=== PATIENT | female | born 1935 | race Caucasian/White ===

== ENCOUNTER 2017-10-02 14:16 | Inpatient (IN) | payer MEDICARE ==
--- NOTE | 2017-10-02 15:06 | RAD ---
1 VIEW CHEST: Date: 10/02/17 HISTORY: Chest pain and flu-like symptoms. COMPARISON: 05/20/17. FINDINGS: Portable upright chest demonstrates a normal cardiac silhouette. Pulmonary vessels are within normal limits. Right costophrenic angle is clear. Chronic blunting of left costophrenic angle. No consolidat ion or masses. Patchy interstitial opacities are noted. No pneumothorax or osseous abnormalities. IMPRESSION: Patchy interstitial opacities. Correlate for edema or infiltrate. Continued surveillance. POS: [facility]
[2017-10-02 15:43] LABS: #Eosinphils 0.1 thou/uL (0.0-0.7); #Lymphocytes 1.9 thou/uL (1.20-3.40); #Monocytes 0.4 thou/uL (0.11-0.59); #Neutrophils 7.1 thou/uL (1.40-6.50); %Basophils 0.2 % (0.0-1.0); %Lymphocytes 19.8 % (21.0-51.0); Hemoglobin 10.6 g/dL (12.0-16.0); Mean Corpuscular HGB CONC 32.5 g/dL (32.0-36.0); Mean Corpuscular Hemoglobin 28.8 pg (27.0-31.0); Mean Corpuscular Volume 88.6 fl (81.0-99.0); Mean Platelet Volume 7.7 fL (7.4-10.4); Platelet Count 255 thou/uL (130-400); RBC Distribution Width 12.3 % (11.5-14.5); White Blood Cell (WBC) Count 9.4 thou/uL (4.8-10.8)
[2017-10-02 15:50] LABS: Prothrombin Time 13.1 SEC (12.0-14.7)
[2017-10-02 15:51] LABS: PTT 30.3 SEC (22.9-36.1)
[2017-10-02 16:03] LABS: ALT (SGPT) 11 U/L (8-55); AST (SGOT) 15 U/L (5-34); Albumin 3.3 g/dL (3.4-4.8); Alkaline Phosphatase 71 U/L (40-150); Anion Gap 12 mmol/L (10-20); BUN (Urea Nitrogen) 36 mg/dL (9.8-20.1); Bilirubin, Total 0.2 mg/dL (0.2-1.2); CK (CPK) 43 U/L (29-168); Calc. Creatinine Clearance 0 mL/min (70-130); Calcium 9.8 mg/dL (7.8-10.44); Carbon Dioxide 28 mmol/L (23-31); Chloride 101 mmol/L (98-107); Estimated GFR-MDRD 21; Globulin 3.3 g/dL (2.4-3.5); Glucose 331 mg/dL (83-110); Lipase 72 U/L (8-78); Protein, Total 6.6 g/dL (6.0-8.3); Sodium 137 mmol/L (136-145)
[2017-10-02 16:07] LABS: CKMB 1.9 ng/mL (0-6.6); Troponin I 0.062 ng/mL (< 0.028)
[2017-10-02] MEDS ORDERED: Furosemide 40 MG/4 ML VIAL ONE (16:16)
[2017-10-02] MEDS ORDERED: Nitroglycerin 2% Ointment 1 INCH/1 GM Packet ONE (16:16)
[2017-10-02] MEDS ORDERED: Acetaminophen 500 MG TAB ONE (18:00)
[2017-10-02 19:09] LABS: Troponin I 0.141 ng/mL (< 0.028)
[2017-10-02 22:13] LABS: Troponin I 0.133 ng/mL (< 0.028)
[2017-10-02] MEDS ORDERED: Metoprolol Tartrate 100 MG TAB PO SCH (22:30)
[2017-10-02] MEDS: Melatonin 3 MG TAB PO PRN (22:51)
[2017-10-02] MEDS: Acetaminophen 325 MG TAB PO PRN (22:51)
[2017-10-02] MEDS: Nitroglycerin 2% Ointment 1 INCH/1 GM Packet TOP SCH (22:58)
[2017-10-03] MEDS: Carvedilol 3.125 MG TAB PO SCH ×3 (00:01→11:08)
[2017-10-03 00:07] VITALS: BMI 27.1
[2017-10-03] MEDS: Nitroglycerin 2% Ointment 1 INCH/1 GM Packet TOP SCH ×3 (02:34→20:21)
--- NOTE | 2017-10-03 03:46 | HP ---
CHIEF COMPLAINT: Chest pain. HISTORY OF PRESENT ILLNESS: She is an 81-year-old woman who is a resident of a intermediate. She came in because of some chest pain, shortness of breath, palpitations, and left arm pain. The onset of the chest pain was sudden and the patient ate the food and went to lie down for a nap and caused the chest pain and the left arm pain. The pain was a dull ache and lasted for 30 minutes. The patient denies any chest congestion, any fever, any nausea or vomiting. Daughter reports her chest pain was one month ago and she is to have angioplasty in the past. CURRENT MEDICATION: She is taking Fosamax 70 mg. PAST MEDICAL HISTORY: Hypertension, diabetes, heart failure, mitral valve regurgitation, chronic kidney disease. PAST SURGICAL HISTORY: Angioplasty, back surgery. PSYCHIATRIC HISTORY: Depression. SOCIAL HISTORY: Denies any drug use or alcohol use. No smoking. In the ER, she was given Lasix 40 mg IV and nitro paste ointment. REVIEW OF SYSTEMS: Constitutional: Negative for fever or chills. Eyes: Negative for any eye ache and discharge. ENT: Negative for ear, nose, throat symptoms. Cardiovascular: She has chest pain, radiation to the left arm and palpitation. Respiratory: She denies any cough. She has some shortness of breath. No cough. Gastrointestinal: No nausea, no vomiting, no diarrhea. Musculoskeletal: No back pain. Skin: No rash. Neurologic: No loss of consciousness. Endocrine: No polyuria, no polydipsia. Hematologic/Lymphatic: No lymphadenopathy and no anemia. Psychiatric: Negative history. All other review of systems is negative except in the HPI. PHYSICAL EXAMINATION: GENERAL: When examining her, she is an elderly woman, looks younger than age, lying in the bed in distress. On examination, she is alert, oriented. VITAL SIGNS: Pulse 102, blood pressure 167/93, respiration rate 18, temperature 99.4. HEENT: Head is atraumatic and normocephalic. Pupils are round and reactive. Ear, nose, and throat are normal. tongue mucosa moist. NECK: Supple, no JVD, no thyromegaly, no carotid bruit. Trachea midline. RESPIRATORY: Diminished breaths on the bases. No crackles, no wheezing, no rales. Chest wall, no tenderness noted. ABDOMEN: Soft, bowel sounds audible, no organomegaly. EXTREMITIES: No pedal edema, no cyanosis, no clubbing. NEUROLOGICAL: She is alert x3, no focal deficit. LABORATORY DATA: EKG shows normal sinus rhythm, no ectopics, complete LBBB, old. Radiology, chest x-ray shows some edema, no infiltrate. WBC shows 9.4, hemoglobin 10.6, hematocrit 32.8, platelets 55. Flu test negative. BNP 369.57. Troponin 0.062, high. Lipase 72. CK 42. Creatinine 2.26, BUN 36, glucose 331, albumin 3.3. ASSESSMENT AND PLAN: 1. Chest pain with a history of slightly elevated troponin. We will rule out myocardial infarction by serial CK, troponin, echocardiogram, cardiac consultation. 2. Heart failure with high BNP. Continue IV Lasix 40 mg twice daily and follow closely. Fluid restrictions. 3. Chronic kidney disease stage 4, old. Continue to follow. Monitor. 4. Deep venous thrombosis prophylaxis, Lovenox. MTDD
[2017-10-03 05:39] LABS: Cardiac Risk 3.5 (Less than 4.5)
[2017-10-03 06:24] LABS: Troponin I 0.114 ng/mL (< 0.028)
--- NOTE | 2017-10-03 08:19 | CON ---
DATE OF CONSULTATION: 10/03/2017 REASON FOR CONSULTATION: Chest pain. PRIMARY SAW SETTER: None. PRIMARY PROVIDER: Dr. Jain HISTORY: Ms. Mitchell is an 81-year-old woman who was in her normal state of health while in assisted living who states she began having chest tightness. She had left arm radiation and shortness of peter th. No nausea, vomiting or other associated symptoms present. She does have a history of a PTCA onl y 40 years ago. She does not remember her symptoms at that time. Her current symptoms are currently resolved. Troponins within the indeterminate range, but also elevated creatinine which was felt to be new at 2.26. PAST MEDICAL HISTORY: CAD, hypertension, diabetes mellitus, chronic kidney disease. PTCA, back surgery, depression. SOCIAL HISTORY: No current alcohol or tobacco use. She currently resides in an assisted living. CURRENT MEDICATIONS: Only Fosamax. REVIEW OF SYSTEMS: Ten point review of systems is reviewed and is as above, negative. PHYSICAL EXAMINATION: VITAL SIGNS: Blood pressure 164/76, pulse 75, temperature 98.5. GENERAL: Patient is a pleasant female who is in no acute distress. The patient appears her stated ag e. NEUROLOGIC: The patient is alert and oriented times 3 with no focal neurologic deficits. HEENT: Sclerae without icterus. Mouth has moist mucous membranes with normal pallor. NECK: No JVD. Carotid upstroke brisk. No bruits bilaterally. LUNGS: Clear to auscultation with unlabored respirations. BACK: No scoliosis or kyphosis. CARDIAC: Regular rate and rhythm with normal S1 and S2. No S3 or S4 noted. No significant rubs, mur murs, thrills, or gallops noted throughout the precordium. PMI is not displaced. There is no parast ernal heave. ABDOMEN: Soft, nontender, nondistended. No peritoneal signs present. No hepatosplenomegaly. No abn ormal striae. EXTREMITIES: 2+ femoral and 2+ dorsalis pedis pulses. No cyanosis, clubbing, or edema. SKIN: No gross abnormalities. PERTINENT LABS: Peak troponin 0.153. Hemoglobin 10.6. EKG, left bundle branch block (old). IMPRESSION: 1. Chest pain. 2. Coronary artery disease. 3. Status post stent placement and PTCA. 4. Chronic left bundle branch block. 5. Acute renal insufficiency. RECOMMENDATIONS: Her symptoms certainly suggest angina. Given her age and comorbidities, would joey mmend a more conservative approach. She is currently pain free. Would recommend a noninvasive stres s study to assess for any areas of ischemia. If felt to be low risk, would then recommend medical th erapy. If felt to be high risk scan, would then recommend angiography. She does have an iodine beka rgy and would recommend preloading with contrast. Further recommendations pending the study.
[2017-10-03] MEDS: Acetaminophen 325 MG TAB PO PRN (11:05)
[2017-10-03] MEDS: Aspirin 325 MG TAB PO SCH (11:06)
[2017-10-03] MEDS: Metoprolol Tartrate 100 MG TAB PO SCH ×2 (11:06→20:21)
--- NOTE | 2017-10-03 13:05 | NM ---
CARDIAC SPECT: HISTORY: An 81-year-old female with chest pain, coronary artery disease, PTCA/stent, hypertension, and diabete s mellitus. TECHNIQUE: A myocardial perfusion scan was performed using the single isotope one-day protocol with technetium 9 9m sestamibi, and 10 millicuries was injected intravenously for the rest exam, followed by 33 millicu laine for the stress study. Pharmacologic stress with Lexiscan was monitored and interpreted by Dr. Brooke alcocer. FINDINGS: No fixed or reversible defects were seen. Gated SPECT LVEF was 41%. Wall motion exam showed global hypokinesis IMPRESSION: No evidence of reversible ischemia. POS: [facility]
[2017-10-03] MEDS: Enoxaparin Sodium 40 MG/0.4 ML SYRINGE SC SCH (14:08)
--- NOTE | 2017-10-03 14:32 | PDOC.PN ---
- Subjective Encounter Start Date: 10/03/17 Encounter Start Time: 14:31 Subjective: Pt seen and examined for NSTEMI, CHF -: Pt c/o sob went to nuclear stress test -: pt denies any CP - Objective MAR Reviewed: Yes Vital Signs & Weight: Vital Signs (12 hours) Temp Pulse Resp BP BP Pulse Ox 10/03/17 14:10 73 15 144/67 H 92 L 10/03/17 12:52 68 175/78 H 10/03/17 11:00 97.3 F L 102 H 16 185/79 H 94 L 10/03/17 08:00 98.5 F 75 18 10/03/17 07:20 97.4 F L 73 16 176/79 H 97 10/03/17 03:07 98.5 F 75 18 164/76 H 95 Weight Weight 139 lb I&O: 10/02/17 10/03/17 10/04/17 06:59 06:59 06:59 Intake Total 110 240 Output Total 250 Balance -140 240 Result Diagrams: 10/02/17 15:29 10/02/17 15:28 Additional Labs: Accuchecks 10/03/17 10/03/17 10/02/17 11:08 06:17 19:46 POC Glucose 168 H 116 H 233 H Phys Exam - Physical Examination HEENT: PERRLA, moist MMs, sclera anicteric, TM's clear, oral pharynx no lesions , 2+ tonsils Neck: no nodes, no JVD, supple, full ROM Respiratory: no wheezing, no rhonchi, wheezing present Rales B/L Cardiovascular: RRR, no significant murmur, no rub, gallop, irregular Musculoskeletal: edema present plus 2 Lymphatic: no nodes Psychiatric: normal affect Dx/Plan (1) NSTEMI (non-ST elevated myocardial infarction) Code(s): I21.4 - NON-ST ELEVATION (NSTEMI) MYOCARDIAL INFARCTION Status: Acute (2) CHF (congestive heart failure), NYHA class III Code(s): I50.9 - HEART FAILURE, UNSPECIFIED Status: Acute (3) Chest pain Code(s): R07.9 - CHEST PAIN, UNSPECIFIED Status: Acute (4) HTN (hypertension) Code(s): I10 - ESSENTIAL (PRIMARY) HYPERTENSION Status: Acute - Plan Continue IV Lasix 40mg BID -: Fluid Restriction -: Daily weight -: NSTEMI, Aspirin, Metoprolol -: Change to Inpatient * . Review of Systems - Medications/Allergies Allergies/Adverse Reactions: Allergies Allergy/AdvReac Type Severity Reaction Status Date / Time hydrocodone Allergy Verified 05/20/17 20:58 Iodine and Iodide Containing Allergy Verified 05/20/17 20:58 Produc onion Allergy Verified 10/03/17 00:06 Medications: Current Medications Acetaminophen (Tylenol) 650 mg PO Q4H PRN PRN Reason: PAIN/FEVER Last Admin: 10/03/17 11:05 Dose: 650 mg Aspirin (Aspirin) 325 mg PO DAILY COUNT INCLUDES THE [facility] Last Admin: 10/03/17 11:06 Dose: 325 mg Enoxaparin Sodium (Lovenox) 40 mg SC 0900 COUNT INCLUDES THE [facility] Last Admin: 10/03/17 14:08 Dose: 40 mg Furosemide (Lasix) 40 mg SLOW IVP 0600,1400 COUNT INCLUDES THE [facility] Melatonin (Melatonin) 9 mg PO HSPRN PRN PRN Reason: Insomnia Last Admin: 10/02/17 22:51 Dose: 9 mg Metoprolol Tartrate (Lopressor) 100 mg PO BID COUNT INCLUDES THE [facility] Last Admin: 10/03/17 11:06 Dose: 100 mg Nitroglycerin (Nitro-Bid 2% Ointment) 0.5 inch TOP Q8HR COUNT INCLUDES THE [facility] Last Admin: 10/03/17 14:08 Dose: 0.5 inch Sodium Chloride (Flush - Normal Saline) 10 ml IVF Q12HR COUNT INCLUDES THE [facility] Last Admin: 10/03/17 11:07 Dose: 10 ml
[2017-10-03] MEDS ORDERED: Furosemide 20 MG/2 ML VIAL SLOW IVP SCH (15:15)
[2017-10-03] MEDS ORDERED: Regadenoson 0.4 MG/5 ML SYRINGE ONE (15:29)
[2017-10-03] MEDS: Melatonin 3 MG TAB PO PRN (20:20)
[2017-10-03] MEDS ORDERED: Dextrose 5% in Water 1,000 ML IV PRN (20:44)
[2017-10-03] MEDS ORDERED: Dextrose 50% Abboject 50 ML SYRINGE IVP PRN (20:44)
[2017-10-03] MEDS: HumaLOG 300 UNITS/3 ML VIAL SC PRN (22:01)
[2017-10-04] MEDS ORDERED: Furosemide 40 MG/4 ML VIAL SLOW IVP SCH (06:00)
[2017-10-04] MEDS: Nitroglycerin 2% Ointment 1 INCH/1 GM Packet TOP SCH ×3 (06:03→20:41)
[2017-10-04] MEDS: Metoprolol Tartrate 100 MG TAB PO SCH ×2 (08:33→20:30)
[2017-10-04] MEDS: Aspirin 325 MG TAB PO SCH (08:33)
[2017-10-04] MEDS: Enoxaparin Sodium 40 MG/0.4 ML SYRINGE SC SCH (08:34)
[2017-10-04 11:41] LABS: Anion Gap 13 mmol/L (10-20); BUN (Urea Nitrogen) 39 mg/dL (9.8-20.1); Calc. Creatinine Clearance 20 mL/min (70-130); Calcium 9.9 mg/dL (7.8-10.44); Carbon Dioxide 29 mmol/L (23-31); Chloride 102 mmol/L (98-107); Estimated GFR-MDRD 22; Glucose 273 mg/dL (83-110); Potassium 4.5 mmol/L (3.5-5.1); Sodium 139 mmol/L (136-145)
--- NOTE | 2017-10-04 12:52 | PQF ---
CLINICAL DOCUMENTATION IMPROVEMENT CLARIFICATION FORM: ICD-10 Updated PLEASE DO AN ADDENDUM TO THE PROGRESS NOTE WITH ANY DOCUMENTATION UPDATES OR ADDITIONS AND CARRY THROUGH TO DC SUMMARY. THANK YOU. DATE: 10/04/17 ATTN: DR. WOODS Please exercise your independent, professional judgment in responding to the clarification form. Clinical indicators are provided on the bottom of this form for your review Please check appropriate box(s): HEART FAILURE: A.TYPE: [ ] Systolic / HFrEF [ ] Diastolic / HFpEF [ ] Combined Systolic / Diastolic B.ACUITY [ ] Acute[ ] Acute on Chronic [ ] Chronic C.WITH (if appropriate) [ ] Hypertensive Heart Disease[ ] Hypertensive Heart and Kidney Disease [ ] Other diagnosis [ ] Unable to determine In addition, please specify: Present on Admission (POA): [ ] Yes [ ] No [ ] Unable to determine For continuity of documentation, please document condition throughout progress notes and discharge summary. Thank You. CLINICAL INDICATORS - SIGNS / SYMPTOMS / LABS H&P 10/02: "HEART FAILURE WITH HIGH BNP" ECHO REPORT: "EJECTION FRACTION IS VISUALLY ESTIMATED AT 45%. ABNORMAL SEPTAL MOTION SECONDARY TO LBBB. E/A FLOW REVERSAL NOTED. SUGGESTIVE OF DIASTOLIC DYSFUNCTION." BNP 367 RISKS: H/O HEART FAILURE HYPERTENSION TREATMENT: IV LASIX (GIVEN IN ER-10/04) COREG (10/02-10/03) ECHOCARDIOGRAM TELEMETRY MONITORING CARDIOLOGY CONSULT (This form is maintained as a part of the permanent medical record) 2014 [employer]. All Rights Reserved PEYTON [email or web address] Office: [phone] [facility]
--- NOTE | 2017-10-04 13:25 | PDOC.PN ---
- Subjective Encounter Start Date: 10/04/17 Encounter Start Time: 13:24 Subjective: Pt seen and examined for Acute systolic HF, HTN, ANGELA on CKD -: pt feels better, denies any CP,urine output adequate - Objective MAR Reviewed: Yes Vital Signs & Weight: Vital Signs (12 hours) Temp Pulse Resp BP BP Pulse Ox 10/04/17 11:15 97.5 F L 70 16 177/78 H 95 10/04/17 08:00 97.8 F 81 16 184/81 H 96 10/04/17 06:01 76 16 167/72 H 95 10/04/17 04:00 98.4 F 82 13 179/84 H 97 10/04/17 03:01 97 Weight Weight 131 lb 8 oz I&O: 10/03/17 10/04/17 10/05/17 06:59 06:59 06:59 Intake Total 740 Output Total 1600 Balance -860 Result Diagrams: 10/02/17 15:29 10/04/17 11:14 Additional Labs: Accuchecks 10/04/17 10/04/17 10/03/17 11:25 06:17 20:04 POC Glucose 253 H 170 H 321 H 10/03/17 16:40 POC Glucose 149 H Radiology Reviewed by me: Yes Phys Exam - Physical Examination HEENT: PERRLA, moist MMs, sclera anicteric, TM's clear, oral pharynx no lesions , 2+ tonsils Neck: no nodes, no JVD, supple, full ROM Respiratory: no wheezing, no rales, no rhonchi, wheezing present, clear to auscultation bilateral Cardiovascular: RRR, no significant murmur, no rub, gallop, irregular Gastrointestinal: soft, non-tender, no distention, positive bowel sounds Musculoskeletal: edema present Neurological: non-focal, normal sensation, moves all 4 limbs Dx/Plan (1) NSTEMI (non-ST elevated myocardial infarction) Code(s): I21.4 - NON-ST ELEVATION (NSTEMI) MYOCARDIAL INFARCTION Status: Acute (2) CHF (congestive heart failure), NYHA class III Code(s): I50.9 - HEART FAILURE, UNSPECIFIED Status: Acute Qualifiers: Congestive heart failure chronicity: acute (3) Chest pain Code(s): R07.9 - CHEST PAIN, UNSPECIFIED Status: Acute (4) HTN (hypertension) Code(s): I10 - ESSENTIAL (PRIMARY) HYPERTENSION Status: Acute - Plan cont current plan of care, plan discussed w/ family, PT/OT 1) Chest pain, MO is ruled out, Negative nuclear stress test -: 2) Acute CHF with EF 45 %, continue Lasix and Lopressor -: 3) ANGELA on CKD stage 3, Nephrology consulted -: 4) Type 2 DM, continue sliding scale -: 5) DVT Prophylaxis ,Lovenox * . Review of Systems - Review of Systems Cardiovascular: negative: chest pain, palpitations, orthopnea, paroxysmal nocturnal dyspnea, edema, light headedness, other Gastrointestinal: negative: Nausea, Vomiting, Abdominal Pain, Diarrhea, Constipation, Melena, Hematochezia, Other Genitourinary: negative: Dysuria, Frequency, Incontinence, Hematuria, Retention , Other Musculoskeletal: negative: Neck Pain, Shoulder Pain, Arm Pain, Back Pain, Hand Pain, Leg Pain, Foot Pain, Other Skin: negative: Rash, Lesions, Hernesto, Bruising, Other Neurological: negative: Weakness, Numbness, Incoordination, Change in Speech, Confusion, Seizures, Other - Medications/Allergies Allergies/Adverse Reactions: Allergies Allergy/AdvReac Type Severity Reaction Status Date / Time hydrocodone Allergy Verified 05/20/17 20:58 Iodine and Iodide Containing Allergy Verified 05/20/17 20:58 Produc onion Allergy Verified 10/03/17 00:06 Medications: Current Medications Acetaminophen (Tylenol) 650 mg PO Q4H PRN PRN Reason: PAIN/FEVER Last Admin: 10/03/17 11:05 Dose: 650 mg Amlodipine Besylate (Norvasc) 2.5 mg PO DAILY [facility] Aspirin (Aspirin) 325 mg PO DAILY [facility] Last Admin: 10/04/17 08:33 Dose: 325 mg Dextrose/Water (Dextrose 50%) 25 gm IVP PRN PRN PRN Reason: HYPOGLYCEMIA PROTOCOL Enoxaparin Sodium (Lovenox) 40 mg SC 0900 [facility] Last Admin: 10/04/17 08:34 Dose: 40 mg Glucagon (Glucagon) 1 mg IM PRN PRN PRN Reason: HYPOGLYCEMIA PROTOCOL Dextrose/Water (D5w) 1,000 mls @ 0 mls/hr IV INF PRN; As Directed PRN Reason: HYPOGLYCEMIA PROTOCOL Insulin Human Lispro (Humalog) 0 units SC .MODERATE SLIDING SC PRN; Protocol PRN Reason: MODERATE SLIDING SCALE Insulin Human Lispro (Humalog) 0 units SC .BEDTIME SLIDING SC PRN; Protocol PRN Reason: BEDTIME SLIDING SCALE Last Admin: 10/03/17 22:01 Dose: 4 unit Melatonin (Melatonin) 9 mg PO HSPRN PRN PRN Reason: Insomnia Last Admin: 10/03/17 20:20 Dose: 9 mg Metoprolol Tartrate (Lopressor) 100 mg PO BID [facility] Last Admin: 10/04/17 08:33 Dose: 100 mg Nitroglycerin (Nitro-Bid 2% Ointment) 0.5 inch TOP Q8HR [facility] Last Admin: 10/04/17 06:03 Dose: 0.5 inch Sodium Chloride (Flush - Normal Saline) 10 ml IVF Q12HR [facility] Last Admin: 10/04/17 08:34 Dose: 10 ml
[2017-10-04] MEDS ORDERED: Amlodipine 5 MG TAB PO SCH (14:00)
--- NOTE | 2017-10-04 14:11 | PRG ---
DATE OF SERVICE: 10/04/2017 SUBJECTIVE: Ms. Mitchell is feeling better today. She received 1 dose of Lasix yesterday. Her shortn ess of breath has improved. Her creatinine has remained stable. PHYSICAL EXAMINATION: VITAL SIGNS: Blood pressure 177/78, pulse 70, temperature 97.5. LUNGS: Clear to auscultation. CARDIAC: Regular rate and rhythm. ABDOMEN: Soft, nontender. EXTREMITIES: No edema. IMAGING DATA: Cardiolite perfusion study negative for ischemia with LVEF 41%. Echo with Doppler shows LVEF 40%-45% with dyskinesis of the septum from her left bundle branch block. IMPRESSION: 1. Acute on chronic systolic heart failure. 2. Shortness of breath. 3. Hypertension. RECOMMENDATIONS: Mr. Mitchell' symptoms have improved. At this point, her issue is her blood pressure . She is currently on amlodipine 2.5 q.a.m. We will increase to 5 mg q.a.m. We will discontinue he r aspirin which may cause some salt retention. Continue metoprolol. Otherwise, CHRISTOPHER inhibitor therap y or ARB due to renal insufficiency. Once her blood pressure is stabilized, it would be okay from my standpoint to discharge home. She wo uld likely follow her up as an outpatient. We will follow up in 1-2 weeks.
[2017-10-04] MEDS: HumaLOG 300 UNITS/3 ML VIAL SC PRN ×2 (16:11→20:45)
[2017-10-04] MEDS: Melatonin 3 MG TAB PO PRN (20:30)
[2017-10-04] MEDS: Acetaminophen 325 MG TAB PO PRN (20:43)
--- NOTE | 2017-10-04 20:55 | ULT ---
RENAL ULTRASOUND: 10/04/17 HISTORY: Renal insufficiency. Real time imaging of the right and left kidneys were performed. Right kidney measures 9.2 and left ki dney 9.0 cm in size. Both kidneys are of increased echogenicity. The bladder region is unremarkable. IMPRESSION: 1. Increased echogenicity to both kidneys compatible with medical renal parenchymal disease. 2. Incidental note is made of a small 1 cm left renal cyst. POS: [facility]
[2017-10-05 03:34] LABS: Creatinine, Urine 83.71 mg/dL (47-110)
[2017-10-05 05:56] LABS: Anion Gap 13 mmol/L (10-20); BUN (Urea Nitrogen) 44 mg/dL (9.8-20.1); Calc. Creatinine Clearance 17 mL/min (70-130); Calcium 9.7 mg/dL (7.8-10.44); Carbon Dioxide 27 mmol/L (23-31); Chloride 103 mmol/L (98-107); Estimated GFR-MDRD 19; Glucose 234 mg/dL (83-110); Potassium 4.5 mmol/L (3.5-5.1); Sodium 138 mmol/L (136-145)
[2017-10-05] MEDS: Nitroglycerin 2% Ointment 1 INCH/1 GM Packet TOP SCH ×3 (05:59→20:06)
--- NOTE | 2017-10-05 06:20 | CON ---
DATE OF CONSULTATION: 10/04/2017 CONSULTING PHYSICIAN: Dr. Jain REASON FOR CONSULTATION: Acute kidney injury. REASON FOR ADMISSION: Chest pain. HISTORY OF PRESENT ILLNESS: This is an 81-year-old female with history of osteoporosis, came to the hospital with above complaints and Nephrology is calling also for acute kidney injury. Patient does have a baseline creatinine of 1.6 and was found to have 2.2, and then 2.1. Patient was on Lasix whic h was stopped. The patient is feeling better, no fever or chills. Her daughter was at the bedside. No nausea, vomiting, no chest pain, palpitation. PAST MEDICAL HISTORY: Positive for hypertension, type 2 diabetes, heart failure, mitral valve regurg itation, chronic kidney disease. PAST SURGICAL HISTORY: Angioplasty, back surgery. HOME MEDICATIONS: Include Trulicity, Zoloft, Prilosec, Lopressor, loperamide, furosemide, vitamin D3 , aspirin, Norvasc, Fosamax. ALLERGIES: HYDROCODONE, IODINE and ONION. SOCIAL HISTORY: No smoking, alcohol or illicit drug abuse. FAMILY HISTORY: No history of any kidney disease. REVIEW OF SYSTEMS: The following complete review of systems was negative, unless otherwise mentioned in the HPI or below: Constitutional: Weight loss or gain, ability to conduct usual activities. Skin: Rash, itching. Ey es: Double vision, pain. ENT/Mouth: Nose bleeding, neck stiffness, pain, tenderness. Cardiovascul ar: Palpitations, dyspnea on exertion, orthopnea. Respiratory: Shortness of breath, wheezing, coug h, hemoptysis, fever or night sweats. Gastrointestinal: Poor appetite, abdominal pain, heartburn, n ausea, vomiting, constipation, or diarrhea. Genitourinary: Urgency, frequency, dysuria, nocturia. Musculoskeletal: Pain, swelling. Neurologic/Psychiatric: Anxiety, depression. Allergy/Immunologic : Skin rash, bleeding tendency. PHYSICAL EXAMINATION: GENERAL: This is an elderly female in no apparent distress. VITAL SIGNS: Temperature 98.4, pulse 732, respiratory rate 18, blood pressure 162/72. HEENT: Atraumatic, normocephalic. Oral mucosa is moist. NECK: Supple. HEART: S1, S2 heard. Rate and rhythm regular. RESPIRATORY: Clear. GASTROINTESTINAL: Abdomen is soft. MUSCULOSKELETAL: No tenderness, no edema. DERMATOLOGIC: No skin rash. NEUROLOGIC: Alert and awake. PSYCHIATRIC: Mood and affect normal. LABORATORY AND X-RAY FINDINGS: Creatinine is 2.1, hemoglobin is 10.6. ASSESSMENT AND PLAN: 1. Acute kidney injury on chronic kidney disease stage IV. Monitor renal function closely. 2. Anemia, mild. 3. Edema, controlled. 4. Hypertension. Plan is to check urine protein/creatinine ratio and check chronic kidney disease labs. We will follo w and also check renal ultrasound.
[2017-10-05] MEDS: Metoprolol Tartrate 100 MG TAB PO SCH ×2 (08:40→20:05)
[2017-10-05] MEDS: Enoxaparin Sodium 30 MG/0.3 ML SYRINGE SC SCH (08:40)
[2017-10-05] MEDS: HumaLOG 300 UNITS/3 ML VIAL SC PRN ×3 (08:41→17:47)
[2017-10-05] MEDS ORDERED: Amlodipine 5 MG TAB PO SCH ×2 (09:00)
--- NOTE | 2017-10-05 10:00 | PRG ---
DATE OF SERVICE: 10/05/2017 SUBJECTIVE: Patient was seen and examined at bedside and overnight events noted. Patient denies any shortness of breath or chest pain or palpitation. No history of nausea or vomiting or diarrhea or f ever or chills or cramps. OBJECTIVE: GENERAL: This is an elderly female in no apparent distress. VITAL SIGNS: Temperature 97.9, pulse 74, respiratory rate 16, and blood pressure 159/70. HEENT: Atraumatic, normocephalic. Oral mucosa is moist. NECK: Supple. CARDIOVASCULAR: S1, S2 heard. Rate and rhythm regular. RESPIRATORY: Clear to auscultation. GASTROINTESTINAL: Abdomen is soft. MUSCULOSKELETAL: No tenderness. No edema. DERMATOLOGIC: No skin rash. NEUROLOGIC: Alert and awake and oriented x3. No focal neurologic deficits. Moving all the extremiti es. PSYCHIATRIC: Mood and affect normal. LABORATORY DATA: Potassium is 4.5, BUN 44, creatinine is 2.4. ASSESSMENT AND PLAN: 1. Acute kidney injury on chronic kidney disease stage 4, most likely patient does have chronic kidn ey disease. Glomerular filtration rate is low. 2. Renal ultrasound suggests chronicity. 3. Secondary hyperparathyroidism. 4. Vitamin deficiency. We will start on vitamin D and calcium level is stable. 5. Anemia, most likely from chronic kidney disease. 6. Edema, controlled. 7. Hypertension. 8. Diabetic nephropathy. 9. Proteinuria, most likely from diabetic nephropathy. Plan is to monitor renal function closely. We will follow. Thank you for the consultation.
--- NOTE | 2017-10-05 13:10 | PDOC.PN ---
- Subjective Encounter Start Date: 10/05/17 Encounter Start Time: 13:08 Subjective: Pt seen and examined -: BP still Elevated, Kidney functions slightly worsening -: denies any complain - Objective Vital Signs & Weight: Vital Signs (12 hours) Temp Pulse Pulse Pulse Resp BP BP 10/05/17 11:56 98.6 F 62 16 10/05/17 09:30 62 65 145/62 H 10/05/17 09:00 97.9 F 74 16 10/05/17 08:39 74 159/70 H 10/05/17 08:36 97.9 F 74 16 10/05/17 08:15 10/05/17 05:57 72 20 10/05/17 04:13 10/05/17 04:00 97.2 F L 67 13 BP BP BP BP Pulse Ox 10/05/17 11:56 173/81 H 97 10/05/17 09:30 185/79 H 10/05/17 09:00 95 10/05/17 08:39 10/05/17 08:36 159/70 H 95 10/05/17 08:15 94 L 10/05/17 05:57 143/65 H 94 L 10/05/17 04:13 93 L 10/05/17 04:00 143/66 H 93 L Weight Weight 132 lb 4.8 oz I&O: 10/04/17 10/05/17 10/06/17 06:59 06:59 06:59 Intake Total 740 860 Output Total 1600 1100 Balance -860 -240 Result Diagrams: 10/02/17 15:29 10/05/17 04:26 Additional Labs: Accuchecks 10/05/17 10/05/17 10/04/17 10:58 05:52 19:54 POC Glucose 198 H 257 H 334 H 10/04/17 16:10 POC Glucose 251 H Phys Exam - Physical Examination HEENT: PERRLA, moist MMs, sclera anicteric, TM's clear, oral pharynx no lesions , 2+ tonsils Neck: no nodes, no JVD, supple, full ROM Respiratory: no wheezing, no rales, no rhonchi, wheezing present, clear to auscultation bilateral Cardiovascular: RRR, no significant murmur, no rub, gallop, irregular Gastrointestinal: soft, non-tender, no distention, positive bowel sounds Musculoskeletal: no edema, pulses present, edema present Neurological: non-focal, normal sensation, moves all 4 limbs Dx/Plan (1) NSTEMI (non-ST elevated myocardial infarction) Code(s): I21.4 - NON-ST ELEVATION (NSTEMI) MYOCARDIAL INFARCTION Status: Acute (2) CHF (congestive heart failure), NYHA class III Code(s): I50.9 - HEART FAILURE, UNSPECIFIED Status: Acute Qualifiers: Congestive heart failure chronicity: acute (3) Chest pain Code(s): R07.9 - CHEST PAIN, UNSPECIFIED Status: Acute (4) HTN (hypertension) Code(s): I10 - ESSENTIAL (PRIMARY) HYPERTENSION Status: Acute - Plan DVT proph w/lovenox Acute CHF with EF 45%, Negative stress test -: Holding Diuretics because of worsening kidney functions -: HTN, not well controlled, increased amlodipine to 5 mg -: PT consulted * . Review of Systems - Medications/Allergies Allergies/Adverse Reactions: Allergies Allergy/AdvReac Type Severity Reaction Status Date / Time hydrocodone Allergy Verified 05/20/17 20:58 Iodine and Iodide Containing Allergy Verified 05/20/17 20:58 Produc onion Allergy Verified 10/03/17 00:06 Medications: Current Medications Acetaminophen (Tylenol) 650 mg PO Q4H PRN PRN Reason: PAIN/FEVER Last Admin: 10/04/17 20:43 Dose: 650 mg Amlodipine Besylate (Norvasc) 5 mg PO DAILY [facility] Last Admin: 10/05/17 08:39 Dose: 5 mg Cholecalciferol (Vitamin D3) 2,000 units PO DAILY [facility] Dextrose/Water (Dextrose 50%) 25 gm IVP PRN PRN PRN Reason: HYPOGLYCEMIA PROTOCOL Enoxaparin Sodium (Lovenox) 30 mg SC 0900 [facility] Last Admin: 10/05/17 08:40 Dose: 30 mg Glucagon (Glucagon) 1 mg IM PRN PRN PRN Reason: HYPOGLYCEMIA PROTOCOL Dextrose/Water (D5w) 1,000 mls @ 0 mls/hr IV INF PRN; As Directed PRN Reason: HYPOGLYCEMIA PROTOCOL Insulin Human Lispro (Humalog) 0 units SC .MODERATE SLIDING SC PRN; Protocol PRN Reason: MODERATE SLIDING SCALE Last Admin: 10/05/17 12:17 Dose: 2 unit Insulin Human Lispro (Humalog) 0 units SC .BEDTIME SLIDING SC PRN; Protocol PRN Reason: BEDTIME SLIDING SCALE Last Admin: 10/04/17 20:45 Dose: 4 unit Melatonin (Melatonin) 9 mg PO HSPRN PRN PRN Reason: Insomnia Last Admin: 10/04/17 20:30 Dose: 9 mg Metoprolol Tartrate (Lopressor) 100 mg PO BID [facility] Last Admin: 10/05/17 08:40 Dose: 100 mg Nitroglycerin (Nitro-Bid 2% Ointment) 0.5 inch TOP Q8HR [facility] Last Admin: 10/05/17 05:59 Dose: 0.5 inch Sodium Chloride (Flush - Normal Saline) 10 ml IVF Q12HR [facility] Last Admin: 10/05/17 08:41 Dose: 10 ml
[2017-10-06] MEDS: Nitroglycerin 2% Ointment 1 INCH/1 GM Packet TOP SCH (05:22)
[2017-10-06] MEDS: Acetaminophen 325 MG TAB PO PRN ×2 (05:26→11:35)
[2017-10-06 05:37] LABS: Anion Gap 12 mmol/L (10-20); BUN (Urea Nitrogen) 43 mg/dL (9.8-20.1); Calc. Creatinine Clearance 20 mL/min (70-130); Calcium 9.5 mg/dL (7.8-10.44); Carbon Dioxide 28 mmol/L (23-31); Chloride 103 mmol/L (98-107); Estimated GFR-MDRD 23; Glucose 294 mg/dL (83-110); Potassium 4.8 mmol/L (3.5-5.1); Sodium 138 mmol/L (136-145)
--- NOTE | 2017-10-06 08:29 | PDOC.PN ---
- Subjective Encounter Start Date: 10/06/17 Encounter Start Time: 10:00 Subjective: Patient feeling a little better. Still weak but able to get up to the -: bathroom. Has a walker and assistance at [facility]. Doing -: PT there as well. - Objective MAR Reviewed: Yes Vital Signs & Weight: Vital Signs (12 hours) Temp Pulse Resp BP Pulse Ox 10/06/17 05:28 96 10/06/17 04:00 98.2 F 76 18 168/71 H 95 Weight Weight 132 lb I&O: 10/05/17 10/06/17 10/07/17 06:59 06:59 06:59 Intake Total 860 1480 Output Total 1100 1520 Balance -240 -40 Result Diagrams: 10/02/17 15:29 10/06/17 04:28 Additional Labs: Accuchecks 10/06/17 10/05/17 10/05/17 06:12 20:57 16:47 POC Glucose 295 H 299 H 349 H 10/05/17 10:58 POC Glucose 198 H Phys Exam - Physical Examination Constitutional: NAD HEENT: moist MMs Respiratory: no wheezing, no rales, no rhonchi, clear to auscultation bilateral Cardiovascular: RRR, no significant murmur Gastrointestinal: soft, positive bowel sounds Musculoskeletal: no edema Neurological: non-focal, moves all 4 limbs Psychiatric: normal affect, A&O x 3 Dx/Plan (1) Chest pain Code(s): R07.9 - CHEST PAIN, UNSPECIFIED Status: Resolved (2) CHF (congestive heart failure), NYHA class III Code(s): I50.9 - HEART FAILURE, UNSPECIFIED Status: Acute Qualifiers: Congestive heart failure type: combined Congestive heart failure chronicity : acute Qualified Code(s): I50.41 - Acute combined systolic (congestive) and diastolic (congestive) heart failure Comment: EF 45% 09/2017, systolic and diastolic dysfunction (3) HTN (hypertension) Code(s): I10 - ESSENTIAL (PRIMARY) HYPERTENSION Status: Chronic Comment: improved a bit today. Increase Amlodipine to 10mg daily. (4) Acute renal failure superimposed on stage 4 chronic kidney disease Code(s): N17.9 - ACUTE KIDNEY FAILURE, UNSPECIFIED; N18.4 - CHRONIC KIDNEY DISEASE, STAGE 4 (SEVERE) Status: Acute Comment: Improved, chronic due to HTN and diabetic nephropathy - Plan cont current plan of care Will need outpatient f/u with cardiology and renal. -: D/C back to [facility] today. * . - Discharge Day Encounter end time: 10:30
[2017-10-06] MEDS: Metoprolol Tartrate 100 MG TAB PO SCH (08:36)
[2017-10-06] MEDS: Enoxaparin Sodium 30 MG/0.3 ML SYRINGE SC SCH (08:36)
[2017-10-06] MEDS: HumaLOG 300 UNITS/3 ML VIAL SC PRN (08:37)
[2017-10-06] MEDS ORDERED: Amlodipine 10 MG TAB PO SCH (09:00)
[2017-10-06 11:30] VITALS: BP 143/71; TEMP 98.8
--- NOTE | 2017-10-06 13:34 | STRESS ---
Acquisition Time: 2017-10-03 09:26:27 Total Exercise Time: 00:01:00 Test Indications: CHEST PAIN Medications: Protocol: LEXISCAN Max HR: 125 BPM 89% of Pred: 139 BPM Max BP: 174/110 mmHG Max Work Load: 1.0 METS RESTING ECG: NORMAL SINUS RHYTHM AT 81 BPM WITH COMPLETE LEFT BUNDLE BRANCH BLOCK SYMPTOMS: NAUSEA APPROPRIATE BLOOD PRESSURE RESPONSE FOR LEXISCAN ECTOPY: NONE ECG RESPONSE: NO SIGNIFICANT CHANGES INTERPRETATION: INDETERMINATE ECG/AWAIT NUCLEAR IMAGES FOR DEFINITIVE DIAGNOSIS Confirmed by ALETHEA HALL MD ([id number]) on 10/06/2017 1:34:12 PM Referred By: Chevy HALL Confirmed By:ALETHEA HALL MD
--- NOTE | 2017-10-06 18:26 | DIS ---
PRIMARY CARE PHYSICIAN: Dr. Montana Bradley. ADMISSION DIAGNOSES: 1. Chest pain with elevated troponin. 2. Acute exacerbation of congestive heart failure. 3. Chronic kidney disease stage 4. DISCHARGE DIAGNOSES: 1. Chest pain, resolved. 2. Acute on chronic combined systolic and diastolic congestive heart failure with an ejection fracti on of 45%. 3. Hypertension, uncontrolled. 4. Acute on chronic kidney failure secondary to hypertension and diabetic nephropathy. PROCEDURES: 1. Nuclear medicine stress test showing no evidence of reversible ischemia. 2. Renal ultrasound showing increased echogenicity of both kidneys compatible with medical renal par enchymal disease and small 1 cm left renal cyst. 3. Echocardiogram showing ejection fraction of 45% and abnormal septal motion secondary to left bund le branch block and an suggestive of diastolic dysfunction with some caqxhoby-qv-[id number] mitral regurgitation. CONSULTATIONS: 1. Cardiology, Dr. Kim. 2. Nephrology, Dr. Ya. PERTINENT LABORATORY: Creatinine initially 2.26 at admission, down to 2.1 at discharge. SUMMARY OF HOSPITAL COURSE: This is an 81-year-old white female resident of [facility], who came in with chest pain, shortness of breath, palpitations, and left arm pain. The p atient had indeterminate troponin, which did not increase during her hospitalization. She was noted to have an elevated brain natriuretic peptide on admission, and she was given IV Lasix. Cardiology w as consulted and a stress test was done, had an echocardiogram with the above results. Dr. Kim determined this was an exacerbation of CHF, worsened by uncontrolled blood pressure. Her blood pres sures were initially in the 200 systolic. She had increase in her amlodipine from 2.5 mg finally to 10 mg with improvement in her blood pressures to 150-60 systolic on the day of discharge. The patien t's creatinine was noted to be elevated even a little more than her baseline. Dr. Ya was consul [facility] and determined this was due to her hypertension and type 2 nephropathy and recommended continuati on of blood pressure control. Follow up in his clinic in 1-2 weeks. The patient was doing better by the day of discharge, she had no more pain. She had some weakness, was able to get her up and down to the bathroom and has a rolling walker and assistance at her assisted living facility, and she is r [place] to go home. DISCHARGE MANAGEMENT: Discharged back to [facility]. ACTIVITY: As tolerated with a rolling walker. THERAPY: Physical and occupational therapies available. DIET: Diabetic, low sodium diet. FOLLOWUP: Follow up with Dr. Kim in 1-[address] Ya in 1-2 weeks and with her PCP, Cash Bradley on 10/12/2017 at 10 a.m.
--- NOTE | 2017-10-06 18:50 | PRG ---
DATE OF SERVICE: 10/06/2017 SUBJECTIVE: Patient was seen and examined at bedside and overnight events noted. Patient denies any shortness of breath or chest pain or palpitation. No history of nausea or vomiting or diarrhea or f ever or chills or cramps. OBJECTIVE: GENERAL: This is an elderly female in no apparent distress. VITAL SIGNS: Temperature 98.8, pulse 62, respiratory rate 20, blood pressure 143/72. HEENT: Atraumatic, normocephalic. Oral mucosa is moist. NECK: Supple. CARDIOVASCULAR: S1, S2 heard. Rate and rhythm regular. RESPIRATORY: Clear to auscultation. GASTROINTESTINAL: Abdomen is soft. MUSCULOSKELETAL: No tenderness. No edema. DERMATOLOGIC: No skin rash. NEUROLOGIC: Alert and awake and oriented x3. No focal neurologic deficits. Moving all the extremit ies. PSYCHIATRIC: Mood and affect normal. LABORATORY DATA: Potassium 4.8, BUN 43, creatinine is 2.1. ASSESSMENT AND PLAN: 1. Acute kidney injury on chronic kidney stage IV. Renal function is stable, seems like her baseljim e. 2. Renal ultrasound secondary to hyperparathyroidism. Continue vitamin D. 3. Vitamin deficiency. 4. Anemia. 5. Edema. 6. Hypertension. 7. Diabetic nephropathy. 8. Proteinuria. Overall renal function is stable at her baseline, okay to discharge home. Follow up in clinic here i n 1-2 weeks. Plan discussed with Dr. Babb.
== END 2017-10-06 13:57 | disposition home health service (06) | DRG 291 ==
LOC: ERS 14:16 → 2SW 19:15 → OBSVTOIN 10-03 14:37 → 2NO 10-03 17:59
PROVIDERS: ADMIT Family Medicine; ATTEND Family Medicine
DX: I13.0 Hypertensive heart and chronic kidney disease with heart failure and stage 1 through stage 4 chronic kidney disease, or unspecified chronic kidney disease (principal); I50.43 Acute on chronic combined systolic (congestive) and diastolic (congestive) heart failure; E11.22 Type 2 diabetes mellitus with diabetic chronic kidney disease; N18.4 Chronic kidney disease, stage 4 (severe); N17.9 Acute kidney failure, unspecified; I34.0 Nonrheumatic mitral (valve) insufficiency; N25.81 Secondary hyperparathyroidism of renal origin; E55.9 Vitamin D deficiency, unspecified
CPT/HCPCS: 36415; 36416; 71010; 76770; 78452; 80048; 80053; 80061; 82306; 82553; 82570; 83690; 83880; 83970; 84156; 84484; 85025; 85610; 85730; 93005; 93017; 93306; 94760; 96374; A4216; A9500; G8978-GP-CL; G8979-GP-CJ; J1650; J1940; J2785

== ENCOUNTER 2018-11-24 22:41 | Inpatient (IN) | payer MEDICARE ==
--- NOTE | 2018-11-24 23:06 | RAD ---
PORTABLE CHEST ONE VIEW: 11/24/2018 11:00 p.m. HISTORY: Chest pain. COMPARISON: 10/02/2017 FINDINGS: The heart size is enlarged. The aorta is tortuous. The lungs are well expanded without focal areas of consolidation, pneumothoraces, radha pulmonary edema, or pleural effusions. IMPRESSION: No acute process. POS: MICHAEL
[2018-11-24 23:23] LABS: Base Excess-Venous 2.7 mmol/L (-2.0 to 3.0); Bicarbonate (HCO3v) 28.2 mmol/L (22.0-28.0); CO2 Tension (PvCO2) 46.1 mmHg (40.0-50.0); Calcium, Ionized 1.25 mmol/L (See Comments:); Chloride 102 mmol/L (98-107); Hemoglobin - Calc 11.8 g/dL (12.0-16.0); O2 Tension (PvO2) 32.3 mmHg (35.0-45.0); Potassium 4.5 mmol/L (3.5-5.1); Sodium 140 mmol/L (138-145); T. Carbon Dioxide 29.6 mmol/L (22.0-28.0); pH (Venous) 7.394 (7.320-7.430); vO2 Saturation-calc 61.3 % (60.0-85.0)
[2018-11-24 23:26] LABS: #Basophils 0.1 thou/uL (0.0-0.2); #Eosinphils 0.2 thou/uL (0.0-0.7); #Lymphocytes 1.5 thou/uL (1.20-3.40); #Monocytes 0.5 thou/uL (0.11-0.59); #Neutrophils 5.6 thou/uL (1.40-6.50); %Basophils 1.2 % (0.0-1.0); %Lymphocytes 18.7 % (21.0-51.0); %Neutrophils 72.2 % (42.0-75.0); Hemoglobin 10.8 g/dL (12.0-16.0); Mean Corpuscular HGB CONC 32.3 g/dL (32.0-36.0); Mean Corpuscular Hemoglobin 28.2 pg (27.0-31.0); Mean Corpuscular Volume 87.1 fL (78.0-98.0); Mean Platelet Volume 8.1 fL (7.4-10.4); Platelet Count 203 thou/uL (130-400); RBC Distribution Width 12.7 % (11.5-14.5); Red Blood Cell (RBC) Count 3.82 mill/uL (4.20-5.40); White Blood Cell (WBC) Count 7.8 thou/uL (4.8-10.8)
[2018-11-24 23:47] LABS: ALT (SGPT) 18 U/L (8-55); AST (SGOT) 20 U/L (5-34); Alkaline Phosphatase 81 U/L (40-150); Anion Gap 16 mmol/L (10-20); BUN (Urea Nitrogen) 66 mg/dL (9.8-20.1); Bilirubin, Total 0.2 mg/dL (0.2-1.2); Calc. Creatinine Clearance 0 mL/min (70-130); Calcium 10.5 mg/dL (7.8-10.44); Carbon Dioxide 24 mmol/L (23-31); Chloride 102 mmol/L (98-107); Estimated GFR-MDRD 16; Globulin 3.2 g/dL (2.4-3.5); Glucose 420 mg/dL (83-110); Magnesium 2.2 mg/dL (1.6-2.6); Potassium 4.4 mmol/L (3.5-5.1); Protein, Total 7.2 g/dL (6.0-8.3); Sodium 138 mmol/L (136-145)
[2018-11-24 23:48] LABS: Lipase 152 U/L (8-78); Phosphorus 4.1 mg/dL (2.3-4.7)
[2018-11-25 00:15] LABS: CKMB 1.6 ng/mL (0-6.6)
[2018-11-25] MEDS ORDERED: Insulin Regular 300 UNITS/3 ML VIAL ONE (00:26)
[2018-11-25 00:32] LABS: Bilirubin Negative (Negative); Blood, Urine Trace (Negative); Clarity CLOUDY (Clear); Glucose, Urine (Dipstick) >=1000 mg/dL (Negative); Leukocyte Trace (Negative); Nitrite Negative (Negative); Protein, Urine (Dipstick) 100 mg/dL (Neg-Trace); Specific Gravity, Urine 1.015 (1.002-1.036); Urobilinogen 0.2 mg/dL (0.2-1.0)
[2018-11-25 00:34] LABS: Bacteria/HPF 4+ HPF (None Seen); Pathc Cast-AUWi Flag 0.29 (0-2.49); RBC/HPF None Seen HPF (0-3)
[2018-11-25 00:46] LABS: Hyaline Casts/LPF NONE SEEN LPF (0-3 Hyaline); Renal Epithelial None Seen HPF (0-3); Transitional Epithelial NONE SEEN HPF (0-3)
[2018-11-25] MEDS ORDERED: EPINEPHrine 1 MG/10 ML Abboject SYRINGE ONE (03:00)
[2018-11-25] MEDS ORDERED: Sodium Bicarb 50 MEQ/50 ML Abboject 8.4% SYRINGE ONE (03:00)
[2018-11-25] MEDS ORDERED: Amiodarone 150 MG/3 ML VIAL ONE (03:00)
[2018-11-25 03:16] LABS: CKMB 1.7 ng/mL (0-6.6)
[2018-11-25] MEDS ORDERED: Ondansetron ODT 4 MG TAB SL PRN (03:24)
[2018-11-25] MEDS ORDERED: Ondansetron PF 4 MG/2 ML Vial IVP PRN (03:24)
[2018-11-25] MEDS ORDERED: Acetaminophen 325 MG TAB PO PRN (03:24)
[2018-11-25] MEDS ORDERED: Sodium Chloride 0.9% 1,000 ML IV SCH (03:30)
[2018-11-25] MEDS ORDERED: Nitroglycerin 2% Ointment 1 INCH/1 GM Packet TOP SCH (06:00)
[2018-11-25 06:45] LABS: #Lymphocytes 1.4 thou/uL (1.20-3.40); #Monocytes 0.5 thou/uL (0.11-0.59); %Basophils 0.6 % (0.0-1.0); %Eosinophils 0.5 % (0.0-10.0); %Lymphocytes 17.8 % (21.0-51.0); %Monocytes 5.9 % (0.0-10.0); %Neutrophils 75.1 % (42.0-75.0); Hemoglobin 10.5 g/dL (12.0-16.0); Mean Corpuscular HGB CONC 31.4 g/dL (32.0-36.0); Mean Corpuscular Hemoglobin 28.2 pg (27.0-31.0); Mean Corpuscular Volume 89.9 fL (78.0-98.0); Mean Platelet Volume 8.4 fL (7.4-10.4); Platelet Count 176 thou/uL (130-400); RBC Distribution Width 12.8 % (11.5-14.5); Red Blood Cell (RBC) Count 3.73 mill/uL (4.20-5.40)
[2018-11-25 07:33] LABS: BUN (Urea Nitrogen) 61 mg/dL (9.8-20.1); Calc. Creatinine Clearance 19 mL/min (70-130); Calcium 10.2 mg/dL (7.8-10.44); Carbon Dioxide 16 mmol/L (23-31); Chloride 110 mmol/L (98-107); Estimated GFR-MDRD 19; Glucose 153 mg/dL (83-110); Potassium 4.9 mmol/L (3.5-5.1); Sodium 140 mmol/L (136-145)
[2018-11-25 07:34] LABS: Anion Gap 19 mmol/L (10-20)
[2018-11-25] MEDS ORDERED: Dextrose 5% in Water 1,000 ML IV PRN (10:25)
[2018-11-25] MEDS ORDERED: Dextrose 50% Abboject 50 ML SYRINGE SLOW IVP PRN (10:25)
[2018-11-25] MEDS ORDERED: Amlodipine 10 MG TAB PO SCH (10:44)
[2018-11-25] MEDS ORDERED: Furosemide 20 MG TAB PO SCH (12:00)
[2018-11-25] MEDS ORDERED: Amlodipine 5 MG TAB PO SCH (12:00)
[2018-11-25] MEDS: Sodium Chloride 0.9% 1,000 ML IV SCH (12:57)
--- NOTE | 2018-11-25 12:59 | HP ---
REASON FOR ADMISSION: Left arm pain, chest pain rule out. HISTORY OF PRESENT ILLNESS AND REVIEW OF SYSTEMS: Ms. Mitchell is a pleasant 83-year-old woman presenting with complaints of pain in the left arm and shoulder that began yesterday evening. The patient states she had missed her evening medications due to being out having dinner at her daughter's house. She notified the nurse and was given her normal evening medicines; however, she had no relief and was brought into the ED for evaluation. The patient states the nurse had given her dose of nitroglycerin sublingual, which did help to ease her pain almost immediately. She reports that the pain in her left arm was a 4/10 in severity, aching in nature, and did radiate to the left shoulder/upper left side of her chest. She denies having any trauma or injuries to her shoulder. Since then, she has developed recurrent discomfort early this morning. On evaluation this morning, the patient was found lying on her left shoulder but states it does not cause any discomfort and she is pain-free at present. She denies having any associated diaphoresis, nausea, or vomiting. She only complains of intermittent frontal headache since yesterday evening. She reports being well in recent days. Denies having any fevers, chills, or sweats. Denies any cough. Has not had any shortness of breath. No abdominal pain or cramping. She has been moving her bowels as normal. She does report mild dysuria and urinary frequency. She states this is often associated with chronic UTIs. She denies having any extremity weakness or numbness. Denies having any paresthesias. No visual disturbances or speech disturbances. All other review of systems is negative. Of note, the patient underwent cardiac investigations in September 2017, including an echo, at which time, she had an EF estimated at 45%. There was abnormal septal wall motion secondary to left bundle-branch block with evidence of diastolic dysfunction. There was [id number] mitral regurgitation and moderate tricuspid regurgitation. A cardiac stress test was done at that time, showing no evidence of reversible ischemia. PAST MEDICAL HISTORY: 1. Hypertension. 2. Hyperlipidemia. 3. Type 2 diabetes mellitus. 4. Left bundle-branch block. 5. CHF, diastolic dysfunction. 6. Angina. 7. Chronic UTIs. 8. Osteopenia. 9. Mitral valve regurgitation. 10. Renal insufficiency. 11. CKD, stage 1. PAST SURGICAL HISTORY: 1. Angioplasty. 2. Back surgery. SOCIAL HISTORY: The patient lives in an assisted living. She is fully independent and mobilizes without any assistive devices. Denies any alcohol use, drug use, and denies any tobacco use. ALLERGIES: SHE REPORTS AN ALLERGY TO IODINE AND IODIDE-CONTAINING PRODUCTS. CURRENT MEDICATIONS: 1. Sertraline 25 mg p.o. every morning. 2. Tylenol 650 mg p.o. every 4 hours as needed for pain. 3. Prilosec 40 mg p.o. daily. 4. Insulin degludec 20 units subcutaneous daily. 5. Potassium chloride 20 mEq p.o. daily. 6. Periogard 15 mL q.48 hours. 7. MiraLAX 17 g p.o. daily p.r.n. 8. Nitrostat 0.4 mg sublingual q.5 minutes p.r.n. for chest pain. 9. Mirabegron 50 mg p.o. daily. 10. Metoprolol 100 mg p.o. twice daily. 11. Melatonin 10 mg p.o. at bedtime. 12. Antivert 12.5 mg p.o. t.i.d. p.r.n. 13. Magnesium 250 mg p.o. daily. 14. Levothyroxine 25 mcg p.o. daily. 15. Furosemide 60 mg p.o. daily. 16. Loperamide 2 mg p.o. p.r.n. 17. Fluticasone propionate 1 spray each nares twice daily. 18. Ferrous sulfate 325 mg p.o. twice daily. 19. Famotidine 20 mg p.o. b.i.d. p.r.n. 20. Colace 100 mg p.o. daily. 21. Clotrimazole/betamethasone cream b.i.d. 22. Calcium carbonate/vitamin D3 one tablet p.o. twice daily. 23. Calcitriol 0.25 mg p.o. daily. 24. Benadryl 25 mg p.o. at bedtime p.r.n. 25. Atorvastatin calcium 20 mg p.o. daily. 26. Aspirin chewable 81 mg p.o. daily. 27. Norvasc 5 mg p.o. twice daily. 28. Fexofenadine 180 mg p.o. daily p.r.n. LABORATORY DATA: White blood count 7.8, hemoglobin 10.8, hematocrit 33.3, and platelets 203. Sodium 138, potassium 4.4, chloride 102, anion gap 16, BUN 66, creatinine 2.84. Glucose 420, improved to 153 today. Magnesium 2.2. LFTs unremarkable. CK-MB 1.7. BNP 114.2. Troponin 0.049, 0.078, 0.088. Lipase 152. Urinalysis: Protein 100, glucose greater than 1000, trace blood present, negative for nitrites or bilirubin, trace leukocyte esterase, white blood count 11 to 20, and 4+ bacteria. IMAGING DATA: Chest x-ray, 11/24/2018. No acute process. ECG, November 24, 2018. Similar to old ECG with presence of complete left bundle-branch block, left axis. IMPRESSION AND PLAN: Ms. Mitchell is being admitted for management of the following. 1. Left arm/chest pain. It has been 2 years since the patient's cardiac investigations done in September 2017. We will repeat a stress test as well as an echo. Troponins mildly raised and appeared to be chronically raised. 2. Hyperglycemia. Resume home insulin and insulin sliding scale. Monitor glucose. 3. Chronic kidney disease. Slow IV hydration. Monitor renal function. 4. Urinary tract infection. Continue antibiotics. Urine culture requested. 5. Diet. N.p.o. given above investigations. 6. Deep vein thrombosis prophylaxis. 7. Gastrointestinal prophylaxis. The patient's case was discussed with Dr. Coronado who agrees with plan of care as described above. Job ID: [id number]
[2018-11-25 13:25] LABS: Troponin I 0.088 ng/mL (< 0.028)
[2018-11-25] MEDS: Ferrous Sulfate 325 MG TAB PO SCH (15:48)
[2018-11-25] MEDS: Calcium Carbonate + Vit D 250 MG TAB PO SCH (15:48)
[2018-11-25] MEDS: Atorvastatin Calcium 20 MG TAB PO SCH (15:48)
[2018-11-25] MEDS: Nitroglycerin 0.4 MG TAB (25 Tab Bottle) SL PRN ×2 (16:00→16:08)
[2018-11-25] MEDS: HumaLOG 300 UNITS/3 ML VIAL SC PRN ×2 (16:55→21:07)
[2018-11-25] MEDS ORDERED: Metoprolol Tartrate 100 MG TAB PO SCH (17:00)
--- NOTE | 2018-11-25 18:48 | PDOC.EVN ---
Event Note - Event Note Event Note: Patient seen, discussed with Paolo Garrido.
[2018-11-25] MEDS: Amlodipine 5 MG TAB PO SCH (20:20)
[2018-11-25] MEDS: Melatonin 3 MG TAB PO SCH (20:21)
[2018-11-25] MEDS ORDERED: Famotidine/PF 20 mg/2ml Vial SLOW IVP SCH (21:00)
[2018-11-26] MEDS: Sodium Chloride 0.9% 1,000 ML IV SCH ×2 (04:44→16:26)
[2018-11-26] MEDS: Levothyroxine Sodium 25 MCG TAB PO SCH (04:45)
[2018-11-26 05:46] LABS: #Eosinphils 0.2 thou/uL (0.0-0.7); #Lymphocytes 1.8 thou/uL (1.20-3.40); #Monocytes 0.5 thou/uL (0.11-0.59); #Neutrophils 3.7 thou/uL (1.40-6.50); %Basophils 0.6 % (0.0-1.0); %Eosinophils 3.3 % (0.0-10.0); %Monocytes 7.4 % (0.0-10.0); %Neutrophils 59.7 % (42.0-75.0); Hemoglobin 10.1 g/dL (12.0-16.0); Mean Corpuscular HGB CONC 32.5 g/dL (32.0-36.0); Mean Corpuscular Hemoglobin 28.9 pg (27.0-31.0); Mean Platelet Volume 7.6 fL (7.4-10.4); Platelet Count 174 thou/uL (130-400); RBC Distribution Width 12.9 % (11.5-14.5); Red Blood Cell (RBC) Count 3.48 mill/uL (4.20-5.40); White Blood Cell (WBC) Count 6.2 thou/uL (4.8-10.8)
[2018-11-26 06:15] LABS: ALT (SGPT) 23 U/L (8-55); AST (SGOT) 29 U/L (5-34); Albumin 3.3 g/dL (3.4-4.8); Alkaline Phosphatase 70 U/L (40-150); Anion Gap 14 mmol/L (10-20); BUN (Urea Nitrogen) 52 mg/dL (9.8-20.1); Bilirubin, Total 0.3 mg/dL (0.2-1.2); Calc. Creatinine Clearance 21 mL/min (70-130); Calcium 9.9 mg/dL (7.8-10.44); Carbon Dioxide 22 mmol/L (23-31); Chloride 109 mmol/L (98-107); Estimated GFR-MDRD 21; Globulin 2.7 g/dL (2.4-3.5); Glucose 162 mg/dL (83-110); Potassium 4.4 mmol/L (3.5-5.1); Sodium 141 mmol/L (136-145)
[2018-11-26] MEDS: Nitroglycerin 0.4 MG TAB (25 Tab Bottle) SL PRN ×13 (06:23→21:20)
[2018-11-26] MEDS ORDERED: Non-Formulary Item 1 EACH (Insulin Degludec [Tresiba] 20 UNIT) SQ SCH (09:00)
[2018-11-26] MEDS ORDERED: Furosemide 20 MG TAB PO SCH (09:00)
[2018-11-26] MEDS ORDERED: Calcitriol 0.25 MCG CAP PO SCH (09:00)
[2018-11-26] MEDS: Ferrous Sulfate 325 MG TAB PO SCH ×2 (09:41→16:27)
[2018-11-26] MEDS: Calcium Carbonate + Vit D 250 MG TAB PO SCH ×2 (09:41→16:26)
[2018-11-26] MEDS: Docusate 100 MG CAP PO SCH (09:42)
[2018-11-26] MEDS: Amlodipine 5 MG TAB PO SCH ×2 (09:43→20:20)
[2018-11-26] MEDS: Aspirin Chewable 81 MG TAB PO SCH (09:43)
[2018-11-26] MEDS: Insulin Glargine 20 UNITS in Pre-Filled Syringe 1 EACH SC SCH (09:46)
[2018-11-26] MEDS: Enoxaparin Sodium 30 MG/0.3 ML SYRINGE SC SCH (09:47)
[2018-11-26 10:14] LABS: CKMB 1.7 ng/mL (0-6.6)
--- NOTE | 2018-11-26 11:00 | PDOC.PN ---
- Subjective Encounter Start Date: 11/26/18 Encounter Start Time: 10:57 Subjective: Patient resting comfortably and without chest pain at present. -: States when the pain came on this morning it was a 4/10 in severity, -: described a pressure on the left side of her chest radiating to Lt shoulder Reports associated sob, due to pain. Unable to take deep breaths. Pain fully settled after 2nd dose of Nitro. No further CP since. SOB has resolved as well. Denies any associated diaphoresis, n/v. Complaining of constipation. Last bowel movement was 3 days ago. Suffers from constipation due to Iron supplements. No abdominal pain. Has felt well otherwise. - Objective Vital Signs & Weight: Vital Signs (12 hours) Temp Pulse Resp BP BP Pulse Ox 11/26/18 09:43 106 H 11/26/18 08:47 20 120/65 97 11/26/18 08:42 106 H 18 135/71 11/26/18 08:38 108 H 18 193/87 H 96 11/26/18 07:35 98.6 F 89 16 136/63 98 11/26/18 06:23 109 H 19 153/90 H 92 L 11/26/18 03:25 98.1 F 92 12 155/67 H 94 L Weight Admit Weight 150 lb 4.8 oz Weight 154 lb 6.4 oz I&O: 11/25/18 11/26/18 11/27/18 06:59 06:59 06:59 Intake Total 1329 Output Total 350 1550 Balance -350 -221 Result Diagrams: 11/26/18 05:30 11/26/18 05:29 Additional Labs: Accuchecks 11/25/18 11/25/18 11/25/18 20:45 16:40 10:46 POC Glucose 300 H 265 H 148 H Phys Exam - Physical Examination Constitutional: NAD HEENT: PERRLA, moist MMs, sclera anicteric Neck: supple, full ROM Respiratory: no wheezing, no rales, no rhonchi, clear to auscultation bilateral Cardiovascular: RRR Gastrointestinal: soft, non-tender, no distention Musculoskeletal: no edema No chest wall or shoulder tenderness on palpation Neurological: normal sensation, moves all 4 limbs no calf pain or swelling. Psychiatric: normal affect, A&O x 3 Skin: no rash Dx/Plan (1) Constipation Code(s): K59.00 - CONSTIPATION, UNSPECIFIED Status: Chronic Comment: Chronic , due to Iron supplements (2) Acute renal failure superimposed on stage 4 chronic kidney disease Code(s): N17.9 - ACUTE KIDNEY FAILURE, UNSPECIFIED; N18.4 - CHRONIC KIDNEY DISEASE, STAGE 4 (SEVERE) Status: Chronic Comment: Improved, chronic due to HTN and diabetic nephropathy (3) CHF (congestive heart failure), NYHA class III Code(s): I50.9 - HEART FAILURE, UNSPECIFIED Status: Chronic Qualifiers: Congestive heart failure type: combined Congestive heart failure chronicity : acute Qualified Code(s): I50.41 - Acute combined systolic (congestive) and diastolic (congestive) heart failure Comment: EF 45% 09/2017, systolic and diastolic dysfunction (4) HTN (hypertension) Code(s): I10 - ESSENTIAL (PRIMARY) HYPERTENSION Status: Chronic (5) Chest pain Code(s): R07.9 - CHEST PAIN, UNSPECIFIED Status: Resolved - Plan cont current plan of care Patient s/p Echo. Awaiting report. Unable to have stress test due to -: elevated cardiac enzymes. Patient with recurrent CP this morning, 01/15. -: Relieved w/ 2nd dose of Nitro. Trop improved from yesterday, repeat x 2. -: Awaiting cardiology review. -: Resume Miralax for constipation. UCx positive for Kleb/Enterobacter. Meropenem 1 g IV, pharmacy to dose given CKD.
[2018-11-26] MEDS ORDERED: MEROPENEM 1 GM/50 ML 1 GM in Premix Bag 1 BAG IVPB SCH ×2 (12:00→21:00)
[2018-11-26 16:26] LABS: CKMB 1.3 ng/mL (0-6.6)
[2018-11-26] MEDS: Atorvastatin Calcium 20 MG TAB PO SCH (16:26)
[2018-11-26] MEDS ORDERED: Nitroglycerin 2% Ointment 1 INCH/1 GM Packet TOP SCH (18:30)
--- NOTE | 2018-11-26 18:35 | CON ---
DATE OF CONSULTATION: Please refer to Selma Garrido's full consultation for details. HISTORY OF PRESENT ILLNESS: Briefly, Ms. Mitchell is a pleasant 83-year-old woman, who recently presented with chest pain. She states it has occurred over the last several days. The patient does have a previous LVEF of 40% to 45% with underlying left bundle-branch block. She has undergone a noninvasive stress study performed in September 2017, that was felt to be negative for ischemia. She also has chronic kidney disease with a very low GFR in addition to mild anemia. PHYSICAL EXAMINATION: VITAL SIGNS: Blood pressure 112/67, pulse of 101, and temperature 99.8. GENERAL: Patient is a pleasant female, who is in no acute distress. The patient appears their stated age. NEUROLOGIC: The patient is alert and oriented x3 with no focal neurologic deficits. HEENT: Sclerae without icterus. Mouth has moist mucous membranes with normal pallor. NECK: No JVD. Carotid upstroke brisk. No bruits bilaterally. LUNGS: Clear to auscultation with unlabored respirations. BACK: No scoliosis or kyphosis. CARDIAC: Regular rate and rhythm with normal S1 and S2. No S3 or S4 noted. No significant rubs, murmurs, thrills, or gallops noted throughout the precordium. PMI is not displaced. There is no parasternal heave. ABDOMEN: Soft, nontender, nondistended. No peritoneal signs present. No hepatosplenomegaly. No abnormal striae. EXTREMITIES: 2+ femoral and 2+ dorsalis pedis pulses. No cyanosis, clubbing, or edema. SKIN: No gross abnormalities. PERTINENT LABORATORY DATA: Hemoglobin 10.1. Creatinine 2.24 with a GFR of 21 and CO2 of 22. Peak troponin 0.058. EKG shows left bundle branch block, chronic. IMPRESSION: 1. Atypical chest pain. 2. Anemia. 3. Chronic kidney disease. 4. Fever of unknown etiology. RECOMMENDATIONS: At this point, the patient's symptoms are not felt to be typical of angina. I would like to proceed with a more conservative approach. Proceeding with cholangiography certainly carries risks including worsening contrast nephropathy in addition to iodine reaction. I would therefore recommend with a repeat noninvasive stress study. Would also seek the etiology to her current febrile illness. Further recommendations pending the above. Job ID: [id number]
[2018-11-26] MEDS: Melatonin 3 MG TAB PO SCH (20:20)
[2018-11-26] MEDS: HumaLOG 300 UNITS/3 ML VIAL SC PRN (21:04)
--- NOTE | 2018-11-26 21:52 | CON ---
DATE OF CONSULTATION: 11/26/2018 CONSULTING PHYSICIAN: Dr. Kim. REASON FOR CONSULTATION: Acute kidney injury on chronic kidney disease, stage 4. REASON FOR ADMISSION: Chest pain. HISTORY OF PRESENT ILLNESS: This is an 83-year-old female with history of hypertension, CKD stage 4, and type 2 diabetes, came to the hospital with chest pain and has been evaluated. Cardiology was also consulted and planned for probable cardiac catheterization. Her GFR is around 21 with a creatinine of 2.2, which is greater than her baseline and Nephrology is consulted for risk stratification based on contrast exposure for possible heart catheterization. The patient is feeling slightly better. No shortness of breath, nausea, vomiting. No abdominal pain. PAST MEDICAL HISTORY: Positive for hypertension, hyperlipidemia, type 2 diabetes, CHF, angina, chronic UTIs, osteopenia, mitral valve regurgitation, renal insufficiency, and CKD stage 4. PAST SURGICAL HISTORY: Angioplasty and back surgery. HOME MEDICATIONS: Reviewed. ALLERGIES: HYDROCODONE, IODINE, ONION. SOCIAL HISTORY: No smoking, alcohol, or illicit drug use. FAMILY HISTORY: No history of any kidney disease. REVIEW OF SYSTEMS: CONSTITUTIONAL: Negative for weight loss or gain, ability to conduct usual activities. SKIN: Negative for rash, itching. EYES: Negative for double vision, pain. ENT/MOUTH: Negative for nose bleeding, neck stiffness, pain, tenderness. CARDIOVASCULAR: Negative for palpitations, dyspnea on exertion, orthopnea. RESPIRATORY: Negative for shortness of breath, wheezing, cough, hemoptysis, fever or night sweats. GASTROINTESTINAL: Negative for poor appetite, abdominal pain, heartburn, nausea , vomiting, constipation, or diarrhea. GENITOURINARY: Negative for urgency, frequency, dysuria, nocturia. MUSCULOSKELETAL: Negative for pain, swelling. NEUROLOGIC/PSYCHIATRIC: Negative for anxiety, depression. ALLERGY/IMMUNOLOGIC: Negative for skin rash, bleeding tendency. PHYSICAL EXAMINATION: GENERAL: This is an elderly female, in no apparent distress. VITAL SIGNS: Temperature 99.8, pulse 101, respiratory rate 22, and blood pressure 125/67. HEENT: Atraumatic and normocephalic. Oral mucosa is moist. NECK: Supple. CVS: S1 and S2 heard. Rate and rhythm regular. RESPIRATORY: Clear. GASTROINTESTINAL: Abdomen is soft. MUSCULOSKELETAL: 1+ edema. DERMATOLOGIC: No skin rash. NEUROLOGIC: Alert and awake. PSYCHIATRIC: Normal mood and affect. LABORATORY DATA: Hemoglobin is 10.1. Potassium is 4.4, BUN is 52, creatinine is 2.2. ASSESSMENT AND PLAN: 1. Acute kidney injury on chronic kidney disease stage 4, slightly better. 2. Hypertension, stable. 3. Edema. 4. Anemia. The patient is at high risk for contrast-induced nephropathy, and the patient and family counseled regarding the risk. Continue IV fluids as tolerated. No acute indication for dialysis. We will follow. Thank you for the consult. We are happy to follow the case with you. Job ID: [id number] ЮЛИЯ
--- NOTE | 2018-11-26 23:00 | CON ---
DATE OF CONSULTATION: CONSULTING PHYSICIAN: Bud Coronado MD HISTORY OF PRESENT ILLNESS: The patient is an 83-year-old female with a past medical history of hypertension, hyperlipidemia and diabetes, who initially presented to the ER with substernal chest pressure with radiation to the left side of the arm, which reportedly occurred at rest. The patient was given aspirin and sublingual nitroglycerin, which resolved her symptoms briefly. Additionally, the patient reported some associated shortness of breath. She denied nausea, vomiting or diaphoresis. Denies palpitations. REVIEW OF SYSTEMS: The patient reports chest pain. The patient reports shortness of breath. Denies nausea, vomiting, palpitations or diaphoresis. PHYSICAL EXAMINATION: VITAL SIGNS: Pulse 114, temperature 99.8, respiratory rate 20, O2 sats 91% on 2 L nasal cannula, and blood pressure 125/67. GENERAL: The patient is alert, oriented, no acute distress. Resting comfortably in bed. HEAD: Normocephalic and atraumatic. CARDIOVASCULAR: Heart has regular rate and rhythm. Mitral regurg murmur present. No JVD. No hepatojugular reflux. RESPIRATORY: Lungs are clear to auscultation bilaterally. ABDOMEN: Soft, nontender, and nondistended. Normoactive bowel sounds in all 4 quadrants. No rebound, guarding or tenderness. EXTREMITIES: No clubbing, cyanosis or edema. Peripheral pulses 2+ throughout. She is moving all extremities. LABORATORY DATA: WBC 6.2, hemoglobin 10.1, and hematocrit 31. Venous blood gas showed a pH of 7.39, pCO2 of 46.1, and pO2 of 32.3. BUN 52 and creatinine 2.24 with an estimated GFR of 21. Troponin, 0.067 to 0.058. CK-MB, 1.7 to 1.3. ASSESSMENT AND PLAN: 1. Atypical chest pain. The patient had a stress test approximately 1 year ago, which showed left bundle-branch block without any evidence of reversible ischemia. Additionally, she had an echocardiogram done approximately 1 year ago, showed an EF of 45%, again with abnormal septal motion secondary to left bundle-branch block and some E/A flow reversal suggestive of diastolic dysfunction. She has had a repeat echocardiogram on this visit and a stress test is currently pending. The patient has had persistently mildly elevated troponins, which is likely related to her chronic kidney disease stage 4. CK-MB has been within normal limits throughout the stay. We will plan to go forward with the Cardiolite stress test and follow up with results accordingly. 2. Elevated cardiac enzymes. See #1. The patient was seen and examined by Dr. Roque Kim, who agree with the above assessment and plan unless otherwise listed in his documentation. Job ID: [id number] MTDD
[2018-11-27] MEDS: Nitroglycerin 0.4 MG TAB (25 Tab Bottle) SL PRN ×3 (03:03→03:51)
[2018-11-27] MEDS ORDERED: Morphine 4 MG/ML VIAL SLOW IVP SCH (04:30)
[2018-11-27] MEDS: Levothyroxine Sodium 25 MCG TAB PO SCH (04:49)
[2018-11-27 06:01] LABS: #Eosinphils 0.2 thou/uL (0.0-0.7); #Lymphocytes 1.3 thou/uL (1.20-3.40); #Monocytes 0.8 thou/uL (0.11-0.59); #Neutrophils 10.6 thou/uL (1.40-6.50); %Basophils 0.2 % (0.0-1.0); %Eosinophils 1.2 % (0.0-10.0); %Lymphocytes 9.8 % (21.0-51.0); %Monocytes 6.1 % (0.0-10.0); %Neutrophils 82.7 % (42.0-75.0); Hemoglobin 10.5 g/dL (12.0-16.0); Mean Corpuscular HGB CONC 32.2 g/dL (32.0-36.0); Mean Corpuscular Volume 86.7 fL (78.0-98.0); Mean Platelet Volume 7.6 fL (7.4-10.4); Platelet Count 162 thou/uL (130-400); RBC Distribution Width 12.7 % (11.5-14.5); Red Blood Cell (RBC) Count 3.77 mill/uL (4.20-5.40); White Blood Cell (WBC) Count 12.8 thou/uL (4.8-10.8)
[2018-11-27 06:12] LABS: ALT (SGPT) 20 U/L (8-55); AST (SGOT) 21 U/L (5-34); Albumin 3.6 g/dL (3.4-4.8); Alkaline Phosphatase 77 U/L (40-150); Anion Gap 15 mmol/L (10-20); BUN (Urea Nitrogen) 42 mg/dL (9.8-20.1); Bilirubin, Total 0.5 mg/dL (0.2-1.2); Calc. Creatinine Clearance 20 mL/min (70-130); Calcium 9.9 mg/dL (7.8-10.44); Carbon Dioxide 21 mmol/L (23-31); Chloride 110 mmol/L (98-107); Estimated GFR-MDRD 20; Globulin 3.1 g/dL (2.4-3.5); Glucose 215 mg/dL (83-110); Potassium 3.9 mmol/L (3.5-5.1); Protein, Total 6.7 g/dL (6.0-8.3); Sodium 142 mmol/L (136-145)
[2018-11-27] MEDS: Nitroglycerin 2% Ointment 1 INCH/1 GM Packet TOP SCH ×3 (06:20→12:33)
[2018-11-27] MEDS ORDERED: Furosemide 40 MG/4 ML VIAL ONE (07:10)
[2018-11-27] MEDS: Sodium Chloride 0.9% 1,000 ML IV SCH (07:35)
[2018-11-27] MEDS ORDERED: CCU Electrolyte Replacement 1 EACH IVPB SCH (07:44)
--- NOTE | 2018-11-27 07:44 | PDOC.PN ---
- Subjective Encounter Start Date: 11/27/18 Encounter Start Time: 07:43 Subjective: responded to code green at about 0710 - Objective MAR Reviewed: Yes Vital Signs & Weight: Vital Signs (12 hours) Temp Pulse Resp BP BP Pulse Ox 11/27/18 03:03 98.4 F 118 H 20 139/79 96 11/26/18 21:13 111 H 16 119/60 96 11/26/18 20:20 97.8 F 109 H 16 128/62 95 Weight Admit Weight 150 lb 4.8 oz Weight 150 lb 6.4 oz I&O: 11/26/18 11/27/18 11/28/18 06:59 06:59 06:59 Intake Total 1329 1357 Output Total 4250 1965 Balance -221 -1118 Result Diagrams: 11/27/18 05:23 11/27/18 05:23 Additional Labs: Accuchecks 11/27/18 11/26/18 11/26/18 06:15 20:52 16:47 POC Glucose 208 H 256 H 192 H 11/26/18 10:42 POC Glucose 189 H Radiology Reviewed by me: Yes (CXR- pulmonary edema) EKG Reviewed by me: Yes (Saige marin) Phys Exam - Physical Examination Neck: no JVD diffuse rales Cardiovascular: irregular tachy Gastrointestinal: soft, positive bowel sounds Musculoskeletal: no edema Dx/Plan (1) Acute pulmonary edema Code(s): J81.0 - ACUTE PULMONARY EDEMA Status: Acute (2) Ventricular tachycardia Code(s): I47.2 - VENTRICULAR TACHYCARDIA Status: Acute (3) CKD (chronic kidney disease) stage 4, GFR 15-29 ml/min Code(s): N18.4 - CHRONIC KIDNEY DISEASE, STAGE 4 (SEVERE) Status: Chronic (4) CHF (congestive heart failure), NYHA class III Code(s): I50.9 - HEART FAILURE, UNSPECIFIED Status: Chronic Qualifiers: Congestive heart failure type: combined Congestive heart failure chronicity : acute Qualified Code(s): I50.41 - Acute combined systolic (congestive) and diastolic (congestive) heart failure Comment: EF 45% 09/2017, systolic and diastolic dysfunction (5) HTN (hypertension) Code(s): I10 - ESSENTIAL (PRIMARY) HYPERTENSION Status: Chronic Qualifiers: Hypertension type: essential hypertension Qualified Code(s): I10 - Essential (primary) hypertension (6) Chest pain Code(s): R07.9 - CHEST PAIN, UNSPECIFIED Status: Resolved (7) Acute respiratory failure with hypoxia Code(s): J96.01 - ACUTE RESPIRATORY FAILURE WITH HYPOXIA Status: Acute - Plan SP CPR- Dr Ruiz intubated- now on vent in CCU -: now in jcnl mariaelena- on levophed -: cbc, BMP, ABG, trop stat, pending -: 45 min critical care time * .
[2018-11-27] MEDS ORDERED: Ventilator Sedation Protocol 1 EACH FS SCH (07:45)
[2018-11-27] MEDS ORDERED: EPINEPHrine 1 MG, Admixture Fee 1 EACH in Dextrose 5% in Water 250 ML IVPB SCH (07:45)
[2018-11-27] MEDS ORDERED: Propofol BOLUS 1,000 MG/100 ML VIAL IV PRN (07:46)
[2018-11-27] MEDS ORDERED: fentaNYL Citrate/PF 2,000 MCG in Sodium Chloride 0.9% 60 ML IV SCH (07:46)
[2018-11-27] MEDS ORDERED: Lorazepam 2 MG/ML VIAL SLOW IVP PRN (07:46)
[2018-11-27] MEDS ORDERED: Morphine 2 MG/ML SYRINGE SLOW IVP PRN (07:46)
[2018-11-27] MEDS ORDERED: DISCONTINUE PREVIOUS NARCOTIC PAIN MEDICATIONS AND BENZODIAZEPINES FS SCH (07:46)
[2018-11-27] MEDS ORDERED: Potassium Phosphate 12 MMOL in Sodium Chloride 0.9% 250 ML 250 ML IV PRN (07:47)
[2018-11-27] MEDS ORDERED: Potassium Chloride 40 MEQ in Premix Bag 1 BAG IVPB PRN (07:47)
[2018-11-27] MEDS ORDERED: Magnesium Oxide 400 MG TAB PO PRN ×2 (07:47)
[2018-11-27] MEDS ORDERED: Potassium Chloride 20 MEQ TAB PO PRN (07:47)
[2018-11-27] MEDS ORDERED: Potassium Chloride 40 MEQ in Sodium Chloride 0.9% 250 ML 250 ML IVPB PRN (07:47)
[2018-11-27] MEDS ORDERED: CCU ELECTROLYTE REPLACEMENT PROTOCOL FS PRN (07:47)
[2018-11-27] MEDS ORDERED: Magnesium 2 GM/NS 0.9% 100 ML 2 GM in Premix Bag 1 BAG IVPB PRN (07:47)
[2018-11-27] MEDS ORDERED: Potassium Phosphate 15 MMOL in Sodium Chloride 0.9% 250 ML 250 ML IV PRN (07:47)
[2018-11-27] MEDS ORDERED: Potassium Phosphate 9 MMOL in Sodium Chloride 0.9% 100 ML IVPB PRN (07:47)
--- NOTE | 2018-11-27 07:53 | EKG ---
Test Reason : Blood Pressure : / mmHG Vent. Rate : 103 BPM Atrial Rate : 103 BPM P-R Int : 132 ms QRS Dur : 130 ms QT Int : 386 ms P-R-T Axes : 079 -67 110 degrees QTc Int : 505 ms Sinus tachycardia Left axis deviation Left bundle branch block Abnormal ECG When compared with ECG of 24-NOV-2018 22:45, (Unconfirmed) No significant change was found Confirmed by GEORGINA VILLANUEVA ([id number]) on 11/27/2018 7:52:55 AM Referred By: Confirmed By:GEORGINA VILLANUEVA
[2018-11-27 08:01] LABS: Actual Bicarbonate (HCO3a) 17.9 mEq/L (22-28); Base Excess (BEa) -10.7 mEq/L (-2.0 to +3.0); CO2 Tension 51.1 mmHg (35.0-45.0); Calcium, Ionized 1.21 mmol/L (1.12-1.30); Hemoglobin (Hb) 12.1 g/dL (12.0-16.0); Potassium - ABG Lab 3.33 mmol/L (3.70-5.30)
[2018-11-27 08:02] LABS: ALV-art Gradient 602.825 (0-20); O2 Tension (PaO2) 46.3 mmHg (> 60.0); Puncture Site LRA; pH, Arterial 7.16 (7.35-7.45)
--- NOTE | 2018-11-27 08:47 | PRG ---
DATE OF SERVICE: 11/27/2018 SERVICE: Pulmonary Medicine. REASON FOR CONSULTATION: Respiratory failure. HISTORY OF PRESENT ILLNESS: The patient is an 83-year-old white female, who was admitted to the hospital with some chest discomfort. She is being planned for cardiac catheterization today. She is being gently hydrated overnight in anticipation of a contrast load. Ultimately, she started having multiple episodes of chest pain last night. She got a dose of morphine around 4 in the morning. She then had severe respiratory issues. She was panicking. She was coughing up frothy pink sputum. Ultimately, she was brought to the [facility] and rapidly decompensated there before she went into respiratory failure. Around the time that we were setting up her intubation equipment, she went into ventricular tachycardia. She got 2 rounds of chest compressions. One dose of epi, two amps of bicarb, and a dose of amiodarone. She never required any electricity, but she returned into a sinus rhythm. EKG afterwards showed a type 1 Mobitz block. I cannot get any additional elements of the history from the patient. I have been at bedside dealing with this issue for 90 minutes. PAST MEDICAL HISTORY: 1. Type 2 diabetes mellitus. 2. Hypertension. 3. Dyslipidemia. 4. Left bundle-branch block. 5. Type 1 Mobitz (immediately following code event). 6. Chronic diastolic heart failure. 7. Urinary tract infections, recurrent. 8. Mitral valve regurgitation. 9. Osteopenia. 10. Renal insufficiency. 11. Chronic kidney disease, stage I. PAST SURGICAL HISTORY: 1. Angioplasty. 2. Back surgery. SOCIAL HISTORY: She lives in an assisted living nursing facility. She is otherwise fairly independent and mobilizes without any assistive devices. She has no alcohol, tobacco, or illicit drug use. FAMILY HISTORY: Noncontributory. ALLERGIES: IODINE. MEDICATIONS: List of her inpatient medications was reviewed. Multiple things were discontinued that were not absolutely essential to her well-being. REVIEW OF SYSTEMS: Cannot be obtained as the patient is currently intubated and sedated. PHYSICAL EXAMINATION: VITAL SIGNS: Afebrile, pulse 59, blood pressure 185/82, respirations 34, saturation 85% on 100% FiO2 and a PEEP of 11. GENERAL: The patient is intubated and sedated. HEENT: Normocephalic and atraumatic. Sclerae white. Conjunctivae pink. Oral mucosa is moist without lesions. LUNGS: Excellent air entry. Extensive crackles and rhonchi are present. No prolonged expiratory phase or wheezing is appreciated. HEART: Normal rate. Irregular. ABDOMEN: Soft, nontender, nondistended. Bowel sounds are positive. MUSCULOSKELETAL: No cyanosis or clubbing. There is no pitting in the bilateral lower extremities. NEUROLOGIC: Grossly nonfocal. LABORATORY DATA: WBC 12.8, hemoglobin 10.5, platelets 162,000. PH 7.15, pCO2 of 51, PO2 is low despite the fact she is on maximal support. Creatinine 2.30, which was previously downtrending gently. BUN 42. Basic metabolic profile and liver function studies are otherwise unremarkable. Urinalysis is essentially unremarkable. Beta-hydroxybutyric acid is negative. Klebsiella pneumoniae is positive on a urine sample, but as previously noted, it does not appear as she has a very significant urinary tract infection based on the UA. IMAGIN. Echocardiogram demonstrates 55% to 60% ejection fraction. E to A reversal is noted. On this occasion, she had mild mitral regurgitation, but previously, it was more significant. 2. Chest x-ray demonstrates endotracheal tube in good position. There are new bilateral pulmonary infiltrates that are fluffy, consistent with acute pulmonary edema. ASSESSMENT: 1. Acute hypoxic respiratory failure. 2. Flash pulmonary edema. 3. Acute on chronic diastolic and valvular heart failure. 4. Hypertensive emergency. DISCUSSION AND PLAN: We have spent over 90 minutes at bedside in evaluating the patient and working a code. Central line was placed. This is unbundled from our other time requirements. All nonessential medications are to be discontinued. Cardiology has been notified of her new rhythm. If her oxygen requirements improve over the next 24 hours, she will likely be stable for any type of procedure, but at this point, she simply is too sick to get out of the ICU. Hopefully, she will defervesce quickly, especially if we have tight blood pressure control. Pulmonary/Critical Care will obviously continue to follow very closely. Hopefully, the short 4-minute code event does not result in significant neurologic injury, but only time is going to tell. CRITICAL CARE TIME: 90 minutes. Job ID: [id number]
[2018-11-27] MEDS ORDERED: SYSTANE 3.5 GM TUBE EA EYE PRN (08:54)
--- NOTE | 2018-11-27 08:58 | PDOC.CNTRL ---
Central Line Procedure Note - Procedure Date: 11/27/18 Time: 08:30 - PreProcedure Diagnosis: hypotension, ventricular tachycardia - PostProcedure Diagnosis: hypotension, v tach both resolved - Anesthesia Anesthesia: 1% Lidocaine without epinephrine - Description Focused site: internal jugular: Right Ultrasound guidance: Yes Patient tolerated procedure: well Procedure in Details: PROCEDURE ORGAN BUILDER: Evaristo Holguin MD ATTENDING PHYSICIAN: Enmanuel Ruiz MD, in attendance CONSENT: emergent The procedure was performed emergently and the permission was implied because of the emergent nature. PROCEDURE SUMMARY: A time out was performed. My hands were washed immediately prior to the procedure. I wore a surgical cap, mask with protective eyewear, full gown and sterile gloves throughout the procedure. RIGHT chest region was prepped using chlorhexidine scrub and draped in sterile fashion using a full drape and sterile probe cover employed. The medial and lateral heads of the sternocleidomastoid muscle were identified as was the carotid pulse. The Internal Jugular vein was identified using the ultrasound. Anesthesia was achieved over the vein using 1% lidocaine. Using real-time out of plane guidance , the introducer needle was inserted into the Internal Jugular vein under direct ultrasound visualization. Venous blood was withdrawn on second attempt. The syringe was removed and a guidewire was advanced into the introducer needle. The guidewire was visualized in the Internal Jugular Vein by ultrasound. A small incision was made at the skin surface with a scalpel and the introducer needle was exchanged for a dilator over the guidewire. After appropriate dilation was obtained, the dilator was exchanged over the wire for a triple lumen central venous catheter. The wire was removed and the catheter was sutured in place at 15 cm. A sterile sorbaview shield was placed over the catheter at the insertion site. The patient tolerated the procedure without any hemodynamic compromise. At time of procedure completion, all ports aspirated and flushed properly. Showed good placement. Estimated blood loss is 10ml. Addendum - Attending - Attending Attestation Date/Time: 11/27/18 1030 I was immediately available for the entirety of the procedure and present for the critical steps. I agree with Dr. Holguin's documentation.
[2018-11-27] MEDS ORDERED: Diltiazem 125 MG in Sodium Chloride 0.9% 100 ML IVPB SCH (09:00)
--- NOTE | 2018-11-27 09:05 | RAD ---
SUPINE PORTABLE CHEST RADIOGRAPH: Date: 11-27-18 Comparison: 11-24-18 History: Code green/Code blue. FINDINGS: There is a new endotracheal tube terminating over the tracheal column in proper position. There is ne w diffuse increased interstitial density bilaterally. There is also new airspace disease bilaterally, most prominent in the right perihilar region/right upper lobe in the medial left lung base. IMPRESSION: Interval intubation. Interval development of interstitial and alveolar opacity suggesting pulmonary e chio. Infectious pneumonitis or aspiration cannot be excluded. Follow up imaging following treatment advised. POS: DEMETRICE
[2018-11-27 09:09] LABS: Anion Gap 26 mmol/L (10-20); BUN (Urea Nitrogen) 45 mg/dL (9.8-20.1); Calc. Creatinine Clearance 18 mL/min (70-130); Calcium 9.7 mg/dL (7.8-10.44); Carbon Dioxide 18 mmol/L (23-31); Chloride 105 mmol/L (98-107); Estimated GFR-MDRD 17; Glucose 453 mg/dL (83-110); Potassium 3.5 mmol/L (3.5-5.1); Sodium 145 mmol/L (136-145)
[2018-11-27 09:38] LABS: #Lymphocytes 1.4 thou/uL (1.20-3.40); #Monocytes 0.7 thou/uL (0.11-0.59); #Neutrophils 15.2 thou/uL (1.40-6.50); %Basophils 0.2 % (0.0-1.0); %Eosinophils 0.3 % (0.0-10.0); %Lymphocytes 7.9 % (21.0-51.0); %Neutrophils 87.6 % (42.0-75.0); Hemoglobin 13.4 g/dL (12.0-16.0); Mean Corpuscular HGB CONC 31.6 g/dL (32.0-36.0); Mean Corpuscular Hemoglobin 28.1 pg (27.0-31.0); Mean Corpuscular Volume 88.9 fL (78.0-98.0); Mean Platelet Volume 8.1 fL (7.4-10.4); Platelet Count 247 thou/uL (130-400); RBC Distribution Width 12.9 % (11.5-14.5); Red Blood Cell (RBC) Count 4.77 mill/uL (4.20-5.40); White Blood Cell (WBC) Count 17.3 thou/uL (4.8-10.8)
[2018-11-27 09:38] LABS: CKMB 1.9 ng/mL (0-6.6)
--- NOTE | 2018-11-27 10:17 | RAD ---
PORTABLE SUPINE FRONTAL CHEST RADIOGRAPH: Date: 11-27-18 Time: 7:48 a.m. Comparison: 11-27-18 at 6:31 a.m. History: Central line placement. FINDINGS: Patient is imaged in the supine position, limiting assessment for pneumothorax and pleural fluid. The re is a new right sided vascular catheter, distal tip overlying the expected location of the SVC. Sta ble endotracheal tube. Diffuse increased linear interstitial density noted. Multifocal stable airspac e disease noted, most prominent in the right perihilar region/right upper lobe in the medial left carlita g base. IMPRESSION: Lines and tubes as detailed above. Interstitial and alveolar opacity is stable suggesting pulmonary e chio. Infection or aspiration cannot be excluded. POS: DEMETRICE
--- NOTE | 2018-11-27 10:30 | CON ---
DATE OF CONSULTATION: HISTORY OF PRESENT ILLNESS: Ms. Mitchell recently was transferred to the Critical Care. She had a respiratory distress. I have discussed the case with the nurse. It appeared Ms. Mitchell developed chest pain x2 earlier this morning. The admitting physician was called. Nitroglycerin was given. Given multiple doses of nitroglycerin, we decided to proceed with morphine. The nurse states she then gone to the bathroom and had increased shortness of breath and nausea. The patient then decompensated. She was transferred to the ICU and underwent intubation. She is currently sedated. She is moving all 4 extremities. She was coded briefly. PHYSICAL EXAMINATION: GENERAL: She is currently intubated and sedated. VITAL SIGNS: Blood pressure 151/79, pulse 128, and temperature afebrile. NEUROLOGIC: The patient is alert and oriented x3 with no focal neurologic deficits. HEENT: Sclerae without icterus. Mouth has moist mucous membranes with normal pallor. NECK: No JVD. Carotid upstroke brisk. No bruits bilaterally. LUNGS: Clear to auscultation with unlabored respirations. BACK: No scoliosis or kyphosis. CARDIAC: Regular rate and rhythm with normal S1 and S2. No S3 or S4 noted. No significant rubs, murmurs, thrills, or gallops noted throughout the precordium. PMI is not displaced. There is no parasternal heave. ABDOMEN: Soft, nontender, nondistended. No peritoneal signs present. No hepatosplenomegaly. No abnormal striae. EXTREMITIES: 2+ femoral and 2+ dorsalis pedis pulses. No cyanosis, clubbing, or edema. SKIN: No gross abnormalities. PERTINENT LABORATORY DATA: White blood cell count 17.3. Worsening creatinine of 2.6, up from 2.3. Troponin stable at 0.078 and CK-MB 1.9. EKG shows left bundle-branch block. IMPRESSION: 1. Respiratory failure. 2. Chest pain. 3. Chronic kidney disease. 4. Anemia. RECOMMENDATIONS: Current working diagnosis includes functional MR and renal artery stenosis in addition to diffuse underlying coronary artery disease. Her overall LVEF appears normal. She did have [id number] mitral regurgitation on recent echo. She also had a recent stress study last year that was within normal limits. At this point, we would recommend close observation. The patient has increased risk of contrast nephropathy if angiography is performed. She appears to be stable at this point to proceed with any further testing. I am pleased that her troponin is not felt to be elevated. This is likely secondary to renal dysfunction. Dr. Ruiz has been consulted. May consider angio once she is more stable. Family is not present. I would manage her blood pressure and heart rate aggressively. Continue aspirin. Add low-dose beta-tam therapy. Total critical care time 40 minutes. Job ID: [id number]
--- NOTE | 2018-11-27 10:32 | OP ---
DATE OF PROCEDURE: 11/27/2018 SERVICE: Pulmonary Medicine. PROCEDURE: Emergent endotracheal intubation. CONSENT: Procedure was performed emergently secondary to clinical deterioration and respiratory failure. MEDICATIONS USED: None. PREPROCEDURE DIAGNOSES: 1. Ventricular tachycardia arrest. 2. Acute hypoxic respiratory failure. POSTPROCEDURE DIAGNOSES: 1. Ventricular tachycardia arrest. 2. Acute hypoxic respiratory failure. DESCRIPTION OF PROCEDURE: Vital sign monitoring was accomplished by noninvasive hemodynamic monitoring, pulse oximetry, and telemetry. In the supine position, the patient was preoxygenated with [id number] ventilation, but only maintained with saturations of 78%. Following induction of anesthesia, a #3 GlideScope was inserted through the mouth offering clear identification of the posterior oropharynx and laryngeal structures with a grade 2 view. An endotracheal tube was visualized passing through the vocal cords. Placement was confirmed by condensation in the endotracheal tube, colorimetric capnography, and bi-axillary chest auscultation. The endotracheal tube was secured at 24 cm, measured at the teeth. The patient was placed on mechanical ventilation with good return of volumes. Postprocedure x-ray demonstrated decent location for the endotracheal tube in the trachea. ESTIMATED BLOOD LOSS: None. COMPLICATIONS: None. Job ID: [id number]
[2018-11-27] MEDS: cefTRIAXone\\ROCEPHIN 2 GM in Sodium Chloride 0.9% 100 ML IVPB SCH (11:15)
[2018-11-27] MEDS: Enoxaparin Sodium 30 MG/0.3 ML SYRINGE SC SCH (11:16)
[2018-11-27] MEDS: Insulin Glargine 20 UNITS in Pre-Filled Syringe 1 EACH SC SCH (11:16)
[2018-11-27] MEDS ORDERED: Norepinephrine 8 MG/0.9% NS 250 ML ONE (12:26)
[2018-11-27] MEDS: Aspirin Chewable 81 MG TAB PO SCH (12:33)
[2018-11-27] MEDS: Docusate 100 MG CAP PO SCH (12:33)
[2018-11-27] MEDS ORDERED: Norepinephrine 8 MG/0.9% NS 250 ML IVPB SCH (12:45)
[2018-11-27 13:05] LABS: Troponin I 0.407 ng/mL (< 0.028)
[2018-11-27] MEDS: Propofol 1,000 MG/100 ML VIAL IV PRN (13:30)
[2018-11-27 14:49] LABS: Troponin I 0.718 ng/mL (< 0.028)
[2018-11-27] MEDS ORDERED: Furosemide 40 MG/4 ML VIAL SLOW IVP SCH (16:00)
[2018-11-27] MEDS: HumaLOG 300 UNITS/3 ML VIAL SC PRN ×3 (16:36→23:46)
[2018-11-27] MEDS ORDERED: Dextrose 50% Abboject 50 ML SYRINGE SLOW IVP PRN (17:10)
[2018-11-27] MEDS ORDERED: Dextrose 5% in Water 1,000 ML IV PRN (17:10)
[2018-11-27] MEDS ORDERED: Acetaminophen 650 MG Suppository PR SCH (19:30)
[2018-11-27] MEDS ORDERED: MEROPENEM 1 GM/50 ML 1 GM in Premix Bag 1 BAG IVPB SCH (23:45)
[2018-11-28] MEDS: Acetaminophen 650 MG Suppository PR PRN ×2 (02:10→15:13)
[2018-11-28] MEDS: HumaLOG 300 UNITS/3 ML VIAL SC PRN ×2 (03:47→16:59)
[2018-11-28] MEDS: Levothyroxine Sodium 25 MCG TAB PO SCH (05:06)
[2018-11-28 05:34] LABS: Anion Gap 16 mmol/L (10-20); BUN (Urea Nitrogen) 62 mg/dL (9.8-20.1); Calc. Creatinine Clearance 13 mL/min (70-130); Calcium 9.2 mg/dL (7.8-10.44); Carbon Dioxide 26 mmol/L (23-31); Chloride 108 mmol/L (98-107); Estimated GFR-MDRD 13; Glucose 271 mg/dL (83-110); Potassium 3.6 mmol/L (3.5-5.1); Sodium 146 mmol/L (136-145)
[2018-11-28 05:53] LABS: Band 31 % (5-11); Hemoglobin 10.4 g/dL (12.0-16.0); Lymphocytes 6 % (21-51); MDiff Complete? YES; Mean Corpuscular HGB CONC 31.7 g/dL (32.0-36.0); Mean Corpuscular Hemoglobin 27.7 pg (27.0-31.0); Mean Corpuscular Volume 87.4 fL (78.0-98.0); Mean Platelet Volume 8.7 fL (7.4-10.4); Metamyelocyte 3 % (0-0); Monocytes 7 % (0-10); Myelocyte 3 % (0-0); Neutrophil 50 % (42-75); Platelet Count 166 thou/uL (130-400); RBC Distribution Width 12.9 % (11.5-14.5); Red Blood Cell (RBC) Count 3.75 mill/uL (4.20-5.40); White Blood Cell (WBC) Count 13.4 thou/uL (4.8-10.8)
[2018-11-28] MEDS ORDERED: MEROPENEM 1 GM/50 ML 1 GM in Premix Bag 1 BAG IVPB SCH (06:00)
--- NOTE | 2018-11-28 07:13 | PDOC.PN ---
- Subjective Encounter Start Date: 11/28/18 Encounter Start Time: 07:11 Subjective: intubated, alert. pos SOB, discomfort with ET tube - Objective MAR Reviewed: Yes Vital Signs & Weight: Vital Signs (12 hours) Temp Pulse Resp BP Pulse Ox 11/28/18 06:36 102 H 137/61 11/28/18 06:34 105 H 20 99 11/28/18 06:00 100.1 F H 14 11/28/18 05:00 101.4 F H 11/28/18 04:00 100.2 F H 14 11/28/18 03:00 100.8 F H 11/28/18 02:00 101.1 F H 112 H 18 11/28/18 01:00 100.5 F H 11/28/18 00:00 102.5 F H 14 11/27/18 23:49 15 11/27/18 23:42 109 H 16 100 11/27/18 23:00 102.3 F H 11/27/18 22:10 114 H 11/27/18 22:00 101.8 F H 16 11/27/18 21:00 102 F H 11/27/18 20:00 102.6 F H 21 H 11/27/18 19:30 23 H 99 Weight Admit Weight 148 lb 12.992 oz Weight 146 lb 2.664 oz Most Recent Monitor Data Heart Rate from ECG 98 NIBP 103/75 NIBP BP-Mean 84 Respiration from ECG 14 SpO2 100 I&O: 11/27/18 11/28/18 11/29/18 06:59 06:59 06:59 Intake Total 1357 317.3 Output Total 5335 564 Balance -1118 -246.7 Result Diagrams: 11/28/18 04:39 11/28/18 04:39 Additional Labs: Accuchecks 11/28/18 11/27/18 11/27/18 03:44 23:33 19:22 POC Glucose 249 H 323 H 373 H 11/27/18 11/27/18 11/27/18 16:35 11:16 07:13 POC Glucose 417 H 378 H 229 H Radiology Reviewed by me: Yes (cxr- pul edema R>L, ET tube above nicholas) EKG Reviewed by me: Yes (sinus tach) Phys Exam - Physical Examination Neck: no JVD Respiratory: clear to auscultation bilateral Cardiovascular: RRR, no significant murmur Gastrointestinal: soft, positive bowel sounds Musculoskeletal: no edema Dx/Plan (1) Acute pulmonary edema Code(s): J81.0 - ACUTE PULMONARY EDEMA Status: Acute (2) Ventricular tachycardia Code(s): I47.2 - VENTRICULAR TACHYCARDIA Status: Resolved (3) CKD (chronic kidney disease) stage 4, GFR 15-29 ml/min Code(s): N18.4 - CHRONIC KIDNEY DISEASE, STAGE 4 (SEVERE) Status: Chronic (4) CHF (congestive heart failure), NYHA class III Code(s): I50.9 - HEART FAILURE, UNSPECIFIED Status: Chronic Qualifiers: Congestive heart failure type: combined Congestive heart failure chronicity : acute Qualified Code(s): I50.41 - Acute combined systolic (congestive) and diastolic (congestive) heart failure Comment: EF 45% 09/2017, systolic and diastolic dysfunction (5) HTN (hypertension) Code(s): I10 - ESSENTIAL (PRIMARY) HYPERTENSION Status: Chronic Qualifiers: Hypertension type: essential hypertension Qualified Code(s): I10 - Essential (primary) hypertension (6) Chest pain Code(s): R07.9 - CHEST PAIN, UNSPECIFIED Status: Resolved Qualifiers: Chest pain type: unspecified Qualified Code(s): R07.9 - Chest pain, unspecified (7) Acute respiratory failure with hypoxia Code(s): J96.01 - ACUTE RESPIRATORY FAILURE WITH HYPOXIA Status: Acute (8) DM type 2 (diabetes mellitus, type 2) Status: Acute Qualifiers: Diabetes mellitus assistant terminal manager insulin use: with assistant terminal manager use Diabetes mellitus complication status: with kidney complications Chronic kidney disease stage: stage 4 (severe) - Plan vent per senior sales assistant -: cont accu/ ss/ LA insulin -: blood, etc C&S pending, on iv antibx -: renal fcn adverse, hold lasix pending discussion with senior sales assistant * .
--- NOTE | 2018-11-28 07:41 | EKG ---
Test Reason : AFTER CODE BLUE Blood Pressure : / mmHG Vent. Rate : 053 BPM Atrial Rate : 058 BPM P-R Int : 000 ms QRS Dur : 136 ms QT Int : 522 ms P-R-T Axes : 000 -52 064 degrees QTc Int : 489 ms Wide QRS rhythm with Fusion complexes Right bundle branch block Left anterior fascicular block Bifascicular block T wave abnormality, consider lateral ischemia Abnormal ECG When compared with ECG of 25-NOV-2018 16:07, Wide QRS rhythm has replaced Sinus rhythm Vent. rate has decreased BY 50 BPM Confirmed by GEORGINA VILLANUEVA ([id number]) on 11/28/2018 7:41:14 AM Referred By: JUDY Confirmed By:GEORGINA VILLANUEVA
--- NOTE | 2018-11-28 07:43 | EKG ---
Test Reason : REPEAT Blood Pressure : / mmHG Vent. Rate : 128 BPM Atrial Rate : 128 BPM P-R Int : 078 ms QRS Dur : 142 ms QT Int : 406 ms P-R-T Axes : 001 -46 105 degrees QTc Int : 592 ms Sinus tachycardia with short [place] /Possible A. Flutter with 2:1 block. Left axis deviation Left bundle branch block Abnormal ECG When compared with ECG of 27-NOV-2018 07:46, (Unconfirmed) Sinus rhythm has replaced Wide QRS rhythm Vent. rate has increased BY 75 BPM Confirmed by GEORGINA VILLANUEVA ([id number]) on 11/28/2018 7:42:46 AM Referred By: ALANNA Confirmed By:GEORGINA VILLANUEVA
--- NOTE | 2018-11-28 08:12 | RAD ---
CHEST 1 VIEW: Date: 11/28/18 HISTORY: CCU patient, ventilated patient. COMPARISON: Radiograph prior day. FINDINGS: The patient is intubated with endotracheal tube tip above the nicholas 4.2 cm. Multifocal right lung ai r space opacities have increased from the comparison examination. New left basilar air space opacity. IMPRESSION: Mild worsening of pulmonary edema. POS: [facility]
[2018-11-28] MEDS: cefTRIAXone\\ROCEPHIN 2 GM in Sodium Chloride 0.9% 100 ML IVPB SCH (08:18)
[2018-11-28] MEDS: Insulin Glargine 20 UNITS in Pre-Filled Syringe 1 EACH SC SCH (08:19)
[2018-11-28] MEDS: Propofol 1,000 MG/100 ML VIAL IV PRN ×2 (08:19→23:01)
--- NOTE | 2018-11-28 08:22 | PRG ---
DATE OF SERVICE: 11/27/2018 SUBJECTIVE: The patient had sob and hypoxia this morning and was transferred to ICU . she is seen in ICU and is intubated. family at bedside. OBJECTIVE: GENERAL: This is an elderly female in no acute distress. VITAL SIGNS: Temperature 98.8. Pulse 120. Respiratory rate 25. Blood pressure 125/77. HEENT: Atraumatic, normocephalic. Oral mucosa is moist NECK: Supple. CARDIOVASCULAR: S1, S2 heard. RESPIRATORY: Coarse breath sounds. GASTROINTESTINAL: Abdomen is soft. MUSCULOSKELETAL: No tenderness. No edema. DERMATOLOGIC: No skin rash. NEUROLOGIC: Alert and awake and oriented X3. No focal neurologic deficits. Moving all the extremities. PSYCHIATRIC: Mood and affect normal. LABORATORY DATA: Potassium is 3.5, BUN is 45, creatinine is 2.6. ASSESSMENT AND PLAN: 1. Acute kidney injury on chronic kidney disease, stage 4, stable. 2. Cardiorenal syndrome - f/u with cardiology. 3. Hypertension, stable. 4. Pulmonary edema - will give IV lasix today. We will continue to monitor. No acute indication for dialysis. Job ID: [id number] [facility]
[2018-11-28] MEDS: Docusate 100 MG CAP PO SCH (08:25)
[2018-11-28] MEDS: Enoxaparin Sodium 30 MG/0.3 ML SYRINGE SC SCH (08:25)
--- NOTE | 2018-11-28 08:30 | CON ---
DATE OF CONSULTATION: 11/28/2018 SUBJECTIVE: Ms. Mitchell continues to be intubated and sedated. She is off pressors. Her peak troponin was 0.7. Her creatinine also continues to worsen. OBJECTIVE: VITAL SIGNS: Blood pressure 137/61, pulse 96, T-max 102.5. LUNGS: Clear to auscultation. HEART: Regular rate and rhythm. No new murmurs. ABDOMEN: Soft, nontender, nondistended. EXTREMITIES: No edema. PERTINENT LABORATORY DATA: Hemoglobin 10.4, creatinine 3.38, BUN 62, troponin 0.7, hemoglobin 10.4, white blood cell count 13.4. IMPRESSION: 1. Respiratory failure. 2. Chronic left bundle-branch block. 3. Febrile illness of unknown etiology. 4. Elevated troponin. RECOMMENDATIONS: Ms. Mitchell' current compromise is unknown. Her elevated troponin of 0.7 is out of proportion to acute cardiac event. Her initial troponins were all felt to be secondary to chronic kidney disease. Her mild increase to 0.7 likely related to a brief CPR versus worsening creatinine. This may also be due to demand ischemia. At this point, from a CV standpoint, given normal LVEF and mild increase in troponin, would continue with conservative therapy. She is on antibiotic therapy with blood cultures pending. I have not been able to use the beta tam therapy. She is currently on aspirin. I would recommend low-dose beta tam therapy once her blood pressure continues to stabilize. Job ID: [id number]
[2018-11-28] MEDS: Aspirin Chewable 81 MG TAB PO SCH (08:32)
--- NOTE | 2018-11-28 08:59 | PDOC.PULPN ---
Addendum entered and electronically signed by Evaristo Holguin MD 11/28/18 10:17: Dr. Ruiz was able to wean vent and patient tolerated well Now on Pressure support, rate of 8, breathing spontaneously Anticipate extubation tomorrow Fever - stopped dillan, cont azithro, rocephin - only intubated 1 day, in hospital for 2 - could be 2/2 flash pulmonary edema, blood in lungs causing SIRS response - will check resp viral panel Cr increasing as expected after code event, will cont d5w at 50ml/hr to cover for in-sensible losses, monitor U/O Start tube feeds per nutrition Original Note: Progress Note: Subj/Obj - Subjective Date: 11/28/18 Time: 08:00 Narrative: still intubated, spiked fever overnight, denies pain this AM - ROS ROS unobtainable: due to endotracheal tube All systems: reviewed and no additional remarkable complaints except as stated ( see below) Constitutional: fever - Objective Allergies/Adverse Reactions: Allergies Allergy/AdvReac Type Severity Reaction Status Date / Time apple Allergy Verified 12/02/18 10:56 hydrocodone Allergy Verified 05/20/17 20:58 Iodine and Iodide Containing Allergy Verified 05/20/17 20:58 Produc onion Allergy Verified 10/03/17 00:06 Vital Signs: Vital Signs Temp 99.3 F 11/28/18 07:00 Pulse 102 H 11/28/18 06:36 Resp 13 11/28/18 08:00 BP 137/61 11/28/18 06:36 Pulse Ox 96 11/28/18 07:48 Intake & Output 11/27/18 11/28/18 11/28/18 18:59 06:59 18:59 Intake Total 317.3 90 Output Total 386 178 25 Balance -68.7 -178 65 Weight 66.3 kg Intake: Intake, IV Amount 317.3 Diltiazem 125 mg In 12.6 Sodium Chloride 0.9% 100 ml @ 5 MG/HR 5 mls/hr IVPB INF GUALBERTO Rx#:[id number] Norepinephrine 8 MG/0.9% 37 NS 250 ml @ Per Protocol IVPB INF GUALBERTO Rx#:[id number] Propofol 1000 mg (See 51.7 Protocol) IV INF PRN Rx#: [id number] Sodium Chloride 0.9% 1, 216 000 ml @ 65 mls/hr IV . [id number] [facility] Rx#:[id number] Oral 0 0 Tube Irrigant 90 Output: Urine 1 Output, [place] 385 178 25 Other: Voiding Method Indwelling Catheter Indwelling Catheter Indwelling Catheter Progress Note: Exam - Physical Exam Constitutional: NAD Progress Note: Data - Labs Result Diagrams: 12/03/18 11:17 12/04/18 04:35 Progress Note: A/P - Problems (1) Acute pulmonary edema Current Visit: Yes Status: Resolved Code(s): J81.0 - ACUTE PULMONARY EDEMA (2) Acute respiratory failure with hypoxia Current Visit: Yes Status: Acute Code(s): J96.01 - ACUTE RESPIRATORY FAILURE WITH HYPOXIA (3) DM type 2 (diabetes mellitus, type 2) Current Visit: Yes Status: Acute Qualifiers: Diabetes mellitus assisted insulin use: with assisted use Diabetes mellitus complication status: with kidney complications Chronic kidney disease stage: stage 4 (severe) (4) CKD (chronic kidney disease) stage 4, GFR 15-29 ml/min Current Visit: Yes Status: Chronic Code(s): N18.4 - CHRONIC KIDNEY DISEASE, STAGE 4 (SEVERE) (5) Ventricular tachycardia Current Visit: Yes Status: Resolved Code(s): I47.2 - VENTRICULAR TACHYCARDIA (6) NSTEMI (non-ST elevated myocardial infarction) Current Visit: No Status: Acute Code(s): I21.4 - NON-ST ELEVATION (NSTEMI) MYOCARDIAL INFARCTION (7) Acute renal failure superimposed on stage 4 chronic kidney disease Current Visit: No Status: Acute Code(s): N17.9 - ACUTE KIDNEY FAILURE, UNSPECIFIED; N18.4 - CHRONIC KIDNEY DISEASE, STAGE 4 (SEVERE) (8) CHF (congestive heart failure), NYHA class III Current Visit: No Status: Chronic Code(s): I50.9 - HEART FAILURE, UNSPECIFIED Qualifiers: Congestive heart failure type: combined Congestive heart failure chronicity : acute Qualified Code(s): I50.41 - Acute combined systolic (congestive) and diastolic (congestive) heart failure - Time Spent with Patient Time with Patient: greater than 50 minutes - Plan Plan: REVIEW OF SYSTEMS: - intubated Card: denies chest pain GI: no abdominal pain PHYSICAL EXAMINATION: General: NAD, alert responds to questions HEENT: PERRLA, EOMI, normal sclera, intbuated Neck: Supple. Full ROM. Heart/Cardiovascular System: RRR, Cap refill < 3 seconds, no rub, 2/6 murmur Lungs/Respiratory System: clear to auscultation bilaterally. On ventilator Abdomen/Gastro-Intestinal System: no abdominal tenderness, normal bowel sounds, no masses, no organomegaly Extremeties: Warm extremities. No cyanosis or edema. 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 () - Sedation: propofol - answers questions, responds to commands Resp (on ventilator, pulmonary edema) - still relying on vent, will work towards weaning today - SIMV-VC TV 470/ PS 17/ PEEP 9/ FIo2 30% - worsening pulmonary edema, continue vent support - cautious with lasix 2/2 worsening CKD CV (HTN, s/p vtach, CHF) - Pressors: none, off overnight - trop up to 0.718 felt to be demand vs arrest vs CKD - EF 55-60% 11/26/18 - monitor closely Endo () GI () /Renal (ANGELA on CKD) - u/o yesterday 0.35 ml/kg/hr - Cr up to 3.38 - cardiorenal syndrome (s/p arrest) vs ROSCOE - Nephro consulted, appreciate recs, may need dialysis in the future if volume status continue to be an issue Infection (fever) - WBC 13.4, fever to 102.6 - ventilated 1 day, no apparent risk for MRSA, no candiate for VAP therapy - did come from assisted living - s/p one dose of meropenem overnight, will de-escalate to rocephin - hx of recurrent UTIs - Bcx pending Lines/Tubes: intubated, Right IJ Code status: full PPx: lovenox Dispo: >2 midnights Addendum - Attending - Attending Attestation Date/Time: 12/04/18 1732 I personally evaluated the patient and discussed the management with Dr. Holguin. I agree with the History, Examination, Assessment and Plan documented above with any addition or exceptions noted below. Patient has acute hypoxic respiratory failure 2/2 flash pulmonary edema. She has developed SIRS, possibly as a result of inflammatory process of having pulmonary hemorrhage. Empiric antibiotics will be continued. Critical care time: 30 minutes.
[2018-11-28] MEDS ORDERED: Aspirin 325 MG TAB PO SCH (09:00)
[2018-11-28] MEDS: Dextrose 5% in Water 1,000 ML IV SCH (09:12)
--- NOTE | 2018-11-28 10:17 | PRG ---
DATE OF SERVICE: 11/28/2018 SUBJECTIVE: The patient is seen in ICU. Family at the bedside. Remains intubated. Making minimal amount of urine. OBJECTIVE: GENERAL: This is an elderly white female, seen in ICU. VITAL SIGNS: Temperature 99.3, pulse 108, respiratory rate 18, blood pressure 144/81. HEENT: Intubated. CVS: S1 and S2 heard. RESPIRATORY: Clear. GI: Abdomen is soft. MUSCULOSKELETAL: 1+ edema. DERMATOLOGIC: No skin rash. NEUROLOGIC: Intubated. LABORATORY DATA: Potassium 3.6. BUN is 62, creatinine is 3.3. ASSESSMENT AND PLAN: 1. Acute kidney injury on chronic kidney disease, stage 4 with worsening creatinine and no significant urine output. Okay with Lasix for volume control with cautious monitoring of renal function and electrolytes. Might need renal replacement in the next few days if volume control remains an issue. 2. Cardiorenal syndrome with pulmonary edema. We will monitor. 3. Hypertension. 4. Edema. 5. Anemia. 6. Acute hypoxic respiratory failure secondary to fluid overload and intubated currently. Management per Pulmonary Team. 7. Prognosis is guarded. No acute indication for dialysis. We will continue close monitoring. Job ID: [id number] [facility]
[2018-11-28] MEDS: Azithromycin 500 MG in Sodium Chloride 0.9% 250 ML 250 ML IVPB SCH (10:45)
[2018-11-28] MEDS ORDERED: Amiodarone 150 MG, Admixture Fee 1 EACH in Dextrose 5% in Water 100 ML IVPB SCH (13:00)
[2018-11-28] MEDS: Amiodarone 450 MG, Admixture Fee 1 EACH in Dextrose 5% in Water 250 ML IVPB SCH ×2 (13:20→23:00)
--- NOTE | 2018-11-28 17:04 | CON ---
DATE OF CONSULTATION: I spoke with her daughter at length today. I updated her on Ms. Mitchell' progress. I am concerned about her worsening renal function. She also developed new onset atrial fibrillation with RVR. She has been placed on IV amiodarone. Prognosis appears guarded. Her urine output remains low. I did spend a total of 40 minutes of critical care time on 11/28/2018, gone over her case. Current status appears guarded. Job ID: [id number]
[2018-11-29] MEDS: HumaLOG 300 UNITS/3 ML VIAL SC PRN ×3 (00:39→11:54)
[2018-11-29 03:52] LABS: Anion Gap 11 mmol/L (10-20); BUN (Urea Nitrogen) 67 mg/dL (9.8-20.1); Calc. Creatinine Clearance 13 mL/min (70-130); Calcium 8.7 mg/dL (7.8-10.44); Carbon Dioxide 28 mmol/L (23-31); Chloride 105 mmol/L (98-107); Estimated GFR-MDRD 13; Glucose 174 mg/dL (83-110); Magnesium 1.4 mg/dL (1.6-2.6); Potassium 3.2 mmol/L (3.5-5.1); Sodium 141 mmol/L (136-145)
[2018-11-29 03:54] LABS: Phosphorus 1.6 mg/dL (2.3-4.7)
[2018-11-29 04:07] LABS: Hemoglobin 8.8 g/dL (12.0-16.0); Hypochromia SLIGHT = 6-15 cells (100X) (0-5/hpf); Lymphocytes 9 % (21-51); MDiff Complete? YES; Mean Corpuscular HGB CONC 32.2 g/dL (32.0-36.0); Mean Corpuscular Hemoglobin 28.4 pg (27.0-31.0); Mean Corpuscular Volume 88.2 fL (78.0-98.0); Neutrophil 91 % (42-75); Platelet Count 125 thou/uL (130-400); Platelet Morphology Comment Appears Adequate; RBC Distribution Width 13.1 % (11.5-14.5); Red Blood Cell (RBC) Count 3.11 mill/uL (4.20-5.40); White Blood Cell (WBC) Count 13.4 thou/uL (4.8-10.8)
[2018-11-29] MEDS ORDERED: Magnesium 2 GM/50 ML 2 GM in Premix Bag 1 BAG IVPB PRN (04:54)
[2018-11-29] MEDS: Dextrose 5% in Water 1,000 ML IV SCH (05:37)
[2018-11-29] MEDS: Propofol 1,000 MG/100 ML VIAL IV PRN ×2 (05:37→17:00)
[2018-11-29] MEDS: Levothyroxine Sodium 25 MCG TAB PO SCH (05:37)
--- NOTE | 2018-11-29 07:08 | EKG ---
Test Reason : Blood Pressure : / mmHG Vent. Rate : 145 BPM Atrial Rate : 315 BPM P-R Int : 000 ms QRS Dur : 130 ms QT Int : 364 ms P-R-T Axes : 000 -64 138 degrees QTc Int : 565 ms Atrial flutter with variable A-V block Left axis deviation Left bundle branch block Abnormal ECG When compared with ECG of 27-NOV-2018 08:46, Atrial flutter with 2:1 block present at that time. T wave amplitude has decreased in Inferior leads Confirmed by GEORGINA VILLANUEVA ([id number]) on 11/29/2018 7:08:47 AM Referred By: ALANNA Confirmed By:GEORGINA VILLANUEVA
--- NOTE | 2018-11-29 07:09 | EKG ---
Test Reason : Blood Pressure : / mmHG Vent. Rate : 116 BPM Atrial Rate : 116 BPM P-R Int : 130 ms QRS Dur : 130 ms QT Int : 364 ms P-R-T Axes : 069 -64 136 degrees QTc Int : 505 ms Sinus tachycardia Left axis deviation Left bundle branch block Abnormal ECG When compared with ECG of 28-NOV-2018 12:37, (Unconfirmed) Sinus rhythm has replaced Atrial flutter Confirmed by GEORGINA VILLANUEVA ([id number]) on 11/29/2018 7:09:12 AM Referred By: ALANNA Confirmed By:GEORGINA VILLANUEVA
[2018-11-29] MEDS ORDERED: Magnesium Sulfate 4 GM in Sodium Chloride 0.9% 250 ML 250 ML IVPB SCH (08:00)
[2018-11-29] MEDS ORDERED: Potassium Phosphate 30 MMOL in Sodium Chloride 0.9% 500 ML IVPB SCH (08:00)
[2018-11-29] MEDS ORDERED: Dextrose 5% in Water 1,000 ML IV SCH (08:04)
[2018-11-29] MEDS ORDERED: Furosemide 40 MG/4 ML VIAL SLOW IVP SCH (08:15)
--- NOTE | 2018-11-29 08:36 | PDOC.PULPN ---
Progress Note: Subj/Obj - Subjective Date: 11/29/18 Time: 08:00 - ROS ROS unobtainable: due to mental status - Objective Allergies/Adverse Reactions: Allergies Allergy/AdvReac Type Severity Reaction Status Date / Time hydrocodone Allergy Verified 05/20/17 20:58 Iodine and Iodide Containing Allergy Verified 05/20/17 20:58 Produc onion Allergy Verified 10/03/17 00:06 MAR Reviewed: Yes Vital Signs: Vital Signs Temp 100.6 F H 11/29/18 04:00 Pulse 100 11/29/18 06:27 Resp 16 11/29/18 06:21 BP 130/56 L 11/29/18 06:27 Pulse Ox 93 L 11/29/18 06:21 Intake & Output 11/28/18 11/29/18 11/29/18 18:59 06:59 18:59 Intake Total 300 1280 Output Total 242 270 Balance 58 1010 Weight 66.3 kg 65.785 kg Intake: Intake, IV Amount 210 755 Amiodarone 450 mg 157 233 Admixture Fee 1 each In Dextrose 5% in Water 250 ml @ As Directed IVPB INF GUALBERTO Rx#:[id number] Dextrose 5% in Water 1, 406 000 ml @ As Directed IV . Q0M PRN Rx#:[id number] Propofol 1000 mg (See 53 116 Protocol) IV INF PRN Rx#: [id number] Oral 0 0 Tube Feeding 285 Tube Irrigant 90 240 Output: Output, [place] 242 270 Other: Voiding Method Indwelling Catheter Indwelling Catheter Progress Note: Exam - Physical Exam Constitutional: NAD Progress Note: Data - Labs Result Diagrams: 11/29/18 03:25 11/29/18 03:25 Progress Note: A/P - Problems (1) Acute pulmonary edema Current Visit: Yes Status: Acute Code(s): J81.0 - ACUTE PULMONARY EDEMA (2) Acute respiratory failure with hypoxia Current Visit: Yes Status: Acute Code(s): J96.01 - ACUTE RESPIRATORY FAILURE WITH HYPOXIA (3) DM type 2 (diabetes mellitus, type 2) Current Visit: Yes Status: Acute Qualifiers: Diabetes mellitus intermediate teacher insulin use: with intermediate teacher use Diabetes mellitus complication status: with kidney complications Chronic kidney disease stage: stage 4 (severe) (4) CKD (chronic kidney disease) stage 4, GFR 15-29 ml/min Current Visit: Yes Status: Chronic Code(s): N18.4 - CHRONIC KIDNEY DISEASE, STAGE 4 (SEVERE) (5) Ventricular tachycardia Current Visit: Yes Status: Resolved Code(s): I47.2 - VENTRICULAR TACHYCARDIA (6) NSTEMI (non-ST elevated myocardial infarction) Current Visit: No Status: Acute Code(s): I21.4 - NON-ST ELEVATION (NSTEMI) MYOCARDIAL INFARCTION (7) Acute renal failure superimposed on stage 4 chronic kidney disease Current Visit: No Status: Chronic Code(s): N17.9 - ACUTE KIDNEY FAILURE, UNSPECIFIED; N18.4 - CHRONIC KIDNEY DISEASE, STAGE 4 (SEVERE) (8) CHF (congestive heart failure), NYHA class III Current Visit: No Status: Chronic Code(s): I50.9 - HEART FAILURE, UNSPECIFIED Qualifiers: Congestive heart failure type: combined Congestive heart failure chronicity : acute Qualified Code(s): I50.41 - Acute combined systolic (congestive) and diastolic (congestive) heart failure - Time Spent with Patient Time with Patient: greater than 50 minutes - Plan Plan: HPI - intubated and sedated this AM. Patient went into afib with RVR yesterday afternoon and was started on amiodarone drip. Patient is sedated on propofol this AM. REVIEW OF SYSTEMS: - intubated, sedated+ PHYSICAL EXAMINATION: General: NAD, alert responds to questions HEENT: PERRLA, EOMI, normal sclera, intubated Neck: Supple. Full ROM. Heart/Cardiovascular System: RRR, Cap refill < 3 seconds, no rub, 2/6 murmur Lungs/Respiratory System: clear to auscultation bilaterally. On ventilator Abdomen/Gastro-Intestinal System: no abdominal tenderness, normal bowel sounds, no masses, no organomegaly Extremeties: Warm extremities. No cyanosis or edema. 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 () - Sedation: propofol, 12 -sedated this AM, no resolvable Resp (on ventilator, pulmonary edema) - rate of 7, FiO2- 30%, PS, anticipate weaning trial today - CXR shows pulm Edema - cautious with lasix 2/2 worsening CKD CV (HTN, s/p vtach, CHF, Afib w/ RVR) - Pressors: none - EF 55-60% 11/26/18 - HR in the 130s, on amiodarone drip - guarded prognosis per cardiology, appreciate recs - monitor closely Endo () GI () /Renal (ANGELA on CKD, ATN) - u/o yesterday 0.35 ml/kg/hr - Cr 3.38-> 3.37, will trend - cardiorenal syndrome (s/p arrest) vs ROSCOE - Nephro consulted, appreciate recs, may need dialysis in the future if volume status continue to be an issue Infection (fever) - WBC 13.4, fever to tmax 100.6 overnight - intubated 11/27, no apparent risk for MRSA, no candiate for VAP therapy - did come from assisted living - on rocephin, azithro to cover CAP - hx of recurrent UTIs - Bcx NGTD, Ucx hennessy sensitive klebsiella - Pulmonary edema could be source of SIRS response Lines/Tubes: intubated, Right IJ Code status: full PPx: lovenox Dispo: >2 midnights
--- NOTE | 2018-11-29 08:42 | PRG ---
DATE OF SERVICE: 11/29/2018 SUBJECTIVE: The patient was seen in ICU. She remains intubated and making minimal amount of urine. OBJECTIVE: GENERAL: This is an elderly female, intubated. VITAL SIGNS: Temperature 100.6, pulse 100, respiratory rate , blood pressure 130/53. HEENT: Intubated. CVS: S1 and S2 heard. RESPIRATORY: Coarse breath sounds. GI: Abdomen is soft. MUSCULOSKELETAL: 1+ edema. DERMATOLOGIC: No skin rash. NEUROLOGIC: Intubated. LABORATORY DATA: Potassium is 3.2, BUN is 67, creatinine is 3.3. ASSESSMENT AND PLAN: 1. Acute kidney injury on chronic kidney disease stage 4 with worsening creatinine. Seems like stabilizing. Urine output stable, nonoliguric. Recommend cautious use of Lasix and close monitoring. Avoid nephrotoxins. 2. Cardiorenal syndrome with pulmonary edema. Cautious use of Lasix. We will closely monitor renal function. 3. Hypertension. 4. Edema. 5. Anemia. 6. Acute hypoxic respiratory failure. Currently intubated and is seen in ICU. 7. Prognosis guarded. Renal function seems to be stabilizing, but she remains high risk for complications given multiple comorbidities and multiple complex conditions including new onset of atrial fibrillation, pulmonary edema, electrolyte imbalance, acute kidney injury, and respiratory failure. We will continue close monitoring. Avoid nephrotoxins. No acute indication for dialysis. Job ID: [id number]
[2018-11-29] MEDS: Enoxaparin Sodium 30 MG/0.3 ML SYRINGE SC SCH (08:52)
[2018-11-29] MEDS: Docusate 100 MG CAP PO SCH (08:53)
[2018-11-29] MEDS: Aspirin Chewable 81 MG TAB PO SCH (08:53)
--- NOTE | 2018-11-29 09:08 | RAD ---
PORTABLE AP CHEST XRAY: DATE: 11/29/2018. HISTORY: Daily followup. Patient on a ventilator. COMPARISON: 11/28/2018. FINDINGS: Endotracheal tube, nasogastric tube, and right internal jugular vein central venous catheter remain i n place and unchanged in position. There is elevation of the left hemidiaphragm with increased densi ty at the left lung base which may be related to either volume loss and/or associated pleural effusio n. Increased densities are again seen at the right mid lung zone and at the right lung base some of which could be related to pleural fluid layering posteriorly, but some of the increased density is li radha related to airspace opacities. Pulmonary vasculature does appear to be within normal limits. T he perihilar interstitial densities as well as opacities within the right mid and lower lung zones do appear improved from prior exam. No other interval change. IMPRESSION: 1. Improvement in airspace opacities on the right as well as improvement in perihilar interstitial d ensities. Findings may be related to improvement in asymmetric pulmonary edema or pneumonia. Contin ued followup to resolution is recommended. 2. Elevation of left hemidiaphragm with volume loss versus pneumonitis at the left lung base. POS: [facility]
[2018-11-29] MEDS: Insulin Glargine 20 UNITS in Pre-Filled Syringe 1 EACH SC SCH (09:21)
[2018-11-29] MEDS: cefTRIAXone\\ROCEPHIN 2 GM in Sodium Chloride 0.9% 100 ML IVPB SCH (09:29)
--- NOTE | 2018-11-29 09:59 | PRG ---
DATE OF SERVICE: 11/29/2018 SERVICE: Pulmonary Medicine. INTERVAL HISTORY: The patient is doing okay from a respiratory standpoint. Yesterday, she went into a tachyarrhythmia. This is irregular. She started amiodarone drip and had better rate control through the night. That being said, this morning, her heart rate is up once again. She denies any chest pain or shortness of breath. She is on a little bit of propofol, but otherwise responsive. She is moving all 4 extremities. PHYSICAL EXAMINATION: VITAL SIGNS: Afebrile with a T-max of 100.6. Pulse 100, blood pressure 130/56, respirations 16, saturation 95% on 37% FiO2 and a PEEP of 5. GENERAL: The patient is awake and alert, in no apparent distress. LUNGS: Excellent air entry. Crackles are present. There is decreased air entry on the right. HEART: Normal rate at the right base. No prolonged expiratory phase or wheezing is present any longer. ABDOMEN: Soft, nontender, nondistended. Bowel sounds are positive. HEART: Tachycardic. Regular. MUSCULOSKELETAL: No cyanosis or clubbing. There is no pitting in the bilateral lower extremities. NEUROLOGIC: Grossly nonfocal. LABORATORY DATA: WBC 13.4, hemoglobin 8.8, platelets 125,000. Potassium 3.2, creatinine 3.37, and peaking. Phosphorus and magnesium are both reduced. Urine is growing Klebsiella pneumoniae, which is pansensitive. Blood cultures x2, and respiratory virus panel are unremarkable. IMAGING: There has been a dramatic improvement in the bilateral infiltrates. There appears to be a layering effusion on the right now. ASSESSMENT: 1. Acute hypoxic respiratory failure. 2. Flash pulmonary edema. 3. Acute kidney injury on chronic kidney disease. 4. Atrial fibrillation with rapid ventricular response. 5. Nonsustained ventricular tachycardia. DISCUSSION AND PLAN: We will continue our supportive care. Potassium, magnesium, and phosphorus will all be replaced today. We will diurese the patient. It appears that her acute kidney injury is peaking off. Hopefully, she will start going into a polyuric phase. We can start liberating some fluid from her. Our barrier to extubation is her volume status currently. If she meets criteria, spontaneous breathing trial will be considered, we will extubate. Pulmonary Critical Care will continue to follow along. CRITICAL CARE TIME: 30 minutes. Job ID: [id number]
[2018-11-29] MEDS: Azithromycin 500 MG in Sodium Chloride 0.9% 250 ML 250 ML IVPB SCH (11:30)
[2018-11-29] MEDS: Amiodarone 450 MG, Admixture Fee 1 EACH in Dextrose 5% in Water 250 ML IVPB SCH (14:07)
[2018-11-29] MEDS ORDERED: Magnesium 2 GM/50 ML 2 GM in Premix Bag 1 BAG IVPB SCH (15:30)
--- NOTE | 2018-11-29 15:51 | PDOC.PN ---
- Subjective Encounter Start Date: 11/29/18 Encounter Start Time: 15:50 Patient seen and examined, no family at bedside. - Objective Vital Signs & Weight: Vital Signs (12 hours) Temp Pulse Resp BP Pulse Ox 11/29/18 15:19 94 116/44 L 11/29/18 13:37 135 H 16 94 L 11/29/18 12:00 99.5 F 15 11/29/18 11:33 128 H 108/59 L 11/29/18 10:00 14 11/29/18 08:00 99.3 F 12 94 L 11/29/18 07:00 12 11/29/18 06:27 100 130/56 L 11/29/18 06:21 102 H 16 93 L 11/29/18 06:00 16 11/29/18 04:00 100.6 F H Weight Admit Weight 150 lb 4.8 oz Weight 145 lb 0.5 oz Most Recent Monitor Data Heart Rate from ECG 105 NIBP 108/82 NIBP BP-Mean 90 Respiration from ECG 17 SpO2 97 I&O: 11/28/18 11/29/18 11/30/18 06:59 06:59 06:59 Intake Total 317.3 1580 240 Output Total 564 512 635 Balance -246.7 1068 -395 Result Diagrams: 11/29/18 03:25 11/29/18 03:25 Additional Labs: Accuchecks 11/29/18 11/29/18 11/29/18 11:52 08:04 00:36 POC Glucose 177 H 178 H 233 H 11/28/18 11/28/18 20:29 16:43 POC Glucose 217 H 259 H Phys Exam - Physical Examination Constitutional: NAD HEENT: PERRLA intubated Neck: no nodes, no JVD, supple Respiratory: no wheezing, no rales, no rhonchi Cardiovascular: no significant murmur, irregular Gastrointestinal: soft, non-tender, no distention Musculoskeletal: pulses present, edema present (trace) Dx/Plan (1) DM type 2 (diabetes mellitus, type 2) Status: Acute Qualifiers: Diabetes mellitus claim administrator insulin use: with claim administrator use Diabetes mellitus complication status: with kidney complications Chronic kidney disease stage: stage 4 (severe) (2) CKD (chronic kidney disease) stage 4, GFR 15-29 ml/min Code(s): N18.4 - CHRONIC KIDNEY DISEASE, STAGE 4 (SEVERE) Status: Chronic (3) Ventricular tachycardia Code(s): I47.2 - VENTRICULAR TACHYCARDIA Status: Resolved (4) NSTEMI (non-ST elevated myocardial infarction) Code(s): I21.4 - NON-ST ELEVATION (NSTEMI) MYOCARDIAL INFARCTION Status: Acute - Plan * passed SBT, possible extubation either today or tmrw will defer to pulmonary * continue with amio for now, remains in Afib, HR ranging 90-140 * Cr stable, likely ATN but appears to be stable, monitor for now * palliative care * Temp elevated, K. pneumonia in urine, will do abx * labs in AM * no family at bedside, call placed to number on file no answer
--- NOTE | 2018-11-29 17:03 | PDOC.CTH ---
Cardiology Progress Note - Subjective Remains intubated and sedated. - Objective Vital Signs Temp Pulse Resp BP Pulse Ox 11/29/18 16:00 12 11/29/18 15:19 94 116/44 L 11/29/18 14:00 14 11/29/18 13:37 135 H 16 94 L 11/29/18 12:00 99.5 F 15 11/29/18 11:33 128 H 108/59 L 11/29/18 10:00 14 11/29/18 08:00 99.3 F 12 94 L 11/29/18 07:00 12 11/29/18 06:27 100 130/56 L 11/29/18 06:21 102 H 16 93 L 11/29/18 06:00 16 Admit Weight 150 lb 4.8 oz Weight 145 lb 0.5 oz 11/28/18 11/29/18 11/30/18 06:59 06:59 06:59 Intake Total 317.3 1580 300 Output Total 564 512 895 Balance -246.7 1068 -595 - Physical Examination General/Neuro: alert & oriented x3, NAD Neck: no JVD present Lungs: CTA, unlabored respirations Heart: RRR Abdomen: NT/ND Extremities: + edema B (trace) - Telemetry Telemetry Rhythm: NSR - Labs Result Diagrams: 11/29/18 03:25 11/29/18 03:25 Troponin/CKMB CK-MB (CK-2) 1.9 ng/mL (0-6.6) 11/27/18 08:45 Troponin I 0.718 ng/mL (< 0.028) H* 11/27/18 13:56 - Assessment/Plan 1. Acute hypoxic respiratory insufficiency 2. LBBB 3. UTI sepsis 4. Elevated troponin. 5. Afib RVR back in sinus. 6. VT arrest PLAN: - Continue amiodarone drip for now. - Likely demand ischemia - Abx per primary team - Will likely need risk stratification as an outpatient once over her weakened state. . - Replace K
[2018-11-30 04:04] LABS: Anion Gap 15 mmol/L (10-20); BUN (Urea Nitrogen) 66 mg/dL (9.8-20.1); Calc. Creatinine Clearance 15 mL/min (70-130); Calcium 8.5 mg/dL (7.8-10.44); Carbon Dioxide 25 mmol/L (23-31); Chloride 105 mmol/L (98-107); Estimated GFR-MDRD 15; Glucose 138 mg/dL (83-110); Magnesium 2.7 mg/dL (1.6-2.6); Potassium 3.5 mmol/L (3.5-5.1); Sodium 141 mmol/L (136-145)
[2018-11-30 04:16] LABS: Band 15 % (5-11); Eosinophils 3 % (0-10); Lymphocytes 11 % (21-51); MDiff Complete? YES; Mean Corpuscular HGB CONC 32.2 g/dL (32.0-36.0); Mean Corpuscular Hemoglobin 28.6 pg (27.0-31.0); Mean Corpuscular Volume 88.9 fL (78.0-98.0); Mean Platelet Volume 8.3 fL (7.4-10.4); Monocytes 1 % (0-10); Neutrophil 70 % (42-75); Platelet Count 121 thou/uL (130-400); Platelet Morphology Comment Appears Decreased; Red Blood Cell (RBC) Count 2.79 mill/uL (4.20-5.40)
[2018-11-30 04:20] LABS: Phosphorus 5.9 mg/dL (2.3-4.7)
[2018-11-30] MEDS: Levothyroxine Sodium 25 MCG TAB PO SCH (06:06)
[2018-11-30] MEDS: Amiodarone 450 MG, Admixture Fee 1 EACH in Dextrose 5% in Water 250 ML IVPB SCH ×2 (06:06→20:10)
[2018-11-30 07:01] LABS: Actual Bicarbonate (HCO3a) 24.8 mEq/L (22-28); Base Excess (BEa) 1.1 mEq/L (-2.0 to +3.0); CO2 Tension 35.2 mmHg (35.0-45.0); Calcium, Ionized 1.12 mmol/L (1.12-1.30); Carboxyhemoglobin (COHb) 1.5 gm% (0.0-3.0); Hemoglobin (Hb) 8.4 g/dL (12.0-16.0); O2 Tension (PaO2) 62.4 mmHg (> 60.0); Potassium - ABG Lab 3.45 mmol/L (3.70-5.30); pH, Arterial 7.47 (7.35-7.45)
[2018-11-30 07:02] LABS: Puncture Site RBA
[2018-11-30] MEDS ORDERED: DC Sedation Protocol FS ONE (08:10)
[2018-11-30] MEDS: Docusate 100 MG CAP PO SCH (08:23)
[2018-11-30] MEDS: Aspirin Chewable 81 MG TAB PO SCH (08:23)
--- NOTE | 2018-11-30 08:46 | PRG ---
DATE OF SERVICE: 11/30/2018 TIME SPENT: 35 minutes critical care time. SUBJECTIVE: The patient remains intubated on mechanical ventilation. She will wake up and follow commands for me. OBJECTIVE: VITAL SIGNS: Temperature is 99.2, pulse 93, blood pressure 132/67. 24-hour intake 2240 and output 1580. Weight 148 pounds. HEENT: Unremarkable. NECK: No adenopathy or JVD. CARDIAC: S1 and S2, regular with 3/6 systolic murmur. LUNGS: Clear. ABDOMEN: Soft and nontender. EXTREMITIES: No clubbing, cyanosis or edema. LABORATORY DATA: Sodium 141, potassium 3.5, chloride 105, CO2 of 25, BUN 66, creatinine 2.9, glucose 138, magnesium 2.7, and phosphorus 5.9. The pH of 7.47, pCO2 of 35, pO2 of 62, that is on pressure support ventilation with pressure of 5 and PEEP of 5. White blood count 10.0, hematocrit 24.8, and platelet count 121. No x-ray was done today. ASSESSMENT: 1. Acute hypoxic respiratory failure, requiring mechanical ventilation. 2. Flash pulmonary edema. 3. Acute kidney injury. 4. Atrial fibrillation. 5. Nonsustained ventricular tachycardia. PLAN: 1. I think we will go ahead and extubate to high-flow nasal cannula and observe. She is requiring minimal ventilator settings at this point. 2. She is continuing antibiotic therapy. The only positive culture we have so far is Klebsiella from the urine. I think based on what we have, it would be safe to go ahead and stop the azithromycin and just continue with the ceftriaxone. 3. Continue IV Lasix. 4. Continue to monitor her labs. Job ID: [id number]
[2018-11-30] MEDS ORDERED: Furosemide 40 MG/4 ML VIAL SLOW IVP SCH (09:00)
[2018-11-30] MEDS: cefTRIAXone\\ROCEPHIN 2 GM in Sodium Chloride 0.9% 100 ML IVPB SCH (09:33)
[2018-11-30] MEDS: Enoxaparin Sodium 30 MG/0.3 ML SYRINGE SC SCH (09:34)
[2018-11-30] MEDS: Insulin Glargine 20 UNITS in Pre-Filled Syringe 1 EACH SC SCH (09:39)
--- NOTE | 2018-11-30 10:41 | PRG ---
DATE OF SERVICE: 11/30/2018 SUBJECTIVE: Patient was seen and examined at bedside and overnight events noted. Patient denies any shortness of breath or chest pain or palpitation. No history of nausea or vomiting or diarrhea or fever or chills or cramps. OBJECTIVE: GENERAL: This is an elderly female, in no apparent distress. VITAL SIGNS: Temperature 99.2. Heart rate 82. Respiratory rate 18. Blood pressure 137/68. HEENT: Intubated. NECK: Supple. CARDIOVASCULAR: S1 and S2 heard. RESPIRATORY: Clear. GASTROINTESTINAL: Abdomen is soft. MUSCULOSKELETAL: 1+ edema. DERMATOLOGIC: No skin rash. NEUROLOGIC: Intubated. PSYCHIATRIC: Mood and affect normal. LABORATORY DATA: Potassium is 3.5, BUN is 63, creatinine is 2.9. ASSESSMENT AND PLAN: 1. Acute kidney injury on chronic kidney disease stage 4, seems to be improving. Urine output is also improving. 2. Cardiorenal syndrome, okay with cautious use of Lasix. 3. Hypertension, monitor. 4. Edema, remove fluid. 5. Acute hypoxic respiratory failure, currently intubated. Plan to extubate today. 6. Anemia of chronic disease. We will give Epogen and check iron studies. Job ID: [id number]
--- NOTE | 2018-11-30 13:59 | PDOC.PN ---
- Subjective Encounter Start Date: 11/30/18 Encounter Start Time: 13:54 Patient seen and examined, no new issues or complaints, extubated. - Objective Vital Signs & Weight: Vital Signs (12 hours) Temp Pulse Resp BP Pulse Ox 11/30/18 13:46 95 19 95 11/30/18 09:00 90 20 92 L 11/30/18 07:34 82 17 137/68 91 L 11/30/18 06:00 19 11/30/18 04:00 99.2 F 12 11/30/18 02:00 14 Weight Admit Weight 150 lb 4.8 oz Weight 148 lb 0.9 oz Most Recent Monitor Data Heart Rate from ECG 83 NIBP 135/58 NIBP BP-Mean 83 Respiration from ECG 18 SpO2 94 I&O: 11/29/18 11/30/18 12/01/18 06:59 06:59 06:59 Intake Total 1580 2240.5 Output Total 512 1580 Balance 1068 660.5 Result Diagrams: 11/30/18 03:35 11/30/18 03:35 Additional Labs: Accuchecks 11/30/18 11/30/18 11/30/18 12:11 08:37 00:04 POC Glucose 140 H 154 H 154 H 11/29/18 11/29/18 20:13 16:27 POC Glucose 155 H 122 H Phys Exam - Physical Examination Constitutional: NAD HEENT: PERRLA, moist MMs, sclera anicteric Neck: no nodes, no JVD, supple Respiratory: no wheezing, no rales, no rhonchi Cardiovascular: RRR, no significant murmur, no rub Gastrointestinal: soft, non-tender, no distention Musculoskeletal: pulses present, edema present (trace) Dx/Plan (1) DM type 2 (diabetes mellitus, type 2) Status: Acute Qualifiers: Diabetes mellitus halfway insulin use: with halfway use Diabetes mellitus complication status: with kidney complications Chronic kidney disease stage: stage 4 (severe) (2) CKD (chronic kidney disease) stage 4, GFR 15-29 ml/min Code(s): N18.4 - CHRONIC KIDNEY DISEASE, STAGE 4 (SEVERE) Status: Chronic (3) Ventricular tachycardia Code(s): I47.2 - VENTRICULAR TACHYCARDIA Status: Resolved (4) NSTEMI (non-ST elevated myocardial infarction) Code(s): I21.4 - NON-ST ELEVATION (NSTEMI) MYOCARDIAL INFARCTION Status: Acute - Plan * extubated, tolerating nasal cannula well * cont with current medical management, no changes * ICU following * doing well so far * possible transfer out of ICU if ok with all subspecialists in AM
--- NOTE | 2018-11-30 16:55 | PDOC.CTH ---
Cardiology Progress Note - Subjective Extubated now. Still sleepy but follow commands. - Objective Vital Signs Temp Pulse Resp BP Pulse Ox 11/30/18 16:00 99.0 F 11/30/18 14:10 94 L 11/30/18 13:46 95 19 95 11/30/18 12:00 99.1 F 11/30/18 09:00 90 20 92 L 11/30/18 07:34 82 17 137/68 91 L 11/30/18 07:00 98.4 F 11/30/18 06:00 19 Admit Weight 150 lb 4.8 oz Weight 148 lb 0.9 oz 11/29/18 11/30/18 12/01/18 06:59 06:59 06:59 Intake Total 1580 2240.5 100 Output Total 512 1580 1335 Balance 1068 660.5 -1235 - Physical Examination General/Neuro: NAD Neck: no JVD present Lungs: unlabored respirations Heart: RRR Abdomen: NT/ND Extremities: other: (no edema) - Telemetry Telemetry Rhythm: NSR - Labs Result Diagrams: 11/30/18 03:35 11/30/18 03:35 Troponin/CKMB CK-MB (CK-2) 1.9 ng/mL (0-6.6) 11/27/18 08:45 Troponin I 0.718 ng/mL (< 0.028) H* 11/27/18 13:56 - Assessment/Plan 1. Acute hypoxic respiratory insufficiency 2. LBBB 3. UTI sepsis 4. Elevated troponin. 5. Afib RVR back in sinus. 6. VT arrest 7. ANGELA on CKD PLAN: - Continue amiodarone drip. - Likely demand ischemia - Abx per primary team - Will likely need risk stratification as an outpatient once over her weakened state.
--- NOTE | 2018-11-30 17:17 | EKG ---
Test Reason : Blood Pressure : / mmHG Vent. Rate : 097 BPM Atrial Rate : 097 BPM P-R Int : 142 ms QRS Dur : 136 ms QT Int : 386 ms P-R-T Axes : 069 -56 101 degrees QTc Int : 490 ms Normal sinus rhythm Left axis deviation Left bundle branch block No STEMI Abnormal ECG Confirmed by DASHA MCWILLIAMS, BRAYDEN ([id number]), photo editor MARCELINO LINDER ([id number]) on 11/30/2018 5:17:18 PM Referred By: Confirmed By:BRAYDEN LOU MD
[2018-11-30] MEDS: Morphine 2 MG/ML SYRINGE SLOW IVP PRN ×2 (18:07→20:05)
[2018-12-01 05:03] LABS: Anion Gap 14 mmol/L (10-20); BUN (Urea Nitrogen) 55 mg/dL (9.8-20.1); Calc. Creatinine Clearance 17 mL/min (70-130); Calcium 8.9 mg/dL (7.8-10.44); Carbon Dioxide 26 mmol/L (23-31); Chloride 105 mmol/L (98-107); Estimated GFR-MDRD 17; Glucose 91 mg/dL (83-110); Magnesium 2.4 mg/dL (1.6-2.6); Phosphorus 4.1 mg/dL (2.3-4.7); Potassium 3.5 mmol/L (3.5-5.1); Sodium 141 mmol/L (136-145)
[2018-12-01 05:04] LABS: Iron 16 ug/dL (50-170); Iron Binding Capacity, Total 145 mcg/dL (265-497)
[2018-12-01 05:05] LABS: Band 7 % (5-11); Eosinophils 3 % (0-10); Hemoglobin 8.3 g/dL (12.0-16.0); Lymphocytes 8 % (21-51); MDiff Complete? YES; Mean Corpuscular HGB CONC 31.4 g/dL (32.0-36.0); Mean Corpuscular Hemoglobin 27.9 pg (27.0-31.0); Mean Corpuscular Volume 88.7 fL (78.0-98.0); Mean Platelet Volume 7.7 fL (7.4-10.4); Monocytes 8 % (0-10); Neutrophil 74 % (42-75); Platelet Count 163 thou/uL (130-400); Platelet Morphology Comment Appears Adequate; RBC Distribution Width 13.2 % (11.5-14.5); RBC Morphology Normal; Red Blood Cell (RBC) Count 2.98 mill/uL (4.20-5.40); White Blood Cell (WBC) Count 8.3 thou/uL (4.8-10.8)
[2018-12-01] MEDS: Levothyroxine Sodium 25 MCG TAB PO SCH (06:12)
[2018-12-01] MEDS: Morphine 2 MG/ML SYRINGE SLOW IVP PRN ×4 (06:13→23:02)
[2018-12-01] MEDS: Aspirin Chewable 81 MG TAB PO SCH (08:44)
[2018-12-01] MEDS: Docusate 100 MG CAP PO SCH (08:44)
[2018-12-01] MEDS: Enoxaparin Sodium 30 MG/0.3 ML SYRINGE SC SCH (08:45)
[2018-12-01] MEDS: cefTRIAXone\\ROCEPHIN 2 GM in Sodium Chloride 0.9% 100 ML IVPB SCH (08:45)
--- NOTE | 2018-12-01 09:46 | PRG ---
DATE OF SERVICE: 12/01/2018 SUBJECTIVE: Ms. Mitchell was successfully extubated yesterday. She says she is still having some chest pain. She is requiring high-flow oxygen. OBJECTIVE: VITAL SIGNS: Temperature is 100.9 with a T-max of 101.5, pulse 94, blood pressure 165/71. 24-hour intake is 754, output 2555. Weight 152 pounds. HEENT: Unremarkable. NECK: No JVD. LUNGS: She has scattered inspiratory crackles bilaterally. CARDIAC: S1 and S2. Irregularly irregular. ABDOMEN: Soft and nontender. EXTREMITIES: No edema. LABORATORY DATA: White count 8.3, hematocrit 26.4, and platelet count 163. Sodium 141, potassium 3.5, chloride 105, CO2 of 26, BUN of 55, creatinine 2.6, glucose 91, ferritin 3468. ASSESSMENT: 1. Acute hypoxic respiratory failure, now status post mechanical ventilation. 2. Flash pulmonary edema. 3. Acute kidney injury. 4. Atrial fibrillation. 5. Nonsustained tachycardia. 6. Febrile illness-currently on IV ceftriaxone with the only culture showing Klebsiella. PLAN: 1. Continue in ICU on high-flow oxygen. 2. Continue antibiotics. 3. She is continuing amiodarone. 4. Wean FiO2 as tolerated. 5. Recheck chest x-ray tomorrow. Job ID: [id number]
--- NOTE | 2018-12-01 10:51 | PDOC.PN ---
- Subjective Encounter Start Date: 12/01/18 Encounter Start Time: 10:49 Patient seen and examined, remains on high flow for now, no family at bedside. - Objective Vital Signs & Weight: Vital Signs (12 hours) Pulse Resp Pulse Ox 12/01/18 09:39 98 12/01/18 09:36 87 19 20 L 12/01/18 00:00 91 L 11/30/18 23:04 97 26 H 94 L Weight Admit Weight 150 lb 4.8 oz Weight 152 lb 12.485 oz Most Recent Monitor Data Heart Rate from ECG 94 NIBP 165/71 NIBP BP-Mean 102 Respiration from ECG 16 SpO2 97 I&O: 11/30/18 12/01/18 12/02/18 06:59 06:59 06:59 Intake Total 2240.5 754 Output Total 1580 2555 Balance 660.5 -1801 Result Diagrams: 12/01/18 04:39 12/01/18 04:39 Additional Labs: Accuchecks 12/01/18 12/01/18 11/30/18 08:10 00:17 20:05 POC Glucose 98 84 90 11/30/18 11/30/18 15:31 12:11 POC Glucose 101 140 H Phys Exam - Physical Examination Constitutional: NAD HEENT: PERRLA, moist MMs, sclera anicteric +high flow NC Neck: no nodes, no JVD coarse breath sounds no respiratory distress Cardiovascular: irregular faint murmur Gastrointestinal: soft, non-tender, no distention Musculoskeletal: pulses present, edema present (trace) Dx/Plan (1) DM type 2 (diabetes mellitus, type 2) Status: Acute Qualifiers: Diabetes mellitus shipwright supervisor insulin use: with residential use Diabetes mellitus complication status: with kidney complications Chronic kidney disease stage: stage 4 (severe) (2) CKD (chronic kidney disease) stage 4, GFR 15-29 ml/min Code(s): N18.4 - CHRONIC KIDNEY DISEASE, STAGE 4 (SEVERE) Status: Chronic (3) Ventricular tachycardia Code(s): I47.2 - VENTRICULAR TACHYCARDIA Status: Resolved (4) NSTEMI (non-ST elevated myocardial infarction) Code(s): I21.4 - NON-ST ELEVATION (NSTEMI) MYOCARDIAL INFARCTION Status: Acute - Plan * on amio drip, continue * %fe noted to be low, however, given high ferritin will avoid IV iron due to risk of iron overload * BP stable * diuretics as patient tolerates * cardio/ICU/renal following * continue plan of care in ICU for now * further management per subspecialists * no famliy at bedside.
[2018-12-01] MEDS: Insulin Glargine 20 UNITS in Pre-Filled Syringe 1 EACH SC SCH (12:29)
--- NOTE | 2018-12-01 13:01 | PDOC.CTH ---
Cardiology Progress Note - Subjective More awake today. Still needing high flow oxygen. - Objective Vital Signs Temp Pulse Resp Pulse Ox 12/01/18 11:14 97 12/01/18 09:39 98 12/01/18 09:36 87 19 20 L 12/01/18 07:00 98.3 F Admit Weight 150 lb 4.8 oz Weight 152 lb 12.485 oz 11/30/18 12/01/18 12/02/18 06:59 06:59 06:59 Intake Total 2240.5 754 280 Output Total 1580 2555 500 Balance 660.5 -1801 -220 - Physical Examination General/Neuro: NAD Neck: no JVD present Lungs: unlabored respirations Heart: RRR Abdomen: NT/ND Extremities: other: (no edema) - Telemetry Telemetry Rhythm: NSR - Labs Result Diagrams: 12/01/18 04:39 12/01/18 04:39 Troponin/CKMB CK-MB (CK-2) 1.9 ng/mL (0-6.6) 11/27/18 08:45 Troponin I 0.718 ng/mL (< 0.028) H* 11/27/18 13:56 - Assessment/Plan 1. Acute hypoxic respiratory insufficiency 2. LBBB 3. UTI sepsis 4. Elevated troponin. 5. Afib RVR back in sinus. 6. VT arrest 7. ANGELA on CKD PLAN: - Will switch amiodarone drip to PO. - Likely demand ischemia - Abx per primary team - Will likely need risk stratification as an outpatient once over her weakened state.
[2018-12-01] MEDS: HumaLOG 300 UNITS/3 ML VIAL SC PRN (13:12)
--- NOTE | 2018-12-01 13:57 | PRG ---
DATE OF SERVICE: 12/01/2018 SUBJECTIVE: Patient was seen and examined at bedside and overnight events noted. Patient denies any shortness of breath or chest pain or palpitation. No history of nausea or vomiting or diarrhea or fever or chills or cramps. OBJECTIVE: GENERAL: This is an elderly female, in no apparent distress. VITAL SIGNS: Temperature 98.3, heart rate 84, respiratory rate blood pressure 167/76. HEENT: Atraumatic, normocephalic. Oral mucosa is moist NECK: Supple. CARDIOVASCULAR: S1, S2 heard. Rate and rhythm regular. RESPIRATORY: Clear to auscultation. GASTROINTESTINAL: Abdomen is soft. MUSCULOSKELETAL: No tenderness. No edema. DERMATOLOGIC: No skin rash. NEUROLOGIC: Alert and awake and oriented X3. No focal neurologic deficits. Moving all the extremities. PSYCHIATRIC: Mood and affect normal. LABORATORY DATA: Potassium is 3.5, BUN 55, ASSESSMENT AND PLAN: 1. Chronic kidney disease stage 4, stable. 2. Cardiorenal syndrome. 3. Hypertension. 4. Edema, remove fluid. 5. Acute hypoxic respiratory failure. 6. Anemia of chronic disease. Renal function is stable. No acute indiction for dialysis. We will monitor. Job ID: [id number]
[2018-12-01] MEDS: Amiodarone 200 MG TAB PO SCH (20:42)
[2018-12-02 05:13] LABS: Anion Gap 13 mmol/L (10-20); BUN (Urea Nitrogen) 44 mg/dL (9.8-20.1); Calc. Creatinine Clearance 20 mL/min (70-130); Carbon Dioxide 26 mmol/L (23-31); Chloride 105 mmol/L (98-107); Estimated GFR-MDRD 21; Glucose 125 mg/dL (83-110); Magnesium 2.1 mg/dL (1.6-2.6); Potassium 3.6 mmol/L (3.5-5.1); Sodium 140 mmol/L (136-145)
[2018-12-02 05:18] LABS: Band 7 % (5-11); Eosinophils 1 % (0-10); Hemoglobin 8.6 g/dL (12.0-16.0); Lymphocytes 8 % (21-51); MDiff Complete? YES; Mean Corpuscular HGB CONC 31.8 g/dL (32.0-36.0); Mean Corpuscular Hemoglobin 28.4 pg (27.0-31.0); Mean Corpuscular Volume 89.2 fL (78.0-98.0); Mean Platelet Volume 7.4 fL (7.4-10.4); Monocytes 9 % (0-10); Neutrophil 75 % (42-75); Platelet Count 165 thou/uL (130-400); Platelet Morphology Comment Appears Adequate; Red Blood Cell (RBC) Count 3.02 mill/uL (4.20-5.40); White Blood Cell (WBC) Count 9.2 thou/uL (4.8-10.8)
[2018-12-02] MEDS: Morphine 2 MG/ML SYRINGE SLOW IVP PRN (06:38)
[2018-12-02] MEDS: Levothyroxine Sodium 25 MCG TAB PO SCH (07:41)
[2018-12-02] MEDS: Amiodarone 200 MG TAB PO SCH ×2 (08:45→20:08)
[2018-12-02] MEDS: Docusate 100 MG CAP PO SCH (08:46)
[2018-12-02] MEDS: Aspirin Chewable 81 MG TAB PO SCH (08:46)
[2018-12-02] MEDS: Enoxaparin Sodium 30 MG/0.3 ML SYRINGE SC SCH (08:47)
[2018-12-02] MEDS: Insulin Glargine 20 UNITS in Pre-Filled Syringe 1 EACH SC SCH (09:00)
[2018-12-02] MEDS: cefTRIAXone\\ROCEPHIN 2 GM in Sodium Chloride 0.9% 100 ML IVPB SCH (09:06)
--- NOTE | 2018-12-02 09:32 | PDOC.PN ---
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 SOB improved. Tolerating -: oral liquids well. - Objective MAR Reviewed: Yes Vital Signs & Weight: Vital Signs (12 hours) Temp Pulse Resp Pulse Ox 12/02/18 08:00 98.8 F 12/02/18 07:48 94 L 12/02/18 07:35 96 12/02/18 07:30 94 22 H 96 12/02/18 04:00 98.7 F 12/02/18 00:00 98.9 F 12/01/18 23:19 90 17 98 Weight Admit Weight 150 lb 4.8 oz Weight 145 lb 8.081 oz Most Recent Monitor Data Heart Rate from ECG 97 NIBP 138/66 NIBP BP-Mean 90 Respiration from ECG 16 SpO2 93 I&O: 12/01/18 12/02/18 12/03/18 06:59 06:59 06:59 Intake Total 754 1144 480 Output Total 2555 1410 125 Balance -1801 -266 355 Result Diagrams: 12/02/18 04:50 12/02/18 04:50 Additional Labs: Accuchecks 12/02/18 12/02/18 12/01/18 08:22 00:21 20:45 POC Glucose 132 H 138 H 154 H 12/01/18 12/01/18 17:51 12:55 POC Glucose 71 178 H Phys Exam - Physical Examination Constitutional: NAD HEENT: moist MMs left external auditory canal very skinny, unable to visualize TM, nml ext ear, no pain with palpation/movement Neck: no nodes Respiratory: no wheezing, no rales, no rhonchi on high flow O2 Cardiovascular: RRR Gastrointestinal: soft, positive bowel sounds Neurological: non-focal, moves all 4 limbs Psychiatric: normal affect, A&O x 3 Dx/Plan (1) Acute respiratory failure with hypoxia Code(s): J96.01 - ACUTE RESPIRATORY FAILURE WITH HYPOXIA Status: Acute Comment: extubated, still on high flow oxygen in ICU (2) Acute pulmonary edema Code(s): J81.0 - ACUTE PULMONARY EDEMA Status: Resolved (3) Ventricular tachycardia Code(s): I47.2 - VENTRICULAR TACHYCARDIA Status: Resolved Comment: with arrest, now resolved (4) UTI (urinary tract infection) Status: Acute Comment: growing Klebsiella pneumonia (5) Atrial fibrillation with RVR Code(s): I48.91 - UNSPECIFIED ATRIAL FIBRILLATION Status: Resolved Comment: in sinus rhythm, switching amiodarone to oral (6) Acute renal failure superimposed on stage 4 chronic kidney disease Code(s): N17.9 - ACUTE KIDNEY FAILURE, UNSPECIFIED; N18.4 - CHRONIC KIDNEY DISEASE, STAGE 4 (SEVERE) Status: Acute Comment: Improved, chronic due to HTN and diabetic nephropathy (7) NSTEMI (non-ST elevated myocardial infarction) Code(s): I21.4 - NON-ST ELEVATION (NSTEMI) MYOCARDIAL INFARCTION Status: Acute Comment: due to demand ischemia - Plan cont current plan of care, continue antibiotics, PT/OT, respiratory therapy, DVT proph w/lovenox, DVT proph w/SCDs * . - Discharge Day Encounter end time: 11:30
--- NOTE | 2018-12-02 11:40 | PRG ---
DATE OF SERVICE: 12/02/2018 SUBJECTIVE: An 83-year-old female being seen for acute kidney injury. The patient denies nausea, vomiting, or chest pain. OBJECTIVE: CONSTITUTIONAL: The patient is awake and alert. VITAL SIGNS: Afebrile. Pulse 95, breathing 16, blood pressure 136/71. GENERAL APPEARANCE AND MENTAL STATUS: Fair. HEAD/NECK: Normocephalic. Atraumatic. EYES: EOMI. No deformity. EARS: Clear. No ulcers. NOSE: Intact. No lesions. MOUTH: Clear. No discharge. THROAT: Clear. No exudate. LUNGS: Clear. No crackles. CARDIAC: S1, S2. No rub. ABDOMEN: Benign. Bowel sounds positive. GENITALIA/RECTUM: Hernandes absent. BACK/EXTREMITIES: Edema 0+. NEUROLOGICAL: Alert and motor intact. SKIN: LYMPHATICS: LABORATORY DATA: Labs reviewed. ASSESSMENT: 1. Acute kidney injury, improved. 2. Hypertension, stable. 3. Anemia, stable. 4. Medication based on GFR appropriate. 5. No indication for dialysis. Job ID: [id number]
[2018-12-02] MEDS: HumaLOG 300 UNITS/3 ML VIAL SC PRN (12:01)
--- NOTE | 2018-12-02 14:22 | PRG ---
DATE OF SERVICE: 12/02/2018 SERVICE: Pulmonary Medicine. INTERVAL HISTORY: The patient is doing really well from respiratory standpoint. Breathing comfortably. There has been no interval change to her condition. Oxygen requirements are decreasing ever so slightly. Otherwise, nursing reports no overnight events. PHYSICAL EXAMINATION: VITAL SIGNS: Afebrile with a T-max of 99.3, pulse 93, blood pressure 128/63, respirations 14, and saturation 97% on high-flow nasal cannula with 40% FiO2. GENERAL: The patient is awake and alert, in no apparent distress. LUNGS: Excellent air entry. No prolonged expiratory phase or wheezing is appreciated. HEART: Normal rate, regular. ABDOMEN: Soft, nontender, and nondistended. Bowel sounds are positive. MUSCULOSKELETAL: No cyanosis or clubbing. No pitting in the bilateral lower extremities neurologic grossly nonfocal. LABORATORY DATA: WBC 9.2, hemoglobin 8.6, and platelets 165,000. Creatinine 2.26 and gently downtrending, BUN 44. Basic metabolic profile is otherwise unremarkable. Magnesium 2.1, phosphorus 4.0. Respiratory virus panel, blood cultures x2 are unremarkable. Urine is growing Klebsiella, but the urinalysis is really unremarkable. ASSESSMENT: 1. Acute hypoxic respiratory failure, improving. 2. Flash pulmonary edema, resolving. 3. Acute kidney injury on chronic kidney disease. 4. Atrial fibrillation with rapid ventricular rate, currently rate controlled. 5. Nonsustained ventricular tachycardia. DISCUSSION AND PLAN: The patient is doing quite well from respiratory standpoint. Because she had overt pulmonary edema with likely alveolar hemorrhage, it will probably take 3 or 4 weeks for the infiltrates, and oxygen requirements to improve completely. At this point, we will downgrade her to the [facility]. If we can get her on the nasal cannula, she will be a candidate for transition to the floor. In the meantime, we will get some housekeeping issues done including enlisting the help of physical therapy, removing the IJ, Hernandes catheter, decrease our insulin, and stop the morphine altogether as she is exquisitely sensitive to this drug. Critical Care will continue to follow. Job ID: [id number]
--- NOTE | 2018-12-02 14:27 | PRG ---
DATE OF SERVICE: 12/02/2018 SUBJECTIVE: Ms. Mitchell is doing much better. She has been extubated. She is on high-flow oxygen. She has no current complaints. No chest pain, pressure, or other associated symptoms. OBJECTIVE: VITAL SIGNS: Blood pressure 120/51, pulse 88, and temperature afebrile. LUNGS: Clear to auscultation. HEART: Regular rate and rhythm. ABDOMEN: Soft, nontender, and nondistended. EXTREMITIES: No edema. PERTINENT LABORATORY DATA: Hemoglobin 8.6. Creatinine 2.26, GFR 21, and potassium 3.6. IMPRESSION: 1. Acute respiratory failure. 2. Chest pain. 3. Acute on chronic kidney disease. 4. Chronic anemia. 5. Paroxysmal atrial fibrillation. RECOMMENDATIONS: We will decrease amiodarone to 400 mg 1 p.o. q.a.m. Continue aspirin at low dose if okay with Nephrology. She is currently on Lasix and we will continue. Sudden disposition will be very difficult to Ms. Mitchell. I would like to proceed with coronary angiography, but concerned about her hemoglobin and creatinine. This markedly increased the risk of contrast nephropathy. She did have a stress test done a little over one year ago that was felt to be within normal limits. We would like for hemoglobin and/or creatinine to improve prior to proceeding with angio and may need to proceed with conservative therapy. Based on the above, we will discuss with Nephrology. Certainly, acute mitral regurgitation in addition to renal artery stenosis are part of the differential diagnosis. Her blood cultures so far have been negative. She has had fever, but likely due to inflammatory response from recent intubation. Job ID: [id number]
[2018-12-02] MEDS ORDERED: Potassium Chloride 20 MEQ TAB PO SCH (14:45)
[2018-12-03] MEDS: Levothyroxine Sodium 25 MCG TAB PO SCH (06:05)
[2018-12-03] MEDS: Amiodarone 200 MG TAB PO SCH ×2 (08:51→20:38)
[2018-12-03] MEDS: Aspirin Chewable 81 MG TAB PO SCH (08:52)
[2018-12-03] MEDS: cefTRIAXone\\ROCEPHIN 2 GM in Sodium Chloride 0.9% 100 ML IVPB SCH (08:52)
[2018-12-03] MEDS: Enoxaparin Sodium 30 MG/0.3 ML SYRINGE SC SCH (08:53)
[2018-12-03] MEDS: Docusate 100 MG CAP PO SCH (08:53)
[2018-12-03] MEDS ORDERED: Furosemide 40 MG/4 ML VIAL SLOW IVP SCH (09:00)
--- NOTE | 2018-12-03 09:29 | PRG ---
DATE OF SERVICE: 12/03/2018 SERVICE: Pulmonary Medicine. INTERVAL HISTORY: The patient is doing really well from respiratory standpoint. She is breathing comfortably. She continues to have chest discomfort. She was out of bed into a chair for 2 hours yesterday. Otherwise, there has been no interval change to her condition. PHYSICAL EXAMINATION: VITAL SIGNS: Afebrile, pulse 100, blood pressure 147/62, respirations 21, saturation 99% on 40% FiO2 delivered via high-flow nasal cannula. HEENT: Normocephalic and atraumatic. Sclerae white. Conjunctivae pink. Oral mucosa is moist without lesions. LUNGS: Decent air entry. No prolonged expiratory phase or wheezing is appreciated. Dependently, minimal crackles are noted. HEART: Normal rate and regular. ABDOMEN: Soft, nontender, nondistended. Bowel sounds are positive. MUSCULOSKELETAL: No cyanosis or clubbing. There is no pitting in the bilateral lower extremities. NEUROLOGIC: Grossly nonfocal. ASSESSMENT: 1. Acute hypoxic respiratory failure, improving. 2. Flash pulmonary edema, resolving. 3. Acute kidney injury on chronic kidney disease. 4. Atrial fibrillation with rapid ventricular rate, rate controlled. 5. Nonsustained ventricular tachycardia. DISCUSSION AND PLAN: The patient is doing fine from respiratory standpoint. It is going to take some time for this pulmonary hemorrhage to resolve. We will continue to wean oxygen away as tolerated. We will continue our mobilization efforts. I will repeat some laboratories tomorrow morning. Empiric antibiotics will be continued. She only needs 2 more days. Job ID: [id number]
--- NOTE | 2018-12-03 09:48 | PDOC.PN ---
- Subjective Encounter Start Date: 12/03/18 Encounter Start Time: 11:20 Subjective: Patient doing better. Very fatigued. Weaned down to 3L O2 this AM - Objective MAR Reviewed: Yes Vital Signs & Weight: Vital Signs (12 hours) Temp Pulse Resp Pulse Ox 12/03/18 08:00 100 12/03/18 07:17 98.7 F 12/03/18 06:57 89 21 H 100 12/03/18 03:48 98.7 F 12/02/18 23:32 99.7 F H 12/02/18 23:28 93 20 100 Weight Admit Weight 150 lb 4.8 oz Weight 154 lb 8 oz Most Recent Monitor Data Heart Rate from ECG 90 NIBP 147/62 NIBP BP-Mean 90 Respiration from ECG 21 SpO2 99 I&O: 12/02/18 12/03/18 12/04/18 06:59 06:59 06:59 Intake Total 1144 1429 Output Total 1410 269 Balance -266 1160 Result Diagrams: 12/03/18 11:17 12/03/18 11:17 Additional Labs: Accuchecks 12/03/18 12/02/18 12/02/18 05:55 19:50 16:12 POC Glucose 127 H 164 H 145 H 12/02/18 11:24 POC Glucose 187 H Phys Exam - Physical Examination Constitutional: NAD HEENT: moist MMs Respiratory: no wheezing, no rhonchi occ rales Cardiovascular: RRR Gastrointestinal: soft, positive bowel sounds Neurological: non-focal, moves all 4 limbs Psychiatric: normal affect, A&O x 3 Dx/Plan (1) Acute respiratory failure with hypoxia Code(s): J96.01 - ACUTE RESPIRATORY FAILURE WITH HYPOXIA Status: Acute Comment: extubated, weaned off high flow O2, now on 3L NC in IMCU, will take awhile for the pulmonary hemorrhage from the pulmonary edema to resolve (2) Acute pulmonary edema Code(s): J81.0 - ACUTE PULMONARY EDEMA Status: Resolved (3) Ventricular tachycardia Code(s): I47.2 - VENTRICULAR TACHYCARDIA Status: Resolved Comment: with arrest, now resolved (4) UTI (urinary tract infection) Status: Acute Comment: growing Klebsiella pneumonia, continue antibiotics through 12/05/2018 (5) Atrial fibrillation with RVR Code(s): I48.91 - UNSPECIFIED ATRIAL FIBRILLATION Status: Resolved Comment: in sinus rhythm, switching amiodarone to oral (6) Acute renal failure superimposed on stage 4 chronic kidney disease Code(s): N17.9 - ACUTE KIDNEY FAILURE, UNSPECIFIED; N18.4 - CHRONIC KIDNEY DISEASE, STAGE 4 (SEVERE) Status: Acute Comment: Improved, chronic due to HTN and diabetic nephropathy (7) NSTEMI (non-ST elevated myocardial infarction) Code(s): I21.4 - NON-ST ELEVATION (NSTEMI) MYOCARDIAL INFARCTION Status: Acute Comment: due to demand ischemia - Plan cont current plan of care, continue antibiotics, DVT proph w/lovenox, DVT proph w/SCDs Two more days of antibiotics -: Needs cath but creatinine not improved enough yet. -: If just medical management for now, may be able to go to SNF by end of -: the week. * . - Discharge Day Encounter end time: 11:30 Pulmonology Consult: Meds - Medications MAR Reviewed: Yes Medications: Current Medications Acetaminophen (Tylenol) 650 mg PO Q4H PRN PRN Reason: Headache/Fever or Pain Albuterol/Ipratropium (Duoneb) 3 ml NEB [id number] [facility] Last Admin: 12/03/18 06:57 Dose: 3 ml Amiodarone HCl (Cordarone) 400 mg PO BID [facility] Last Admin: 12/03/18 08:51 Dose: 400 mg Aspirin (Aspirin Chewable) 81 mg PO DAILY [facility] Last Admin: 12/03/18 08:52 Dose: 81 mg Dextrose/Water (Dextrose 50%) 25 gm SLOW IVP PRN PRN PRN Reason: Hypoglycemia Docusate Sodium (Colace) 100 mg PO DAILY [facility] Last Admin: 12/03/18 08:53 Dose: 100 mg Enoxaparin Sodium (Lovenox) 30 mg SC 0900 [facility] Last Admin: 12/03/18 08:53 Dose: 30 mg Furosemide (Lasix) 40 mg SLOW IVP DAILY [facility] Stop: 12/04/18 09:01 Last Admin: 12/03/18 08:53 Dose: 40 mg Glucagon (Glucagon) 1 mg IM PRN PRN PRN Reason: Hypoglycemia Ceftriaxone Sodium 2 gm/ (Sodium Chloride) 100 mls @ 200 mls/hr IVPB Q24HR [facility] Last Admin: 12/03/18 08:52 Dose: 100 mls Dextrose/Water (D5w) 1,000 mls @ 0 mls/hr IV .Q0M PRN PRN Reason: Hypoglycemia Insulin Human Lispro (Humalog) 0 units SC .MILD SLIDING SCALE PRN PRN Reason: Mild Correctional Scale Levothyroxine Sodium (Synthroid) 25 mcg PO 0600 [facility] Last Admin: 12/03/18 06:05 Dose: 25 mcg Mineral Oil/White Petrolatum (Systane Nighttime Eye Ointment) 0 gm EA EYE PRN PRN PRN Reason: Dry Eyes Mirabegron (Myrbetriq Er) 50 mg PO DAILY [facility] Last Admin: 12/03/18 08:53 Dose: 50 mg Miscellaneous Medication (Ccu Electrolyte Replacement) 1 each IVPB ASDIR [facility] Nitroglycerin (Nitrostat) 0.4 mg SL Q5MIN PRN PRN Reason: Chest Pain Last Admin: 11/27/18 03:51 Dose: 0.4 mg Ccu Electrolyte (Replacement Protocol) 0 each FS PRN PRN PRN Reason: FOR ELECTROLYTE REPLACEMENT Propofol (Diprivan) 1,000 mg IV INF PRN; Protocol PRN Reason: TO ACHIEVE GOAL RASS Stop: 12/27/18 07:46 Last Admin: 11/29/18 17:00 Dose: 1,000 mg Sertraline HCl (Zoloft) 25 mg PO QAM [facility] Last Admin: 12/03/18 08:54 Dose: 25 mg Sodium Chloride (Flush - Normal Saline) 10 ml IVF Q12HR [facility] Last Admin: 12/03/18 08:54 Dose: 10 ml Sodium Chloride (Flush - Normal Saline) 10 ml IVF PRN PRN PRN Reason: Saline Flush - Allergies Allergies/Adverse Reactions: Allergies Allergy/AdvReac Type Severity Reaction Status Date / Time apple Allergy Verified 12/02/18 10:56 hydrocodone Allergy Verified 05/20/17 20:58 Iodine and Iodide Containing Allergy Verified 05/20/17 20:58 Produc onion Allergy Verified 10/03/17 00:06
[2018-12-03] MEDS: HumaLOG 300 UNITS/3 ML VIAL SC PRN ×2 (10:56→17:00)
[2018-12-03 11:33] LABS: Hemoglobin 8.8 g/dL (12.0-16.0)
[2018-12-03 12:09] LABS: Anion Gap 15 mmol/L (10-20); BUN (Urea Nitrogen) 44 mg/dL (9.8-20.1); Calc. Creatinine Clearance 19 mL/min (70-130); Calcium 9.4 mg/dL (7.8-10.44); Carbon Dioxide 22 mmol/L (23-31); Chloride 103 mmol/L (98-107); Estimated GFR-MDRD 19; Glucose 215 mg/dL (83-110); Potassium 4.2 mmol/L (3.5-5.1); Sodium 136 mmol/L (136-145)
--- NOTE | 2018-12-03 13:15 | PRG ---
DATE OF SERVICE: 12/03/2018 SUBJECTIVE: An 83-year-old female being seen for acute kidney injury. The patient denies any nausea, vomiting, or chest pain. OBJECTIVE: CONSTITUTIONAL: The patient is awake and alert. VITAL SIGNS: Afebrile. Pulse 88, breathing 16, and blood pressure 114/66. GENERAL APPEARANCE AND MENTAL STATUS: Fair. HEAD/NECK: Normocephalic. Atraumatic. EYES: EOMI. No deformity. EARS: Clear. No ulcers. NOSE: Intact. No lesions. MOUTH: Clear. No discharge. THROAT: Clear. No exudate. LUNGS: Clear. No crackles. CARDIAC: S1, S2. No rub. ABDOMEN: Benign. Bowel sounds positive. GENITALIA/RECTUM: Hernandes absent. BACK/EXTREMITIES: Edema 0+. NEUROLOGICAL: Alert and motor intact. SKIN: LYMPHATICS: LABORATORY DATA: Lab showed hemoglobin 8.8 and creatinine is 2.4. ASSESSMENT AND PLAN: 1. Acute kidney injury with chronic kidney disease stage 4, stable. 2. Hypertension, stable. 3. Anemia, stable. 4. Medication based on GFR appropriate. No indication for dialysis at this time. Job ID: [id number]
[2018-12-03] MEDS: Acetaminophen 325 MG TAB PO PRN ×2 (13:25→20:38)
--- NOTE | 2018-12-03 15:25 | PRG ---
DATE OF SERVICE: 12/03/2018 SUBJECTIVE: Ms. Mitchell states she feels better today. No current episodes of chest pain or pressure. Her creatinine appears to have plateaued. OBJECTIVE: GENERAL: Patient is a pleasant female, who is in no acute distress. The patient appears their stated age. VITAL SIGNS: Blood pressure 142/66, pulse 96, and temperature afebrile. NEUROLOGIC: The patient is alert and oriented x3 with no focal neurologic deficits. HEENT: Sclerae without icterus. Mouth has moist mucous membranes with normal pallor. NECK: No JVD. Carotid upstroke brisk. No bruits bilaterally. LUNGS: Clear to auscultation with unlabored respirations. BACK: No scoliosis or kyphosis. CARDIAC: Regular rate and rhythm with normal S1 and S2. No S3 or S4 noted. No significant rubs, murmurs, thrills, or gallops noted throughout the precordium. PMI is not displaced. There is no parasternal heave. ABDOMEN: Soft, nontender, nondistended. No peritoneal signs present. No hepatosplenomegaly. No abnormal striae. EXTREMITIES: 2+ femoral and 2+ dorsalis pedis pulses. No cyanosis, clubbing, or edema. SKIN: No gross abnormalities. PERTINENT LABORATORY DATA: Hemoglobin 8.8. Creatinine 2.47 with GFR 19. IMPRESSION: 1. Acute respiratory failure. 2. Anemia. 3. Acute on chronic kidney disease. RECOMMENDATIONS: Current etiology to her demise is unknown. She appears to be slowly improving. I am still very hesitant to proceed with any aggressive approach given her hemoglobin and creatinine. Proceed with a diagnostic only potentially, but would risk contrast nephropathy despite hydration. Again, her last stress study performed was one year ago and was felt to be negative for ischemia with a normal LVEF. Her EF continues to be normal. We will speak with family and keep them updated. Job ID: [id number]
[2018-12-03] MEDS: Nitroglycerin 0.4 MG TAB (25 Tab Bottle) SL PRN ×2 (19:05→20:38)
[2018-12-04] MEDS: Acetaminophen 325 MG TAB PO PRN ×2 (00:28→20:48)
[2018-12-04] MEDS ORDERED: Nitroglycerin 2% Ointment 1 INCH/1 GM Packet TOP SCH (04:30)
[2018-12-04 05:28] LABS: Anion Gap 18 mmol/L (10-20); BUN (Urea Nitrogen) 48 mg/dL (9.8-20.1); Calc. Creatinine Clearance 18 mL/min (70-130); Calcium 9.8 mg/dL (7.8-10.44); Carbon Dioxide 21 mmol/L (23-31); Chloride 104 mmol/L (98-107); Estimated GFR-MDRD 17; Glucose 189 mg/dL (83-110); Magnesium 2.1 mg/dL (1.6-2.6); Potassium 4.1 mmol/L (3.5-5.1); Sodium 139 mmol/L (136-145)
[2018-12-04] MEDS: Levothyroxine Sodium 25 MCG TAB PO SCH (06:40)
[2018-12-04] MEDS: Enoxaparin Sodium 30 MG/0.3 ML SYRINGE SC SCH (09:31)
[2018-12-04] MEDS: Aspirin Chewable 81 MG TAB PO SCH (09:31)
[2018-12-04] MEDS: Amiodarone 200 MG TAB PO SCH ×2 (09:32→20:40)
[2018-12-04] MEDS: Docusate 100 MG CAP PO SCH (09:32)
[2018-12-04] MEDS: cefTRIAXone\\ROCEPHIN 2 GM in Sodium Chloride 0.9% 100 ML IVPB SCH (09:38)
--- NOTE | 2018-12-04 09:41 | PDOC.PN ---
- Subjective Encounter Start Date: 12/04/18 Encounter Start Time: 11:40 Subjective: Patient with intermittent chest pains, a bit weak. No other complaints. -: Still sating well on NC O2. - Objective MAR Reviewed: Yes Vital Signs & Weight: Vital Signs (12 hours) Temp Pulse Resp Pulse Ox 12/04/18 07:17 98.7 F 12/04/18 06:41 97 18 12/04/18 03:56 97.9 F 12/04/18 02:59 97 12/04/18 01:46 89 17 97 12/03/18 23:40 98.8 F Weight Admit Weight 150 lb 4.8 oz Weight 154 lb 8 oz Most Recent Monitor Data Heart Rate from ECG 94 NIBP 140/61 NIBP BP-Mean 87 Respiration from ECG 18 SpO2 96 I&O: 12/03/18 12/04/18 12/05/18 06:59 06:59 06:59 Intake Total 1429 800 Output Total 269 Balance 1160 800 Result Diagrams: 12/03/18 11:17 12/04/18 04:35 Additional Labs: Accuchecks 12/04/18 12/03/18 12/03/18 05:43 20:11 16:31 POC Glucose 191 H 159 H 201 H 12/03/18 10:50 POC Glucose 213 H Phys Exam - Physical Examination Constitutional: NAD HEENT: moist MMs Respiratory: no wheezing, no rhonchi scattered rales Cardiovascular: RRR Gastrointestinal: soft, positive bowel sounds Musculoskeletal: no edema Neurological: non-focal, moves all 4 limbs Psychiatric: normal affect, A&O x 3 Dx/Plan (1) Acute respiratory failure with hypoxia Code(s): J96.01 - ACUTE RESPIRATORY FAILURE WITH HYPOXIA Status: Acute Comment: extubated, weaned off high flow O2, now on 3L NC in IMCU, will take awhile for the pulmonary hemorrhage from the pulmonary edema to resolve (2) Acute pulmonary edema Code(s): J81.0 - ACUTE PULMONARY EDEMA Status: Resolved (3) Ventricular tachycardia Code(s): I47.2 - VENTRICULAR TACHYCARDIA Status: Resolved Comment: with arrest, now resolved (4) UTI (urinary tract infection) Status: Acute Comment: growing Klebsiella pneumonia, continue antibiotics through 12/05/2018 (5) Atrial fibrillation with RVR Code(s): I48.91 - UNSPECIFIED ATRIAL FIBRILLATION Status: Resolved Comment: in sinus rhythm, switching amiodarone to oral (6) Acute renal failure superimposed on stage 4 chronic kidney disease Code(s): N17.9 - ACUTE KIDNEY FAILURE, UNSPECIFIED; N18.4 - CHRONIC KIDNEY DISEASE, STAGE 4 (SEVERE) Status: Acute Comment: Improved, chronic due to HTN and diabetic nephropathy (7) NSTEMI (non-ST elevated myocardial infarction) Code(s): I21.4 - NON-ST ELEVATION (NSTEMI) MYOCARDIAL INFARCTION Status: Acute Comment: due to demand ischemia - Plan cont current plan of care, continue antibiotics, PT/OT, respiratory therapy, DVT proph w/lovenox, DVT proph w/SCDs possible SNF placement later this week if no intervention by cardiology * . - Discharge Day Encounter end time: 11:50
[2018-12-04] MEDS: HumaLOG 300 UNITS/3 ML VIAL SC PRN ×2 (10:56→17:02)
--- NOTE | 2018-12-04 11:49 | PRG ---
DATE OF SERVICE: 12/04/2018 SUBJECTIVE: An 83-year-old female being seen for acute kidney injury. The patient denies any nausea, vomiting, or chest pain. OBJECTIVE: CONSTITUTIONAL: The patient is awake and alert. VITAL SIGNS: Afebrile. Pulse 94, breathing 16, and blood pressure 166/80. GENERAL APPEARANCE AND MENTAL STATUS: Fair. HEAD/NECK: Normocephalic. Atraumatic. EYES: EOMI. No deformity. EARS: Clear. No ulcers. NOSE: Intact. No lesions. MOUTH: Clear. No discharge. THROAT: Clear. No exudate. LUNGS: Clear. No crackles. CARDIAC: S1, S2. No rub. ABDOMEN: Benign. Bowel sounds positive. GENITALIA/RECTUM: Hernandes absent. BACK/EXTREMITIES: Edema 0+. NEUROLOGICAL: Alert and motor intact. SKIN: LYMPHATICS: LABORATORY DATA: Reviewed. ASSESSMENT AND PLAN: 1. Stage 4 chronic kidney disease, stable, acute kidney injury. Mild increase in creatinine. Agree with holding Lasix. 2. Metabolic acidosis, stable. 3. Medication based on GFR. We would recommend changing Lovenox to regular heparin. Job ID: [id number]
--- NOTE | 2018-12-04 13:20 | PRG ---
DATE OF SERVICE: 12/04/2018 INTERVAL HISTORY: The patient is doing okay from respiratory standpoint. She actually got weaned down to room air overnight. That being said, this morning, her saturations were in the upper 70s. She got put back on 3 L nasal cannula. Her saturations improved. She did not have any additional complaints. There were no nursing or events reported. PHYSICAL EXAMINATION: VITAL SIGNS: Afebrile. Pulse 94, blood pressure 155/76, respirations 15, saturation 98% on 5 L nasal cannula currently. HEENT: Normocephalic and atraumatic. Sclerae white. Conjunctivae pink. Oral mucosa is moist without lesions. LUNGS: Decent air entry. No crackles, wheezing, or rhonchi appreciated. HEART: Normal rate and regular. ABDOMEN: Soft, nontender, nondistended. Bowel sounds are positive. MUSCULOSKELETAL: No cyanosis or clubbing. There is no pitting in the bilateral lower extremities. NEUROLOGIC: Grossly nonfocal. LABORATORY DATA: Creatinine 2.67. Basic metabolic profile is otherwise unremarkable. Magnesium 2.1. Respiratory virus panel, blood culture x2 are unremarkable. Klebsiella is growing in the urine. ASSESSMENT: 1. Acute hypoxic respiratory failure, resolving. 2. Flash pulmonary edema. 3. Acute kidney injury on chronic kidney disease. 4. Atrial fibrillation with rapid ventricular response, rate controlled. 5. History of nonsustained ventricular tachycardia. DISCUSSION AND PLAN: The patient will be going down for a cardiac catheterization likely in 24 hours. There will be very conservative use of contrast. This is primarily for diagnostic purposes. Antibiotics will be discontinued tomorrow morning. Pulmonary/Critical Care will continue to follow along in this location. We will continue our mobilization efforts through time. Her diet will be modified per Dietary's recommendations. Job ID: [id number] [facility]
--- NOTE | 2018-12-04 16:08 | PRG ---
DATE OF SERVICE: 12/04/2018 SUBJECTIVE: Ms. Mitchell had an episode of chest pain earlier today. No other episodes. She also had increased heart rate, which appeared to be sinus tachycardia. During my 2nd visit with her today, she appears stable but weak. OBJECTIVE: VITAL SIGNS: Blood pressure 120/60, pulse 94, respirations 20. LUNGS: Clear to auscultation. HEART: Regular rate and rhythm. ABDOMEN: Soft, nontender, nondistended. EXTREMITIES: No edema. PERTINENT LABORATORY DATA: Hemoglobin 8.8. Creatinine 2.67 with a GFR of 17. IMPRESSION: 1. Acute pulmonary edema. 2. Acute on chronic kidney failure. 3. Chronic anemia. 4. Coronary artery disease. 5. Status post PTCA in the remote past. RECOMMENDATIONS: I had a long discussion with Ms. Mitchell today as well as with her daughter. The risks and benefits of proceeding with coronary angiography were discussed. After a lengthy discussion, Ms. Mitchell has reservations about proceeding with coronary angiography. She is concerned about contrast nephropathy. I did state, would try and protect her with IV fluids, but certainly no guarantee given her low GFR. She states that attempts at going radially have been performed and have failed in the past. Would have to go in her groin, increasing risk of bleeding. After discussing risks and benefits of both and recommending angiography only, the patient would like to defer. The patient is reluctant to proceed with coronary angiography. Would like to try medical therapy. I did state that a similar episode could occur and would need to consider comfort care and conservative measures only if we were to proceed with conservative treatment. She will discuss further with her daughter. Otherwise, I have no further recommendations. Job ID: [id number]
[2018-12-04] MEDS: Nitroglycerin 0.4 MG TAB (25 Tab Bottle) SL PRN ×2 (17:01→20:40)
[2018-12-04] MEDS ORDERED: Famotidine 20 MG TAB PO SCH (20:30)
[2018-12-04] MEDS ORDERED: diphenhydrAMINE 25 MG CAP PO SCH (20:30)
[2018-12-04] MEDS ORDERED: Montelukast Sodium 10 mg Tablet PO SCH (20:30)
[2018-12-04] MEDS ORDERED: predniSONE 20 MG TAB PO SCH (20:30)
[2018-12-04] MEDS: Sodium Chloride 0.9% 1,000 ML IV SCH (21:58)
[2018-12-05] MEDS: predniSONE 20 MG TAB PO SCH ×5 (00:43→23:56)
[2018-12-05] MEDS: diphenhydrAMINE 25 MG CAP PO SCH ×5 (00:43→23:56)
[2018-12-05] MEDS ORDERED: Succinylcholine Chloride 20 MG/ML 10 ml SYRINGE FS ONE ×2 (01:00)
[2018-12-05] MEDS: Nitroglycerin 0.4 MG TAB (25 Tab Bottle) SL PRN (01:58)
[2018-12-05] MEDS ORDERED: Furosemide 40 MG/4 ML VIAL ONE ×2 (02:25→02:30)
[2018-12-05] MEDS ORDERED: Nitroglycerin 2% Ointment 1 INCH/1 GM Packet ONE (02:26)
[2018-12-05 02:27] LABS: Actual Bicarbonate (HCO3a) 14.2 mEq/L (22-28); Base Excess (BEa) -15.5 mEq/L (-2.0 to +3.0); CO2 Tension 50.4 mmHg (35.0-45.0); Calcium, Ionized 1.32 mmol/L (1.12-1.30); Carboxyhemoglobin (COHb) 0.6 gm% (0.0-3.0); Hemoglobin (Hb) 10.7 g/dL (12.0-16.0)
[2018-12-05 02:43] LABS: O2 Tension (PaO2) 54.8 mmHg (> 60.0); pH, Arterial 7.07 (7.35-7.45)
[2018-12-05 02:44] LABS: Puncture Site RRA
[2018-12-05] MEDS ORDERED: Ventilator Sedation Protocol 1 EACH FS PRN (02:52)
--- NOTE | 2018-12-05 02:58 | PDOC.EVN ---
Event Note - Event Note Event Note: Date of Service: 12/05/18 Residents: Kings Baker MD, Leola Holguin MD Attending: Brooklyn Junior MD CANDIDO HINES called at approximately [address] Arteaga present at time residents arrived. Informed residents that patient had been hospitalized for HF exacerbation and had been extubated on 11/30/18. Prior to CODE, patient was in usual state of health. CODE called for increased work of breathing and AMS. Patient was agnoally breathing at the time the resident team arrived. Decision was made to intubate the patient for mechanical ventilation support and to protect her airway. RSI drugs of etomidate 30 mg and succinylcholine [address] Holguin used a #4 glidescope blade to visualize the vocal cords and a 7.5 cm ET tube was then passed through the vocal cords under direct visualization. The balloon was inflated and appropriate position was confirmed with color change capnography as well as auscultation of bilateral breath sounds. The ET tube was then secured and a post procedural CXR was used to confirm placement. The tip of the ET tube was noted to be approximately 2 cm above the level of the nicholas. Dr. Junior was present for the entire procedure. Approximately 30 minutes of critical care time were spent with Dr. Junior present.
[2018-12-05] MEDS ORDERED: Fentanyl BOLUS 250 ML IVPB PRN (03:01)
[2018-12-05] MEDS ORDERED: DISCONTINUE PREVIOUS NARCOTIC PAIN MEDICATIONS AND BENZODIAZEPINES FS SCH (03:01)
[2018-12-05] MEDS ORDERED: Lorazepam 2 MG/ML VIAL SLOW IVP PRN (03:01)
[2018-12-05] MEDS ORDERED: Propofol BOLUS 1,000 MG/100 ML VIAL IV PRN (03:01)
--- NOTE | 2018-12-05 03:03 | PDOC.EVN ---
Event Note - Event Note Event Note: code blue activated due to need for intubation, (please see code sheet for details) pt. developed acute hypoxic and hypercapneic respiratory failure, intubation successful, Dr Schaeffer notified by [employer], also Family member notified , will continue rest of current Rx, seems that pt went into flash pulmonary edema. ICU/cardiology and nephro already on the case, will follow recs.
[2018-12-05] MEDS ORDERED: Morphine 2 MG/ML SYRINGE SLOW IVP PRN (03:04)
[2018-12-05 03:10] LABS: #Eosinphils 0.1 thou/uL (0.0-0.7); #Lymphocytes 2.1 thou/uL (1.20-3.40); #Monocytes 0.3 thou/uL (0.11-0.59); #Neutrophils 11.7 thou/uL (1.40-6.50); %Basophils 0.3 % (0.0-1.0); %Eosinophils 0.6 % (0.0-10.0); %Lymphocytes 14.6 % (21.0-51.0); %Neutrophils 82.6 % (42.0-75.0); Hemoglobin 10.1 g/dL (12.0-16.0); Mean Corpuscular HGB CONC 30.4 g/dL (32.0-36.0); Mean Corpuscular Hemoglobin 28.2 pg (27.0-31.0); Mean Platelet Volume 8.3 fL (7.4-10.4); Platelet Count 324 thou/uL (130-400); RBC Distribution Width 13.3 % (11.5-14.5); Red Blood Cell (RBC) Count 3.58 mill/uL (4.20-5.40); White Blood Cell (WBC) Count 14.2 thou/uL (4.8-10.8)
[2018-12-05] MEDS: Propofol 1,000 MG/100 ML VIAL IV PRN ×3 (03:10→23:55)
[2018-12-05 03:12] LABS: Actual Bicarbonate (HCO3a) 14.6 mEq/L (22-28); Base Excess (BEa) -10.6 mEq/L (-2.0 to +3.0); CO2 Tension 30.1 mmHg (35.0-45.0); Carboxyhemoglobin (COHb) 0.9 gm% (0.0-3.0); Hemoglobin (Hb) 9.8 g/dL (12.0-16.0); O2 Tension (PaO2) 86.3 mmHg (> 60.0); Potassium - ABG Lab 4.87 mmol/L (3.70-5.30)
[2018-12-05 03:16] LABS: ALV-art Gradient 589.075 (0-20); Puncture Site LBR
[2018-12-05 03:21] LABS: ALT (SGPT) 17 U/L (8-55); AST (SGOT) 18 U/L (5-34); Alkaline Phosphatase 95 U/L (40-150); Anion Gap 25 mmol/L (10-20); BUN (Urea Nitrogen) 48 mg/dL (9.8-20.1); Bilirubin, Total 0.3 mg/dL (0.2-1.2); Calc. Creatinine Clearance 17 mL/min (70-130); Calcium 9.8 mg/dL (7.8-10.44); Carbon Dioxide 12 mmol/L (23-31); Chloride 104 mmol/L (98-107); Estimated GFR-MDRD 16; Glucose 370 mg/dL (83-110); Magnesium 2.3 mg/dL (1.6-2.6); Potassium 5.2 mmol/L (3.5-5.1); Sodium 136 mmol/L (136-145)
[2018-12-05] MEDS ORDERED: Vecuronium 10 MG VIAL ONE (03:25)
[2018-12-05] MEDS ORDERED: Sterile Water 10 ML ONE (03:25)
[2018-12-05] MEDS ORDERED: Vecuronium 10 MG VIAL IV SCH (03:30)
[2018-12-05 03:42] LABS: CKMB 2.6 ng/mL (0-6.6)
[2018-12-05] MEDS ORDERED: Sodium Chloride 0.9% 1,000 ML IV SCH ×2 (04:00→04:15)
[2018-12-05] MEDS: Sodium Chloride 0.45% 1,000 ML IV SCH ×2 (04:27→15:43)
--- NOTE | 2018-12-05 04:30 | PRG ---
DATE OF SERVICE: 12/05/2018 SUBJECTIVE: Ms. María Mitchell is an 83-year-old female, who apparently was admitted with flash pulmonary edema. Dr. Kim had long discussion with family about options, recognizing that she had poor kidney function. It was felt that coronary artery disease needs to be ruled out as a cause of her flash edema. She is starting gentle hydration tonight and suddenly became extremely short of breath. The code was called after blood gas showed pH of over 7.0. I was notified of the impending code when she came to the hospital. When I arrived, she was intubated. OBJECTIVE: VITAL SIGNS: She had blood pressure of 150. Now that she is intubated and paralyzed, her blood pressure down around 100 systolic after fluid bolus. LUNGS: Remarkable for crackles bilaterally. HEART: Regular rhythm. ABDOMEN: Soft. EXTREMITIES: Without clubbing, cyanosis, or edema. Followup blood gas after intubation is pH 7.30, pCO2 30, PO2 of 86. Chest radiograph shows pulmonary edema. EKG shows bundle branch block. I contacted Dr. Kim, will plan for catheter later on this morning. She has poor peripheral access, so I will place the central line. She is stable at the time of this dictation. CRITICAL CARE TIME: 45 minutes independent of procedures performed. Job ID: [id number]
[2018-12-05] MEDS: HumaLOG 300 UNITS/3 ML VIAL SC PRN ×3 (05:53→16:31)
[2018-12-05] MEDS: Levothyroxine Sodium 25 MCG TAB PO SCH (05:53)
[2018-12-05] MEDS: Sodium Chloride 0.9% 1,000 ML IV SCH ×3 (05:55→17:23)
[2018-12-05 06:15] LABS: Band 1 % (5-11); Hemoglobin 7.5 g/dL (12.0-16.0); Hypochromia SLIGHT = 6-15 cells (100X) (0-5/hpf); Lymphocytes 1 % (21-51); MDiff Complete? YES; Mean Corpuscular HGB CONC 32.1 g/dL (32.0-36.0); Mean Corpuscular Hemoglobin 29.1 pg (27.0-31.0); Mean Corpuscular Volume 90.7 fL (78.0-98.0); Mean Platelet Volume 7.5 fL (7.4-10.4); Neutrophil 98 % (42-75); Platelet Count 208 thou/uL (130-400); Platelet Morphology Comment Appears Adequate; Red Blood Cell (RBC) Count 2.57 mill/uL (4.20-5.40); White Blood Cell (WBC) Count 10.1 thou/uL (4.8-10.8)
[2018-12-05 06:30] LABS: Anion Gap 22 mmol/L (10-20); BUN (Urea Nitrogen) 52 mg/dL (9.8-20.1); Calc. Creatinine Clearance 18 mL/min (70-130); Calcium 8.3 mg/dL (7.8-10.44); Carbon Dioxide 12 mmol/L (23-31); Chloride 107 mmol/L (98-107); Estimated GFR-MDRD 18; Glucose 401 mg/dL (83-110); Potassium 4.8 mmol/L (3.5-5.1); Sodium 136 mmol/L (136-145)
[2018-12-05 06:51] LABS: Actual Bicarbonate (HCO3a) 11.6 mEq/L (22-28); Base Excess (BEa) -10.6 mEq/L (-2.0 to +3.0); Calcium, Ionized 1.17 mmol/L (1.12-1.30); Carboxyhemoglobin (COHb) 0.8 gm% (0.0-3.0); Hemoglobin (Hb) 8.3 g/dL (12.0-16.0); O2 Tension (PaO2) 266.6 mmHg (> 60.0); Potassium - ABG Lab 4.32 mmol/L (3.70-5.30); pH, Arterial 7.46 (7.35-7.45)
[2018-12-05 06:55] LABS: CO2 Tension 16.6 mmHg (35.0-45.0); Puncture Site RRA
[2018-12-05] MEDS ORDERED: Heparin 10,000 UNITS/1 ML VIAL ONE (07:36)
[2018-12-05] MEDS ORDERED: Clopidogrel Bisulfate 300 MG TAB ONE (07:55)
--- NOTE | 2018-12-05 07:59 | PRG ---
DATE OF SERVICE: 12/05/2018 CRITICAL CARE NOTE Ms. Mitchell last evening had a code blue. She had respiratory distress and arrest as previously. She underwent rapid sequence intubation. Dr. Romero Schaeffer saw and evaluated Ms. Mitchell. I discussed the case with Dr. Romero Schaeffer. He felt she may need urgent coronary angiography. I did state coronary angiography was planned for today and she did require hydration in addition to treatment for a contrast allergy. Given the change in her current course, I would recommend angio this morning. Her hemoglobin this morning was 7.5, which is concerning. Her creatinine went from 2.76 to 2.61. She did receive 0.5 L of fluid. Plan is to transfuse after angiography. I am concerned about severe multivessel disease versus stenosis present of the circumflex artery. I have discussed the case at length with the patient and family and risk for contrast nephropathy in addition to requiring dialysis, but at this point, the patient is coded twice and will likely continue unless there is a change in her current clinical course. Job ID: [id number]
--- NOTE | 2018-12-05 08:04 | RAD ---
AP CHEST: History: Patient with intubation. 83-year-old female. Date: 12-05-18 Comparison: 11-29-18 FINDINGS: AP chest demonstrates the nasogastric tube to have been removed. Endotracheal tube remains in good po sition. The right jugular central line has been removed. Diffuse bilateral airspace opacities are present, more prominent in both lungs, significantly increas ing the right upper lobe. These may represent areas of pneumonia or pulmonary edema. There is decrease in the left sided pleural effusion. Some areas of patchy density seen in both lung bases compatible with atelectasis or additional areas of bibasilar pneumonia. IMPRESSION: 1. Increasing airspace opacities. 2. Removal of right jugular central line and nasogastric tubes. POS: [facility]
--- NOTE | 2018-12-05 08:13 | RAD ---
AP CHEST: History: Status post central line placement. Date: 12-05-18 Comparison: 12-05-18, 4 minutes earlier. FINDINGS: Endotracheal tube again in place. There has been a newly placed right jugular central line, distal ti p overlying the SVC. There has been placement of an orogastric tube in place, distal tip appearing to be in the gastric fundus after coiling in the stomach lumen. A small left sided pleural effusion is seen. Bilateral airspace opacities seen. This may represent bilateral pneumonia or pulmonary edema. IMPRESSION: Placement of right jugular central line and replacement of a new orogastric tube. POS: [facility]
[2018-12-05] MEDS: cefTRIAXone\\ROCEPHIN 2 GM in Sodium Chloride 0.9% 100 ML IVPB SCH (09:39)
[2018-12-05] MEDS: Aspirin Chewable 81 MG TAB PO SCH (09:44)
[2018-12-05] MEDS: Clopidogrel Bisulfate 75 MG TAB PO SCH (09:44)
[2018-12-05] MEDS: Heparin 5,000 UNITS/ML VIAL SC SCH ×3 (09:45→21:00)
[2018-12-05] MEDS: Docusate 100 MG CAP PO SCH (09:45)
--- NOTE | 2018-12-05 09:47 | PDOC.PN ---
- Subjective Encounter Start Date: 12/05/18 Encounter Start Time: 11:40 Subjective: Patient with recurrent pulmonary edema and respiratory failure -: this AM, had to be reintubated. Stable on vent and just got back from -: cath with stent placement. - Objective MAR Reviewed: Yes Vital Signs & Weight: Vital Signs (12 hours) Temp Pulse Resp BP Pulse Ox 12/05/18 08:20 16 12/05/18 06:00 85 24 H 12/05/18 04:00 24 H 12/05/18 03:15 100 12/05/18 03:09 93 92/53 L 12/05/18 00:21 94 20 100 12/05/18 00:14 97.8 F Weight Admit Weight 150 lb 4.8 oz Weight 156 lb 8.451 oz Most Recent Monitor Data Heart Rate from ECG 88 NIBP 118/50 NIBP BP-Mean 72 Respiration from ECG 12 SpO2 97 I&O: 12/04/18 12/05/18 12/06/18 06:59 06:59 06:59 Intake Total 800 1580 Output Total 1800 65 Balance 800 -220 -65 Result Diagrams: 12/05/18 05:41 12/05/18 05:41 Additional Labs: Accuchecks 12/05/18 12/04/18 12/04/18 05:46 19:52 16:25 POC Glucose 390 H 186 H 231 H 12/04/18 10:20 POC Glucose 209 H Phys Exam - Physical Examination on vent HEENT: moist MMs intubated Respiratory: no wheezing, no rhonchi bilateral rales Cardiovascular: RRR, no significant murmur Gastrointestinal: soft Musculoskeletal: no edema Deviation from normal: sedated on vent Dx/Plan (1) Acute respiratory failure with hypoxia Code(s): J96.01 - ACUTE RESPIRATORY FAILURE WITH HYPOXIA Status: Acute Comment: repeat code now intubated again (2) Acute pulmonary edema Code(s): J81.0 - ACUTE PULMONARY EDEMA Status: Resolved Comment: recurrent with attempt to gently hydrate prior to catheterization (3) Ventricular tachycardia Code(s): I47.2 - VENTRICULAR TACHYCARDIA Status: Acute Comment: with arrest , now resolved (4) UTI (urinary tract infection) Status: Acute Comment: growing Klebsiella pneumonia, continue antibiotics through 12/05/2018 (5) Atrial fibrillation with RVR Code(s): I48.91 - UNSPECIFIED ATRIAL FIBRILLATION Status: Resolved Comment: in sinus rhythm, switching amiodarone to oral (6) Acute renal failure superimposed on stage 4 chronic kidney disease Code(s): N17.9 - ACUTE KIDNEY FAILURE, UNSPECIFIED; N18.4 - CHRONIC KIDNEY DISEASE, STAGE 4 (SEVERE) Status: Acute Comment: Improved, chronic due to HTN and diabetic nephropathy, monitor closely after cath and contrast load (7) NSTEMI (non-ST elevated myocardial infarction) Code(s): I21.4 - NON-ST ELEVATION (NSTEMI) MYOCARDIAL INFARCTION Status: Acute Comment: due to CAD, s/p cath and stent by Dr. Kim - Plan cont current plan of care, continue antibiotics, respiratory therapy, DVT proph w/SCDs cath done today, transfusion following * . - Discharge Day Encounter end time: 11:50
[2018-12-05] MEDS ORDERED: Iopamidol 370 76% 100 ML VIAL ONE (10:02)
[2018-12-05] MEDS ORDERED: Iopamidol 370 76% 50 ML VIAL FS ONE (10:03)
[2018-12-05] MEDS ORDERED: Nitroglycerin 50 MG/250 ML BOT 250 ML ONE (11:08)
[2018-12-05] MEDS ORDERED: Nitroglycerin 50 MG/250 ML BOT 250 ML IVPB SCH (11:15)
--- NOTE | 2018-12-05 11:29 | OP ---
DATE OF PROCEDURE: 12/05/2018 PROCEDURE PERFORMED: Central line placement. INDICATION: Indication for peripheral access status post code. DESCRIPTION OF PROCEDURE: Right neck was prepped with chlorhexidine x2. Sterile drape was applied. She was sedated and paralyzed for ventilation. An introducer needle was inserted into the internal jugular vein. The vein was felt to be fairly flat as the blood return was intermittent. She was placed in Trendelenburg. I was able to then advance the wire. A vein dilator was then inserted. The dilator was withdrawn and a triple-lumen catheter was inserted, sewn in place at approximately 18 cm. Catheter was flushed. Good blood return was obtained from all three ports. Sterile dressing was applied. Chest radiograph is being done as I dictate and I will review this since it is complete. No air was aspirated. There was nothing to let me be to believe that there will be a pneumothorax. Job ID: [id number]
--- NOTE | 2018-12-05 11:50 | PRG ---
DATE OF SERVICE: 12/05/2018 SERVICE: Pulmonary Medicine. INTERVAL HISTORY: The patient did poorly from respiratory standpoint overnight. She ended up having an abrupt decompensation respiratory status. She was moved to the ICU and intubated. She was capped last night. She ended up having a 95% mid LAD lesion that was subsequently stented. Hopefully, this was our issue. She is on mechanical ventilation and requiring a little sedation right now. She actually indicates that she feels much better right now than she did even yesterday. Otherwise, there has been no interval change to her condition. PHYSICAL EXAMINATION: VITAL SIGNS: Afebrile, pulse 90, blood pressure 143/60, respirations 9, saturation 96% on 31% FiO2 and PEEP of 9. GENERAL: The patient is intubated and sedated. HEENT: Normocephalic and atraumatic. Sclerae white. Conjunctivae pink. Oral mucosa is moist without lesions. LUNGS: Decent air entry. There is a slightly prolonged expiratory phase. No wheezing is present. Dependent crackles are noted. HEART: Normal rate and regular. ABDOMEN: Soft, nontender, nondistended. Bowel sounds are positive. MUSCULOSKELETAL: No cyanosis or clubbing. No pitting in the bilateral lower extremities. NEUROLOGIC: Grossly nonfocal. LABORATORY DATA: WBC 10.1, hemoglobin 7.5, platelets 208,000. PH 7.46, pCO2 16 , pO2 266 on 80% FiO2 at that time. Creatinine 2.61 and downtrending, BUN 52. Basic metabolic profile is otherwise unremarkable. Urinalysis is unremarkable. IMAGING DATA: Chest x-ray demonstrates endotracheal tube in good position, right IJ has subsequently been placed with no evidence of pneumothorax. Bilateral pleural effusions are noted. ASSESSMENT: 1. Acute hypoxic respiratory failure, recurring. 2. Flash pulmonary edema, recurring. 3. Acute kidney injury on chronic kidney disease. 4. Atrial fibrillation with rapid ventricular response, rate controlled. 5. Coronary artery disease, severe, status post PCI to LAD. 6. Nonsustained ventricular tachycardia. DISCUSSION AND PLAN: The patient is doing absolutely fantastic from respiratory standpoint. I am actually reassured that the patient says she feels more comfortable even though she had that event last night. Urine output remains excellent. Hopefully, she will not have any lasting damage associated with this event. She will remain on mechanical ventilation. We will deescalate our rate, tidal volume, and drop our FiO2 and PEEP ever so slightly. In 24 hours, if she is continuing to do well, we will consider her for extubation. This time around, I am actually quite hopeful that she will make a very good recovery. Critical care time: 30 minutes. Job ID: [id number] MTDD
--- NOTE | 2018-12-05 12:37 | PRG ---
DATE OF SERVICE: 12/05/2018 SUBJECTIVE: An 83-year-old female, being seen for acute kidney injury. Overnight events reported. OBJECTIVE: GENERAL: The patient is resting. VITAL SIGNS: Afebrile. Pulse 90, breathing 16, blood pressure 143/63. GENERAL APPEARANCE AND MENTAL STATUS: Fair. HEAD/NECK: Normocephalic. Atraumatic. EYES: EOMI. No deformity. EARS: Clear. No ulcers. NOSE: Intact. No lesions. MOUTH: Clear. No discharge. THROAT: Clear. No exudate. LUNGS: Clear. No crackles. CARDIAC: S1, S2. No rub. ABDOMEN: Benign. Bowel sounds positive. GENITALIA/RECTUM: Hernandes absent. BACK/EXTREMITIES: Edema 0+. NEUROLOGICAL: Alert and motor intact. SKIN: LYMPHATICS: LABORATORY DATA: Hemoglobin 7.5, creatinine is 2.6. ASSESSMENT AND PLAN: 1. Acute kidney, improved. 2. Hypertension, stable. 3. Hyperkalemia, stable. 4. Medication based on GFR, appropriate. 5. Metabolic acidosis, we would recommend sodium bicarbonate replacement. No indication for dialysis. Job ID: [id number]
[2018-12-06] MEDS: HumaLOG 300 UNITS/3 ML VIAL SC PRN ×5 (00:22→20:51)
[2018-12-06 05:20] LABS: ALT (SGPT) 17 U/L (8-55); AST (SGOT) 13 U/L (5-34); Albumin 2.8 g/dL (3.4-4.8); Alkaline Phosphatase 76 U/L (40-150); Anion Gap 15 mmol/L (10-20); BUN (Urea Nitrogen) 58 mg/dL (9.8-20.1); Band 2 % (5-11); Bilirubin, Total 0.3 mg/dL (0.2-1.2); Calc. Creatinine Clearance 18 mL/min (70-130); Calcium 8.6 mg/dL (7.8-10.44); Carbon Dioxide 17 mmol/L (23-31); Chloride 106 mmol/L (98-107); Estimated GFR-MDRD 17; Glucose 195 mg/dL (83-110); Hemoglobin 9.6 g/dL (12.0-16.0); Lymphocytes 7 % (21-51); MDiff Complete? YES; Mean Corpuscular HGB CONC 32.5 g/dL (32.0-36.0); Mean Platelet Volume 7.6 fL (7.4-10.4); Monocytes 1 % (0-10); Neutrophil 90 % (42-75); Platelet Count 239 thou/uL (130-400); Potassium 3.9 mmol/L (3.5-5.1); Protein, Total 5.8 g/dL (6.0-8.3); RBC Distribution Width 15.2 % (11.5-14.5); Red Blood Cell (RBC) Count 3.43 mill/uL (4.20-5.40); Sodium 134 mmol/L (136-145); White Blood Cell (WBC) Count 14.1 thou/uL (4.8-10.8)
[2018-12-06] MEDS: predniSONE 20 MG TAB PO SCH ×3 (06:14→17:08)
[2018-12-06] MEDS: Propofol 1,000 MG/100 ML VIAL IV PRN (06:14)
[2018-12-06] MEDS: Levothyroxine Sodium 25 MCG TAB PO SCH (06:14)
[2018-12-06] MEDS: diphenhydrAMINE 25 MG CAP PO SCH ×3 (06:14→17:08)
[2018-12-06 07:02] LABS: Actual Bicarbonate (HCO3a) 15.8 mEq/L (22-28); Base Excess (BEa) -8.7 mEq/L (-2.0 to +3.0); CO2 Tension 29.4 mmHg (35.0-45.0); Carboxyhemoglobin (COHb) 0.6 gm% (0.0-3.0); Hemoglobin (Hb) 10.2 g/dL (12.0-16.0); O2 Tension (PaO2) 92.7 mmHg (> 60.0); Potassium - ABG Lab 3.92 mmol/L (3.70-5.30); Puncture Site RRA; pH, Arterial 7.35 (7.35-7.45)
--- NOTE | 2018-12-06 09:04 | PRG ---
DATE OF SERVICE: 12/06/2018 SUBJECTIVE: An 83-year-old female, being seen for acute kidney injury. The patient remains intubated. OBJECTIVE: GENERAL: The patient is resting. VITAL SIGNS: Afebrile, pulse 80, breathing 16, blood pressure 155/72. GENERAL APPEARANCE AND MENTAL STATUS: Fair. HEAD/NECK: Normocephalic. Atraumatic. EYES: EOMI. No deformity. EARS: Clear. No ulcers. NOSE: Intact. No lesions. MOUTH: Clear. No discharge. THROAT: Clear. No exudate. LUNGS: Clear. No crackles. CARDIAC: S1, S2. No rub. ABDOMEN: Benign. Bowel sounds positive. GENITALIA/RECTUM: Hernandes absent. BACK/EXTREMITIES: Edema 0+. NEUROLOGICAL: The patient is resting. LABORATORY DATA: Reviewed. ASSESSMENT AND PLAN: 1. Chronic kidney disease, stage 4, stable. 2. Hypertension, stable. 3. Anemia, stable. 4. Medication based on GFR, appropriate. No indication for dialysis. Job ID: [id number]
[2018-12-06] MEDS: Aspirin Chewable 81 MG TAB PO SCH (09:13)
[2018-12-06] MEDS: Clopidogrel Bisulfate 75 MG TAB PO SCH (09:14)
[2018-12-06] MEDS: Docusate 100 MG CAP PO SCH (09:14)
[2018-12-06] MEDS: Heparin 5,000 UNITS/ML VIAL SC SCH ×3 (09:15→20:41)
--- NOTE | 2018-12-06 09:53 | PRG ---
DATE OF SERVICE: 12/06/2018 SERVICE: Pulmonary Medicine. INTERVAL HISTORY: The patient is doing outstanding from respiratory standpoint. Her oxygen requirements are dropping once again. She did not have any ventricular ectopy. She denies any shortness of breath or chest discomfort. PHYSICAL EXAMINATION: VITAL SIGNS: Afebrile, pulse 91, blood pressure 155/72, respirations 16, and saturation 98% on 31% FiO2 and a PEEP of 5. GENERAL: The patient is awake and alert. She is requiring a little bit of sedation to maintain comfort on mechanical ventilator. Within 5 seconds, without stimulation, she will drift back off to sleep. HEENT: Normocephalic and atraumatic. Sclerae white. Conjunctivae pink. Oral mucosa is moist without lesions. LUNGS: Excellent air entry. No prolonged expiratory phase is present. Dependent crackles are noted. HEART: Normal rate and regular. ABDOMEN: Soft, nontender, and nondistended. Bowel sounds are positive. MUSCULOSKELETAL: No cyanosis or clubbing. There is no pitting in the bilateral lower extremities. NEUROLOGIC: Grossly nonfocal. LABORATORY DATA: WBC 14.1, hemoglobin 9.6, platelets 239,000. ACT 132. A pH 7.35, pCO2 of 29, pO2 of 93. This corresponds to saturation 97%. Creatinine 2.63 and roughly stable, BUN 58 and stable. Basic metabolic profile is otherwise unremarkable. Anion gap is 15, bicarb is improving to 17. Liver function studies are unremarkable. She is net positive 2 L over the last 24 hours. ASSESSMENT: 1. Acute hypoxic respiratory failure. 2. Flash pulmonary edema, x2. 3. Coronary artery disease, status post PCI to LAD (95% lesion). 4. Acute kidney injury on chronic kidney disease. 5. Atrial fibrillation, back to a regular rhythm. 6. Nonsustained ventricular tachycardia, remote. DISCUSSION AND PLAN: The patient is doing absolutely wonderful from respiratory standpoint. We will put her on a spontaneous breathing trial. I will drop her PEEP down to 5. If she tolerates this for about an hour or two, we will consider extubation. Pulmonary/Critical Care will continue to follow along. CRITICAL CARE TIME: 30 minutes. Job ID: [id number]
[2018-12-06] MEDS ORDERED: Amlodipine 5 MG TAB PER TUBE SCH (15:00)
[2018-12-06] MEDS ORDERED: Clopidogrel Bisulfate 75 MG TAB PO SCH (15:00)
--- NOTE | 2018-12-06 15:09 | PRG ---
DATE OF SERVICE: 12/06/2018 SUBJECTIVE: Ms. Mitchell continues to be intubated. She does require IV nitroglycerin for blood pressure support. Her creatinine has stabilized. She received a total of 25 mL of contrast during yesterday angiography in addition to intervention to the LAD after having 95% lesion present. OBJECTIVE: VITAL SIGNS: Blood pressure 167/75, pulse 104, temperature afebrile. LUNGS: Minimal crackles bilaterally. HEART: Regular rate and rhythm. ABDOMEN: Soft, nontender, nondistended. EXTREMITIES: No edema. PERTINENT LABORATORY DATA: Hemoglobin 9.6 after blood transfusion, creatinine 2.63 up from 2.61. IMPRESSION: 1. Flash pulmonary edema. 2. Acute on chronic renal insufficiency. 3. Severe coronary artery disease, status post stent placement. 4. Hypertension. RECOMMENDATIONS: I would like to wean her off the IV nitroglycerin. We will add Norvasc 5 mg one p.o. now in addition to hydralazine 10 mg one p.o. q.i.d. We would likely discontinue IV nitroglycerin over the weekend. We will avoid CHRISTOPHER inhibitor therapy and ARB given renal insufficiency. Job ID: [id number]
--- NOTE | 2018-12-06 16:07 | PDOC.PN ---
- Subjective Encounter Start Date: 12/06/18 Encounter Start Time: 16:05 Subjective: Admitted with acute onset of chest pain associated with mild troponin eleva -: later had flash pulm edema and was intubated. had cardiac cath with stent -: to LAD on 12/05/2017. extubated earlier today. feeling good. No discomfort. - Objective Vital Signs & Weight: Vital Signs (12 hours) Temp Pulse Resp BP Pulse Ox 12/06/18 15:02 99 12/06/18 14:00 17 12/06/18 12:49 100 163/75 H 12/06/18 12:00 98.4 F 21 H 12/06/18 10:27 96 155/74 H 12/06/18 10:00 17 12/06/18 09:00 98.0 F 13 12/06/18 08:00 16 12/06/18 07:49 91 147/73 H 12/06/18 07:00 11 L 12/06/18 06:00 13 Weight Admit Weight 150 lb 4.8 oz Weight 153 lb 14.122 oz Most Recent Monitor Data Heart Rate from ECG 109 NIBP 142/72 NIBP BP-Mean 95 Respiration from ECG 14 SpO2 99 I&O: 12/05/18 12/06/18 12/07/18 06:59 06:59 06:59 Intake Total 1580 2902 178.6 Output Total 1800 780 290 Balance -220 2122 -111.4 Result Diagrams: 12/06/18 04:45 12/06/18 04:45 Additional Labs: Accuchecks 12/06/18 12/06/18 12/06/18 13:35 04:53 00:21 POC Glucose 221 H 195 H 240 H 12/05/18 16:10 POC Glucose 235 H Phys Exam - Physical Examination HEENT: PERRLA, moist MMs Neck: no JVD, supple fair air entry bilaterally with some transmitted sound. Cardiovascular: RRR tachycardic. 3/6 systolic murmur at the aortic area. Gastrointestinal: soft, non-tender, no distention, positive bowel sounds Edema of both upper limb noted. 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 insulin use: with skilled nursing use Diabetes mellitus complication status: with kidney complications Chronic kidney disease stage: stage 4 (severe) (3) UTI (urinary tract infection) Status: Acute Comment: growing Klebsiella pneumonia, continue antibiotics through 12/05/2018 (4) Ventricular tachycardia Code(s): I47.2 - VENTRICULAR TACHYCARDIA Status: Acute Comment: with arrest , now resolved (5) CKD (chronic kidney disease) stage 4, GFR 15-29 ml/min Code(s): N18.4 - CHRONIC KIDNEY DISEASE, STAGE 4 (SEVERE) Status: Chronic (6) Acute pulmonary edema Code(s): J81.0 - ACUTE PULMONARY EDEMA Status: Resolved Comment: recurrent with attempt to gently hydrate prior to catheterization (7) Atrial fibrillation with RVR Code(s): I48.91 - UNSPECIFIED ATRIAL FIBRILLATION Status: Resolved Comment: in sinus rhythm, switching amiodarone to oral (8) Acute renal failure superimposed on stage 4 chronic kidney disease Code(s): N17.9 - ACUTE KIDNEY FAILURE, UNSPECIFIED; N18.4 - CHRONIC KIDNEY DISEASE, STAGE 4 (SEVERE) Status: Acute Comment: Improved, chronic due to HTN and diabetic nephropathy, monitor closely after cath and contrast load (9) NSTEMI (non-ST elevated myocardial infarction) Code(s): I21.4 - NON-ST ELEVATION (NSTEMI) MYOCARDIAL INFARCTION Status: Acute Comment: due to CAD, s/p cath and stent by Dr. Kim (10) CHF (congestive heart failure), NYHA class III Code(s): I50.9 - HEART FAILURE, UNSPECIFIED Status: Chronic Qualifiers: Congestive heart failure type: combined Congestive heart failure chronicity : acute Qualified Code(s): I50.41 - Acute combined systolic (congestive) and diastolic (congestive) heart failure Comment: EF 45% 09/2017, systolic and diastolic dysfunction (11) HTN (hypertension) Code(s): I10 - ESSENTIAL (PRIMARY) HYPERTENSION Status: Chronic Qualifiers: Hypertension type: essential hypertension Qualified Code(s): I10 - Essential (primary) hypertension (12) Chest pain Code(s): R07.9 - CHEST PAIN, UNSPECIFIED Status: Resolved Qualifiers: Chest pain type: unspecified Qualified Code(s): R07.9 - Chest pain, unspecified - Plan Continue current treatment -: Start oral sodium bicarbaonate. -: Monitor renal function. -: Advance diet as tolerated. * .
[2018-12-06] MEDS: hydrALAZINE 10 MG TAB PER TUBE SCH ×2 (17:08→20:41)
[2018-12-06] MEDS: Sodium Bicarbonate Tab 325 MG TAB PO SCH (20:41)
[2018-12-07] MEDS: predniSONE 20 MG TAB PO SCH ×5 (00:02→23:02)
[2018-12-07] MEDS: Levothyroxine Sodium 25 MCG TAB PO SCH (05:29)
[2018-12-07] MEDS: HumaLOG 300 UNITS/3 ML VIAL SC PRN ×4 (05:29→19:54)
[2018-12-07 05:46] LABS: Anion Gap 16 mmol/L (10-20); BUN (Urea Nitrogen) 60 mg/dL (9.8-20.1); Calc. Creatinine Clearance 19 mL/min (70-130); Calcium 8.9 mg/dL (7.8-10.44); Carbon Dioxide 18 mmol/L (23-31); Chloride 110 mmol/L (98-107); Estimated GFR-MDRD 19; Glucose 251 mg/dL (83-110); Potassium 3.9 mmol/L (3.5-5.1); Sodium 140 mmol/L (136-145)
[2018-12-07 06:48] LABS: Band 1 % (5-11); Hemoglobin 9.7 g/dL (12.0-16.0); Hypochromia SLIGHT = 6-15 cells (100X) (0-5/hpf); Lymphocytes 5 % (21-51); MDiff Complete? YES; Mean Corpuscular HGB CONC 32.5 g/dL (32.0-36.0); Mean Corpuscular Volume 86.2 fL (78.0-98.0); Mean Platelet Volume 7.7 fL (7.4-10.4); Neutrophil 94 % (42-75); Platelet Count 264 thou/uL (130-400); Platelet Morphology Comment Appears Adequate; RBC Distribution Width 15.1 % (11.5-14.5); Red Blood Cell (RBC) Count 3.45 mill/uL (4.20-5.40); White Blood Cell (WBC) Count 11.6 thou/uL (4.8-10.8)
[2018-12-07] MEDS: Docusate 100 MG CAP PO SCH (08:13)
[2018-12-07] MEDS: Amlodipine 5 MG TAB PER TUBE SCH (08:15)
[2018-12-07] MEDS: hydrALAZINE 10 MG TAB PER TUBE SCH ×4 (08:16→19:54)
[2018-12-07] MEDS: Clopidogrel Bisulfate 75 MG TAB PO SCH (08:16)
[2018-12-07] MEDS: Aspirin Chewable 81 MG TAB PO SCH (08:16)
[2018-12-07] MEDS: Sodium Bicarbonate Tab 325 MG TAB PO SCH ×2 (08:16→19:54)
[2018-12-07] MEDS: Heparin 5,000 UNITS/ML VIAL SC SCH ×3 (08:17→19:54)
[2018-12-07] MEDS ORDERED: Metoprolol Tartrate 25 MG TAB PO SCH (11:45)
--- NOTE | 2018-12-07 11:56 | PRG ---
DATE OF SERVICE: 12/07/2018 SUBJECTIVE: An 83-year-old female, being seen for acute kidney injury. The patient denied any nausea, vomiting, or chest pain. OBJECTIVE: See above. GENERAL: The patient is awake, alert. VITAL SIGNS: Afebrile. Pulse 87, breathing 16, and blood pressure 150/66. GENERAL APPEARANCE AND MENTAL STATUS: Fair. HEAD/NECK: Normocephalic. Atraumatic. EYES: EOMI. No deformity. EARS: Clear. No ulcers. NOSE: Intact. No lesions. MOUTH: Clear. No discharge. THROAT: Clear. No exudate. LUNGS: Clear. No crackles. CARDIAC: S1, S2. No rub. ABDOMEN: Benign. Bowel sounds positive. GENITALIA/RECTUM: Hernandes absent. BACK/EXTREMITIES: Edema 0+. NEUROLOGICAL: Alert and motor intact. SKIN: LYMPHATICS: LABORATORY DATA: Labs show creatinine is 2.4. ASSESSMENT AND PLAN: 1. Acute kidney injury, improved. 2. Metabolic acidosis, stable. 3. Hypertension, stable. 4. Medication based on GFR, appropriate. No indication for dialysis. Job ID: [id number]
--- NOTE | 2018-12-07 12:27 | PRG ---
DATE OF SERVICE: 12/07/2018 SERVICE: Pulmonary Medicine. INTERVAL HISTORY: The patient is doing great from respiratory standpoint. Breathing comfortably. She is back on 1 L nasal cannula. Her saturations are fantastic. She is not having any chest discomfort, nausea, vomiting. There were no overnight events. She has been able to get up on the side of the bed and dangle her feet. Otherwise, there has been no change in her condition. PHYSICAL EXAMINATION: VITAL SIGNS: Afebrile. Pulse 101, blood pressure 134/76, respirations 19, saturation 100% on 1 L nasal cannula. GENERAL: The patient is awake and alert, in no apparent distress. LUNGS: Excellent air entry. Dependent crackles are minimal. No prolonged expiratory phase or wheezing appreciated. HEART: Tachycardic. Regular. ABDOMEN: Soft, nontender, nondistended, bowel sounds are positive. MUSCULOSKELETAL: No cyanosis or clubbing. There is no pitting in the bilateral lower extremities. NEUROLOGIC: Grossly nonfocal. LABORATORY DATA: WBC 11.6, hemoglobin 9.7, platelets 264,000. Creatinine 2.44 and beautifully downtrending, BUN 60 and stable. Bicarb 18, and improving. Chloride 110. Basic metabolic profile is otherwise unremarkable. Klebsiella pneumoniae is growing in the urine which is pansensitive. Blood cultures x2, respiratory virus panel were previously unremarkable. ASSESSMENT: 1. Acute hypoxic respiratory failure, resolving. 2. Flash pulmonary edema x2. 3. Coronary artery disease, status post PCI to LAD (95% lesion). 4. Acute kidney injury on chronic kidney disease, improving. 5. Atrial fibrillation, currently normal sinus rhythm. 6. Nonsustained ventricular tachycardia, remote. DISCUSSION AND PLAN: The patient is doing absolutely fantastic. She will stay in the ICU for another 24 hours. If she tolerates this well, we can consider transitioning her to the [facility]. I want to closely watch for at least the next 3 days. Hopefully, as we stress out her heart with exercise and other things, she will not have a recurrence in her flash pulmonary edema. Unfortunately, the only way for us to know whether or not the problem is truly fixed is to put her through the paces. Job ID: [id number] [facility]
--- NOTE | 2018-12-07 15:07 | PDOC.PN ---
- Subjective Encounter Start Date: 12/07/18 Encounter Start Time: 15:06 Subjective: Feeling better. No chest pain or SOB. -: Tolerating clear liquid. -: Up in chair. - Objective Vital Signs & Weight: Vital Signs (12 hours) Temp Pulse Pulse Pulse Resp BP BP 12/07/18 14:59 88 132/55 L 12/07/18 12:58 91 20 12/07/18 12:00 98.0 F 12/07/18 09:56 87 102 H 155/88 H 12/07/18 08:16 103 H 157/71 H 12/07/18 08:15 103 H 157/71 H 12/07/18 08:00 12/07/18 07:00 98.4 F 12/07/18 06:48 12/07/18 06:47 96 15 12/07/18 04:00 98 F BP Pulse Ox Pulse Ox Pulse Ox 12/07/18 14:59 12/07/18 12:58 95 12/07/18 12:00 12/07/18 09:56 152/66 H 97 96 12/07/18 08:16 12/07/18 08:15 12/07/18 08:00 98 12/07/18 07:00 12/07/18 06:48 96 12/07/18 06:47 96 12/07/18 04:00 Weight Admit Weight 150 lb 4.8 oz Weight 152 lb 5.431 oz Most Recent Monitor Data Heart Rate from ECG 86 NIBP 127/61 NIBP BP-Mean 83 Respiration from ECG 20 SpO2 97 I&O: 12/06/18 12/07/18 12/08/18 06:59 06:59 06:59 Intake Total 2902 472.6 500 Output Total 780 945 650 Balance 2122 -472.4 -150 Result Diagrams: 12/07/18 05:15 12/07/18 05:15 Additional Labs: Accuchecks 12/07/18 12/07/18 12/06/18 11:35 05:22 20:51 POC Glucose 290 H 255 H 204 H 12/06/18 17:15 POC Glucose 223 H Phys Exam - Physical Examination healthy looking elderly female in no distresss HEENT: PERRLA, moist MMs Neck: no JVD, supple, full ROM TLC noted on the left neck Respiratory: no wheezing, no rales, no rhonchi, clear to auscultation bilateral Cardiovascular: RRR systolic murmur noted Gastrointestinal: soft, non-tender, no distention, positive bowel sounds Musculoskeletal: no edema, pulses present Neurological: non-focal, normal sensation, moves all 4 limbs Psychiatric: normal affect, A&O x 3 Dx/Plan (1) Acute respiratory failure with hypoxia Code(s): J96.01 - ACUTE RESPIRATORY FAILURE WITH HYPOXIA Status: Acute Comment: flash pulmonary edema x 2 requiring intubation x 2. Extubated 2017 and doing well. Found to have LAD disease and s/p stent to LAD. (2) DM type 2 (diabetes mellitus, type 2) Status: Acute Qualifiers: Diabetes mellitus alf insulin use: with alf use Diabetes mellitus complication status: with kidney complications Chronic kidney disease stage: stage 4 (severe) (3) UTI (urinary tract infection) Status: Acute Comment: growing Klebsiella pneumonia, continue antibiotics through 12/05/2018 (4) Ventricular tachycardia Code(s): I47.2 - VENTRICULAR TACHYCARDIA Status: Acute Comment: with arrest , now resolved (5) CKD (chronic kidney disease) stage 4, GFR 15-29 ml/min Code(s): N18.4 - CHRONIC KIDNEY DISEASE, STAGE 4 (SEVERE) Status: Chronic (6) Acute pulmonary edema Code(s): J81.0 - ACUTE PULMONARY EDEMA Status: Resolved Comment: recurrent with attempt to gently hydrate prior to catheterization (7) Atrial fibrillation with RVR Code(s): I48.91 - UNSPECIFIED ATRIAL FIBRILLATION Status: Resolved Comment: in sinus rhythm, switching amiodarone to oral (8) Acute renal failure superimposed on stage 4 chronic kidney disease Code(s): N17.9 - ACUTE KIDNEY FAILURE, UNSPECIFIED; N18.4 - CHRONIC KIDNEY DISEASE, STAGE 4 (SEVERE) Status: Acute Comment: Improved, chronic due to HTN and diabetic nephropathy, monitor closely after cath and contrast load (9) NSTEMI (non-ST elevated myocardial infarction) Code(s): I21.4 - NON-ST ELEVATION (NSTEMI) MYOCARDIAL INFARCTION Status: Acute Comment: due to CAD, s/p cath and stent by Dr. Kim (10) CHF (congestive heart failure), NYHA class III Code(s): I50.9 - HEART FAILURE, UNSPECIFIED Status: Chronic Qualifiers: Congestive heart failure type: combined Congestive heart failure chronicity : acute Qualified Code(s): I50.41 - Acute combined systolic (congestive) and diastolic (congestive) heart failure Comment: EF 45% 09/2017, systolic and diastolic dysfunction (11) HTN (hypertension) Code(s): I10 - ESSENTIAL (PRIMARY) HYPERTENSION Status: Chronic Qualifiers: Hypertension type: essential hypertension Qualified Code(s): I10 - Essential (primary) hypertension - Plan Continue current treatments. -: wean oxygen and nitro infusion as tolerated -: Continue antiplatelets, beta tam and statin. -: advance diet to heart healthy. * .
[2018-12-07] MEDS: Metoprolol Tartrate 50 MG TAB PO SCH (19:54)
[2018-12-07] MEDS: Acetaminophen 325 MG TAB PO PRN (22:41)
[2018-12-08 05:08] LABS: Anion Gap 16 mmol/L (10-20); BUN (Urea Nitrogen) 62 mg/dL (9.8-20.1); Calc. Creatinine Clearance 20 mL/min (70-130); Calcium 8.6 mg/dL (7.8-10.44); Carbon Dioxide 20 mmol/L (23-31); Chloride 106 mmol/L (98-107); Estimated GFR-MDRD 20; Glucose 365 mg/dL (83-110); Potassium 3.8 mmol/L (3.5-5.1); Sodium 138 mmol/L (136-145)
[2018-12-08] MEDS: predniSONE 20 MG TAB PO SCH ×2 (05:19→11:51)
[2018-12-08] MEDS: Levothyroxine Sodium 25 MCG TAB PO SCH (05:19)
[2018-12-08] MEDS: HumaLOG 300 UNITS/3 ML VIAL SC PRN ×4 (05:26→22:16)
[2018-12-08 06:00] LABS: Band 2 % (5-11); Hemoglobin 9.6 g/dL (12.0-16.0); Lymphocytes 6 % (21-51); MDiff Complete? YES; Mean Corpuscular HGB CONC 32.6 g/dL (32.0-36.0); Monocytes 5 % (0-10); Neutrophil 87 % (42-75); Platelet Count 271 thou/uL (130-400); Platelet Morphology Comment Appears Adequate; RBC Distribution Width 14.8 % (11.5-14.5); Red Blood Cell (RBC) Count 3.43 mill/uL (4.20-5.40); White Blood Cell (WBC) Count 11.7 thou/uL (4.8-10.8)
--- NOTE | 2018-12-08 07:14 | PDOC.PN ---
- Subjective Encounter Start Date: 12/08/18 Encounter Start Time: 07:12 Subjective: Seen and examined feeling better - Objective Vital Signs & Weight: Vital Signs (12 hours) Temp Pulse Resp Pulse Ox 12/08/18 07:01 95 12/08/18 06:57 88 22 H 95 12/08/18 03:00 98.2 F 12/08/18 01:31 87 18 94 L 12/07/18 23:00 97.8 F 12/07/18 19:54 90 12/07/18 19:19 97 Weight Admit Weight 150 lb 4.8 oz Weight 154 lb 15.759 oz Most Recent Monitor Data Heart Rate from ECG 89 NIBP 147/74 NIBP BP-Mean 98 Respiration from ECG 20 SpO2 97 I&O: 12/07/18 12/08/18 12/09/18 06:59 06:59 06:59 Intake Total 472.6 1087 Output Total 945 1750 Balance -472.4 -663 Result Diagrams: 12/08/18 04:32 12/08/18 04:32 Additional Labs: Accuchecks 12/07/18 12/07/18 12/07/18 19:54 15:13 11:35 POC Glucose 379 H 318 H 290 H Phys Exam - Physical Examination Constitutional: NAD HEENT: PERRLA, moist MMs, sclera anicteric, TM's clear Neck: no nodes, no JVD, supple, full ROM Respiratory: no wheezing, no rales, no rhonchi Cardiovascular: RRR, no significant murmur, no rub Gastrointestinal: soft, non-tender, no distention, positive bowel sounds Musculoskeletal: no edema, pulses present Dx/Plan (1) UTI (urinary tract infection) Status: Acute Comment: growing Klebsiella pneumonia, continue antibiotics through 12/05/2018 (2) Ventricular tachycardia Code(s): I47.2 - VENTRICULAR TACHYCARDIA Status: Acute Comment: with arrest , now resolved (3) CKD (chronic kidney disease) stage 4, GFR 15-29 ml/min Code(s): N18.4 - CHRONIC KIDNEY DISEASE, STAGE 4 (SEVERE) Status: Chronic (4) Constipation Code(s): K59.00 - CONSTIPATION, UNSPECIFIED Status: Chronic Comment: Chronic , due to Iron supplements (5) Acute pulmonary edema Code(s): J81.0 - ACUTE PULMONARY EDEMA Status: Resolved Comment: recurrent with attempt to gently hydrate prior to catheterization (6) Atrial fibrillation with RVR Code(s): I48.91 - UNSPECIFIED ATRIAL FIBRILLATION Status: Resolved Comment: in sinus rhythm, switching amiodarone to oral - Plan PT/OT, 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
[2018-12-08] MEDS: Heparin 5,000 UNITS/ML VIAL SC SCH ×3 (08:49→20:43)
[2018-12-08] MEDS: Amlodipine 5 MG TAB PER TUBE SCH (08:50)
[2018-12-08] MEDS: Docusate 100 MG CAP PO SCH (08:50)
[2018-12-08] MEDS: Sodium Bicarbonate Tab 325 MG TAB PO SCH ×2 (08:50→20:43)
[2018-12-08] MEDS: Aspirin Chewable 81 MG TAB PO SCH (08:51)
[2018-12-08] MEDS: hydrALAZINE 10 MG TAB PER TUBE SCH ×4 (08:51→20:43)
[2018-12-08] MEDS: Metoprolol Tartrate 50 MG TAB PO SCH ×2 (08:52→20:43)
[2018-12-08] MEDS: Clopidogrel Bisulfate 75 MG TAB PO SCH (08:52)
[2018-12-08] MEDS: Acetaminophen 325 MG TAB PO PRN (09:09)
--- NOTE | 2018-12-08 11:42 | PRG ---
DATE OF SERVICE: 12/08/2018 SUBJECTIVE: An 83-year-old female, being seen for acute kidney injury. The patient denies any complaints. OBJECTIVE: GENERAL: The patient is awake and alert. VITAL SIGNS: Afebrile, pulse 75, breathing 16, blood pressure 139/64. GENERAL APPEARANCE AND MENTAL STATUS: Fair. HEAD/NECK: Normocephalic. Atraumatic. EYES: EOMI. No deformity. EARS: Clear. No ulcers. NOSE: Intact. No lesions. MOUTH: Clear. No discharge. THROAT: Clear. No exudate. LUNGS: Clear. No crackles. CARDIAC: S1, S2. No rub. ABDOMEN: Benign. Bowel sounds positive. GENITALIA/RECTUM: Hernandes absent. BACK/EXTREMITIES: Edema 0+. NEUROLOGICAL: Alert and motor intact. SKIN: LYMPHATICS: LABORATORY DATA: Reviewed. ASSESSMENT AND RECOMMENDATIONS: 1. Stage 4 chronic kidney disease, stable. 2. Hypertension, stable. 3. Anemia, stable. 4. Acute kidney injury, stable. 5. No indication for dialysis. 6. Medication based on GFR, appropriate. Job ID: [id number]
[2018-12-08] MEDS ORDERED: Insulin Glargine 20 UNITS in Pre-Filled Syringe 1 EACH SC SCH (12:00)
--- NOTE | 2018-12-08 12:55 | PRG ---
DATE OF SERVICE: 12/08/2018 SERVICE: Pulmonary Medicine. INTERVAL HISTORY: The patient's urine output has improved dramatically. She denies any shortness of breath or chest discomfort. She was able to get out of bed and into a bedside chair without having a diving spell. Otherwise, it seems that the stent to the LAD has done her a great service. PHYSICAL EXAMINATION: VITAL SIGNS: Afebrile, pulse 90, blood pressure 127/56, respirations are 20, and saturation 93% on room air. GENERAL: The patient is awake and alert, in no apparent distress. LUNGS: Excellent air entry. There is no prolonged expiratory phase. Minimal dependent crackles are present. No rhonchi or wheezing appreciated. HEART: Normal rate. Regular. ABDOMEN: Soft, nontender, and nondistended. Bowel sounds are positive. MUSCULOSKELETAL: No cyanosis or clubbing. There is no pitting in the bilateral lower extremities. NEUROLOGIC: Grossly nonfocal. LABORATORY DATA: WBC 11.7, hemoglobin 9.6, and platelets are 271,000. Creatinine 2.37 and starting to trend downward, BUN 62, and stable. Bicarb is 20 and improving. ASSESSMENT: 1. Acute hypoxic respiratory failure, resolved. 2. Flash pulmonary edema x2 episodes. 3. Coronary artery disease, status post PCI to LAD. 4. Acute kidney injury on chronic kidney disease, improving. 5. Atrial fibrillation, returned to sinus rhythm. 6. History of nonsustained ventricular tachycardia. DISCUSSION AND PLAN: The patient is doing wonderful from a respiratory standpoint. She is able to increase her exertion a little bit. At this point, she is stable for transition out of the ICU to the IM. She will need to be watched closely for the next two days to make certain she does not have an additional episode. Hopefully, the improved blood flow to the myocardium will help hold up a little better under stress. Since it appears as though the kidney function is going to improve, we will place a midline and remove her central line. Job ID: [id number]
[2018-12-09 06:25] LABS: Anion Gap 16 mmol/L (10-20); BUN (Urea Nitrogen) 67 mg/dL (9.8-20.1); Calc. Creatinine Clearance 22 mL/min (70-130); Calcium 8.8 mg/dL (7.8-10.44); Carbon Dioxide 20 mmol/L (23-31); Chloride 108 mmol/L (98-107); Estimated GFR-MDRD 22; Glucose 194 mg/dL (83-110); Magnesium 2.2 mg/dL (1.6-2.6); Potassium 3.9 mmol/L (3.5-5.1); Sodium 140 mmol/L (136-145)
[2018-12-09 06:26] LABS: Phosphorus 2.8 mg/dL (2.3-4.7)
[2018-12-09] MEDS: Levothyroxine Sodium 25 MCG TAB PO SCH (06:40)
[2018-12-09] MEDS: HumaLOG 300 UNITS/3 ML VIAL SC PRN (06:40)
[2018-12-09] MEDS: Heparin 5,000 UNITS/ML VIAL SC SCH ×3 (09:29→21:24)
[2018-12-09] MEDS: Insulin Glargine 20 UNITS in Pre-Filled Syringe 1 EACH SC SCH (09:30)
[2018-12-09] MEDS: Sodium Bicarbonate Tab 325 MG TAB PO SCH ×2 (09:31→21:25)
--- NOTE | 2018-12-09 10:00 | PRG ---
DATE OF SERVICE: 12/09/2018 SUBJECTIVE: This is an 83-year-old female, being seen for acute kidney injury. The patient denied nausea, vomiting, or chest pain. PHYSICAL EXAMINATION: CONSTITUTIONAL: The patient is awake, alert. VITAL SIGNS: Afebrile. Pulse 95, breathing 16, blood pressure was 153/106. GENERAL APPEARANCE AND MENTAL STATUS: Fair. HEAD/NECK: Normocephalic. Atraumatic. EYES: EOMI. No deformity. EARS: Clear. No ulcers. NOSE: Intact. No lesions. MOUTH: Clear. No discharge. THROAT: Clear. No exudate. LUNGS: Clear. No crackles. CARDIAC: S1, S2. No rub. ABDOMEN: Benign. Bowel sounds positive. GENITALIA/RECTUM: Hernandes absent. BACK/EXTREMITIES: Edema 0+. NEUROLOGICAL: Alert and motor intact. SKIN: LYMPHATICS: LABORATORY DATA: Creatinine 2.1. IMPRESSION: 1. Acute kidney injury, improved. 2. Hypertension, stable. 3. Anemia, stable. 4. Chronic kidney disease, stage 4, stable. I will sign off on this patient. Please reconsult as needed. Job ID: [id number] MTDD
[2018-12-09] MEDS ORDERED: Ondansetron PF 4 MG/2 ML Vial IVP PRN (10:05)
[2018-12-09] MEDS: Amlodipine 5 MG TAB PER TUBE SCH (10:40)
[2018-12-09] MEDS: Metoprolol Tartrate 50 MG TAB PO SCH ×2 (10:42→21:25)
[2018-12-09] MEDS: Aspirin Chewable 81 MG TAB PO SCH (11:21)
[2018-12-09] MEDS: Clopidogrel Bisulfate 75 MG TAB PO SCH (11:21)
[2018-12-09] MEDS: Docusate 100 MG CAP PO SCH (11:21)
[2018-12-09] MEDS: hydrALAZINE 10 MG TAB PER TUBE SCH ×4 (11:21→21:24)
--- NOTE | 2018-12-09 12:31 | PDOC.PN ---
- Subjective Encounter Start Date: 12/09/18 Encounter Start Time: 10:45 Follow up acute hypoxic resp failure/SOB Patient feels nauseated after receiving NaHCO3. One episode emesis. Breathing is "pretty good." No chest pain overnight. No other acute overnight events. Spoke with bedside nurse, julianne on the way. BG 199-271 - Objective Vital Signs & Weight: Vital Signs (12 hours) Temp Pulse Resp Pulse Ox 12/09/18 11:22 98.8 F 12/09/18 11:21 82 12/09/18 08:00 98 12/09/18 07:34 98.8 F 12/09/18 07:09 98 12/09/18 07:08 82 19 98 12/09/18 04:00 98.0 F 12/09/18 01:15 83 15 98 Weight Admit Weight 150 lb 4.8 oz Weight 155 lb Most Recent Monitor Data Heart Rate from ECG 81 NIBP 140/92 NIBP BP-Mean 108 Respiration from ECG 39 SpO2 97 I&O: 12/08/18 12/09/18 12/10/18 06:59 06:59 06:59 Intake Total 1088 1020 Output Total 1750 1330 Balance -662 -310 Result Diagrams: 12/08/18 04:32 12/09/18 05:29 Additional Labs: Accuchecks 12/09/18 12/09/18 12/09/18 10:32 05:12 04:33 POC Glucose 161 H 223 H 199 H 12/08/18 12/08/18 12/08/18 23:03 21:59 16:53 POC Glucose 271 H 368 H 455 H Phys Exam - Physical Examination Naseated, appears ill. HEENT: moist MMs Neck: supple, full ROM Respiratory: clear to auscultation bilateral anterior/lateral Cardiovascular: RRR Gastrointestinal: soft, non-tender Musculoskeletal: no edema Neurological: non-focal, moves all 4 limbs Psychiatric: normal affect, A&O x 3 Skin: no rash Dx/Plan (1) Acute respiratory failure with hypoxia Code(s): J96.01 - ACUTE RESPIRATORY FAILURE WITH HYPOXIA Status: Acute Comment: flash pulmonary edema x 2 requiring intubation x 2. Extubated 2017 and doing well. Found to have LAD disease and s/p stent to LAD. 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 use: with terminal make up operator use Diabetes mellitus complication status: with kidney complications Chronic kidney disease stage: stage 4 (severe) (3) Ventricular tachycardia Code(s): I47.2 - VENTRICULAR TACHYCARDIA Status: Acute Comment: with arrest , now resolved (4) Acute pulmonary edema Code(s): J81.0 - ACUTE PULMONARY EDEMA Status: Resolved Comment: recurrent with attempt to gently hydrate prior to catheterization (5) Atrial fibrillation with RVR Code(s): I48.91 - UNSPECIFIED ATRIAL FIBRILLATION Status: Resolved Comment: in sinus rhythm, switching amiodarone to oral (6) Acute renal failure superimposed on stage 4 chronic kidney disease Code(s): N17.9 - ACUTE KIDNEY FAILURE, UNSPECIFIED; N18.4 - CHRONIC KIDNEY DISEASE, STAGE 4 (SEVERE) Status: Acute Comment: Improved, chronic due to HTN and diabetic nephropathy, monitor closely after cath and contrast load (7) Anemia in chronic kidney disease (CKD) Code(s): N18.9 - CHRONIC KIDNEY DISEASE, UNSPECIFIED; D63.1 - ANEMIA IN CHRONIC KIDNEY DISEASE Status: Acute (8) Hypothyroid Code(s): E03.9 - HYPOTHYROIDISM, UNSPECIFIED Status: Acute - Plan cont current plan of care, PT/OT, social services counselor, incentive spirometry, out of bed/ambulate * Pulm - improving/stabilizing. At home is on furosemide 60 mg po daily. Restart furosemide at 40 mg po daily today and adjust. Renal following. * Cards - ASA/Plavix, add statin (at home Atorvastatin 20 mg daily). Continue hydralazine and beta tam. Remains in sinus. Fluid restrict. Status post PCI to LAD. No CHRISTOPHER-I or ARB due to renal dysfunction presently. * Renal - Metabolic acidosis better (18 -->20) but with nausea after medication given. Continue NaHCO3 for now, but may need discontinuation pending tolerability. Renal function tolerating contrast thus far. * Endo - continue thyroid replacement. * DVT prophy - on heparin * Heme - NC anemia stable * Referral to [facility] in process per case management. Needs PT/OT, cardiac rehab
--- NOTE | 2018-12-09 13:58 | PRG ---
DATE OF SERVICE: 12/09/2018 SERVICE: Pulmonary Medicine. INTERVAL HISTORY: The patient is doing fine from respiratory standpoint. She is actually breathing fairly comfortably. She denies any chest pain, nausea, or vomiting. Otherwise, she did have an episode of vomiting yesterday. This has subsequently resolved. PHYSICAL EXAMINATION: VITAL SIGNS: Afebrile, pulse 66, blood pressure 139/55, respirations 21, saturation 98% on 3 L nasal cannula. GENERAL: The patient is awake and alert, in no apparent distress. LUNGS: Excellent air entry. There is no prolonged expiratory phase. Dependent crackles are minimal. No wheezing or rhonchi appreciated. HEART: Normal rate, regular. ABDOMEN: Soft, nontender, and nondistended. Bowel sounds are positive. MUSCULOSKELETAL: No cyanosis or clubbing. There is 1 to 2+ pitting in the left upper extremity only. GENITOURINARY: No Hernandes catheter in place. LABORATORY DATA: WBC 11.7, hemoglobin 9.6, platelets are 271,000. Creatinine 2.18, gently downtrending. Her baseline appears to be about 2. BUN 67 and stable. Basic metabolic profile is otherwise unremarkable. Bicarb is 20 and stable. Magnesium and phosphorous fall within the normal limits. Klebsiella pneumoniae are growing in the urine culture. Blood cultures x2 and respiratory viral pathogens are unremarkable. ASSESSMENT: 1. Acute hypoxic respiratory failure, resolved. 2. Flash pulmonary edema x2. 3. Coronary artery disease, status post percutaneous coronary intervention to left anterior descending. 4. Acute kidney injury on chronic kidney disease, at baseline. 5. Atrial fibrillation, returned to sinus rhythm. 6. Nonsustained ventricular tachycardia. DISCUSSION AND PLAN: The patient is doing great. We are going to continue to focus on mobilizing the patient. At this point, I think she is stable enough for transition to the telemetry unit. Pulmonary/Critical Care will continue to follow along for the time being. By mid week, if she has not had a relapse in respiratory failure, we can consider transitioning her out of the hospital to a rehabilitation facility. Job ID: [id number]
--- NOTE | 2018-12-09 17:42 | ULT ---
LEFT UPPER EXTREMITY ARTERIOVENOUS DOPPLER WITH SPECTRAL ANALYSIS AND COLOR FLOW EVALUATION: Date: 12/09/18 HISTORY: Left upper extremity swelling. FINDINGS: Fields scale, color flow, Doppler evaluation, and spectral analysis of the left upper extremity venous structures is performed with 2D imaging. There is normal lumen compressibility and flow identified in the left internal jugular vein. Normal f low is present within the left subclavian vein. There is increased luminal echogenicity and absent flow and decreased lumen compressibility involving the left axillary vein compatible with occlusive deep venous thrombosis. There does appear to be lumen compressibility and flow involving the left brachial vein. There is decreased lumen compressibility and absence of flow within the left upper extremity basilic vein in the upper arm with increased lumen echogenicity and absence of flow within the left lower ext remity cephalic vein in the lower arm consistent with occlusive thrombus in the superficial veins. There is normal lumen compressibility and flow within the left radial and ulnar veins. Subcutaneous edema is seen within the left upper extremity. IMPRESSION: 1. Occlusive deep venous thrombosis involving the left axillary vein. 2. Occlusive thrombus seen in portions of the left basilic vein, as well as left cephalic vein, whic h are superficial veins. Above findings of deep venous thrombosis were relayed to patient's nurse, Teodora, in the IMCU, by Dorota hawkins, the angio technologist, on 12/09/18 at the time of this examination at approximately 1401 h ours. CODE CR. POS: MICHAEL
[2018-12-09] MEDS: Acetaminophen 325 MG TAB PO PRN (21:25)
[2018-12-09] MEDS: Atorvastatin Calcium 20 MG TAB PO SCH (21:25)
[2018-12-10] MEDS: Levothyroxine Sodium 25 MCG TAB PO SCH (06:49)
--- NOTE | 2018-12-10 07:19 | PRG ---
DATE OF SERVICE: 12/09/2018 SUBJECTIVE: Ms. Mitchell is doing much better. She has been extubated over the weekend. She has since, sitting up, visiting with her son. OBJECTIVE: VITAL SIGNS: Blood pressure 120/70, pulse 80, respirations 20. LUNGS: Clear to auscultation. HEART: Regular rate and rhythm. ABDOMEN: Soft, nontender, nondistended. EXTREMITIES: No edema. IMPRESSION: 1. Flash pulmonary edema. 2. Severe coronary artery disease. 3. Chronic kidney disease. 4. Status post stent placement. RECOMMENDATIONS: Ms. Mitchell' status continues to improve. Her creatinine continues to improve. Her creatinine this morning was 2.1, which is down from 2.7 after angio. Hopefully after stenting a severely diseased LAD, her symptoms will resolve. Other etiologies would include ischemic MR, which does not seem to be an issue given her coronary anatomy and/or severe bilateral renal artery stenosis, which again blood pressure not been an issue. Continue Plavix at 75 mg one p.o. q.a.m. Job ID: [id number]
[2018-12-10 07:54] LABS: #Eosinphils 0.3 thou/uL (0.0-0.7); #Lymphocytes 1.7 thou/uL (1.20-3.40); #Monocytes 0.8 thou/uL (0.11-0.59); #Neutrophils 12.8 thou/uL (1.40-6.50); %Eosinophils 1.7 % (0.0-10.0); %Lymphocytes 11.1 % (21.0-51.0); %Neutrophils 82.2 % (42.0-75.0); Hemoglobin 10.4 g/dL (12.0-16.0); Mean Corpuscular HGB CONC 32.3 g/dL (32.0-36.0); Mean Corpuscular Hemoglobin 27.8 pg (27.0-31.0); Mean Platelet Volume 7.6 fL (7.4-10.4); Platelet Count 320 thou/uL (130-400); Red Blood Cell (RBC) Count 3.75 mill/uL (4.20-5.40); White Blood Cell (WBC) Count 15.6 thou/uL (4.8-10.8)
[2018-12-10 07:58] LABS: INR-International Normal Ratio 0.9; Prothrombin Time 12.7 SEC (12.0-14.7)
[2018-12-10 07:59] LABS: PTT 32.1 SEC (22.9-36.1)
[2018-12-10 08:07] LABS: Anion Gap 14 mmol/L (10-20); BUN (Urea Nitrogen) 59 mg/dL (9.8-20.1); Calc. Creatinine Clearance 25 mL/min (70-130); Calcium 8.6 mg/dL (7.8-10.44); Carbon Dioxide 19 mmol/L (23-31); Chloride 110 mmol/L (98-107); Estimated GFR-MDRD 25; Glucose 113 mg/dL (83-110); Potassium 3.7 mmol/L (3.5-5.1); Sodium 139 mmol/L (136-145)
[2018-12-10] MEDS: Amlodipine 5 MG TAB PER TUBE SCH (10:01)
[2018-12-10] MEDS: Clopidogrel Bisulfate 75 MG TAB PO SCH (10:01)
[2018-12-10] MEDS: Docusate 100 MG CAP PO SCH (10:01)
[2018-12-10] MEDS: Furosemide 40 MG TAB PO SCH (10:01)
[2018-12-10] MEDS: hydrALAZINE 10 MG TAB PER TUBE SCH ×4 (10:01→20:27)
[2018-12-10] MEDS: Metoprolol Tartrate 50 MG TAB PO SCH ×2 (10:01→20:27)
[2018-12-10] MEDS: Aspirin Chewable 81 MG TAB PO SCH (10:01)
[2018-12-10] MEDS: Insulin Glargine 20 UNITS in Pre-Filled Syringe 1 EACH SC SCH (10:02)
[2018-12-10] MEDS: Heparin 5,000 UNITS/ML VIAL SC SCH (10:02)
[2018-12-10] MEDS: Sodium Bicarbonate Tab 325 MG TAB PO SCH ×2 (10:02→20:27)
--- NOTE | 2018-12-10 11:38 | PDOC.PN ---
- Subjective Encounter Start Date: 12/10/18 Encounter Start Time: 10:00 Subjective: no chest pain or sob -: feels better - Objective MAR Reviewed: Yes Vital Signs & Weight: Vital Signs (12 hours) Temp Pulse Resp Pulse Ox 12/10/18 10:01 80 12/10/18 07:28 80 18 95 12/10/18 07:23 99.1 F 12/10/18 04:00 98.5 F 12/10/18 00:00 98.7 F Weight Admit Weight 150 lb 4.8 oz Weight 156 lb Most Recent Monitor Data Heart Rate from ECG 86 NIBP 161/47 NIBP BP-Mean 85 Respiration from ECG 17 SpO2 99 I&O: 12/09/18 12/10/18 12/11/18 06:59 06:59 06:59 Intake Total 1020 645 Output Total 1330 Balance -310 645 Result Diagrams: 12/10/18 07:39 12/10/18 07:39 Additional Labs: Accuchecks 12/10/18 12/10/18 12/09/18 10:31 05:48 20:27 POC Glucose 158 H 129 H 191 H 12/09/18 16:37 POC Glucose 132 H Phys Exam - Physical Examination HEENT: PERRLA, moist MMs Neck: no JVD, supple Respiratory: no wheezing, no rales Cardiovascular: RRR, no significant murmur Gastrointestinal: soft, non-tender, positive bowel sounds Musculoskeletal: pulses present left UE edema+ Neurological: non-focal, moves all 4 limbs Psychiatric: A&O x 3 Dx/Plan (1) Acute respiratory failure with hypoxia Code(s): J96.01 - ACUTE RESPIRATORY FAILURE WITH HYPOXIA Status: Acute Comment: flash pulmonary edema x 2 requiring intubation x 2. Extubated 2017 and doing well. Found to have LAD disease and s/p stent to LAD. (2) DM type 2 (diabetes mellitus, type 2) Status: Chronic Qualifiers: Diabetes mellitus long term care pharmacist insulin use: with long term care pharmacist use Diabetes mellitus complication status: with kidney complications Diabetes mellitus complication detail: with chronic kidney disease Chronic kidney disease stage : stage 4 (severe) Qualified Code(s): E11.22 - Type 2 diabetes mellitus with diabetic chronic kidney disease; N18.4 - Chronic kidney disease, stage 4 (severe ); Z79.4 - salvage determiner (current) use of insulin (3) Hypothyroid Code(s): E03.9 - HYPOTHYROIDISM, UNSPECIFIED Status: Chronic Qualifiers: Hypothyroidism type: unspecified Qualified Code(s): E03.9 - Hypothyroidism , unspecified (4) Ventricular tachycardia Code(s): I47.2 - VENTRICULAR TACHYCARDIA Status: Acute Comment: with arrest , now resolved (5) CKD (chronic kidney disease) stage 4, GFR 15-29 ml/min Code(s): N18.4 - CHRONIC KIDNEY DISEASE, STAGE 4 (SEVERE) Status: Chronic (6) Acute pulmonary edema Code(s): J81.0 - ACUTE PULMONARY EDEMA Status: Resolved Comment: recurrent (7) Atrial fibrillation with RVR Code(s): I48.91 - UNSPECIFIED ATRIAL FIBRILLATION Status: Resolved Comment: in sinus rhythm, switching amiodarone to oral (8) Acute renal failure superimposed on stage 4 chronic kidney disease Code(s): N17.9 - ACUTE KIDNEY FAILURE, UNSPECIFIED; N18.4 - CHRONIC KIDNEY DISEASE, STAGE 4 (SEVERE) Status: Acute (9) NSTEMI (non-ST elevated myocardial infarction) Code(s): I21.4 - NON-ST ELEVATION (NSTEMI) MYOCARDIAL INFARCTION Status: Acute Comment: due to CAD, s/p cath and stent by Dr. Kim (10) CHF (congestive heart failure), NYHA class III Code(s): I50.9 - HEART FAILURE, UNSPECIFIED Status: Chronic Qualifiers: Congestive heart failure type: diastolic Congestive heart failure chronicity: acute Qualified Code(s): I50.31 - Acute diastolic (congestive) heart failure Comment: EF 55%, diastolic dysfunction (11) HTN (hypertension) Code(s): I10 - ESSENTIAL (PRIMARY) HYPERTENSION Status: Chronic Qualifiers: Hypertension type: essential hypertension Qualified Code(s): I10 - Essential (primary) hypertension - Plan PT to mobilize as tolerated -: on norvasc, lopressor, asp, plavix, lipitor, hydralazine tid -: lantus, humalog coverage -: lasix, watch for renal function -: will need anticoag for left UE axillary vein thrombus, will discuss with pt * . Review of Systems - Medications/Allergies Allergies/Adverse Reactions: Allergies Allergy/AdvReac Type Severity Reaction Status Date / Time apple Allergy Verified 12/02/18 10:56 hydrocodone Allergy Verified 05/20/17 20:58 Iodine and Iodide Containing Allergy Verified 05/20/17 20:58 Produc onion Allergy Verified 10/03/17 00:06 Medications: Current Medications Acetaminophen (Tylenol) 650 mg PO Q4H PRN PRN Reason: Headache/Fever or Pain Last Admin: 12/09/18 21:25 Dose: 650 mg Albuterol/Ipratropium (Duoneb) 3 ml NEB [id number] [facility] Last Admin: 12/10/18 07:28 Dose: 3 ml Amlodipine Besylate (Norvasc) 5 mg PER TUBE DAILY [facility] Last Admin: 12/10/18 10:01 Dose: 5 mg Apixaban (Eliquis) 2.5 mg PO BID [facility] Aspirin (Aspirin Chewable) 81 mg PO DAILY [facility] Last Admin: 12/10/18 10:01 Dose: 81 mg Atorvastatin Calcium (Lipitor) 20 mg PO HS [facility] Last Admin: 12/09/18 21:25 Dose: 20 mg Clopidogrel Bisulfate (Plavix) 75 mg PO DAILY [facility] Last Admin: 12/10/18 10:01 Dose: 75 mg Dextrose/Water (Dextrose 50%) 25 gm SLOW IVP PRN PRN PRN Reason: Hypoglycemia Docusate Sodium (Colace) 100 mg PO DAILY [facility] Last Admin: 12/10/18 10:01 Dose: Not Given Furosemide (Lasix) 40 mg PO DAILY-AC [facility] Last Admin: 12/10/18 10:01 Dose: 40 mg Glucagon (Glucagon) 1 mg IM PRN PRN PRN Reason: Hypoglycemia Hydralazine HCl (Apresoline) 10 mg PER TUBE QID [facility] Last Admin: 12/10/18 10:01 Dose: 10 mg Dextrose/Water (D5w) 1,000 mls @ 0 mls/hr IV .Q0M PRN PRN Reason: Hypoglycemia Insulin Glargine 20 units/ (Miscellaneous Medication) 0.2 mls @ 0 mls/hr SC QAM [facility] Last Admin: 12/10/18 10:02 Dose: 0.2 mls Insulin Human Lispro (Humalog) 0 units SC .AGGRESSIVE SLIDING PRN; Protocol PRN Reason: AGGRESSIVE SLIDING SCALE Last Admin: 12/09/18 06:40 Dose: 6 unit Levothyroxine Sodium (Synthroid) 25 mcg PO 0600 [facility] Last Admin: 12/10/18 06:49 Dose: 25 mcg Metoprolol Tartrate (Lopressor) 50 mg PO BID [facility] Last Admin: 12/10/18 10:01 Dose: 50 mg Mirabegron (Myrbetriq Er) 50 mg PO DAILY [facility] Last Admin: 12/10/18 10:00 Dose: 50 mg Nitroglycerin (Nitrostat) 0.4 mg SL Q5MIN PRN PRN Reason: Chest Pain Last Admin: 12/05/18 01:58 Dose: 0.4 mg Ondansetron HCl (Zofran) 4 mg IVP Q6H PRN PRN Reason: Nausea/Vomiting Last Admin: 12/09/18 10:36 Dose: 4 mg Sertraline HCl (Zoloft) 25 mg PO QAM [facility] Last Admin: 12/10/18 10:01 Dose: 25 mg Sodium Bicarbonate (Bicarbonate, Sodium) 650 mg PO BID [facility] Last Admin: 12/10/18 10:02 Dose: 650 mg Sodium Chloride (Flush - Normal Saline) 10 ml IVF Q12HR [facility] Last Admin: 12/10/18 10:02 Dose: 10 ml Sodium Chloride (Flush - Normal Saline) 10 ml IVF PRN PRN PRN Reason: Saline Flush
--- NOTE | 2018-12-10 11:43 | PRG ---
DATE OF SERVICE: 12/10/2018 SERVICE: Pulmonary Medicine. INTERVAL HISTORY: The patient is doing really well from respiratory standpoint. Breathing comfortably. There has been no interval change to her condition. She feels less nauseated today. She is working with her nursing staff in order to get out of bed into a chair. PHYSICAL EXAMINATION: VITAL SIGNS: Afebrile, pulse 86, blood pressure 161/47, respirations 17, and saturation 99% on room air. GENERAL: The patient is awake and alert, in no apparent distress. LUNGS: Excellent air entry. There is minimal dependent crackles present. No prolonged expiratory phase or wheezing is appreciated. HEART: Normal rate, regular. ABDOMEN: Soft, nontender, nondistended. Bowel sounds are positive. MUSCULOSKELETAL: No cyanosis or clubbing. There is no pitting in the bilateral lower extremities. NEUROLOGIC: Grossly nonfocal. LABORATORY DATA: WBC 15.6, hemoglobin 10.4, platelets 320,000. Creatinine 1.93, is gently downtrending. Chloride 110, bicarb 19. Basic metabolic profile is otherwise unremarkable. BNP is downtrending at 204. IMAGING: Vascular ultrasound demonstrates occlusive DVT involving the left axillary vein. There is an occlusive thrombus in portions of the left basilic vein as well as cephalic vein, which is superficial. ASSESSMENT: 1. Acute hypoxic respiratory failure, resolved. 2. Flash pulmonary edema x2 episodes. 3. Coronary artery disease, status post percutaneous coronary intervention to the left anterior descending artery. 4. Acute kidney injury on chronic kidney disease, returning to baseline. 5. Atrial fibrillation, returned to sinus rhythm. 6. Deep venous thrombosis. DISCUSSION AND PLAN: I will put the patient on blood thinner. Otherwise, supportive measures will be continued. From my perspective, she is stable for transition to the telemetry unit or to a long term facility, where she can continue her efforts at recuperating. At this point, mobilization efforts simply need to be pursued. For the DVT, she will need a minimum of 3 months of anticoagulation, but I prefer 6 months if she can tolerate it. Job ID: [id number]
--- NOTE | 2018-12-10 15:07 | PRG ---
DATE OF SERVICE: 12/10/2018 SUBJECTIVE: Ms. Mitchell is doing well. No current complaints. OBJECTIVE: VITAL SIGNS: Blood pressure 172/74, pulse 91, respirations 20. LUNGS: Clear to auscultation. HEART: Regular rate and rhythm. ABDOMEN: Soft, nontender, nondistended. EXTREMITIES: No edema. IMPRESSION: 1. Flash pulmonary edema. 2. Acute on chronic renal insufficiency. 3. Severe coronary artery disease. RECOMMENDATIONS: Ms. Mitchell continues to do well. No current complaints. I would recommend aggressively treating her blood pressure. Okay from my standpoint to transfer to [facility]. Job ID: [id number]
[2018-12-10] MEDS: Atorvastatin Calcium 20 MG TAB PO SCH (20:26)
[2018-12-10] MEDS: Apixaban 2.5 MG TAB PO SCH (20:28)
[2018-12-11] MEDS: Acetaminophen 325 MG TAB PO PRN (05:20)
[2018-12-11] MEDS: Levothyroxine Sodium 25 MCG TAB PO SCH (05:20)
[2018-12-11] MEDS ORDERED: Amlodipine 5 MG TAB PER TUBE SCH (09:00)
[2018-12-11] MEDS: Sodium Bicarbonate Tab 325 MG TAB PO SCH (09:27)
[2018-12-11] MEDS: Clopidogrel Bisulfate 75 MG TAB PO SCH (09:27)
[2018-12-11] MEDS: Aspirin Chewable 81 MG TAB PO SCH (09:28)
[2018-12-11] MEDS: Apixaban 2.5 MG TAB PO SCH (09:28)
[2018-12-11] MEDS: Metoprolol Tartrate 50 MG TAB PO SCH (09:28)
[2018-12-11] MEDS: Docusate 100 MG CAP PO SCH (09:28)
[2018-12-11] MEDS: hydrALAZINE 10 MG TAB PER TUBE SCH ×2 (09:28→14:43)
[2018-12-11] MEDS: Insulin Glargine 20 UNITS in Pre-Filled Syringe 1 EACH SC SCH (09:32)
[2018-12-11] MEDS: Furosemide 40 MG TAB PO SCH (09:39)
[2018-12-11 10:51] VITALS: TEMP 98.6
--- NOTE | 2018-12-11 11:23 | PRG ---
DATE OF SERVICE: 12/11/2018 SUBJECTIVE: Patient was seen and examined at bedside and overnight events noted. Patient denies any shortness of breath or chest pain or palpitation. No history of nausea or vomiting or diarrhea or fever or chills or cramps. OBJECTIVE: GENERAL: This is an elderly white female, in no apparent distress. VITAL SIGNS: Temperature 98.6. Heart rate 80. Respiratory rate 18. Blood pressure 155/77. HEENT: Atraumatic, normocephalic. Oral mucosa is moist NECK: Supple. CARDIOVASCULAR: S1, S2 heard. Rate and rhythm regular. RESPIRATORY: Clear to auscultation. GASTROINTESTINAL: Abdomen is soft. MUSCULOSKELETAL: No tenderness. No edema. DERMATOLOGIC: No skin rash. NEUROLOGIC: Alert and awake and oriented X3. No focal neurologic deficits. Moving all the extremities. PSYCHIATRIC: Mood and affect normal. LABORATORY DATA: Not done today. ASSESSMENT AND PLAN: 1. Acute kidney injury on chronic kidney disease, stable. 2. Hypertension, stable. 3. Cardiorenal syndrome. 4. Anemia. 5. Edema. Renal function is stable. We will follow. Job ID: [id number]
[2018-12-11 12:06] VITALS: BP 155/74
--- NOTE | 2018-12-11 13:26 | PDOC.PN ---
- Subjective Encounter Start Date: 12/11/18 Encounter Start Time: 08:35 Subjective: no sob, feels better -: says she is working with PT and sat in chair yesterday - Objective MAR Reviewed: Yes Vital Signs & Weight: Vital Signs (12 hours) Temp Pulse Pulse Pulse Resp BP BP 12/11/18 10:46 98.6 F 12/11/18 10:25 83 84 155/74 H 162/84 H 12/11/18 09:28 80 12/11/18 09:27 80 12/11/18 08:19 12/11/18 07:04 97.8 F 12/11/18 06:55 12/11/18 06:38 80 19 12/11/18 04:09 97.9 F Pulse Ox Pulse Ox Pulse Ox 12/11/18 10:46 12/11/18 10:25 98 99 12/11/18 09:28 12/11/18 09:27 12/11/18 08:19 98 12/11/18 07:04 12/11/18 06:55 100 12/11/18 06:38 100 12/11/18 04:09 Weight Admit Weight 150 lb 4.8 oz Weight 153 lb 14.4 oz Most Recent Monitor Data Heart Rate from ECG 79 NIBP 144/64 NIBP BP-Mean 90 Respiration from ECG 19 SpO2 100 I&O: 12/10/18 12/11/18 12/12/18 06:59 06:59 06:59 Intake Total 645 935 Balance 645 935 Result Diagrams: 12/10/18 07:39 12/10/18 07:39 Additional Labs: Accuchecks 12/11/18 12/11/18 12/10/18 10:26 05:58 21:56 POC Glucose 137 H 144 H 170 H 12/10/18 16:35 POC Glucose 264 H Phys Exam - Physical Examination HEENT: PERRLA, moist MMs Neck: no JVD, supple Respiratory: no wheezing, no rales Cardiovascular: RRR, no significant murmur Gastrointestinal: soft, non-tender, positive bowel sounds Musculoskeletal: no edema, pulses present Neurological: non-focal, moves all 4 limbs Psychiatric: normal affect, A&O x 3 Dx/Plan (1) Acute respiratory failure with hypoxia Code(s): J96.01 - ACUTE RESPIRATORY FAILURE WITH HYPOXIA Status: Resolved Comment: flash pulmonary edema x 2 requiring intubation x 2. Extubated 2017 and doing well. Found to have LAD disease and s/p stent to LAD. (2) DM type 2 (diabetes mellitus, type 2) Status: Chronic Qualifiers: Diabetes mellitus alf insulin use: with alf use Diabetes mellitus complication status: with kidney complications Diabetes mellitus complication detail: with chronic kidney disease Chronic kidney disease stage : stage 4 (severe) Qualified Code(s): E11.22 - Type 2 diabetes mellitus with diabetic chronic kidney disease; N18.4 - Chronic kidney disease, stage 4 (severe ); Z79.4 - senior living (current) use of insulin (3) Hypothyroid Code(s): E03.9 - HYPOTHYROIDISM, UNSPECIFIED Status: Chronic Qualifiers: Hypothyroidism type: unspecified Qualified Code(s): E03.9 - Hypothyroidism , unspecified (4) Ventricular tachycardia Code(s): I47.2 - VENTRICULAR TACHYCARDIA Status: Acute Comment: with arrest , now resolved (5) CKD (chronic kidney disease) stage 4, GFR 15-29 ml/min Code(s): N18.4 - CHRONIC KIDNEY DISEASE, STAGE 4 (SEVERE) Status: Chronic (6) Acute pulmonary edema Code(s): J81.0 - ACUTE PULMONARY EDEMA Status: Resolved Comment: recurrent (7) Atrial fibrillation with RVR Code(s): I48.91 - UNSPECIFIED ATRIAL FIBRILLATION Status: Resolved Comment: in sinus rhythm, switching amiodarone to oral (8) Acute renal failure superimposed on stage 4 chronic kidney disease Code(s): N17.9 - ACUTE KIDNEY FAILURE, UNSPECIFIED; N18.4 - CHRONIC KIDNEY DISEASE, STAGE 4 (SEVERE) Status: Acute (9) NSTEMI (non-ST elevated myocardial infarction) Code(s): I21.4 - NON-ST ELEVATION (NSTEMI) MYOCARDIAL INFARCTION Status: Acute Comment: due to CAD, s/p cath and stent by Dr. Kim (10) CHF (congestive heart failure), NYHA class III Code(s): I50.9 - HEART FAILURE, UNSPECIFIED Status: Chronic Qualifiers: Congestive heart failure type: diastolic Congestive heart failure chronicity: acute Qualified Code(s): I50.31 - Acute diastolic (congestive) heart failure Comment: EF 55%, diastolic dysfunction (11) HTN (hypertension) Code(s): I10 - ESSENTIAL (PRIMARY) HYPERTENSION Status: Chronic Qualifiers: Hypertension type: essential hypertension Qualified Code(s): I10 - Essential (primary) hypertension - Plan hemostable -: has been accepted to [facility] -: dc pt, is on asp, plavix and eliquis, watch for bleeding -: remove central line * . Review of Systems - Medications/Allergies Allergies/Adverse Reactions: Allergies Allergy/AdvReac Type Severity Reaction Status Date / Time apple Allergy Verified 12/02/18 10:56 hydrocodone Allergy Verified 05/20/17 20:58 Iodine and Iodide Containing Allergy Verified 05/20/17 20:58 Produc onion Allergy Verified 10/03/17 00:06 Medications: Current Medications Acetaminophen (Tylenol) 650 mg PO Q4H PRN PRN Reason: Headache/Fever or Pain Last Admin: 12/11/18 05:20 Dose: 650 mg Albuterol/Ipratropium (Duoneb) 3 ml NEB [id number] [facility] Last Admin: 12/11/18 13:26 Dose: 3 ml Amlodipine Besylate (Norvasc) 10 mg PER TUBE DAILY [facility] Last Admin: 12/11/18 09:27 Dose: 10 mg Apixaban (Eliquis) 2.5 mg PO BID [facility] Last Admin: 12/11/18 09:28 Dose: 2.5 mg Aspirin (Aspirin Chewable) 81 mg PO DAILY [facility] Last Admin: 12/11/18 09:28 Dose: 81 mg Atorvastatin Calcium (Lipitor) 20 mg PO HS [facility] Last Admin: 12/10/18 20:26 Dose: 20 mg Clopidogrel Bisulfate (Plavix) 75 mg PO DAILY [facility] Last Admin: 12/11/18 09:27 Dose: 75 mg Dextrose/Water (Dextrose 50%) 25 gm SLOW IVP PRN PRN PRN Reason: Hypoglycemia Docusate Sodium (Colace) 100 mg PO DAILY [facility] Last Admin: 12/11/18 09:28 Dose: Not Given Furosemide (Lasix) 40 mg PO DAILY-AC [facility] Last Admin: 12/11/18 09:39 Dose: 40 mg Glucagon (Glucagon) 1 mg IM PRN PRN PRN Reason: Hypoglycemia Hydralazine HCl (Apresoline) 10 mg PER TUBE QID [facility] Last Admin: 12/11/18 09:28 Dose: 10 mg Dextrose/Water (D5w) 1,000 mls @ 0 mls/hr IV .Q0M PRN PRN Reason: Hypoglycemia Insulin Glargine 20 units/ (Miscellaneous Medication) 0.2 mls @ 0 mls/hr SC QAM [facility] Last Admin: 12/11/18 09:32 Dose: 0.2 mls Insulin Human Lispro (Humalog) 0 units SC .AGGRESSIVE SLIDING PRN; Protocol PRN Reason: AGGRESSIVE SLIDING SCALE Last Admin: 12/09/18 06:40 Dose: 6 unit Levothyroxine Sodium (Synthroid) 25 mcg PO 0600 [facility] Last Admin: 12/11/18 05:20 Dose: 25 mcg Metoprolol Tartrate (Lopressor) 50 mg PO BID [facility] Last Admin: 12/11/18 09:28 Dose: 50 mg Mirabegron (Myrbetriq Er) 50 mg PO DAILY [facility] Last Admin: 12/11/18 09:28 Dose: 50 mg Nitroglycerin (Nitrostat) 0.4 mg SL Q5MIN PRN PRN Reason: Chest Pain Last Admin: 12/05/18 01:58 Dose: 0.4 mg Ondansetron HCl (Zofran) 4 mg IVP Q6H PRN PRN Reason: Nausea/Vomiting Last Admin: 12/09/18 10:36 Dose: 4 mg Sertraline HCl (Zoloft) 25 mg PO QAM [facility] Last Admin: 12/11/18 09:27 Dose: 25 mg Sodium Bicarbonate (Bicarbonate, Sodium) 650 mg PO BID [facility] Last Admin: 12/11/18 09:27 Dose: 650 mg Sodium Chloride (Flush - Normal Saline) 10 ml IVF Q12HR [facility] Last Admin: 12/11/18 09:29 Dose: 10 ml Sodium Chloride (Flush - Normal Saline) 10 ml IVF PRN PRN PRN Reason: Saline Flush
--- NOTE | 2018-12-11 16:45 | PRG ---
DATE OF SERVICE: 12/11/2018 SERVICE: Pulmonary Medicine. SUBJECTIVE: The patient is really doing quite well from respiratory standpoint. She denies any current chest pain or fevers or chills. She actually denies any shortness of breath or dyspnea that limits her activity. She is not coughing. She is not having chest discomfort. OBJECTIVE: VITAL pulse: Afebrile, pulse 79, blood pressure 183/72, respirations 16, and saturation 93% on 2 L nasal cannula. GENERAL: The patient is awake and alert, in no apparent distress. LUNGS: Excellent air entry. There is no prolonged expiratory phase or wheezing appreciated. Dependent crackles are minimal. HEART: Normal rate, regular. ABDOMEN: Soft, nontender, and nondistended. Bowel sounds are positive. MUSCULOSKELETAL: No cyanosis or clubbing. No pitting in bilateral lower extremities. NEUROLOGIC: Grossly nonfocal. ASSESSMENT: 1. Acute hypoxic respiratory failure, slowly improving. 2. Flash pulmonary edema x2 separate events. 3. Coronary artery disease, status post surgery, percutaneous coronary intervention to the left anterior descending artery. 4. Acute kidney injury on chronic kidney disease , returning to baseline. 5. Atrial fibrillation, returned to sinus rhythm. 6. Deep venous thrombosis. DISCUSSION AND PLAN: The patient is doing fine from respiratory standpoint. At this point, she is stable for transition out of the hospital. We have stressed her heart in 2 separate ways. She has been able to tolerate high blood pressure and exercise with physical therapy without developing recurrence of her flash pulmonary edema. As such, I do think the stent to the LAD has had a significant positive impact on her heart function. Pulmonary will continue. From a purely respiratory perspective, she is stable for transition to a care facility that can help her pursue reconditioning. If she remains in-house, I will continue to follow but from my perspective, she is stable for transition out. Job ID: [id number]
--- NOTE | 2018-12-12 14:02 | DIS ---
DATE OF ADMISSION: 11/27/2018 DATE OF DISCHARGE: 12/11/2018 DISCHARGE DISPOSITION: [facility]. PRIMARY DISCHARGE DIAGNOSES: 1. Acute respiratory failure with hypoxia requiring intubation x2 and extubated finally on 12/05/2017. 2. Non ST-elevation myocardial infarction with coronary artery disease status post stent to LAD. 3. Nonsustained ventricular tachycardia. 4. Diabetes mellitus type 2. 5. Hypothyroidism. 6. Chronic kidney disease stage 4. 7. Atrial fibrillation with RVR. 8. Acute kidney injury with history of chronic kidney disease stage 4. 9. Congestive heart failure with diastolic dysfunction, ejection fraction of 55%. 10. Hypertension. 11. Left axillary vein thrombosis with deep venous thrombosis on Eliquis. PROCEDURES DONE DURING HOSPITALIZATION: The patient has had left upper extremity venous ultrasound done, which showed occlusive DVT in the left axillary veins. Echo with 2D Doppler showed EF of 50% to 55%, moderate mitral regurgitation. Coronary angiogram done on 11/27/[address] Kim with placement of stent to LAD. Urine culture grew Klebsiella sensitive to all antibiotics. Blood cultures x2, no growth. Respiratory virus panel PCR was negative. Discharge H and H 10 and 32, platelet count 320, white count of 15 on the day of discharge. Arterial blood gas on the 27 of November showed a pH of 7.16, pCO2 of 51, PO2 of 46, bicarb of 17 on the blood gas. Discharge BUN and creatinine are 59 and 1.9. Creatinine had peaked up to 3.38 on the 28 of November. BUN had gone up to 67 on the 29 of November. INPATIENT CONSULTS: Dr. Kim for Cardiology, Dr. Ruiz for Pulmonology, Dr. Ya for Nephrology. DISCHARGE MEDICATIONS: 1. Norvasc 5 mg twice daily. 2. Aspirin 81 mg p.o. daily. 3. Calcitriol 0.25 mcg p.o. daily. 4. Colace 100 mg p.o. daily. 5. Ferrous sulfate 325 mg p.o. twice daily. 6. Levothyroxine 25 mcg p.o. daily. 7. Melatonin 10 mg p.o. at bedtime. 8. Myrbetriq extended release 50 mg p.o. daily. 9. Omeprazole 40 mg p.o. daily. 10. MiraLax 17 g daily. 11. K-Dur 20 mEq p.o. daily. 12. Zoloft 25 mg p.o. q.a.m. 13. Eliquis 2.5 mg p.o. twice daily. 14. Plavix 75 mg p.o. daily. 15. Lasix 40 mg p.o. daily. 16. Hydralazine 10 mg p.o. 4 times daily. 17. Lantus 20 units subcu q.a.m. 18. DuoNeb q.6 hourly p.r.n. 19. Lopressor 50 mg p.o. twice daily. 20. Sodium bicarbonate 650 mg p.o. twice daily. ALLERGIES: ALLERGIC TO HYDROCODONE, IODIDE, ONION, AND APPLE. BRIEF COURSE DURING HOSPITALIZATION: The patient initially was brought to the emergency room for complaints of chest pain and left arm pain. She had indeterminate troponin and elevated creatinine of 2.8 on the day of admission. The patient was essentially admitted for non ST-elevation myocardial infarction. During the course of her stay here, the patient had flash pulmonary edema and had to be intubated twice. She finally got extubated on the . She has had slow and steady recovery. She has had 2 echos with 2D Doppler done, both show good ejection fraction with diastolic dysfunction. She has severe deconditioning and is being discharged to [place] for further recuperation prior to going home. She was found to have left upper extremity DVT and was placed on Eliquis based on renal dosing. Please note, the patient is on aspirin, Plavix, and Eliquis. She will need aspirin and Plavix due to stent placed to LAD. Her overall prognosis is guarded. A total of 35 minutes was spent on discharge plan. Please see a [id number] documentation for the day of discharge on [employer]. Job ID: [id number]
== END 2018-12-11 16:05 | DRG 248 ==
LOC: ERS 22:41 → 2SW 11-25 00:51 → IMCU/EMU 11-27 07:17 → CCU 11-27 07:43 → OBSVTOIN 11-27 07:56 → IMCU/EMU 12-02 20:46 → CCU 12-05 02:45 → IMCU/EMU 12-08 19:54
PROVIDERS: ADMIT Hospitalist; ATTEND Hospitalist
PROC: B548ZZA Ultrasonography of Superior Vena Cava, Guidance (ICD-10-PCS; 2018-11-27)
PROC: 02HV33Z Insertion of Infusion Device into Superior Vena Cava, Percutaneous Approach (ICD-10-PCS; 2018-11-27)
PROC: 5A1945Z Respiratory Ventilation, 24-96 Consecutive Hours (ICD-10-PCS; 2018-11-27)
PROC: 0BH18EZ Insertion of Endotracheal Airway into Trachea, Via Natural or Artificial Opening Endoscopic (ICD-10-PCS; 2018-11-27)
PROC: 02703DZ Dilation of Coronary Artery, One Artery with Intraluminal Device, Percutaneous Approach (ICD-10-PCS; principal; 2018-12-05)
PROC: 4A023N7 Measurement of Cardiac Sampling and Pressure, Left Heart, Percutaneous Approach (ICD-10-PCS; 2018-12-05)
PROC: B2111ZZ Fluoroscopy of Multiple Coronary Arteries using Low Osmolar Contrast (ICD-10-PCS; 2018-12-05)
PROC: B2151ZZ Fluoroscopy of Left Heart using Low Osmolar Contrast (ICD-10-PCS; 2018-12-05)
PROC: 30233N1 Transfusion of Nonautologous Red Blood Cells into Peripheral Vein, Percutaneous Approach (ICD-10-PCS; 2018-12-05)
PROC: 5A1945Z Respiratory Ventilation, 24-96 Consecutive Hours (ICD-10-PCS; 2018-12-05)
PROC: 02HV33Z Insertion of Infusion Device into Superior Vena Cava, Percutaneous Approach (ICD-10-PCS; 2018-12-05)
DX: I21.A1 Myocardial infarction type 2 (principal); J96.01 Acute respiratory failure with hypoxia; I46.2 Cardiac arrest due to underlying cardiac condition; A41.59 Other Gram-negative sepsis; I50.33 Acute on chronic diastolic (congestive) heart failure; I50.21 Acute systolic (congestive) heart failure; R65.20 Severe sepsis without septic shock; J96.02 Acute respiratory failure with hypercapnia; I13.0 Hypertensive heart and chronic kidney disease with heart failure and stage 1 through stage 4 chronic kidney disease, or unspecified chronic kidney disease; N18.4 Chronic kidney disease, stage 4 (severe); N17.9 Acute kidney failure, unspecified; I47.2 Ventricular tachycardia; I82.A12 Acute embolism and thrombosis of left axillary vein; E87.2 Acidosis; N39.0 Urinary tract infection, site not specified; I16.1 Hypertensive emergency; E11.22 Type 2 diabetes mellitus with diabetic chronic kidney disease; Z99.2 Dependence on renal dialysis; Z79.4 Long term (current) use of insulin; E03.9 Hypothyroidism, unspecified; D63.1 Anemia in chronic kidney disease; B96.1 Klebsiella pneumoniae [K. pneumoniae] as the cause of diseases classified elsewhere; K59.00 Constipation, unspecified; Z95.5 Presence of coronary angioplasty implant and graft; Z91.81 History of falling; E78.5 Hyperlipidemia, unspecified; I25.119 Atherosclerotic heart disease of native coronary artery with unspecified angina pectoris; I08.1 Rheumatic disorders of both mitral and tricuspid valves; E11.65 Type 2 diabetes mellitus with hyperglycemia; E87.5 Hyperkalemia; I48.0 Paroxysmal atrial fibrillation; I44.7 Left bundle-branch block, unspecified
CPT/HCPCS: 36415; 36416; 36430; 51701; 71045; 76942; 80048; 80053; 81003; 81015; 82010; 82150; 82330; 82553; 82728; 82803; 82805; 83540; 83550; 83690; 83735; 83880; 84100; 84484; 85007; 85014; 85018; 85025; 85027; 85347; 85610; 85730; 86850; 86900; 86901; 87040; 87077; 87086; 87186; 87633; 92928; 92950; 93005; 93010; 93306; 93458; 94002; 94003; 94640; 96360; A4216; C1725; C1751; C1769; C1876; C1887; J0171; J0282; J0456; J0696; J1644; J1650; J1815; J1825; J1940; J2060; J2185; J2270; J2405; J2704; J3475; J7050; J7070; J7620; P9016; Q0162; Q0163; Q9967

== ENCOUNTER 2018-12-22 18:53 | Inpatient (IN) | payer MEDICARE ==
[2018-12-22 19:47] LABS: #Basophils 0.1 thou/uL (0.0-0.2); #Eosinphils 0.4 thou/uL (0.0-0.7); #Lymphocytes 2.4 thou/uL (1.20-3.40); #Monocytes 0.6 thou/uL (0.11-0.59); #Neutrophils 6.1 thou/uL (1.40-6.50); %Eosinophils 4.2 % (0.0-10.0); %Lymphocytes 25.1 % (21.0-51.0); %Monocytes 5.8 % (0.0-10.0); %Neutrophils 63.9 % (42.0-75.0); Hemoglobin 7.6 g/dL (12.0-16.0); Mean Corpuscular HGB CONC 33.6 g/dL (32.0-36.0); Mean Corpuscular Hemoglobin 28.6 pg (27.0-31.0); Mean Corpuscular Volume 85.1 fL (78.0-98.0); Mean Platelet Volume 7.8 fL (7.4-10.4); Platelet Count 246 thou/uL (130-400); RBC Distribution Width 14.6 % (11.5-14.5); Red Blood Cell (RBC) Count 2.67 mill/uL (4.20-5.40); White Blood Cell (WBC) Count 9.6 thou/uL (4.8-10.8)
[2018-12-22 20:06] LABS: ALT (SGPT) 18 U/L (8-55); AST (SGOT) 15 U/L (5-34); Albumin 3.4 g/dL (3.4-4.8); Alkaline Phosphatase 102 U/L (40-150); Anion Gap 16 mmol/L (10-20); BUN (Urea Nitrogen) 78 mg/dL (9.8-20.1); Bilirubin, Total 0.2 mg/dL (0.2-1.2); Calc. Creatinine Clearance 0 mL/min (70-130); Calcium 10.8 mg/dL (7.8-10.44); Carbon Dioxide 26 mmol/L (23-31); Chloride 96 mmol/L (98-107); Estimated GFR-MDRD 15; Globulin 2.5 g/dL (2.4-3.5); Glucose 397 mg/dL (83-110); Potassium 5.4 mmol/L (3.5-5.1); Protein, Total 5.9 g/dL (6.0-8.3); Sodium 133 mmol/L (136-145)
[2018-12-22 20:09] LABS: Bilirubin Negative (Negative); Blood, Urine Trace (Negative); Clarity TURBID (Clear); Glucose, Urine (Dipstick) 250 mg/dL (Negative); Leukocyte Large (Negative); Nitrite Negative (Negative); Protein, Urine (Dipstick) 100 mg/dL (Neg-Trace); Specific Gravity, Urine 1.013 (1.002-1.036); Urobilinogen 0.2 mg/dL (0.2-1.0)
--- NOTE | 2018-12-22 20:11 | RAD ---
EXAM: CHEST ONE VIEW: History: Chest pain, hyperglycemia. Comparison: 12-05-18 FINDINGS: Borderline cardiomegaly with mild vascular congestion and minimal linear and parenchymal changes note d in the left base and right perihilar region but showing definite improvement from the prior study. No confluent pneumonia. IMPRESSION: Borderline cardiomegaly with minimal linear and parenchymal changes noted in the left base and right midlung zone. Improvement in appearance from the prior study. POS: RRE
[2018-12-22 20:12] LABS: Bacteria/HPF Rare-Few HPF (None Seen); Hyaline Casts/LPF 7-10 HYALINE CAST LPF (0-3 Hyaline); Squamous Epithelial 0-3 HPF (0-3)
[2018-12-22 20:13] LABS: Pathc Cast-AUWi Flag 2.71 (0-2.49); Yeast-AUWi Flag 91.6 (0-25.0)
[2018-12-22 20:21] LABS: Yeast-All Forms None Seen HPF (None Seen)
[2018-12-22 20:29] LABS: CKMB 1.5 ng/mL (0-6.6)
[2018-12-22] MEDS ORDERED: cefTRIAXone\\ROCEPHIN 2 GM VIAL ONE (23:01)
[2018-12-22] MEDS ORDERED: Sodium Chloride 0.9% 100 ML ONE (23:01)
[2018-12-22 23:05] LABS: Troponin I 0.057 ng/mL (< 0.028)
[2018-12-22 23:21] LABS: Iron 92 ug/dL (50-170); Iron Binding Capacity, Total 226 mcg/dL (265-497)
[2018-12-23 02:31] LABS: Troponin I 0.057 ng/mL (< 0.028)
[2018-12-23 04:13] LABS: Hemoglobin 7.7 g/dL (12.0-16.0); Platelet Count 221 thou/uL (130-400)
[2018-12-23 04:33] LABS: Anion Gap 16 mmol/L (10-20); BUN (Urea Nitrogen) 67 mg/dL (9.8-20.1); Calc. Creatinine Clearance 0 mL/min (70-130); Calcium 10.8 mg/dL (7.8-10.44); Carbon Dioxide 22 mmol/L (23-31); Chloride 103 mmol/L (98-107); Estimated GFR-MDRD 17; Glucose 278 mg/dL (83-110); Magnesium 1.5 mg/dL (1.6-2.6); Potassium 4.5 mmol/L (3.5-5.1); Sodium 136 mmol/L (136-145)
[2018-12-23] MEDS ORDERED: Magnesium 2 GM/50 ML 2 GM in Premix Bag 1 BAG IVPB SCH (04:45)
[2018-12-23] MEDS ORDERED: Magnesium 2 GM/50 ML BAG (IN WATER) ONE (05:22)
[2018-12-23] MEDS ORDERED: Nitroglycerin 0.4 MG TAB (25 Tab Bottle) PO PRN (05:49)
[2018-12-23] MEDS ORDERED: Acetaminophen 325 MG TAB ONE (05:50)
[2018-12-23] MEDS ORDERED: Dextrose 50% Abboject 50 ML SYRINGE SLOW IVP PRN (05:52)
[2018-12-23] MEDS ORDERED: Dextrose 5% in Water 1,000 ML IV PRN (05:52)
[2018-12-23] MEDS ORDERED: Insulin Regular 300 UNITS/3 ML VIAL SC PRN (05:52)
[2018-12-23] MEDS ORDERED: Ondansetron ODT 4 MG TAB PO PRN (05:53)
[2018-12-23] MEDS ORDERED: Calcium Carbonate 500 MG ChewTAB PO PRN (05:53)
[2018-12-23] MEDS ORDERED: Ondansetron PF 4 MG/2 ML Vial IVP PRN (05:53)
--- NOTE | 2018-12-23 06:30 | HP ---
PRIMARY CARE PHYSICIAN: Montana Bradley MD CHIEF COMPLAINT: Hyperglycemia with blood sugar of 457 along with generalized weakness. HISTORY OF PRESENT ILLNESS: The patient is an 83-year-old female, currently residing at [facility], presented to the emergency room by EMS with above complaint. The patient was discharged from this facility approximately 2 weeks ago with a diagnosis of [id number] SC, nonsustained ventricular tachycardia, and respiratory failure requiring intubation x2. She was extubated on December 05, 2017. She also had issues with atrial fibrillation with rapid ventricular response, as well as acute kidney injury and diastolic heart failure. She was later diagnosed with left axillary vein thrombosis and was started on Eliquis. She was also on aspirin and Plavix for LAD stent placement during the same admission. The patient is somewhat poor historian. She states that she was feeling generally weak and fatigued. There was some chest discomfort also reported. The chest discomfort was over the entire chest. No nausea, vomiting, diaphoresis, shortness of breath, fever, or chills reported. The pain was 5/10 without any aggravating or relieving factor. She denies any dysuria, hematuria, or urgency. She had mild fever with diarrhea last week per patient report. In the emergency room, initial vital signs showed temperature 98, respirations of 14, pulse of 80 with a blood pressure of 153/77, with O2 saturation of 96% on room air. Her hemoglobin was 7.6 compared to 10.4, two weeks ago. Creatinine was 3.07 compared to 1.93, two weeks ago. She was also found to have elevated troponin in the indeterminate range. She received 2 g of ceftriaxone for UTI. She had intermittent dysuria recently per patient report. PAST MEDICAL HISTORY: 1. Diabetes mellitus type 2. 2. Chronic kidney disease, stage 4. 3. Paroxysmal atrial fibrillation. 4. Nonsustained ventricular tachycardia, last admission. 5. Recent [id number] SC with LAD stent placement. 6. Recent respiratory failure requiring mechanical intubation. 7. Diastolic heart failure. 8. Hypertension. 9. Left axillary vein thrombosis, on Eliquis. 10. Hypertension. 11. Hyperlipidemia. 12. Chronic left bundle-branch block. 13. Chronic UTIs. PAST SURGICAL HISTORY: 1. Cardiac catheterization. 2. Back surgery. ALLERGIES: THE PATIENT IS ALLERGIC TO CODEINE. CURRENT MEDICATIONS: At [facility]: 1. Tylenol as needed. 2. Amlodipine 5 mg twice a day. 3. Protonix 20 mg daily. 4. Zoloft 25 mg daily. 5. Sodium bicarbonate 650 mg twice a day. 6. Eliquis 2.5 mg b.i.d. 7. Aspirin 81 mg daily. 8. Calcitriol 0.25 mcg daily. 9. Calcium with vitamin D daily. 10. Plavix 75 mg daily. 11. Colace 100 mg daily. 12. Ferrous sulfate 325 mg twice a day. 13. Fluticasone nasal spray twice a day. 14. Lasix 40 mg daily. 15. MiraLAX daily. 16. Hydralazine 10 mg 4 times a day. 17. Nebulizer treatment as needed. 18. Lantus 20 units daily. 19. Levothyroxine 25 mcg daily. 20. Clotrimazole/betamethasone cream as needed. 21. Melatonin 3 mg at bedtime. 22. Metoprolol tartrate 50 mg b.i.d. 23. Mirabegron one tablet daily. 24. Sublingual nitroglycerin as needed. 25. Potassium chloride 20 mEq daily. SOCIAL HISTORY: The patient currently resides at long term facility at [facility]. She is independent of activities of daily living. No alcohol, tobacco, or drug use reported. She makes her own decision with the help of her family. FAMILY HISTORY: Negative for premature coronary artery disease. REVIEW OF SYSTEMS: All other review of systems was reviewed and were found negative. PHYSICAL EXAMINATION: VITAL SIGNS: Temperature 98, respiration 14, pulse 80, blood pressure 153/77, and O2 saturation 96% on room air. GENERAL: An 83-year-old female, in no apparent distress. HEENT: Head, atraumatic and normocephalic. Sclerae anicteric. Moist mucous membrane. No oral lesion. NECK: Supple. No JVD appreciated. No carotid bruit. LUNGS: Clear to auscultation bilaterally with diminished air entry at bases. HEART: S1 and S2 present. Regular rate and rhythm. No significant murmur, rubs, or gallops appreciated. ABDOMEN: Soft. Bowel sounds present. No rebound or guarding. No costovertebral angle tenderness. EXTREMITIES: Trace edema in bilateral lower extremity. No calf tenderness. NEUROLOGIC: Grossly nonfocal. Moves all 4 extremities. PSYCHIATRY: Alert, awake, oriented x3. SKIN: Warm and dry. LYMPH NODES: No palpable lymph nodes in the neck. PERIPHERAL VASCULAR: Radial pulses palpable bilaterally. MUSCULOSKELETAL: No joint swelling or tenderness. EKG by my review showed sinus rhythm with left bundle-branch block without significant change from the last EKG. WBC count of 9.6 with hemoglobin 7.6, hematocrit 22.7 with platelet count of 246. PT/INR, PTT last admission was normal. Sodium 133, potassium 5.4, chloride 96, bicarb 26, BUN 78, creatinine 3.07, calcium 10.8. LFTs in normal range. Urinalysis showed greater than 50 wbc's with leukocyte esterase positive, nitrite negative, ketones were negative. Chest x-ray by my review showed cardiomegaly without any new changes. IMPRESSION: 1. Hyperglycemia in an 83-year-old female with diabetes mellitus type 2, probably secondary to urinary tract infection. 2. Chest wall discomfort. 3. Chronically elevated troponins in the indeterminate range. 4. Coronary artery disease with recent [id number] myocardial infarction with stent placement on aspirin and Plavix. 5. Anemia, acute on chronic. The patient denies any melena, hematochezia or hematemesis. 6. Acute kidney injury on chronic kidney disease stage 4, probably secondary to dehydration/over-diuresis. 7. Hypothyroidism. 8. History of nonsustained ventricular tachycardia. 9. Paroxysmal atrial fibrillation, on anticoagulation. 10. Chronic diastolic heart failure. 11. Hypertension. 12. 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 13. Recent respiratory failure requiring intubation. 14. Chronic left bundle-branch block. PLAN: The patient will be monitored on the telemetry unit. Serial troponins will be obtained. We will recheck hemoglobin in a.m. We will check iron profile. Empiric antibiotics for UTI. Urine cultures have been sent. We will check stool for occult blood. We will consult Gastroenterology. Stool for occult blood is positive. Clear liquid diet. Check reticulocyte count. Continue aspirin and Plavix. We will resume Eliquis after 24 to 48 hours if no bleeding identified. Fall precautions. We will consult Physical Therapy and Occupation Therapy. Plan of care was discussed with the patient. She stated understanding. Job ID: [id number]
[2018-12-23 06:58] LABS: Reticulocyte Count 3.6 % (0.5-1.5)
[2018-12-23] MEDS ORDERED: Clopidogrel Bisulfate 75 MG TAB ONE (08:03)
[2018-12-23] MEDS ORDERED: Metoprolol Tartrate 50 MG TAB ONE (08:03)
[2018-12-23] MEDS ORDERED: Aspirin Chewable 81 MG TAB ONE (08:03)
[2018-12-23] MEDS: Levothyroxine Sodium 25 MCG TAB PO SCH (08:20)
[2018-12-23] MEDS: Metoprolol Tartrate 50 MG TAB PO SCH ×2 (08:20→21:57)
[2018-12-23] MEDS ORDERED: Phenazopyridine HCl 97.5 MG TABLET ONE (08:26)
[2018-12-23] MEDS: Phenazopyridine HCl 97.5 MG TABLET PO SCH ×3 (08:37→17:36)
[2018-12-23] MEDS: Senokot S 8.6-50 MG TAB PO SCH ×2 (08:37→21:57)
--- NOTE | 2018-12-23 08:40 | PDOC.PN ---
- Subjective Encounter Start Date: 12/23/18 Encounter Start Time: 08:09 Subjective: Patient complaining of vaginal burning due to continuous urine leakage. -: Feels that her skin is irritating. Previously able to urinate on her own -: but has had to wear depends after discharge to [place] following recent hospitalization. Feels she needs to empty her bladder but has no control. - Objective Resuscitation Status - Order Detail: 12/23/18 05:53 Resuscitation Status Routine Resuscitation Status: FULL: Full Resuscitation Vital Signs & Weight: Vital Signs (12 hours) Pulse Ox 12/23/18 08:34 97 Result Diagrams: 12/23/18 04:03 12/23/18 04:03 Additional Labs: Accuchecks 12/22/18 19:13 POC Glucose 415 H Phys Exam - Physical Examination Constitutional: NAD HEENT: PERRLA, moist MMs, oral pharynx no lesions Neck: supple, full ROM Respiratory: clear to auscultation bilateral Cardiovascular: RRR Gastrointestinal: soft, positive bowel sounds suprapubic distention/pain with palpation Musculoskeletal: pulses present Neurological: moves all 4 limbs Psychiatric: normal affect, A&O x 3 Deviation from normal: vaginal irritation, no sores, no signs of cellulitis/ abscess Dx/Plan (1) UTI (urinary tract infection) Status: Acute Plan: Continue antibiotics. Awaiting urine culture. Suspect urinary retention due to constant leakage and suprapubic discomfort vs. due to UTI. Gorman catheter. If significant output will need renal imaging. Monitor renal function. (2) Vulvar irritation Code(s): N90.89 - OTH NONINFLAMMATORY DISORDERS OF VULVA AND PERINEUM Status: Acute Plan: continue barrier cream. cool compress has helped to use discomfort. (3) Anemia Code(s): D64.9 - ANEMIA, UNSPECIFIED Status: Acute Qualifiers: Anemia type: unspecified type Qualified Code(s): D64.9 - Anemia, unspecified Plan: Monitor H/H. Check stool for occult blood. If positive, consult Gastroenterology. (4) Hyperglycemia due to type 2 diabetes mellitus Code(s): E11.65 - TYPE 2 DIABETES MELLITUS WITH HYPERGLYCEMIA Status: Chronic Plan: Continue meds and monitor glucose. (5) Essential (primary) hypertension Code(s): I10 - ESSENTIAL (PRIMARY) HYPERTENSION Status: Chronic Plan: Continue meds and monitor BP. - Plan cont current plan of care, gorman catheter, continue antibiotics, PT/OT Will discuss above plan with Dr. Hollis for further input/recommendations. * . Review of Systems - Review of Systems Constitutional: negative: fever, chills, sweats, weakness, malaise Cardiovascular: negative: chest pain, palpitations, orthopnea, paroxysmal nocturnal dyspnea, edema, light headedness Gastrointestinal: negative: Nausea, Vomiting, Abdominal Pain, Diarrhea, Constipation, Melena, Hematochezia Genitourinary: Incontinence, Retention Musculoskeletal: Neck Pain (Has constant joint aching in her shoulders due to recent therapy), Shoulder Pain - Medications/Allergies Allergies/Adverse Reactions: Allergies Allergy/AdvReac Type Severity Reaction Status Date / Time apple Allergy Verified 12/02/18 10:56 hydrocodone Allergy Verified 05/20/17 20:58 Iodine and Iodide Containing Allergy Verified 05/20/17 20:58 Produc onion Allergy Verified 10/03/17 00:06 Medications: Current Medications Acetaminophen (Tylenol) 650 mg PO Q4H PRN PRN Reason: Headache/Fever/Mild Pain (1-3) Albuterol/Ipratropium (Duoneb) 3 ml NEB A1CQ-GF PRN PRN Reason: SOB &/or Wheezing Aspirin (Ecotrin) 81 mg PO DAILY [facility] Last Admin: 12/23/18 08:20 Dose: 81 mg Calcium Carbonate (Tums) 1,000 mg PO Q4H PRN PRN Reason: Heartburn or Indigestion Clopidogrel Bisulfate (Plavix) 75 mg PO DAILY [facility] Last Admin: 12/23/18 08:20 Dose: 75 mg Dextrose/Water (Dextrose 50%) 25 gm SLOW IVP PRN PRN PRN Reason: Hypoglycemia Glucagon (Glucagon) 1 mg IM PRN PRN PRN Reason: Hypoglycemia Insulin Glargine 20 units/ (Miscellaneous Medication) 0.2 mls @ 0 mls/hr SC QAM GUALBERTO Dextrose/Water (D5w) 1,000 mls @ 0 mls/hr IV .Q0M PRN PRN Reason: Hypoglycemia Ceftriaxone Sodium 1 gm/ (Sodium Chloride) 100 mls @ 200 mls/hr IVPB 2200 GUALBERTO Insulin Human Regular (Humulin R) 0 units SC .MODERATE SLIDING SC PRN PRN Reason: Moderate Correctional Scale Insulin Human Regular (Humulin R) 0 units SC .BEDTIME SLIDING SC PRN PRN Reason: Bedtime Correctional Scale Levothyroxine Sodium (Synthroid) 25 mcg PO 0600 [facility] Last Admin: 12/23/18 08:20 Dose: 25 mcg Metoprolol Tartrate (Lopressor) 50 mg PO BID [facility] Last Admin: 12/23/18 08:20 Dose: 50 mg Nitroglycerin (Nitrostat) 0.4 mg PO Q5MIN PRN PRN Reason: Chest Pain Ondansetron HCl (Zofran Odt) 4 mg PO Q6H PRN PRN Reason: Nausea/Vomiting Ondansetron HCl (Zofran) 4 mg IVP Q6H PRN PRN Reason: Nausea/Vomiting Phenazopyridine HCl (Azo Standard) 97.5 mg PO [facility] Last Admin: 12/23/18 08:37 Dose: 97.5 mg Senna/Docusate Sodium (Senokot S) 1 tab PO BID [facility] Last Admin: 12/23/18 08:37 Dose: 1 tab Sodium Chloride (Flush - Normal Saline) 10 ml IVF PRN PRN PRN Reason: Saline Flush
[2018-12-23] MEDS ORDERED: Clopidogrel Bisulfate 75 MG TAB PO SCH (09:00)
[2018-12-23] MEDS ORDERED: Aspirin 81 mg Enteric Coated Tablet PO SCH (09:00)
[2018-12-23] MEDS: Insulin Glargine 20 UNITS in Pre-Filled Syringe 1 EACH SC SCH (09:36)
[2018-12-23 10:33] LABS: Hemoglobin 7.3 g/dL (12.0-16.0); Platelet Count 216 thou/uL (130-400)
[2018-12-23 15:01] VITALS: BMI 30.2
[2018-12-23 16:45] LABS: Hemoglobin 7.3 g/dL (12.0-16.0)
[2018-12-23] MEDS ORDERED: Pantoprazole 40 MG VIAL IVP SCH (18:00)
--- NOTE | 2018-12-23 20:03 | ULT ---
RENAL ULTRASOUND: History: Urinary retention. Comparison: None. FINDINGS: Right kidney measures 9.3 x 3.9 x 4 cm. Left kidney is 8.3 x 4.4 x 3.6 cm. Both kidneys are slightly small and echogenic. There are small cysts involving the left kidney. The largest cyst is seen measur ing 1.2 cm within the renal pole. No hydronephrosis is evident. The bladder has intraluminal Hernandes. IMPRESSION: 1. Small slightly echogenic kidneys bilaterally which may reflect sequellae of underlying medical ophelia al disease. No hydronephrosis is evident. 2. Two small cysts involving the left kidneys. The largest is seen with in the right kidney measuring 1.2 cm. 3. Hernandes catheter. POS: BH
[2018-12-23] MEDS: cefTRIAXone\\ROCEPHIN 1 GM in Sodium Chloride 0.9% 100 ML IVPB SCH (21:56)
[2018-12-23] MEDS: Sodium Chloride 0.9% 1,000 ML IV SCH (22:09)
[2018-12-24] MEDS: Levothyroxine Sodium 25 MCG TAB PO SCH (05:42)
[2018-12-24 05:45] LABS: #Basophils 0.1 thou/uL (0.0-0.2); #Eosinphils 0.5 thou/uL (0.0-0.7); #Lymphocytes 1.7 thou/uL (1.20-3.40); #Monocytes 0.5 thou/uL (0.11-0.59); #Neutrophils 5.2 thou/uL (1.40-6.50); %Basophils 0.7 % (0.0-1.0); %Lymphocytes 20.9 % (21.0-51.0); %Monocytes 6.5 % (0.0-10.0); %Neutrophils 65.9 % (42.0-75.0); Hemoglobin 8.6 g/dL (12.0-16.0); Mean Corpuscular HGB CONC 33.4 g/dL (32.0-36.0); Mean Corpuscular Hemoglobin 29.4 pg (27.0-31.0); Mean Platelet Volume 7.6 fL (7.4-10.4); Platelet Count 206 thou/uL (130-400); RBC Distribution Width 14.6 % (11.5-14.5); Red Blood Cell (RBC) Count 2.93 mill/uL (4.20-5.40); White Blood Cell (WBC) Count 7.9 thou/uL (4.8-10.8)
[2018-12-24 06:02] LABS: ALT (SGPT) 14 U/L (8-55); AST (SGOT) 12 U/L (5-34); Albumin 2.9 g/dL (3.4-4.8); Alkaline Phosphatase 92 U/L (40-150); Anion Gap 14 mmol/L (10-20); BUN (Urea Nitrogen) 47 mg/dL (9.8-20.1); Bilirubin, Total 0.3 mg/dL (0.2-1.2); Calc. Creatinine Clearance 21 mL/min (70-130); Carbon Dioxide 22 mmol/L (23-31); Chloride 108 mmol/L (98-107); Estimated GFR-MDRD 21; Globulin 2.5 g/dL (2.4-3.5); Glucose 198 mg/dL (83-110); Magnesium 1.6 mg/dL (1.6-2.6); Potassium 4.3 mmol/L (3.5-5.1); Protein, Total 5.4 g/dL (6.0-8.3); Sodium 140 mmol/L (136-145)
[2018-12-24] MEDS: Phenazopyridine HCl 97.5 MG TABLET PO SCH ×3 (08:45→17:51)
[2018-12-24] MEDS: Pantoprazole 40 MG VIAL IVP SCH (08:45)
[2018-12-24] MEDS: Metoprolol Tartrate 50 MG TAB PO SCH ×2 (08:46→21:01)
[2018-12-24] MEDS: Insulin Glargine 20 UNITS in Pre-Filled Syringe 1 EACH SC SCH (08:46)
[2018-12-24] MEDS: Senokot S 8.6-50 MG TAB PO SCH ×2 (08:46→21:02)
[2018-12-24] MEDS: Sodium Chloride 0.9% (PF) 10 ML VIAL FS PRN (08:46)
--- NOTE | 2018-12-24 09:36 | EKG ---
Test Reason : Blood Pressure : / mmHG Vent. Rate : 085 BPM Atrial Rate : 085 BPM P-R Int : 146 ms QRS Dur : 130 ms QT Int : 388 ms P-R-T Axes : 062 -53 097 degrees QTc Int : 461 ms Normal sinus rhythm Left axis deviation Left bundle branch block Abnormal ECG When compared with ECG of 22-DEC-2018 19:04, (Unconfirmed) No significant change was found Confirmed by DR. Cecy KELLEY ([id number]) on 12/24/2018 9:35:51 AM Referred By: HANNAH Confirmed By:DR. Cecy KELLEY
[2018-12-24] MEDS: Insulin Regular 300 UNITS/3 ML VIAL SC PRN (12:05)
[2018-12-24] MEDS: Acetaminophen 325 MG TAB PO PRN (12:08)
--- NOTE | 2018-12-24 14:06 | PDOC.PN ---
- Subjective Encounter Start Date: 12/24/18 Encounter Start Time: 12:04 Subjective: Patient states she is feeling better. Denies any issues -: overnight. Tolerating oral intake. Has not had any abdo pain. -: No bowel movement yet. Reports flatus. No chest pain or sob. Denies any headaches or dizziness. Vulvar irritation significantly improved and pain relieved since gorman placement. - Objective Resuscitation Status - Order Detail: 12/23/18 05:53 Resuscitation Status Routine Resuscitation Status: FULL: Full Resuscitation Vital Signs & Weight: Vital Signs (12 hours) Temp Pulse Resp BP Pulse Ox 12/24/18 12:18 97.7 F 70 16 164/71 H 95 12/24/18 07:33 98.5 F 79 12 155/71 H 97 12/24/18 03:27 98.8 F 79 16 154/69 H 96 Weight Weight 155 lb I&O: 12/23/18 12/24/18 12/25/18 06:59 06:59 06:59 Intake Total 1022 Output Total 1850 Balance -828 Result Diagrams: 12/24/18 12:03 12/24/18 05:31 Additional Labs: Accuchecks 12/24/18 12/24/18 12/23/18 11:01 05:23 20:34 POC Glucose 333 H 204 H 230 H 12/23/18 17:01 POC Glucose 266 H Phys Exam - Physical Examination Constitutional: NAD Appears fatigued, no acute distress. HEENT: PERRLA, moist MMs Neck: supple, full ROM Respiratory: clear to auscultation bilateral Cardiovascular: RRR Gastrointestinal: soft, non-tender, no distention, positive bowel sounds Musculoskeletal: no edema, pulses present Neurological: normal sensation, moves all 4 limbs Psychiatric: normal affect, A&O x 3 Skin: no rash Dx/Plan (1) UTI (urinary tract infection) Status: Acute Qualifiers: Indwelling urinary catheter type: indwelling urethral catheter Plan: gorman catheter placed due to urinary retention. UCx: enterococcus. Continue antibiotics. (2) Vulvar irritation Code(s): N90.89 - OTH NONINFLAMMATORY DISORDERS OF VULVA AND PERINEUM Status: Resolved Plan: Much improved following gorman catheter placement. (3) Anemia Code(s): D64.9 - ANEMIA, UNSPECIFIED Status: Acute Plan: Status post 1 unit PRBCs. Continue to monitor H/H. No symptoms of GI bleed. Check for occult blood in stool. Awaiting GI eval. Possibly anemic due to renal disease. (4) Hyperglycemia due to type 2 diabetes mellitus Code(s): E11.65 - TYPE 2 DIABETES MELLITUS WITH HYPERGLYCEMIA Status: Chronic Plan: Continue ISS and monitor Glucose. Per patient good response on Tresiba. (5) Essential (primary) hypertension Code(s): I10 - ESSENTIAL (PRIMARY) HYPERTENSION Status: Chronic Plan: Continue meds. Monitor BP. (6) Acute renal failure superimposed on stage 4 chronic kidney disease Code(s): N17.9 - ACUTE KIDNEY FAILURE, UNSPECIFIED; N18.4 - CHRONIC KIDNEY DISEASE, STAGE 4 (SEVERE) Status: Acute Plan: Continue gentle hydration, renal function improving. Continue to monitor. - Plan cont current plan of care * .
[2018-12-24] MEDS ORDERED: Polyethylene Glycol 3350 17 GM Packet PO PRN (14:18)
[2018-12-24 14:19] LABS: Hemoglobin 8.8 g/dL (12.0-16.0)
[2018-12-24] MEDS: Sodium Chloride 0.9% 1,000 ML IV SCH (17:51)
[2018-12-24] MEDS: Amlodipine 5 MG TAB PO SCH (21:01)
[2018-12-24] MEDS: Melatonin 3 MG TAB PO SCH (21:02)
[2018-12-24] MEDS: cefTRIAXone\\ROCEPHIN 1 GM in Sodium Chloride 0.9% 100 ML IVPB SCH (21:02)
[2018-12-24] MEDS: Sodium Bicarbonate Tab 325 MG TAB PO SCH (21:02)
[2018-12-25 00:13] LABS: Hemoglobin 8.6 g/dL (12.0-16.0)
--- NOTE | 2018-12-25 01:28 | CON ---
DATE OF CONSULTATION: 12/24/2018 REASON FOR CONSULT: Anemia. HISTORY OF PRESENT ILLNESS: Ms. María Mitchell is an 83-year-old female, who was admitted to the hospital yesterday from rehab for elevated glucoses. She was recently in this hospital and discharged on 12/12 after being in the hospital with non-Q-wave KS, which was complicated by nonsustained ventricular tachycardia, non-ST KS, and respiratory failure requiring intubation. Her glucose was 457 and she was transferred from [place] to here for this. Apparently, she notes that there was a change made in her medications and that was the reason for the elevated glucoses. She was not receiving the insulin she had received as an outpatient previously when she went to the [place] [facility]. The patient notes she has had no history of bleeding. She has had no melena. She had seen Dr. Neville from Hematology in the outpatient setting before her recent hospitalization for her KS and she had received intravenous iron. More recently, after the cardiac events last admission, she was on Eliquis for a left axillary vein thrombosis and also on Plavix and aspirin for the LAD stent that had been placed. The patient's hemoglobin was noted to be 7.6 at 1900 hours on the , whereas it had been 10.4 to 9.6 before she left the hospital on 12/08 and 12/10. The patient denies any melena, hematochezia, or hematemesis. There have been no stool samples obtained, although a stool test has been ordered for occult blood. Presently, Ms. Mitchell tells me she is not interested in having further invasive studies and let her everything she went through her last admission and preferred to go home after receiving her blood. She denies any melena, hematochezia, hematemesis, nausea, vomiting, abdominal pain, or change in bowel function. She reports she had EGD and colonoscopy many years ago, about 10 to 15 years ago in [place]. In her colonoscopy, she thinks she had few small polyps and in her EGD, she may have had small ulcers in distal esophagus. Looking at her labs, hemoglobin has been running around 10 up through her last admission. PAST MEDICAL HISTORY: Type 2 diabetes; chronic kidney disease, stage 4; paroxysmal atrial fibrillation; nonsustained VT in last admission; recent non-ST elevation KS; LAD stent placed in last admission; respiratory failure with intubation in last admission; diastolic heart failure; hypertension; left axillary vein thrombosis in last admission, on Eliquis; hyperlipidemia; chronic left bundle branch block; and chronic UTIs. PAST SURGICAL HISTORY: Cardiac catheterization, back surgery, and endoscopy as noted above. ALLERGIES: CODEINE. MEDICATIONS AT HOME: 1. Hydralazine. 2. Sodium bicarb. 3. Zoloft. 4. K-Dur. 5. MiraLAX. 6. Protonix. 7. Nitrostat. 8. Myrbetriq. 9. Lopressor. 10. Melatonin. 11. Synthroid. 12. DuoNeb. 13. Lantus. 14. Lasix (furosemide). 15. Iron b.i.d. with meals. 16. Colace. 17. Plavix. 18. Chlorhexidine oral guard. 19. Rocaltrol. 20. Aspirin. 21. Eliquis. 22. Norvasc. 23. Tylenol. PRESENT MEDICATIONS: 1. Tylenol. 2. DuoNeb. 3. Tums. 4. Rocephin. 5. Glucagon. 6. Insulin sliding scale. 7. Synthroid. 8. Melatonin. 9. Mirabegron. 10. Zofran p.r.n. 11. Nitrostat p.r.n. 12. Protonix. 13. MiraLAX. 14. Senna. 15. Sodium bicarb. 16. Normal saline. REVIEW OF SYSTEMS: Negative for chest pain, shortness of breath, dyspnea on exertion, cough, dysuria, frequency, urgency, loss of appetite, dysphagia, or odynophagia. PHYSICAL EXAMINATION: VITAL SIGNS: Temperature 98.7, pulse 54, and blood pressure 128/60. GENERAL: She is resting in bed. She is alert and oriented to person, place, and time. LUNGS: Clear. HEART: Regular rate and rhythm without clicks or murmurs. ABDOMEN: Soft and nontender. There is no rebound. There is no guarding. EXTREMITIES: No clubbing, cyanosis, or edema. LABORATORY DATA: Today, hemoglobin is 8.6 and then 8.8 at noon. She received 1 unit of blood last night. She received 2 units of blood on the of last month for hemoglobin of 7.5. Her INR is 0.9. Chemistries today notable for a creatinine of 2.2, BUN of 47, sodium 140, potassium 4.3, and chloride 108. Liver function tests normal. Iron was 16 on 12/01, it was 92 on 12/22. Her TIBC was low both times, 145 on 12/01 and 226 on 12/22. Ferritin was elevated at 3468 on 12/01 and 1262 on 12/22. ASSESSMENT: This is an 83-year-old female with anemia of unclear etiology. She has had no overt bleeding, although she is on both Plavix, Eliquis, and aspirin. She has increased GI bleeding risk from these alone, although she was anemic before being placed on the Plavix and before her last admission when she was only on baby aspirin at home, she was already having issues with anemia. The anemia is mixed. It looks like mainly it is anemia of chronic disease and probably has some renal insufficiency, but I agree with her drops in hemoglobin when her blood thinners were started. I cannot rule out GI loss. Unfortunately, there have been no hemoccults obtained. Also unfortunately, the patient is pretty adamant about not having any endoscopies done to look for bleeding sources. I agree she has had no acute bleed, but also agree that likely she can be having some occult bleeding from GI lesions. I explained to her that we could be missing ulcers or malignancy. She is on a PPI at home, so ulcer seems less likely. Arteriovenous malformations could be a possibility and then may be she has a gentle oozing of blood related to her anticoagulation, which is exacerbated by her renal insufficiency. PLAN: At this time, she refuses endoscopy. We could obtain Hemoccult and watch her hemoglobin. If it drops again or if she changes her mind about proceeding with endoscopy, I will talk with her primary physician, Dr. Bradley in the outpatient setting as well. I will follow up with her tomorrow and see if she changes her mind. Job ID: [id number]
[2018-12-25] MEDS: Levothyroxine Sodium 25 MCG TAB PO SCH (05:51)
[2018-12-25] MEDS: Acetaminophen 325 MG TAB PO PRN ×2 (06:02→20:55)
[2018-12-25 06:29] LABS: Hemoglobin 8.7 g/dL (12.0-16.0)
[2018-12-25] MEDS ORDERED: HOLD VANCOMYCIN FOR LEVEL >20 FS SCH (09:30)
[2018-12-25] MEDS ORDERED: Vancomycin HCl 750 MG in Sodium Chloride 0.9% 250 ML 250 ML IVPB SCH (09:30)
[2018-12-25] MEDS ORDERED: Vancomycin Sliding Scale 1 EACH FS SCH (09:30)
[2018-12-25] MEDS ORDERED: Vancomycin HCl 500 MG in Sodium Chloride 0.9% 100 ML IVPB SCH (09:30)
[2018-12-25] MEDS ORDERED: Vancomycin HCl 1 GM in Premix Bag 1 BAG IVPB SCH ×2 (09:30→21:00)
[2018-12-25] MEDS ORDERED: Vancomycin HCl 250 MG in Sodium Chloride 0.9% 100 ML IVPB SCH (09:30)
[2018-12-25] MEDS: Insulin Glargine 20 UNITS in Pre-Filled Syringe 1 EACH SC SCH (09:50)
[2018-12-25] MEDS: Sodium Bicarbonate Tab 325 MG TAB PO SCH ×2 (09:52→20:50)
[2018-12-25] MEDS: Phenazopyridine HCl 97.5 MG TABLET PO SCH ×3 (09:52→17:20)
[2018-12-25] MEDS: Metoprolol Tartrate 50 MG TAB PO SCH ×2 (09:53→20:51)
[2018-12-25] MEDS: Senokot S 8.6-50 MG TAB PO SCH ×2 (09:53→20:51)
[2018-12-25] MEDS: Sodium Chloride 0.9% (PF) 10 ML VIAL FS PRN (09:53)
[2018-12-25] MEDS: Amlodipine 5 MG TAB PO SCH ×2 (09:53→20:50)
[2018-12-25] MEDS: Pantoprazole 40 MG VIAL IVP SCH (09:53)
[2018-12-25] MEDS ORDERED: Vancomycin HCl 1.75 GM in Sodium Chloride 0.9% 500 ML IVPB SCH (10:00)
[2018-12-25] MEDS: Insulin Regular 300 UNITS/3 ML VIAL SC PRN (10:31)
--- NOTE | 2018-12-25 14:00 | PRG ---
DATE OF SERVICE: 12/25/2018 SUBJECTIVE: Ms. Mitchell is without any complaints today. I did talk with her daughter last night about endoscopies for her anemia and the issues involving her cardiac disease. I did talk with Dr. Kim today. He felt that she was a very poor candidate for elective endoscopy. At this point in time, she was not acutely bleeding. We did discuss the issues with her triple anticoagulation for her axillary vein clot in her arm as well as her recent LAD stent placement. He suggested today repeating the Doppler of her arm to see if we can get her either off the Eliquis or if not, maybe we can stop her aspirin. We have asked Dr. Looney, Dr. Kim's partner to take a look at her from anticoagulation and cardiac standpoint today. There has been no overt signs of melena or bleeding. OBJECTIVE: VITAL SIGNS: Temperature is 98, pulse 80, blood pressure is 169/79. GENERAL: She is resting comfortably in bed. She is sitting upright. She is with no distress. She is eating lunch. LABORATORY DATA: Hemoglobin is 8.7. ASSESSMENT: 1. There is no evidence of gastrointestinal bleeding. She has had multifactorial anemia with some history of iron deficiency in the past and also some renal insufficiency. 2. Coronary artery disease with left anterior descending stent placed just a few weeks ago. 3. History of ventricular tachycardia with cardiac arrest during that admission and intubation and respiratory failure on admission. As noted above, I have talked with her cage tender today and he has advised to avoid invasive procedures if at all possible at this point in time. 4. Renal insufficiency. 5. Triple anticoagulation, on hold now. RECOMMENDATIONS: If the patient needs to be back on anticoagulation for the LAD stent, I have put her back on that today. I have talked with the hospitalist about this. There are no signs of acute GI hemorrhage at this time. We will await for cardiac evaluation and follow along with you. If there are signs of acute GI bleeding, we could reconsider endoscopy, but at this point, I think her cardiac risk is prohibitive and will get a full opinion from Cardiology before embarking on anything invasive. Job ID: [id number]
[2018-12-25 14:07] LABS: Hemoglobin 8.4 g/dL (12.0-16.0)
--- NOTE | 2018-12-25 14:21 | PDOC.EVN ---
Event Note - Event Note Event Note: ACP NOTE- Chart reviewed. care discussed w GI DR. Beltran and plan noted as in progress note Pt seen and examined and care discussed w her and her daughter Ms Leavitt ,who confirmed that she is mother's MPOA,over the phone Given the recent hospitalization and multiple co morbidities,prognosis and expected disease trajectory was discussed with both of them.I expressed my conerns regarding blood thinners. Pt recently had LAD stenting done and needs to be on at least ASA most likely plavix. both are held in light of GIB.Pt once again refuses colonoscopy and daughter agrees They were educated about the risk and benefits of anticoagulation.She is high risk of bleeding as well as clotting.Given recent severity of illness requiring intubation, I discussed Code status again.Pt does not want to go through"all of them again".She no longer wants to be resuscitated if it comes to that. They both understand that her prognosis is guarded at this time given chances of PE from Upper extremity DVT,Stent occlusion without Plavix or worsening life threatening GIB if started on either Eliquis or Plavix or ASA. TOTAL TIME SPENT IN ACP DISCUSSION 17 MINUTES.CODE STATUS CHANGED IN [facility]
[2018-12-25] MEDS: Sodium Chloride 0.9% 1,000 ML IV SCH (15:11)
--- NOTE | 2018-12-25 15:18 | PDOC.PN ---
- Subjective Encounter Start Date: 12/25/18 Encounter Start Time: 15:16 Subjective: feels weak and tired.no new events. not passing any blood in stools - Objective Resuscitation Status - Order Detail: 12/25/18 12:47 Resuscitation Status Routine Resuscitation Status: DNAR: NO Resuscitation Discussed with: discussed w pt and daughter OREN Reviewed: Yes Vital Signs & Weight: Vital Signs (12 hours) Temp Pulse Resp BP Pulse Ox 12/25/18 12:41 98.2 F 80 16 169/79 H 97 12/25/18 07:45 98.5 F 82 16 139/65 95 12/25/18 04:05 98.8 F 78 20 166/74 H 93 L Weight Weight 155 lb I&O: 12/24/18 12/25/18 12/26/18 06:59 06:59 06:59 Intake Total 1022 1830 Output Total 1850 1900 Balance -828 -70 Result Diagrams: 12/25/18 13:29 12/24/18 05:31 Additional Labs: Accuchecks 12/25/18 12/25/18 12/24/18 10:30 05:36 20:16 POC Glucose 434 H 161 H 196 H 12/24/18 17:00 POC Glucose 146 H Microbiology 12/22/18 19:53 Urine clean catch Urine Culture - Preliminary Enterococcus faecalis Laboratory Tests 12/05/18 12/06/18 12/07/18 05:41 04:45 05:15 Hgb Creatinine 2.61 H 2.63 H 2.44 H 12/08/18 12/09/18 12/10/18 04:32 05:29 07:39 Hgb Creatinine 2.37 H 2.18 H 1.93 H 12/10/18 12/22/18 12/22/18 07:39 19:40 19:40 Hgb 10.4 L 7.6 L Creatinine 3.07 H 12/23/18 12/23/18 12/23/18 04:03 04:03 16:30 Hgb 7.7 L 7.3 L Creatinine 2.65 H 12/24/18 12/24/18 12/24/18 05:31 05:31 12:03 Hgb 8.6 L 8.8 L Creatinine 2.21 H 12/25/18 12/25/18 12/25/18 00:06 06:15 13:29 Hgb 8.6 L 8.7 L 8.4 L Creatinine Phys Exam - Physical Examination Constitutional: NAD HEENT: PERRLA, moist MMs, sclera anicteric, oral pharynx no lesions Neck: no nodes, no JVD, supple, full ROM Respiratory: no wheezing, clear to auscultation bilateral Cardiovascular: RRR, no significant murmur Gastrointestinal: soft, non-tender, no distention, positive bowel sounds Musculoskeletal: no edema, pulses present Neurological: non-focal, normal sensation, moves all 4 limbs Psychiatric: normal affect, A&O x 3 Skin: no rash Dx/Plan (1) UTI (urinary tract infection) Status: Acute Qualifiers: Indwelling urinary catheter type: indwelling urethral catheter Comment: Enterococcal fecalis (2) Anemia Code(s): D64.9 - ANEMIA, UNSPECIFIED Status: Acute Comment: Suspect ACD with some acute componenet. Mild GIB can not r/o but Pt refuses endoscopy and is also a high risk for procedure.Monitor. PPI.Holding off ASa,Plavix and eliquis (3) Hyperglycemia due to type 2 diabetes mellitus Code(s): E11.65 - TYPE 2 DIABETES MELLITUS WITH HYPERGLYCEMIA Status: Chronic Comment: improved.increase SSI to aggressive.cont lantus.monitor (4) CAD (coronary artery disease) Code(s): I25.10 - ATHSCL HEART DISEASE OF [place] CORONARY ARTERY W/O ANG PCTRS Status: Chronic Comment: s/p Stenting of LAD 11/27/2018 (5) CHF (congestive heart failure), NYHA class III Code(s): I50.9 - HEART FAILURE, UNSPECIFIED Status: Chronic Qualifiers: Congestive heart failure type: diastolic Congestive heart failure chronicity: chronic Qualified Code(s): I50.32 - Chronic diastolic (congestive ) heart failure Comment: EF 55%, diastolic dysfunction (6) CKD (chronic kidney disease) stage 4, GFR 15-29 ml/min Code(s): N18.4 - CHRONIC KIDNEY DISEASE, STAGE 4 (SEVERE) Status: Chronic (7) DM type 2 (diabetes mellitus, type 2) Status: Chronic Qualifiers: Diabetes mellitus intermediate teacher insulin use: with intermediate teacher use Diabetes mellitus complication status: with kidney complications Diabetes mellitus complication detail: with chronic kidney disease Chronic kidney disease stage : stage 4 (severe) Qualified Code(s): E11.22 - Type 2 diabetes mellitus with diabetic chronic kidney disease; N18.4 - Chronic kidney disease, stage 4 (severe ); Z79.4 - group home (current) use of insulin (8) HTN (hypertension) Code(s): I10 - ESSENTIAL (PRIMARY) HYPERTENSION Status: Chronic Qualifiers: Hypertension type: essential hypertension Qualified Code(s): I10 - Essential (primary) hypertension (9) Hypothyroid Code(s): E03.9 - HYPOTHYROIDISM, UNSPECIFIED Status: Chronic Qualifiers: Hypothyroidism type: unspecified Qualified Code(s): E03.9 - Hypothyroidism , unspecified (10) Chronic atrial fibrillation Code(s): I48.2 - CHRONIC ATRIAL FIBRILLATION Status: Chronic Comment: off of any AC given possible GIB. 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 -: will repeat LUE US to evaluate DVT that was there 12/24.off of eliquis -: will consult Cardiology as concerns of stent closure off of plavix * .guarded prognosis * am labs * home meds as below. HD stable * * Level of complexity High.Level of risk high Review of Systems - Review of Systems Constitutional: weakness, malaise. negative: fever, chills, sweats, other ENT: negative: Ear Pain, Ear Discharge, Nose Pain, Nose Discharge, Nose Congestion, Mouth Pain, Mouth Swelling, Throat Pain, Throat Swelling, Other Respiratory: negative: Cough, Dry, Shortness of Breath, Hemoptysis, SOB with Excertion, Pleuritic Pain, Sputum, Wheezing Cardiovascular: negative: chest pain, palpitations, orthopnea, paroxysmal nocturnal dyspnea, edema, light headedness, other Gastrointestinal: negative: Nausea, Vomiting, Abdominal Pain, Diarrhea, Constipation, Melena, Hematochezia, Other Genitourinary: negative: Dysuria, Frequency, Incontinence, Hematuria, Retention , Other Musculoskeletal: negative: Neck Pain, Shoulder Pain, Arm Pain, Back Pain, Hand Pain, Leg Pain, Foot Pain, Other Neurological: negative: Weakness, Numbness, Incoordination, Change in Speech, Confusion, Seizures, Other - Medications/Allergies Allergies/Adverse Reactions: Allergies Allergy/AdvReac Type Severity Reaction Status Date / Time apple Allergy Verified 12/23/18 14:58 hydrocodone Allergy Verified 12/23/18 14:58 Iodine and Iodide Containing Allergy Verified 12/23/18 14:58 Produc onion Allergy Verified 12/23/18 14:58 Medications: Current Medications Acetaminophen (Tylenol) 650 mg PO Q4H PRN PRN Reason: Headache/Fever/Mild Pain (1-3) Last Admin: 12/25/18 06:02 Dose: 650 mg Albuterol/Ipratropium (Duoneb) 3 ml NEB [id number] PRN PRN Reason: SOB &/or Wheezing Amlodipine Besylate (Norvasc) 5 mg PO BID [facility] Last Admin: 12/25/18 09:53 Dose: 5 mg Calcium Carbonate (Tums) 1,000 mg PO Q4H PRN PRN Reason: Heartburn or Indigestion Dextrose/Water (Dextrose 50%) 25 gm SLOW IVP PRN PRN PRN Reason: Hypoglycemia Glucagon (Glucagon) 1 mg IM PRN PRN PRN Reason: Hypoglycemia Insulin Glargine 20 units/ (Miscellaneous Medication) 0.2 mls @ 0 mls/hr SC QAM [facility] Last Admin: 12/25/18 09:50 Dose: 0.2 mls Dextrose/Water (D5w) 1,000 mls @ 0 mls/hr IV .Q0M PRN PRN Reason: Hypoglycemia Sodium Chloride (Normal Saline 0.9%) 1,000 mls @ 50 mls/hr IV .Q20H [facility] Last Admin: 12/25/18 15:11 Dose: 1,000 mls Vancomycin HCl 1 gm/ Device 200 mls @ 200 mls/hr IVPB .PENDING LEVEL [facility] Insulin Human Regular (Humulin R) 0 units SC .MODERATE SLIDING SC PRN PRN Reason: Moderate Correctional Scale Last Admin: 12/25/18 10:31 Dose: 10 unit Insulin Human Regular (Humulin R) 0 units SC .BEDTIME SLIDING SC PRN PRN Reason: Bedtime Correctional Scale Levothyroxine Sodium (Synthroid) 25 mcg PO 0600 [facility] Last Admin: 12/25/18 05:51 Dose: 25 mcg Melatonin (Melatonin) 3 mg PO HS [facility] Last Admin: 12/24/18 21:02 Dose: 3 mg Metoprolol Tartrate (Lopressor) 50 mg PO BID [facility] Last Admin: 12/25/18 09:53 Dose: 50 mg Mirabegron (Myrbetriq Er) 50 mg PO DAILY [facility] Last Admin: 12/25/18 09:53 Dose: 50 mg Nitroglycerin (Nitrostat) 0.4 mg PO Q5MIN PRN PRN Reason: Chest Pain Ondansetron HCl (Zofran Odt) 4 mg PO Q6H PRN PRN Reason: Nausea/Vomiting Ondansetron HCl (Zofran) 4 mg IVP Q6H PRN PRN Reason: Nausea/Vomiting Pantoprazole Sodium (Protonix) 40 mg IVP DAILY [facility] Last Admin: 12/25/18 09:53 Dose: 40 mg Phenazopyridine HCl (Azo Standard) 97.5 mg PO PC [facility] Last Admin: 12/25/18 12:35 Dose: 97.5 mg Polyethylene Glycol (Miralax) 17 gm PO DAILY PRN PRN Reason: Constipation Senna/Docusate Sodium (Senokot S) 1 tab PO BID [facility] Last Admin: 12/25/18 09:53 Dose: 1 tab Sertraline HCl (Zoloft) 25 mg PO QAM [facility] Last Admin: 12/25/18 09:53 Dose: 25 mg Sodium Bicarbonate (Bicarbonate, Sodium) 650 mg PO BID [facility] Last Admin: 12/25/18 09:52 Dose: 650 mg Sodium Chloride (Flush - Normal Saline) 10 ml IVF PRN PRN PRN Reason: Saline Flush Sodium Chloride (Flush - Normal Saline) 10 ml IVF PRN PRN PRN Reason: Saline Flush Sodium Chloride (Normal Saline Pf) 10 ml FS PRN PRN PRN Reason: RECONSTITUTION Last Admin: 12/25/18 09:53 Dose: 10 ml
[2018-12-25] MEDS ORDERED: Dextrose 50% Abboject 50 ML SYRINGE SLOW IVP PRN (15:23)
[2018-12-25] MEDS ORDERED: Dextrose 5% in Water 1,000 ML IV PRN (15:23)
[2018-12-25] MEDS ORDERED: Insulin Regular 300 UNITS/3 ML VIAL SC PRN (15:23)
--- NOTE | 2018-12-25 16:38 | ULT ---
LEFT UPPER EXTREMITY DOPPLER VEIN ULTRASOUND WITH CRUZ SCALE AND COLOR FLOW IMAGIN12/25/18 INDICATION: Pain, edema FINDINGS: There is lack of normal compressibility within the basilic vein of left upper extremity. The deep vei n system of the left upper extremity reveals compression and flow. IMPRESSION: Basilic vein thrombosis. No evidence of DVT. POS: TPC
--- NOTE | 2018-12-25 17:15 | PDOC.EVN ---
Event Note - Event Note Event Note: pt rescinded DNRstatus.Changed to full code. palliative care team discussed in detail but Pt adamant that she wants full code as her significant Other wanted to .She now wants the same. will follow
--- NOTE | 2018-12-25 18:57 | CON ---
DATE OF CONSULTATION: 12/25/2018 CONSULTING PHYSICIAN: REASON FOR CONSULTATION: Chronic kidney disease. REASON FOR ADMISSION: Hyperglycemia. HISTORY OF PRESENT ILLNESS: This is an 83-year-old female, who is known to me for CKD and type 2 diabetes, who came to the hospital with hyperglycemia. Creatinine remains elevated. No fever or chills. No nausea or vomiting. The patient was also found to have anemia, and debating to have colonoscopy. PAST MEDICAL HISTORY: Positive for chronic kidney disease, stage 4; type 2 diabetes; atrial fibrillation; ; hypertension; and hyperlipidemia. PAST SURGICAL HISTORY: Cardiac catheterization and back surgery. HOME MEDICATIONS: Reviewed. ALLERGIES: CODEINE. SOCIAL HISTORY: No smoking, alcohol, or illicit drug abuse. FAMILY HISTORY: No history of any kidney disease. REVIEW OF SYSTEMS: CONSTITUTIONAL: Negative for weight loss or gain, ability to conduct usual activities. SKIN: Negative for rash, itching. EYES: Negative for double vision, pain. ENT/MOUTH: Negative for nose bleeding, neck stiffness, pain, tenderness. CARDIOVASCULAR: Negative for palpitations, dyspnea on exertion, orthopnea. RESPIRATORY: Negative for shortness of breath, wheezing, cough, hemoptysis, fever or night sweats. GASTROINTESTINAL: Negative for poor appetite, abdominal pain, heartburn, nausea, vomiting, constipation, or diarrhea. GENITOURINARY: Negative for urgency, frequency, dysuria, nocturia. MUSCULOSKELETAL: Negative for pain, swelling. NEUROLOGIC/PSYCHIATRIC: Negative for anxiety, depression. ALLERGY/IMMUNOLOGIC: Negative for skin rash, bleeding tendency. PHYSICAL EXAMINATION: GENERAL: This is an elderly female, in no apparent distress. VITAL SIGNS: Temperature 98.9, pulse 76, respiratory rate 18, blood pressure 160/72. LABORATORY DATA: Potassium is 4.3, BUN is 47, creatinine is 2.2. ASSESSMENT AND PLAN: 1. Chronic kidney disease, stage 4, stable. 2. Hyperglycemia. 3. Anemia, chronic. 4. Hypertension, stable. 5. Avoid nephrotoxins. Renally dose all the medications. Job ID: [id number]
[2018-12-25] MEDS: Melatonin 3 MG TAB PO SCH (20:50)
--- NOTE | 2018-12-26 03:21 | CON ---
DATE OF CONSULTATION: HISTORY OF PRESENT ILLNESS: María Mitchell is an 83-year-old white female patient of Dr. Kim who just underwent a prolonged hospitalization requiring intubation twice, nonsustained ventricular tachycardia, stent placement in the LAD (bare metal stent) on 12/06/2018. She also was found to have deep venous thrombosis of the left axillary vein and was placed on Eliquis. She is now admitted with increased blood sugar and has been noted to be significantly anemic versus at the time of discharge. Hemoglobin was 10.4 at the time of discharge, and has fallen to 7.6. She does deny any melena or hematochezia. CURRENT MEDICATIONS: 1. Norvasc 5 mg b.i.d. 2. Eliquis 2.5 mg b.i.d. 3. Aspirin 81 daily. 4. Rocaltrol 0.25 daily. 5. Periogard 15 mL q. 48 hours. 6. Plavix 75 daily. 7. Colace 100 mg daily. 8. Iron sulfate 325 b.i.d. 9. Furosemide 40 daily. 10. Hydralazine 10 mg q.i.d. 11. Lantus. 12. Levothyroxine 25 mcg daily. 13. Metoprolol 50 b.i.d. 14. Myrbetriq 50 daily. 15. Nitrostat p.r.n. 16. Protonix 40 daily. 17. MiraLAX 17 daily. 18. KCl 20 mEq daily. 19. Zoloft 25 q.a.m. ALLERGIES: IODINE, HYDROCODONE. PHYSICAL EXAMINATION: VITAL SIGNS: Blood pressure 160/72, pulse 76. HEENT: PERRL. NECK: Supple. CHEST: Clear. CARDIAC: S1 and S2 normal without any S3 or S4. There is a 2/6 systolic murmur in the aortic area. ABDOMEN: Normal bowel sounds without tenderness or organomegaly. EXTREMITIES: Revealed no clubbing, cyanosis, or edema. LABORATORY DATA: Current hemoglobin is 8.4, sodium 140, potassium 4.3, chloride 108, carbon dioxide 22, BUN 47, creatinine 2.21. IMPRESSION: 1. Gastrointestinal bleed. 2. History of flash pulmonary edema. 3. Renal insufficiency. 4. Status post stent placement in the LAD on 12/06/2018 (bare metal stent). 5. Left axillary vein thrombosis seen on ultrasound from December 09. However, repeat ultrasound today only shows basilic vein thrombosis with no thrombosis of the deep system. PLAN: The patient apparently is to undergo EGD and colonoscopy. It would seem reasonable to discontinue the Eliquis at this time. However, the Plavix probably needs to be continued with recent stent. She probably only needs to take the Plavix for another 9 or 10 days. We will follow the patient with you. Job ID: [id number]
[2018-12-26] MEDS: Levothyroxine Sodium 25 MCG TAB PO SCH (05:08)
[2018-12-26 06:27] LABS: #Basophils 0.1 thou/uL (0.0-0.2); #Eosinphils 0.5 thou/uL (0.0-0.7); #Lymphocytes 1.5 thou/uL (1.20-3.40); #Monocytes 0.5 thou/uL (0.11-0.59); #Neutrophils 5.1 thou/uL (1.40-6.50); %Basophils 0.7 % (0.0-1.0); %Lymphocytes 19.7 % (21.0-51.0); %Neutrophils 65.7 % (42.0-75.0); Hemoglobin 8.6 g/dL (12.0-16.0); Mean Corpuscular HGB CONC 32.1 g/dL (32.0-36.0); Mean Corpuscular Hemoglobin 28.9 pg (27.0-31.0); Mean Corpuscular Volume 89.9 fL (78.0-98.0); Mean Platelet Volume 7.6 fL (7.4-10.4); Platelet Count 211 thou/uL (130-400); Red Blood Cell (RBC) Count 2.99 mill/uL (4.20-5.40); White Blood Cell (WBC) Count 7.8 thou/uL (4.8-10.8)
--- NOTE | 2018-12-26 06:39 | PDOC.CTH ---
Cardiology Progress Note - Subjective NO complaints today - Objective Vital Signs Temp Pulse Resp BP BP Pulse Ox 12/26/18 04:15 98.2 F 78 20 159/71 H 95 12/25/18 20:50 87 152/65 H 12/25/18 20:48 98.9 F 87 18 152/65 H 95 Weight 155 lb 12/24/18 12/25/18 12/26/18 06:59 06:59 06:59 Intake Total 1022 1830 770 Output Total 1850 1900 1300 Balance -828 -70 -530 - Physical Examination General/Neuro: alert & oriented x3, NAD Neck: carotid US brisk, no JVD present Lungs: CTA, unlabored respirations Heart: PMI normal, RRR Abdomen: no HSM, NT/ND, soft Extremities: + femoral B - Labs Result Diagrams: 12/26/18 05:59 12/26/18 05:59 Troponin/CKMB CK-MB (CK-2) 1.5 ng/mL (0-6.6) 12/22/18 19:40 Troponin I 0.057 ng/mL (< 0.028) H 12/23/18 01:59 - Assessment/Plan GI bleed CAD s/p stent to LAD BMS RI Recent venous duplex suggests only superficial thrombosis to the UE without extensikon inthe the deep system Recommend continuing ASA, plavix and stopping eliquis Can use warm compresses, compression to the UE if symptomatic Proceed with EGD, colonscopy if active bleeding or guaic (+); otherwise given recent stent and flash pulmonary edema, would recommend conservative treatment Please reconsult if needed.
[2018-12-26 06:52] LABS: Anion Gap 11 mmol/L (10-20); BUN (Urea Nitrogen) 25 mg/dL (9.8-20.1); Calc. Creatinine Clearance 28 mL/min (70-130); Calcium 8.9 mg/dL (7.8-10.44); Carbon Dioxide 23 mmol/L (23-31); Chloride 112 mmol/L (98-107); Estimated GFR-MDRD 29; Glucose 96 mg/dL (83-110); Potassium 3.9 mmol/L (3.5-5.1); Sodium 142 mmol/L (136-145)
[2018-12-26] MEDS: Insulin Glargine 20 UNITS in Pre-Filled Syringe 1 EACH SC SCH (09:46)
[2018-12-26] MEDS: Sodium Bicarbonate Tab 325 MG TAB PO SCH ×2 (09:47→20:55)
[2018-12-26] MEDS: Metoprolol Tartrate 50 MG TAB PO SCH ×2 (09:47→20:55)
[2018-12-26] MEDS: Amlodipine 5 MG TAB PO SCH ×2 (09:47→20:55)
[2018-12-26] MEDS: Phenazopyridine HCl 97.5 MG TABLET PO SCH ×3 (09:47→17:04)
[2018-12-26] MEDS: Sodium Chloride 0.9% (PF) 10 ML VIAL FS PRN ×2 (09:47→20:55)
[2018-12-26] MEDS: Pantoprazole 40 MG VIAL IVP SCH ×2 (09:47→20:55)
[2018-12-26] MEDS: Senokot S 8.6-50 MG TAB PO SCH ×2 (09:47→20:55)
[2018-12-26] MEDS: Sodium Chloride 0.9% 1,000 ML IV SCH (09:51)
[2018-12-26 09:52] LABS: Vancomycin, Trough 18.5 ug/mL
[2018-12-26] MEDS ORDERED: Vancomycin HCl 1 GM in Premix Bag 1 BAG IVPB SCH (10:00)
--- NOTE | 2018-12-26 12:01 | PQF ---
CLINICAL DOCUMENTATION IMPROVEMENT CLARIFICATION FORM: ICD-10 Updated PLEASE DO AN ADDENDUM TO THE PROGRESS NOTE WITH ANY DOCUMENTATION UPDATES OR ADDITIONS AND CARRY THROUGH TO DC SUMMARY. THANK YOU. DATE: 12/26/2018; 12/27/2018 ATTN: Dr. Jain Please exercise your independent, professional judgment in responding to the clarification form. Clinical indicators are provided on the bottom of this form for your review Please check appropriate box(s): ONSET OF INFARCTION: [ X ] Onset Less than 4 weeks of admission [ ] Onset Greater than 4 weeks of admission [ ] Other diagnosis [ ] Unable to determine CLINICAL INDICATORS - SIGNS / SYMPTOMS / LABS H&P 12/22: HX: Recent [id number] [place] with LAD stent placement PN 12/25: CAD. S/p stenting of LAD 11/27/2018. RISKS: H&P: Pt was discharged from this facility approximately 2 weeks ago with dx of [id number] [place], nonsustained ventricular tachycardia, and respiratory failure requiring intubation x2. She was extubated on Dec 05, 2017. TREATMENT: H&P: Continue aspirin and Plavix Cardiology Consult Thank you, Yoly (This form is maintained as a part of the permanent medical record) 2015 [employer], [employer]. All Rights Reserved Yoly Davila RN, BSN [email or web address] Office: [phone] [facility]
[2018-12-26] MEDS: Vancomycin HCl 750 MG in Sodium Chloride 0.9% 250 ML 250 ML IVPB SCH (12:40)
--- NOTE | 2018-12-26 13:11 | PRG ---
DATE OF SERVICE: 12/26/2018 SUBJECTIVE: Patient was seen and examined at bedside and overnight events noted. Patient denies any shortness of breath or chest pain or palpitation. No history of nausea or vomiting or diarrhea or fever or chills or cramps. OBJECTIVE: GENERAL: This is an elderly female, in no apparent distress. VITAL SIGNS: Temperature 96, pulse 70, respiratory rate 20, blood pressure 113/63. HEENT: Atraumatic, normocephalic. Oral mucosa is moist NECK: Supple. CARDIOVASCULAR: S1, S2 heard. Rate and rhythm regular. RESPIRATORY: Clear to auscultation. GASTROINTESTINAL: Abdomen is soft. MUSCULOSKELETAL: No tenderness. No edema. DERMATOLOGIC: No skin rash. NEUROLOGIC: Alert and awake and oriented X3. No focal neurologic deficits. Moving all the extremities. PSYCHIATRIC: Mood and affect normal. LABORATORY DATA: Potassium is 3.9, BUN is 75, creatinine is 1.6. ASSESSMENT AND PLAN: 1. Chronic kidney disease stage 4. Renal function is stable. Currently on IV fluids. Cautious administration of IV fluids given her cardiac status and anemia. 2. Hypertension. 3. Edema. 4. Cardiorenal syndrome. Renal function is stable. Cautious use of IV fluids recommended and I will sign off. Please call back with any questions. Job ID: [id number]
--- NOTE | 2018-12-26 13:47 | PRG ---
DATE OF SERVICE: 12/26/2018 SUBJECTIVE: Ms. Mitchell today notes dysphagia for solids. She wonders that is related to her anemia. She has had no vomiting. She has had no bolus obstruction. This has been going on for few months especially with dry fruits. MEDICATIONS: She continues on Protonix and vancomycin. OBJECTIVE: VITAL SIGNS: Temperature is 98, respiratory rate 16, blood pressure 173/75. LUNGS: Clear. HEART: Regular rhythm. ABDOMEN: Nontender. She is eating regular diet. LABORATORY DATA: White count 7.8, hemoglobin 8.6. BUN and creatinine are 25 and 1.68. Microbiology, no stool. ASSESSMENT: 1. Multifactorial anemia. She has had no signs of overt GI bleeding. She has had no Hemoccult done. She has had some issues with mild iron deficiency in the past. 2. Cardiac history as outlined in previous notes. Dr. Kim initially recommended not proceeding with endoscopies, but today he felt that she is stable from a cardiovascular standpoint, now we could. She has been stable here this admission, but does have a history of recent stent placement. She was advised that she go back on her Plavix and aspirin and I think that is fine to do today and is convey that to the primary care doctor seeing him today. 3. Dysphagia. This is a new symptom. She is very concerned about her history of ulcers, I have informed her that it is unlikely she is on PPIs on the baseline at home. With her dysphagia, we will go ahead and set up an EGD for tomorrow. I have recommended to her that if we are going to further evaluate her anemia, we can proceed with a colonoscopy at the same time. However, she is refusing that again today, so we will just proceed with EGD tomorrow. Job ID: [id number]
--- NOTE | 2018-12-26 14:29 | PDOC.PN ---
- Subjective Encounter Start Date: 12/26/18 Encounter Start Time: 14:27 Subjective: feels much better today -: c/o dysphagia and heratburn.reports h/o stomach ulcers - Objective Resuscitation Status - Order Detail: 12/25/18 17:13 Resuscitation Status Routine Resuscitation Status: FULL: Full Resuscitation Discussed with: as discussed by ptw Palliative care team MAR Reviewed: Yes Vital Signs & Weight: Vital Signs (12 hours) Temp Pulse Pulse Pulse Resp BP BP 12/26/18 12:09 16 12/26/18 11:48 98.6 F 70 16 12/26/18 10:40 85 88 190/78 H 189/79 H 12/26/18 07:49 98.7 F 83 15 12/26/18 04:15 98.2 F 78 20 BP BP Pulse Ox 12/26/18 12:09 131/63 96 12/26/18 11:48 173/75 H 96 12/26/18 10:40 12/26/18 07:49 160/90 H 95 12/26/18 04:15 159/71 H 95 Weight Weight 155 lb I&O: 12/25/18 12/26/18 12/27/18 06:59 06:59 06:59 Intake Total 1830 770 Output Total 1900 1300 Balance -70 -530 Result Diagrams: 12/26/18 05:59 12/26/18 05:59 Additional Labs: Accuchecks 12/26/18 12/26/18 12/26/18 11:54 09:57 05:07 POC Glucose 213 H 229 H 104 12/25/18 12/25/18 20:16 16:54 POC Glucose 174 H 75 Microbiology 12/22/18 19:53 Urine clean catch Urine Culture - Final Enterococcus faecalis Yeast species Laboratory Tests 12/22/18 12/22/18 12/23/18 19:40 19:40 04:03 Hgb 7.6 L Creatinine 3.07 H 2.65 H 12/23/18 12/23/18 12/24/18 04:03 16:30 05:31 Hgb 7.7 L 7.3 L Creatinine 2.21 H 12/24/18 12/25/18 12/25/18 12:03 06:15 13:29 Hgb 8.8 L 8.7 L 8.4 L Creatinine 12/26/18 12/26/18 05:59 05:59 Hgb 8.6 L Creatinine 1.68 H Phys Exam - Physical Examination Constitutional: NAD HEENT: PERRLA, moist MMs, sclera anicteric, oral pharynx no lesions Neck: no nodes, no JVD, supple, full ROM Respiratory: no wheezing, no rales, no rhonchi, clear to auscultation bilateral Cardiovascular: RRR, no significant murmur, no rub Gastrointestinal: soft, non-tender, no distention, positive bowel sounds Musculoskeletal: no edema, pulses present Neurological: non-focal, normal sensation, moves all 4 limbs Psychiatric: normal affect, A&O x 3 Skin: no rash Dx/Plan (1) UTI (urinary tract infection) Status: Acute Qualifiers: Indwelling urinary catheter type: indwelling urethral catheter Comment: Enterococcal fecalis (2) Anemia Code(s): D64.9 - ANEMIA, UNSPECIFIED Status: Acute Comment: Suspect ACD with some acute componenet. Mild GIB can not r/o but Pt refuses endoscopy and is also a high risk for procedure.Monitor. PPI.Holding off ASa,Plavix and eliquis (3) Hyperglycemia due to type 2 diabetes mellitus Code(s): E11.65 - TYPE 2 DIABETES MELLITUS WITH HYPERGLYCEMIA Status: Chronic Comment: improved.increase SSI to aggressive.cont lantus.monitor (4) CAD (coronary artery disease) Code(s): I25.10 - ATHSCL HEART DISEASE OF [place] CORONARY ARTERY W/O ANG PCTRS Status: Chronic Comment: s/p BMS Stenting of LAD 11/27/2018 (5) CHF (congestive heart failure), NYHA class III Code(s): I50.9 - HEART FAILURE, UNSPECIFIED Status: Chronic Qualifiers: Congestive heart failure type: diastolic Congestive heart failure chronicity: chronic Qualified Code(s): I50.32 - Chronic diastolic (congestive ) heart failure Comment: EF 55%, diastolic dysfunction (6) CKD (chronic kidney disease) stage 4, GFR 15-29 ml/min Code(s): N18.4 - CHRONIC KIDNEY DISEASE, STAGE 4 (SEVERE) Status: Chronic (7) DM type 2 (diabetes mellitus, type 2) Status: Chronic Qualifiers: Diabetes mellitus chcf insulin use: with chcf use Diabetes mellitus complication status: with kidney complications Diabetes mellitus complication detail: with chronic kidney disease Chronic kidney disease stage : stage 4 (severe) Qualified Code(s): E11.22 - Type 2 diabetes mellitus with diabetic chronic kidney disease; N18.4 - Chronic kidney disease, stage 4 (severe ); Z79.4 - intermediate card tender (current) use of insulin (8) HTN (hypertension) Code(s): I10 - ESSENTIAL (PRIMARY) HYPERTENSION Status: Chronic Qualifiers: Hypertension type: essential hypertension Qualified Code(s): I10 - Essential (primary) hypertension (9) Hypothyroid Code(s): E03.9 - HYPOTHYROIDISM, UNSPECIFIED Status: Chronic Qualifiers: Hypothyroidism type: unspecified Qualified Code(s): E03.9 - Hypothyroidism , unspecified (10) Chronic atrial fibrillation Code(s): I48.2 - CHRONIC ATRIAL FIBRILLATION Status: Chronic Comment: off of any AC given possible GIB. 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 will take off of eliquis permanantly -: renal Fx improving -: increase PPi to BID given h/o PUD & symptoms of GERD?GIB * . h/h stable.monitor Review of Systems - Review of Systems Constitutional: weakness. negative: fever, chills, sweats, malaise, other ENT: negative: Ear Pain, Ear Discharge, Nose Pain, Nose Discharge, Nose Congestion, Mouth Pain, Mouth Swelling, Throat Pain, Throat Swelling, Other Respiratory: negative: Cough, Dry, Shortness of Breath, Hemoptysis, SOB with Excertion, Pleuritic Pain, Sputum, Wheezing Cardiovascular: negative: chest pain, palpitations, orthopnea, paroxysmal nocturnal dyspnea, edema, light headedness, other Gastrointestinal: Other. negative: Nausea, Vomiting, Abdominal Pain, Diarrhea, Constipation, Melena, Hematochezia Genitourinary: negative: Dysuria, Frequency, Incontinence, Hematuria, Retention , Other Musculoskeletal: negative: Neck Pain, Shoulder Pain, Arm Pain, Back Pain, Hand Pain, Leg Pain, Foot Pain, Other Skin: negative: Rash, Lesions, Hernesto, Bruising, Other Neurological: negative: Weakness, Numbness, Incoordination, Change in Speech, Confusion, Seizures, Other - Medications/Allergies Allergies/Adverse Reactions: Allergies Allergy/AdvReac Type Severity Reaction Status Date / Time apple Allergy Verified 12/23/18 14:58 hydrocodone Allergy Verified 12/23/18 14:58 Iodine and Iodide Containing Allergy Verified 12/23/18 14:58 Produc onion Allergy Verified 12/23/18 14:58 Medications: Current Medications Acetaminophen (Tylenol) 650 mg PO Q4H PRN PRN Reason: Headache/Fever/Mild Pain (1-3) Last Admin: 12/25/18 20:55 Dose: 650 mg Albuterol/Ipratropium (Duoneb) 3 ml NEB [id number] PRN PRN Reason: SOB &/or Wheezing Amlodipine Besylate (Norvasc) 5 mg PO BID [facility] Last Admin: 12/26/18 09:47 Dose: 5 mg Aspirin (Ecotrin) 81 mg PO DAILY [facility] Calcium Carbonate (Tums) 1,000 mg PO Q4H PRN PRN Reason: Heartburn or Indigestion Clopidogrel Bisulfate (Plavix) 75 mg PO DAILY [facility] Dextrose/Water (Dextrose 50%) 25 gm SLOW IVP PRN PRN PRN Reason: Hypoglycemia Dextrose/Water (Dextrose 50%) 25 gm SLOW IVP PRN PRN PRN Reason: Hypoglycemia Glucagon (Glucagon) 1 mg IM PRN PRN PRN Reason: Hypoglycemia Glucagon (Glucagon) 1 mg IM PRN PRN PRN Reason: Hypoglycemia Insulin Glargine 20 units/ (Miscellaneous Medication) 0.2 mls @ 0 mls/hr SC QAM [facility] Last Admin: 12/26/18 09:46 Dose: 0.2 mls Dextrose/Water (D5w) 1,000 mls @ 0 mls/hr IV .Q0M PRN PRN Reason: Hypoglycemia Sodium Chloride (Normal Saline 0.9%) 1,000 mls @ 50 mls/hr IV .Q20H [facility] Last Admin: 12/26/18 09:51 Dose: 1,000 mls Dextrose/Water (D5w) 1,000 mls @ 0 mls/hr IV .Q0M PRN PRN Reason: Hypoglycemia Vancomycin HCl 750 mg/ Sodium (Chloride) 250 mls @ 250 mls/hr IVPB 1100 [facility] Last Admin: 12/26/18 12:40 Dose: 250 mls Insulin Human Regular (Humulin R) 0 units SC .BEDTIME SLIDING SC PRN PRN Reason: Bedtime Correctional Scale Last Admin: 12/26/18 11:54 Dose: 2 unit Insulin Human Regular (Humulin R) 0 units SC .AGGRESSIVE SLIDING PRN PRN Reason: Aggressive Sliding Scale Levothyroxine Sodium (Synthroid) 25 mcg PO 0600 [facility] Last Admin: 12/26/18 05:08 Dose: 25 mcg Melatonin (Melatonin) 3 mg PO HS [facility] Last Admin: 12/25/18 20:50 Dose: 3 mg Metoprolol Tartrate (Lopressor) 50 mg PO BID [facility] Last Admin: 12/26/18 09:47 Dose: 50 mg Mirabegron (Myrbetriq Er) 50 mg PO DAILY [facility] Last Admin: 12/26/18 09:48 Dose: 50 mg Miscellaneous Medication (Pharmacy To Dose) 1 each IVPB PRN PRN PRN Reason: Pharmacy to dose Nitroglycerin (Nitrostat) 0.4 mg PO Q5MIN PRN PRN Reason: Chest Pain Ondansetron HCl (Zofran Odt) 4 mg PO Q6H PRN PRN Reason: Nausea/Vomiting Ondansetron HCl (Zofran) 4 mg IVP Q6H PRN PRN Reason: Nausea/Vomiting Pantoprazole Sodium (Protonix) 40 mg IVP Q12HR [facility] Phenazopyridine HCl (Azo Standard) 97.5 mg PO PC [facility] Last Admin: 12/26/18 12:10 Dose: 97.5 mg Polyethylene Glycol (Miralax) 17 gm PO DAILY PRN PRN Reason: Constipation Senna/Docusate Sodium (Senokot S) 1 tab PO BID [facility] Last Admin: 12/26/18 09:47 Dose: 1 tab Sertraline HCl (Zoloft) 25 mg PO QAM [facility] Last Admin: 12/26/18 09:47 Dose: 25 mg Sodium Bicarbonate (Bicarbonate, Sodium) 650 mg PO BID [facility] Last Admin: 12/26/18 09:47 Dose: 650 mg Sodium Chloride (Normal Saline Pf) 10 ml FS PRN PRN PRN Reason: RECONSTITUTION Last Admin: 12/26/18 09:47 Dose: 10 ml Sodium Chloride (Flush - Normal Saline) 10 ml IVF PRN PRN PRN Reason: Saline Flush
[2018-12-26] MEDS: Melatonin 3 MG TAB PO SCH (20:54)
[2018-12-27] MEDS: Acetaminophen 325 MG TAB PO PRN (04:15)
[2018-12-27] MEDS: Levothyroxine Sodium 25 MCG TAB PO SCH (05:45)
[2018-12-27 05:47] LABS: Hemoglobin 8.3 g/dL (12.0-16.0)
[2018-12-27] MEDS: Sodium Chloride 0.9% 1,000 ML IV SCH ×2 (05:51→22:15)
[2018-12-27] MEDS: Metoprolol Tartrate 50 MG TAB PO SCH ×2 (08:24→21:15)
[2018-12-27] MEDS ORDERED: Promethazine HCl 25 MG/ML VIAL IM PRN (10:59)
[2018-12-27] MEDS ORDERED: Ondansetron HCl/PF 4 MG/2 ML Vial IVP PRN (10:59)
[2018-12-27] MEDS ORDERED: Promethazine HCl 25 MG/ML VIAL SLOW IVP PRN (10:59)
--- NOTE | 2018-12-27 11:41 | OP ---
DATE OF PROCEDURE: 12/26/2018 PROCEDURE PERFORMED: Esophagogastroduodenoscopy with esophageal dilation over guidewire. PREOPERATIVE DIAGNOSES: Anemia and esophageal dysphagia. DESCRIPTION OF PROCEDURE: Informed consent was obtained from the patient. She was sedated with total intravenous anesthesia. The bite block was placed and the endoscope was advanced easily to the second portion of the duodenum and retroflexion was performed in the stomach. The esophagus overall was normal; however, she did have a ring in the distal esophagus at the Z-line. This was dilated to 18 mm with a Savary dilator; however, there was no change on second look endoscopy. A 1 cm hiatal hernia was present. The stomach was otherwise normal including retroflexed views. The pylorus and first and second portions of the duodenum were normal. IMPRESSION: 1. Distal esophageal ring, dilated to 18 mm with a Savary dilator. No change on second look endoscopy. 2. 1 cm hiatal hernia. 3. Otherwise normal esophagogastroduodenoscopy. RECOMMENDATION: Colonoscopy tomorrow to further evaluate anemia if the patient is willing. Job ID: [id number]
[2018-12-27] MEDS ORDERED: Sodium Chloride 0.9% 10 ML ONE (12:00)
[2018-12-27] MEDS: Vancomycin HCl 750 MG in Sodium Chloride 0.9% 250 ML 250 ML IVPB SCH (12:10)
[2018-12-27] MEDS: Aspirin 81 mg Enteric Coated Tablet PO SCH (12:24)
[2018-12-27] MEDS: Senokot S 8.6-50 MG TAB PO SCH ×2 (12:24→21:14)
[2018-12-27] MEDS: Phenazopyridine HCl 97.5 MG TABLET PO SCH ×3 (12:24→18:00)
[2018-12-27] MEDS: Clopidogrel Bisulfate 75 MG TAB PO SCH (12:24)
[2018-12-27] MEDS: Pantoprazole 40 MG VIAL IVP SCH ×2 (12:25→21:15)
[2018-12-27 12:37] LABS: Calcium 9.4 mg/dL (7.8-10.44); Chloride 111 mmol/L (98-107); Glucose 84 mg/dL (83-110); Potassium 3.9 mmol/L (3.5-5.1); Sodium 141 mmol/L (136-145)
[2018-12-27 12:39] LABS: Anion Gap 12 mmol/L (10-20); Carbon Dioxide 22 mmol/L (23-31)
[2018-12-27] MEDS ORDERED: PROPOFOL 200 MG/20 ML VIAL ONE (12:40)
[2018-12-27] MEDS ORDERED: Lidocaine 1% PF 5 ML VIAL ONE (12:40)
[2018-12-27 12:41] LABS: Calc. Creatinine Clearance 29 mL/min (70-130); Estimated GFR-MDRD 30
[2018-12-27 12:42] LABS: BUN (Urea Nitrogen) 19 mg/dL (9.8-20.1)
[2018-12-27] MEDS: Amlodipine 5 MG TAB PO SCH ×2 (12:59→21:15)
[2018-12-27] MEDS: Sodium Bicarbonate Tab 325 MG TAB PO SCH ×2 (12:59→21:25)
[2018-12-27] MEDS: Insulin Glargine 20 UNITS in Pre-Filled Syringe 1 EACH SC SCH (13:38)
--- NOTE | 2018-12-27 14:17 | PDOC.PN ---
- Subjective Encounter Start Date: 12/27/18 Encounter Start Time: 14:16 Subjective: s/p EGD and feels good.no pain or discomfort. -: no blood in stools - Objective Resuscitation Status - Order Detail: 12/25/18 17:13 Resuscitation Status Routine Resuscitation Status: FULL: Full Resuscitation Discussed with: as discussed by ptw Palliative care team MAR Reviewed: Yes Vital Signs & Weight: Vital Signs (12 hours) Temp Pulse Resp BP BP Pulse Ox 12/27/18 08:33 99.0 F 77 16 134/63 97 12/27/18 04:25 98.5 F 78 14 155/71 H 93 L Weight Weight 155 lb I&O: 12/26/18 12/27/18 12/28/18 06:59 06:59 06:59 Intake Total 770 1727 Output Total 1300 1700 Balance -530 27 Result Diagrams: 12/27/18 05:28 12/27/18 12:00 Additional Labs: Accuchecks 12/27/18 12/27/18 12/26/18 09:39 05:45 20:25 POC Glucose 88 80 150 H 12/26/18 17:09 POC Glucose 167 H Phys Exam - Physical Examination Constitutional: NAD HEENT: PERRLA, moist MMs, sclera anicteric, oral pharynx no lesions Neck: no nodes, no JVD, supple, full ROM Respiratory: no wheezing, no rales, no rhonchi, clear to auscultation bilateral Cardiovascular: RRR, no significant murmur, no rub Gastrointestinal: soft, non-tender, no distention, positive bowel sounds Musculoskeletal: no edema, pulses present Neurological: non-focal, normal sensation, moves all 4 limbs Psychiatric: normal affect, A&O x 3 Skin: no rash Dx/Plan (1) UTI (urinary tract infection) Status: Acute Qualifiers: Indwelling urinary catheter type: indwelling urethral catheter Comment: Enterococcal fecalis (2) Anemia Code(s): D64.9 - ANEMIA, UNSPECIFIED Status: Acute Comment: Suspect ACD with some acute componenet. Mild GIB can not r/o but Pt refuses endoscopy and is also a high risk for procedure.Monitor. PPI.Holding off ASa,Plavix and eliquis (3) Hyperglycemia due to type 2 diabetes mellitus Code(s): E11.65 - TYPE 2 DIABETES MELLITUS WITH HYPERGLYCEMIA Status: Chronic Comment: improved.increase SSI to aggressive.cont lantus.monitor (4) CAD (coronary artery disease) Code(s): I25.10 - ATHSCL HEART DISEASE OF [place] CORONARY ARTERY W/O ANG PCTRS Status: Chronic Comment: s/p BMS Stenting of LAD 11/27/2018 (5) CHF (congestive heart failure), NYHA class III Code(s): I50.9 - HEART FAILURE, UNSPECIFIED Status: Chronic Qualifiers: Congestive heart failure type: diastolic Congestive heart failure chronicity: chronic Qualified Code(s): I50.32 - Chronic diastolic (congestive ) heart failure Comment: EF 55%, diastolic dysfunction (6) CKD (chronic kidney disease) stage 4, GFR 15-29 ml/min Code(s): N18.4 - CHRONIC KIDNEY DISEASE, STAGE 4 (SEVERE) Status: Chronic (7) DM type 2 (diabetes mellitus, type 2) Status: Chronic Qualifiers: Diabetes mellitus management nurse rn insulin use: with care home use Diabetes mellitus complication status: with kidney complications Diabetes mellitus complication detail: with chronic kidney disease Chronic kidney disease stage : stage 4 (severe) Qualified Code(s): E11.22 - Type 2 diabetes mellitus with diabetic chronic kidney disease; N18.4 - Chronic kidney disease, stage 4 (severe ); Z79.4 - manager fund (current) use of insulin (8) HTN (hypertension) Code(s): I10 - ESSENTIAL (PRIMARY) HYPERTENSION Status: Chronic Qualifiers: Hypertension type: essential hypertension Qualified Code(s): I10 - Essential (primary) hypertension (9) Hypothyroid Code(s): E03.9 - HYPOTHYROIDISM, UNSPECIFIED Status: Chronic Qualifiers: Hypothyroidism type: unspecified Qualified Code(s): E03.9 - Hypothyroidism , unspecified (10) Chronic atrial fibrillation Code(s): I48.2 - CHRONIC ATRIAL FIBRILLATION Status: Chronic Comment: off of any AC given possible GIB. 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 pt agreeable. -: re started on ASA and plavix by Cardiology.H/H stable.follow -: renal Fx stable -: likely DC to rehab tomorrow after Colonoscopy * . Review of Systems - Review of Systems Constitutional: negative: fever, chills, sweats, weakness, malaise, other ENT: negative: Ear Pain, Ear Discharge, Nose Pain, Nose Discharge, Nose Congestion, Mouth Pain, Mouth Swelling, Throat Pain, Throat Swelling, Other Respiratory: negative: Cough, Dry, Shortness of Breath, Hemoptysis, SOB with Excertion, Pleuritic Pain, Sputum, Wheezing Cardiovascular: negative: chest pain, palpitations, orthopnea, paroxysmal nocturnal dyspnea, edema, light headedness, other Gastrointestinal: negative: Nausea, Vomiting, Abdominal Pain, Diarrhea, Constipation, Melena, Hematochezia, Other Genitourinary: negative: Dysuria, Frequency, Incontinence, Hematuria, Retention , Other Musculoskeletal: negative: Neck Pain, Shoulder Pain, Arm Pain, Back Pain, Hand Pain, Leg Pain, Foot Pain, Other Neurological: negative: Weakness, Numbness, Incoordination, Change in Speech, Confusion, Seizures, Other - Medications/Allergies Allergies/Adverse Reactions: Allergies Allergy/AdvReac Type Severity Reaction Status Date / Time apple Allergy Verified 12/23/18 14:58 hydrocodone Allergy Verified 12/23/18 14:58 Iodine and Iodide Containing Allergy Verified 12/23/18 14:58 Produc onion Allergy Verified 12/23/18 14:58 Medications: Current Medications Acetaminophen (Tylenol) 650 mg PO Q4H PRN PRN Reason: Headache/Fever/Mild Pain (1-3) Last Admin: 12/27/18 04:15 Dose: 650 mg Albuterol/Ipratropium (Duoneb) 3 ml NEB [id number] PRN PRN Reason: SOB &/or Wheezing Amlodipine Besylate (Norvasc) 5 mg PO BID [facility] Last Admin: 12/27/18 12:59 Dose: 5 mg Aspirin (Ecotrin) 81 mg PO DAILY [facility] Last Admin: 12/27/18 12:24 Dose: 81 mg Calcium Carbonate (Tums) 1,000 mg PO Q4H PRN PRN Reason: Heartburn or Indigestion Clopidogrel Bisulfate (Plavix) 75 mg PO DAILY [facility] Last Admin: 12/27/18 12:24 Dose: 75 mg Dextrose/Water (Dextrose 50%) 25 gm SLOW IVP PRN PRN PRN Reason: Hypoglycemia Dextrose/Water (Dextrose 50%) 25 gm SLOW IVP PRN PRN PRN Reason: Hypoglycemia Glucagon (Glucagon) 1 mg IM PRN PRN PRN Reason: Hypoglycemia Glucagon (Glucagon) 1 mg IM PRN PRN PRN Reason: Hypoglycemia Insulin Glargine 20 units/ (Miscellaneous Medication) 0.2 mls @ 0 mls/hr SC QAM [facility] Last Admin: 12/26/18 09:46 Dose: 0.2 mls Dextrose/Water (D5w) 1,000 mls @ 0 mls/hr IV .Q0M PRN PRN Reason: Hypoglycemia Sodium Chloride (Normal Saline 0.9%) 1,000 mls @ 50 mls/hr IV .Q20H [facility] Last Admin: 12/27/18 05:51 Dose: Not Given Dextrose/Water (D5w) 1,000 mls @ 0 mls/hr IV .Q0M PRN PRN Reason: Hypoglycemia Vancomycin HCl 750 mg/ Sodium (Chloride) 250 mls @ 250 mls/hr IVPB 1100 [facility] Last Admin: 12/27/18 12:10 Dose: 250 mls Insulin Human Regular (Humulin R) 0 units SC .BEDTIME SLIDING SC PRN PRN Reason: Bedtime Correctional Scale Last Admin: 12/26/18 11:54 Dose: 2 unit Insulin Human Regular (Humulin R) 0 units SC .AGGRESSIVE SLIDING PRN PRN Reason: Aggressive Sliding Scale Last Admin: 12/26/18 17:09 Dose: 3 unit Levothyroxine Sodium (Synthroid) 25 mcg PO 0600 [facility] Last Admin: 12/27/18 05:45 Dose: 25 mcg Melatonin (Melatonin) 3 mg PO HS [facility] Last Admin: 12/26/18 20:54 Dose: 3 mg Metoprolol Tartrate (Lopressor) 50 mg PO BID [facility] Last Admin: 12/27/18 08:24 Dose: 50 mg Mirabegron (Myrbetriq Er) 50 mg PO DAILY [facility] Last Admin: 12/27/18 12:59 Dose: 50 mg Miscellaneous Medication (Pharmacy To Dose) 1 each IVPB PRN PRN PRN Reason: Pharmacy to dose Nitroglycerin (Nitrostat) 0.4 mg PO Q5MIN PRN PRN Reason: Chest Pain Ondansetron HCl (Zofran Odt) 4 mg PO Q6H PRN PRN Reason: Nausea/Vomiting Ondansetron HCl (Zofran) 4 mg IVP Q6H PRN PRN Reason: Nausea/Vomiting Pantoprazole Sodium (Protonix) 40 mg IVP Q12HR [facility] Last Admin: 12/27/18 12:25 Dose: 40 mg Phenazopyridine HCl (Azo Standard) 97.5 mg PO PC [facility] Last Admin: 12/27/18 13:00 Dose: Not Given Polyethylene Glycol (Miralax) 17 gm PO DAILY PRN PRN Reason: Constipation Polyethylene Glycol/Electrolytes (Golytely) 4,000 ml PO 1500 [facility] Stop: 12/27/18 23:59 Senna/Docusate Sodium (Senokot S) 1 tab PO BID [facility] Last Admin: 12/27/18 12:24 Dose: 1 tab Sertraline HCl (Zoloft) 25 mg PO QAM [facility] Last Admin: 12/27/18 12:24 Dose: 25 mg Sodium Bicarbonate (Bicarbonate, Sodium) 650 mg PO BID [facility] Last Admin: 12/27/18 12:59 Dose: 650 mg Sodium Chloride (Normal Saline Pf) 10 ml FS PRN PRN PRN Reason: RECONSTITUTION Last Admin: 12/26/18 20:55 Dose: 10 ml Sodium Chloride (Flush - Normal Saline) 10 ml IVF PRN PRN PRN Reason: Saline Flush
[2018-12-27] MEDS ORDERED: GoLYTELY 4,000 ml Bottle PO SCH (15:00)
[2018-12-27] MEDS: Melatonin 3 MG TAB PO SCH (21:15)
[2018-12-28] MEDS: Levothyroxine Sodium 25 MCG TAB PO SCH (05:30)
[2018-12-28] MEDS ORDERED: Dextrose 5 %-0.45 % NaCl 1,000 ML IV SCH (08:00)
[2018-12-28 09:35] LABS: Hemoglobin 9.6 g/dL (12.0-16.0)
[2018-12-28 10:15] LABS: Vancomycin, Trough 22.9 ug/mL
[2018-12-28] MEDS ORDERED: Ondansetron HCl/PF 4 MG/2 ML Vial IVP PRN (10:31)
[2018-12-28] MEDS: Phenazopyridine HCl 97.5 MG TABLET PO SCH ×2 (11:52→11:53)
[2018-12-28] MEDS: Metoprolol Tartrate 50 MG TAB PO SCH (11:53)
[2018-12-28] MEDS: Senokot S 8.6-50 MG TAB PO SCH (11:53)
[2018-12-28] MEDS: Amlodipine 5 MG TAB PO SCH (11:53)
[2018-12-28] MEDS: Aspirin 81 mg Enteric Coated Tablet PO SCH (11:53)
[2018-12-28] MEDS: Clopidogrel Bisulfate 75 MG TAB PO SCH (11:53)
[2018-12-28] MEDS: Pantoprazole 40 MG VIAL IVP SCH (11:54)
[2018-12-28 12:50] VITALS: BP 136/65; TEMP 98.4
--- NOTE | 2018-12-28 13:16 | PDOC.PN ---
- Subjective Encounter Start Date: 12/28/18 Encounter Start Time: 13:14 Subjective: seen prior to Colonoscopy -: feels well. no GI bleeding.no CP/SOb - Objective Resuscitation Status - Order Detail: 12/25/18 17:13 Resuscitation Status Routine Resuscitation Status: FULL: Full Resuscitation Discussed with: as discussed by ptw Palliative care team MAR Reviewed: Yes Vital Signs & Weight: Vital Signs (12 hours) Temp Pulse Resp BP Pulse Ox 12/28/18 12:00 98.4 F 75 16 136/65 96 12/28/18 11:53 81 12/28/18 08:00 98.7 F 81 18 138/66 95 12/28/18 07:27 95 12/28/18 04:25 98.6 F 71 16 148/68 H 94 L Weight Weight 150 lb 1.6 oz I&O: 12/27/18 12/28/18 12/29/18 06:59 06:59 06:59 Intake Total 1727 3802 Output Total 1700 2140 Balance 27 1662 Result Diagrams: 12/28/18 09:27 12/27/18 12:00 Additional Labs: Accuchecks 12/28/18 12/28/18 12/27/18 09:51 05:32 22:40 POC Glucose 100 66 L 133 H 12/27/18 20:46 POC Glucose 62 L Microbiology 12/22/18 19:53 Urine clean catch Urine Culture - Final Enterococcus faecalis Yeast species Laboratory Tests 12/22/18 12/22/18 12/23/18 19:40 19:40 04:03 Hgb 7.6 L Creatinine 3.07 H 2.65 H 12/23/18 12/24/18 12/24/18 10:12 05:31 12:03 Hgb 7.3 L 8.8 L Creatinine 2.21 H 12/25/18 12/26/18 12/26/18 13:29 05:59 05:59 Hgb 8.4 L 8.6 L Creatinine 1.68 H 12/27/18 12/27/18 12/28/18 05:28 12:00 09:27 Hgb 8.3 L 9.6 L Creatinine 1.63 H Phys Exam - Physical Examination Constitutional: NAD HEENT: PERRLA, moist MMs, sclera anicteric, oral pharynx no lesions Neck: no nodes, no JVD, supple, full ROM Respiratory: no wheezing, no rales, no rhonchi, clear to auscultation bilateral Cardiovascular: RRR, no significant murmur, no rub Gastrointestinal: soft, non-tender, no distention, positive bowel sounds Musculoskeletal: no edema, pulses present Neurological: non-focal, normal sensation, moves all 4 limbs Psychiatric: normal affect, A&O x 3 Skin: no rash Dx/Plan (1) UTI (urinary tract infection) Status: Acute Qualifiers: Indwelling urinary catheter type: indwelling urethral catheter Comment: Enterococcal fecalis (2) Anemia Code(s): D64.9 - ANEMIA, UNSPECIFIED Status: Acute Comment: Suspect ACD with some acute componenet. EGD 12/27/18-NL.colonoscopy today.Cleared by cardiology to restart ASA and Plavix.H/H stable on both meds (3) Hyperglycemia due to type 2 diabetes mellitus Code(s): E11.65 - TYPE 2 DIABETES MELLITUS WITH HYPERGLYCEMIA Status: Chronic Comment: improved.increase SSI to aggressive.cont lantus.monitor (4) CAD (coronary artery disease) Code(s): I25.10 - ATHSCL HEART DISEASE OF [place] CORONARY ARTERY W/O ANG PCTRS Status: Chronic Comment: s/p BMS Stenting of LAD 11/27/2018 (5) CHF (congestive heart failure), NYHA class III Code(s): I50.9 - HEART FAILURE, UNSPECIFIED Status: Chronic Qualifiers: Congestive heart failure type: diastolic Congestive heart failure chronicity: chronic Qualified Code(s): I50.32 - Chronic diastolic (congestive ) heart failure Comment: EF 55%, diastolic dysfunction (6) CKD (chronic kidney disease) stage 4, GFR 15-29 ml/min Code(s): N18.4 - CHRONIC KIDNEY DISEASE, STAGE 4 (SEVERE) Status: Chronic (7) DM type 2 (diabetes mellitus, type 2) Status: Chronic Qualifiers: Diabetes mellitus retirement insulin use: with retirement use Diabetes mellitus complication status: with kidney complications Diabetes mellitus complication detail: with chronic kidney disease Chronic kidney disease stage : stage 4 (severe) Qualified Code(s): E11.22 - Type 2 diabetes mellitus with diabetic chronic kidney disease; N18.4 - Chronic kidney disease, stage 4 (severe ); Z79.4 - MCC (current) use of insulin (8) HTN (hypertension) Code(s): I10 - ESSENTIAL (PRIMARY) HYPERTENSION Status: Chronic Qualifiers: Hypertension type: essential hypertension Qualified Code(s): I10 - Essential (primary) hypertension (9) Hypothyroid Code(s): E03.9 - HYPOTHYROIDISM, UNSPECIFIED Status: Chronic Qualifiers: Hypothyroidism type: unspecified Qualified Code(s): E03.9 - Hypothyroidism , unspecified (10) Chronic atrial fibrillation Code(s): I48.2 - CHRONIC ATRIAL FIBRILLATION Status: Chronic Comment: off of any AC given possible GIB. 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 Review of Systems - Review of Systems Constitutional: weakness, malaise. negative: fever, chills, sweats, other ENT: negative: Ear Pain, Ear Discharge, Nose Pain, Nose Discharge, Nose Congestion, Mouth Pain, Mouth Swelling, Throat Pain, Throat Swelling, Other Respiratory: negative: Cough, Dry, Shortness of Breath, Hemoptysis, SOB with Excertion, Pleuritic Pain, Sputum, Wheezing Cardiovascular: negative: chest pain, palpitations, orthopnea, paroxysmal nocturnal dyspnea, edema, light headedness, other Gastrointestinal: negative: Nausea, Vomiting, Abdominal Pain, Diarrhea, Constipation, Melena, Hematochezia, Other Genitourinary: negative: Dysuria, Frequency, Incontinence, Hematuria, Retention , Other Neurological: negative: Weakness, Numbness, Incoordination, Change in Speech, Confusion, Seizures, Other - Medications/Allergies Allergies/Adverse Reactions: Allergies Allergy/AdvReac Type Severity Reaction Status Date / Time apple Allergy Verified 12/23/18 14:58 hydrocodone Allergy Verified 12/23/18 14:58 Iodine and Iodide Containing Allergy Verified 12/23/18 14:58 Produc onion Allergy Verified 12/23/18 14:58 Medications: Current Medications Acetaminophen (Tylenol) 650 mg PO Q4H PRN PRN Reason: Headache/Fever/Mild Pain (1-3) Last Admin: 12/27/18 04:15 Dose: 650 mg Albuterol/Ipratropium (Duoneb) 3 ml NEB [id number] PRN PRN Reason: SOB &/or Wheezing Amlodipine Besylate (Norvasc) 5 mg PO BID [facility] Last Admin: 12/28/18 11:53 Dose: 5 mg Aspirin (Ecotrin) 81 mg PO DAILY [facility] Last Admin: 12/28/18 11:53 Dose: 81 mg Calcium Carbonate (Tums) 1,000 mg PO Q4H PRN PRN Reason: Heartburn or Indigestion Clopidogrel Bisulfate (Plavix) 75 mg PO DAILY [facility] Last Admin: 12/28/18 11:53 Dose: 75 mg Dextrose/Water (Dextrose 50%) 25 gm SLOW IVP PRN PRN PRN Reason: Hypoglycemia Dextrose/Water (Dextrose 50%) 25 gm SLOW IVP PRN PRN PRN Reason: Hypoglycemia Glucagon (Glucagon) 1 mg IM PRN PRN PRN Reason: Hypoglycemia Glucagon (Glucagon) 1 mg IM PRN PRN PRN Reason: Hypoglycemia Dextrose/Water (D5w) 1,000 mls @ 0 mls/hr IV .Q0M PRN PRN Reason: Hypoglycemia Dextrose/Water (D5w) 1,000 mls @ 0 mls/hr IV .Q0M PRN PRN Reason: Hypoglycemia Vancomycin HCl 750 mg/ Sodium (Chloride) 250 mls @ 250 mls/hr IVPB 1100 [facility] Last Admin: 12/27/18 12:10 Dose: 250 mls Dextrose/Sodium Chloride (D5 1/2 Ns) 1,000 mls @ 75 mls/hr IV .[id number] [facility] Last Admin: 12/28/18 11:54 Dose: 1,000 mls Insulin Human Regular (Humulin R) 0 units SC .BEDTIME SLIDING SC PRN PRN Reason: Bedtime Correctional Scale Last Admin: 12/26/18 11:54 Dose: 2 unit Insulin Human Regular (Humulin R) 0 units SC .AGGRESSIVE SLIDING PRN PRN Reason: Aggressive Sliding Scale Last Admin: 12/26/18 17:09 Dose: 3 unit Levothyroxine Sodium (Synthroid) 25 mcg PO 0600 [facility] Last Admin: 12/28/18 05:30 Dose: 25 mcg Melatonin (Melatonin) 3 mg PO HS [facility] Last Admin: 12/27/18 21:15 Dose: 3 mg Metoprolol Tartrate (Lopressor) 50 mg PO BID [facility] Last Admin: 12/28/18 11:53 Dose: 50 mg Mirabegron (Myrbetriq Er) 50 mg PO DAILY [facility] Last Admin: 12/28/18 11:52 Dose: 50 mg Miscellaneous Medication (Pharmacy To Dose) 1 each IVPB PRN PRN PRN Reason: Pharmacy to dose Nitroglycerin (Nitrostat) 0.4 mg PO Q5MIN PRN PRN Reason: Chest Pain Ondansetron HCl (Zofran Odt) 4 mg PO Q6H PRN PRN Reason: Nausea/Vomiting Last Admin: 12/27/18 18:00 Dose: 4 mg Ondansetron HCl (Zofran) 4 mg IVP Q6H PRN PRN Reason: Nausea/Vomiting Ondansetron HCl (Pacu-Zofran) 4 mg IVP ONE PRN PRN Reason: Nausea/Vomiting Stop: 12/28/18 13:31 Pantoprazole Sodium (Protonix) 40 mg IVP Q12HR [facility] Last Admin: 12/28/18 11:54 Dose: 40 mg Phenazopyridine HCl (Azo Standard) 97.5 mg PO PC [facility] Last Admin: 12/28/18 11:53 Dose: 97.5 mg Polyethylene Glycol (Miralax) 17 gm PO DAILY PRN PRN Reason: Constipation Senna/Docusate Sodium (Senokot S) 1 tab PO BID [facility] Last Admin: 12/28/18 11:53 Dose: 1 tab Sertraline HCl (Zoloft) 25 mg PO QAM [facility] Last Admin: 12/28/18 11:52 Dose: 25 mg Sodium Bicarbonate (Bicarbonate, Sodium) 650 mg PO BID [facility] Last Admin: 12/27/18 21:25 Dose: 650 mg Sodium Chloride (Normal Saline Pf) 10 ml FS PRN PRN PRN Reason: RECONSTITUTION Last Admin: 12/26/18 20:55 Dose: 10 ml Sodium Chloride (Flush - Normal Saline) 10 ml IVF PRN PRN PRN Reason: Saline Flush
[2018-12-28] MEDS: Vancomycin HCl 750 MG in Sodium Chloride 0.9% 250 ML 250 ML IVPB SCH (13:38)
[2018-12-28] MEDS: Sodium Bicarbonate Tab 325 MG TAB PO SCH (13:38)
--- NOTE | 2018-12-28 13:50 | OP ---
DATE OF PROCEDURE: 12/28/2018 PROCEDURES PERFORMED: Colonoscopy with snare polypectomy. PREOPERATIVE DIAGNOSES: Anemia of undetermined etiology and possible anemia of acute blood loss on Plavix and Eliquis. Esophagogastroduodenoscopy was negative for bleeding source. DESCRIPTION OF PROCEDURE: Informed consent was obtained from the patient. She was sedated with total intravenous anesthesia. The rectal exam was performed and was normal. The colonoscope was advanced to the cecum, where the ileocecal valve and appendiceal orifice were clearly identified. There was mild diverticulosis in the sigmoid colon. A 1 cm polyp was removed by snare cautery polypectomy from the proximal transverse colon. A 4 to 5 mm polyp was removed from the proximal transverse colon by cold snare polypectomy. The colonoscopy was otherwise normal including retroflexed views in the rectum. Preparation quality was adequate. IMPRESSION: 1. Mild sigmoid diverticulosis. 2. 1 cm polyp removed from the proximal transverse colon by snare cautery polypectomy. 3. 5 mm polyp removed from the transverse colon by cold snare polypectomy. 4. Otherwise normal colonoscopy. RECOMMENDATIONS: 1. Follow trend of her hemoglobin. 2. There was no significant bleeding source identified endoscopically. 3. She could likely restart Eliquis as her hemoglobin improved and remained stable. 4. I will sign off for now. Please call, if GI can be of assistance. Job ID: [id number]
[2018-12-28] MEDS ORDERED: PROPOFOL 200 MG/20 ML VIAL ONE (14:34)
[2018-12-28] MEDS ORDERED: Lidocaine 1% PF 5 ML VIAL ONE (14:34)
--- NOTE | 2018-12-28 15:10 | PRG ---
DATE OF SERVICE: 12/28/2018 SUBJECTIVE: Patient was seen and examined at bedside and overnight events noted. Patient denies any shortness of breath or chest pain or palpitation. No history of nausea or vomiting or diarrhea or fever or chills or cramps. OBJECTIVE: GENERAL: This is an elderly female, in no acute distress. VITAL SIGNS: Temperature 98.4. Heart rate 94. Respiratory rate 16. Blood pressure 136/65. HEENT: Atraumatic, normocephalic. Oral mucosa is moist NECK: Supple. CARDIOVASCULAR: S1, S2 heard. Rate and rhythm regular. RESPIRATORY: Clear to auscultation. GASTROINTESTINAL: Abdomen is soft. MUSCULOSKELETAL: No tenderness. No edema. DERMATOLOGIC: No skin rash. NEUROLOGIC: Alert and awake and oriented X3. No focal neurologic deficits. Moving all the extremities. PSYCHIATRIC: Mood and affect normal. LABORATORY DATA: Not done today. ASSESSMENT AND PLAN: 1. Chronic kidney disease, stage 4, stable. 2. Hypertension. 3. Edema. 4. Cardiorenal syndrome. Monitor renal function closely. Job ID: [id number]
--- NOTE | 2018-12-30 12:05 | DIS ---
DATE OF ADMISSION: 12/24/2018 DATE OF DISCHARGE: 12/28/2018 DISCHARGE DISPOSITION: [facility] PRIMARY CARE PHYSICIAN: Dr. Bradley. DISCHARGE DIAGNOSES: 1. Urinary tract infection with Enterococcus faecalis. 2. Anemia with normal EGD and colonoscopy this admission. 3. Hyperglycemia due to type 2 diabetes mellitus, resolved. 4. Coronary artery disease with history of stenting of LAD on 11/27/2018. 5. [place] Heart Association class 3 and chronic diastolic congestive heart failure. 6. Chronic kidney disease, stage 4. 7. Diabetes mellitus. 8. Hypertension. 9. Hypothyroidism. 10. Chronic atrial fibrillation, contraindication to anticoagulation due to possibility of gastrointestinal bleed. DISCHARGE MEDICATIONS: 1. Aspirin 81 mg daily. 2. Plavix 75 mg daily. 3. Sublingual nitroglycerin p.r.n. 4. Myrbetriq 50 mg daily. 5. Lopressor 50 mg p.o. b.i.d. 6. Melatonin 3 mg at bedtime. 7. Levothyroxine 25 mcg daily. 8. Lantus 20 units in the morning. 9. Calcitriol 0.25 mg daily. 10. MiraLAX p.r.n. 11. Protonix 40 mg daily. 12. Hydralazine 10 mg q.i.d. 13. Zoloft 25 mg in the morning. 14. Lasix 40 mg daily. 15. Flonase nasal spray. 16. Ferrous sulfate 325 mg p.o. b.i.d. 17. Amlodipine 5 mg p.o. b.i.d. New medication: 1. Nitrofurantoin 100 mg p.o. b.i.d. for 5 more days. 2. DuoNeb p.r.n. 3. Tums p.r.n. IN-HOUSE CONSULTATION: 1. Cardiology, Dr. Looney and Dr. Kim. 2. Gastroenterology, Dr. Beltran and Dr. Kraus. PROCEDURES DONE IN HOSPITAL: 1. Left upper extremity ultrasound, which does not show any DVT, but just show noncompressibility within the basilic vein of the left upper extremity. She has resolution of the axillary vein DVT that was seen in November 2018. 2. EGD by Dr. Kraus on 12/27/2018, which showed distal esophageal ring which was dilated to 18 mm. Otherwise, unremarkable EGD. 3. Colonoscopy by Dr. Kraus on 12/28/2018, which showed mid sigmoid diverticulosis and 1 cm polyp removed from the proximal transverse colon and 5 mm polyp removed from the transverse colon, otherwise normal colonoscopy. HISTORY OF PRESENTING ILLNESS: Ms. Mitchell is an 83-year-old female with past medical history significant for recent hospitalization in November 2018 in the hospital, at which time, she was quite sick and was diagnosed with non-ST elevation CO: Nonsustained ventricular tachycardia, respiratory failure requiring intubation times twice, and atrial fibrillation with RVR as well as left axillary vein thrombosis. She was also found to be in acute diastolic heart failure and acute kidney injury at that time. She had a prolonged hospitalization at that time and was eventually stabilized and discharged to skilled rehab. She underwent LAD stent placement for her non-ST elevation CO and was started on aspirin and Plavix. She was also started on Eliquis for her finding of left axillary vein DVT. Please see discharge summary dictated by Dr. Jeffries on 12/12/2018 for further details. She came to the emergency room from [place] for mainly hyperglycemia. She had some fatigue, generalized weakness, and some chest discomfort. In the ER, she was found to have a creatinine of 3.07 and indeterminate range troponin. She was also found to have a urinary tract infection in the ER. She was admitted to telemetry unit. Serial cardiac enzymes and empiric antibiotics were ordered for urinary tract infection. She was also found to have a hemoglobin of 7.6 compared to 10.4 two weeks ago. Gastroenterology was also consulted. Please see admission history and physical dictated by Dr. Mahan on 12/24/2018 for further details. HOSPITAL COURSE: Gastroenterology was consulted with regard to her being on anticoagulation and of dual anti-platelet therapy and with a drop in the hemoglobin. She never had any hematemesis, hematochezia, or melena. Cardiology was also consulted with regard to continuation of aspirin and Plavix with recent stenting and possible continuation of Eliquis with recent left axillary vein thrombosis. The patient was rather otherwise hemodynamically stable throughout her hospitalization. Hemoglobin was continued to be monitored and she remained in the 8 to 8.5 range. She received 1 unit of packed RBC on admission. Her H and H was stable. She underwent EGD and eventually colonoscopy by Gastroenterology and both were unremarkable without any evidence of gastrointestinal bleed. She was cleared to start aspirin and Plavix from Cardiology standpoint. Eliquis was discontinued by Dr. Kim for possible GI bleed and also because her repeat left upper extremity Doppler ultrasound did not show any DVT. I have encouraged the patient to discuss this further with Dr. Kim in the outpatient setting as she has had atrial fibrillation with RVR in the outpatient setting, though she remains in sinus rhythm while in the hospital this time. Nephrology saw the patient for her acute renal insufficiency and followed her along. Her creatinine improved to 1.63 from 3.07 upon presentation. With regard to her urinary tract infection, the culture grew Enterococcus faecalis, so her antibiotics were adjusted and she was treated with IV vancomycin in the hospital. This is being changed to nitrofurantoin at the time of discharge. By the time of discharge, the patient has had improvement in her symptoms. Her GI bleed workup is negative. She has been restarted on aspirin and Plavix and will follow up with Dr. Kim closely in the outpatient setting. She will also follow up with Dr. Kraus in the outpatient setting as well. She is being discharged back to [facility]. She was seen and examined prior to discharge. Please see hospitalist progress note from the date of discharge for full details including [id number] examination. TIME SPENT: Total time spent in the discharge 32 minutes. Job ID: [id number]
== END 2018-12-28 17:10 | DRG 689 ==
LOC: ERS 18:53 → ERHOLD 22:54 → 2NO 12-23 13:52 → OBSVTOIN 12-24 13:59
PROVIDERS: ADMIT Internal Medicine; ATTEND Internal Medicine
PROC: 30233N1 Transfusion of Nonautologous Red Blood Cells into Peripheral Vein, Percutaneous Approach (ICD-10-PCS; 2018-12-24)
PROC: 0D738ZZ Dilation of Lower Esophagus, Via Natural or Artificial Opening Endoscopic (ICD-10-PCS; principal; 2018-12-28)
PROC: 0DBL8ZZ Excision of Transverse Colon, Via Natural or Artificial Opening Endoscopic (ICD-10-PCS; 2018-12-28)
DX: N39.0 Urinary tract infection, site not specified (principal); I21.4 Non-ST elevation (NSTEMI) myocardial infarction; N17.9 Acute kidney failure, unspecified; N18.4 Chronic kidney disease, stage 4 (severe); I13.0 Hypertensive heart and chronic kidney disease with heart failure and stage 1 through stage 4 chronic kidney disease, or unspecified chronic kidney disease; I50.32 Chronic diastolic (congestive) heart failure; E11.65 Type 2 diabetes mellitus with hyperglycemia; I48.0 Paroxysmal atrial fibrillation; E11.22 Type 2 diabetes mellitus with diabetic chronic kidney disease; D63.1 Anemia in chronic kidney disease; E86.0 Dehydration; E03.9 Hypothyroidism, unspecified; N90.89 Other specified noninflammatory disorders of vulva and perineum; I44.7 Left bundle-branch block, unspecified; E78.5 Hyperlipidemia, unspecified; R33.9 Retention of urine, unspecified; R13.19 Other dysphagia; K44.9 Diaphragmatic hernia without obstruction or gangrene; F32.9 Major depressive disorder, single episode, unspecified; K63.5 Polyp of colon; K21.9 Gastro-esophageal reflux disease without esophagitis; G47.00 Insomnia, unspecified; E87.5 Hyperkalemia; K57.90 Diverticulosis of intestine, part unspecified, without perforation or abscess without bleeding; I25.10 Atherosclerotic heart disease of native coronary artery without angina pectoris; B95.2 Enterococcus as the cause of diseases classified elsewhere; Z79.899 Other long term (current) drug therapy; Z95.5 Presence of coronary angioplasty implant and graft; Z79.4 Long term (current) use of insulin; Z79.01 Long term (current) use of anticoagulants; Z79.82 Long term (current) use of aspirin; Z88.1 Allergy status to other antibiotic agents; Z91.018 Allergy to other foods; Z95.1 Presence of aortocoronary bypass graft; Z91.041 Radiographic dye allergy status; Z79.51 Long term (current) use of inhaled steroids; Z88.5 Allergy status to narcotic agent
CPT/HCPCS: 36415; 36416; 36430; 51702; 71045; 76770; 80048; 80053; 80202; 81003; 81015; 82553; 82728; 83540; 83550; 83735; 84484; 85014; 85018; 85025; 85046; 85049; 86850; 86900; 86901; 87077; 87086; 87186; 88305; 93005; 93010; 94760; 96365; 96367; C9113; J0696; J1815; J1825; J2001; J2704; J3370; J3475; J7050; P9016; Q0162

== ENCOUNTER 2019-01-02 00:47 | Inpatient (IN) | payer MEDICARE ==
[2019-01-02] MEDS ORDERED: Amiodarone 150 MG/3 ML VIAL ONE (00:59)
[2019-01-02 01:14] LABS: #Basophils 0.1 thou/uL (0.0-0.2); #Eosinphils 0.5 thou/uL (0.0-0.7); #Lymphocytes 1.8 thou/uL (1.20-3.40); #Monocytes 0.9 thou/uL (0.11-0.59); #Neutrophils 8.3 thou/uL (1.40-6.50); %Basophils 0.7 % (0.0-1.0); %Eosinophils 4.3 % (0.0-10.0); %Lymphocytes 15.2 % (21.0-51.0); %Neutrophils 71.7 % (42.0-75.0); Hemoglobin 9.3 g/dL (12.0-16.0); Mean Corpuscular HGB CONC 32.6 g/dL (32.0-36.0); Mean Corpuscular Hemoglobin 29.1 pg (27.0-31.0); Mean Corpuscular Volume 89.3 fL (78.0-98.0); Mean Platelet Volume 7.8 fL (7.4-10.4); Platelet Count 286 thou/uL (130-400); RBC Distribution Width 14.2 % (11.5-14.5); Red Blood Cell (RBC) Count 3.21 mill/uL (4.20-5.40); White Blood Cell (WBC) Count 11.6 thou/uL (4.8-10.8)
[2019-01-02 01:18] LABS: INR-International Normal Ratio 0.9; Prothrombin Time 12.6 SEC (12.0-14.7)
[2019-01-02 01:19] LABS: PTT 32.1 SEC (22.9-36.1)
[2019-01-02 01:34] LABS: ALT (SGPT) 7 U/L (8-55); AST (SGOT) 11 U/L (5-34); Albumin 3.4 g/dL (3.4-4.8); Alkaline Phosphatase 116 U/L (40-150); Anion Gap 16 mmol/L (10-20); BUN (Urea Nitrogen) 31 mg/dL (9.8-20.1); Bilirubin, Total 0.4 mg/dL (0.2-1.2); CK (CPK) 27 U/L (29-168); Calc. Creatinine Clearance 0 mL/min (70-130); Calcium 9.7 mg/dL (7.8-10.44); Carbon Dioxide 24 mmol/L (23-31); Chloride 101 mmol/L (98-107); Estimated GFR-MDRD 17; Globulin 3.2 g/dL (2.4-3.5); Glucose 317 mg/dL (83-110); Potassium 4.5 mmol/L (3.5-5.1); Protein, Total 6.6 g/dL (6.0-8.3); Sodium 136 mmol/L (136-145)
[2019-01-02] MEDS ORDERED: Amiodarone 450 MG, Admixture Fee 1 EACH in Dextrose 5% in Water 250 ML IVPB SCH (02:00)
[2019-01-02 02:30] LABS: CKMB 1.1 ng/mL (0-6.6)
[2019-01-02] MEDS ORDERED: Ondansetron ODT 4 MG TAB PO PRN (03:17)
[2019-01-02] MEDS ORDERED: Acetaminophen 325 MG TAB PO PRN (03:17)
[2019-01-02] MEDS ORDERED: Ondansetron PF 4 MG/2 ML Vial IVP PRN (03:17)
[2019-01-02] MEDS ORDERED: Calcium Carbonate 500 MG ChewTAB PO PRN (03:19)
[2019-01-02] MEDS ORDERED: Nitroglycerin 0.4 MG TAB (25 Tab Bottle) SL PRN (03:30)
[2019-01-02 03:33] LABS: Phosphorus 2.5 mg/dL (2.3-4.7)
[2019-01-02 03:48] LABS: Anion Gap 15 mmol/L (10-20); BUN (Urea Nitrogen) 30 mg/dL (9.8-20.1); Calc. Creatinine Clearance 0 mL/min (70-130); Calcium 9.1 mg/dL (7.8-10.44); Carbon Dioxide 21 mmol/L (23-31); Chloride 104 mmol/L (98-107); Estimated GFR-MDRD 18; Glucose 294 mg/dL (83-110); Potassium 4.7 mmol/L (3.5-5.1); Sodium 135 mmol/L (136-145)
[2019-01-02] MEDS ORDERED: Dextrose 5% in Water 1,000 ML IV PRN ×2 (03:48→10:14)
[2019-01-02] MEDS ORDERED: HumaLOG 300 UNITS/3 ML VIAL SC PRN (03:48)
[2019-01-02] MEDS ORDERED: Dextrose 50% Abboject 50 ML SYRINGE SLOW IVP PRN ×2 (03:48→10:14)
[2019-01-02 03:49] LABS: #Basophils 0.1 thou/uL (0.0-0.2); #Eosinphils 0.6 thou/uL (0.0-0.7); #Lymphocytes 1.6 thou/uL (1.20-3.40); #Neutrophils 7.2 thou/uL (1.40-6.50); %Basophils 1.1 % (0.0-1.0); %Eosinophils 5.2 % (0.0-10.0); %Lymphocytes 15.3 % (21.0-51.0); %Monocytes 9.7 % (0.0-10.0); %Neutrophils 68.6 % (42.0-75.0); Hemoglobin 8.4 g/dL (12.0-16.0); Mean Corpuscular HGB CONC 33.7 g/dL (32.0-36.0); Mean Corpuscular Hemoglobin 30.1 pg (27.0-31.0); Mean Corpuscular Volume 89.3 fL (78.0-98.0); Mean Platelet Volume 7.6 fL (7.4-10.4); Platelet Count 231 thou/uL (130-400); RBC Distribution Width 14.4 % (11.5-14.5); Red Blood Cell (RBC) Count 2.79 mill/uL (4.20-5.40); White Blood Cell (WBC) Count 10.5 thou/uL (4.8-10.8)
[2019-01-02 03:55] LABS: Troponin I 0.026 ng/mL (< 0.028)
[2019-01-02] MEDS ORDERED: Magnesium Sulfate 3 GM in Sodium Chloride 0.9% 100 ML IVPB SCH (04:00)
[2019-01-02] MEDS ORDERED: Furosemide 40 MG/4 ML VIAL ONE (05:26)
[2019-01-02] MEDS ORDERED: Morphine 4 MG/ML VIAL ONE (05:28)
[2019-01-02 05:31] LABS: Actual Bicarbonate (HCO3a) 22.1 mEq/L (22-28); Base Excess (BEa) -5.6 mEq/L (-2.0 to +3.0); Calcium, Ionized 1.32 mmol/L (1.12-1.30); Carboxyhemoglobin (COHb) 1.2 gm% (0.0-3.0); Hemoglobin (Hb) 11.7 g/dL (12.0-16.0); Potassium - ABG Lab 5.62 mmol/L (3.70-5.30)
[2019-01-02] MEDS ORDERED: Nitroglycerin 50 MG/250 ML BOT 250 ML ONE (05:31)
[2019-01-02 05:37] LABS: pH, Arterial 7.24 (7.35-7.45)
--- NOTE | 2019-01-02 05:41 | HP ---
PRIMARY CARE DOCTOR: Dr. Kedar Lambert. CODE STATUS: Full code. TIME OF EVALUATION: 3 a.m. CHIEF COMPLAINT: Chest pain and palpitation. HISTORY OF PRESENT ILLNESS: This is an 83-year-old female patient with past medical history of cardiac arrest and coronary artery disease, status post stenting 2-3 weeks ago, who [facility] the [facility] after having an episode of chest pain that radiating to the left arm. The pain was severe, associated with palpitations. The patient was found to be V-tach and was given amiodarone and currently on amiodarone drip and arrhythmia was controlled. No clear triggers. Alleviated by medications given. REVIEW OF SYSTEMS: CONSTITUTIONAL: No fever, chills, or generalized weakness. RESPIRATORY: No cough, sputum production, or shortness of breath. CARDIOVASCULAR: Has chest pain and palpitation. GASTROINTESTINAL: No nausea, no vomiting, diarrhea, or abdominal pain. CHROMOSOMAL DISORDERS COUNSELOR: No dizziness, headache, or feeling lightheaded. GENITOURINARY: No burning on urination. EXTREMITIES: No leg swelling. All other systems were reviewed and negative except for the findings mentioned above. PAST MEDICAL HISTORY: Reviewed. The patient has history of non-STEMI, hypertension, hyperlipidemia, diabetes, LBBB, CHF, mitral valve regurgitation, chronic kidney disease, GERD. PAST SURGICAL HISTORY: Angioplasty, back surgery, CABG. PSYCH HISTORY: Depression. FAMILY HISTORY: Reviewed and non contributory to current presentation. SOCIAL HISTORY: The patient lives in a long-term facility in [facility]. No alcohol. No drugs. No smoking history. KNOWN ALLERGIES: To apple, hydrocodone compound syrup, hydrocodone, iodinated contrast media, IV dye. REPORTED MEDICATIONS: 1. Acetaminophen. 2. Amlodipine. 3. Protonix. 4. Sodium bicarb. 5. Sertraline. 6. Hydralazine. 7. Glycolax. 8. Furosemide. 9. Fluticasone. 10. Ferrous sulfate. 11. Docusate sodium. 12. Clopidogrel. 13. Calcium with vitamin D. 14. Calcitriol. 15. Aspirin. 16. Eliquis. 17. DuoNeb. 18. Lantus. 19. SoloStar. 20. Levothyroxine. 21. Lotrisone. 22. Melatonin. 23. Metoprolol. 24. Myrbetriq. 25. Potassium chloride. 26. Periogard. 27. Nitroglycerin. PHYSICAL EXAMINATION: VITAL SIGNS: On presentation, blood pressure 129/80 with heart rate 127, respiratory rate was 16, temperature 97.9, pain was 0/10, oxygen saturation was 94% on room air. GENERAL APPEARANCE: The patient is alert, oriented, not in acute distress. HEENT: Eyes; normal conjunctivae. Moist oral mucosa. Anicteric. No JVD. RESPIRATORY: Bilateral air entry. No rales. No wheezes. Symmetric expansion. CARDIOVASCULAR: Normal rate, regular rhythm. No murmurs. No gallop. No edema. ABDOMEN: Soft, normal bowel sounds. MUSCULOSKELETAL: Baseline range of motion and strength. No tenderness. SKIN: Warm, intact. No pallor. No rash. No redness. Peripheral pulses are present. Capillary refill seems to be intact. NEURO: No evidence of any new focal weakness. Baseline speech. Cranial nerves seems to be intact. PSYCH: The patient is in good mood. No anxiety. Optimal judgment. DIAGNOSTIC STUDIES: EKG was reviewed. The patient has normal sinus rhythm with LBBB. The patient has ventricular rate of 80, MI 134, QRS 134, QT corrected 489. Chest x-ray was reviewed, not reported yet by the radiologist once reviewed by myself. The patient has cardiomegaly. No other significant findings on the chest x-ray. LABORATORY DATA: Labs were reviewed. The patient has white count of 11.6, hemoglobin 9.3, MCV 89.3, platelet count 289. Coagulation; PT 12.6, INR 0.9, PTT 32.1. Chemistry: Sodium 136; potassium 4.5; chloride 101; carbon dioxide 24; anion gap 16; BUN 31; creatinine 2.71, in previous admission it was 1.6, it had been in the range of 2 before; GFR 17; glucose 317; calcium 9.7; phosphorus 2.5; magnesium 1.3. LFTs were negative. Beta natriuretic peptide is 660. Troponin 0.031. TSH 3.5. ASSESSMENT AND PLAN: The patient will be placed in the hospital with following medical problems: 1. Ventricular tachycardia. The patient improved with amiodarone, the patient has a history of cardiac arrest 2-3 weeks ago, placed in ICU, amiodarone. We will consult Cardiology. We will reconcile home medications. We will follow recommendations. 2. Normocytic anemia. This is chronic, we will monitor. No need for any acute intervention at this point. 3. Acute on chronic kidney failure, we will monitor kidney function, reconcile home medications. If not improving might need help from Nephrology. 4. Uncontrolled diabetes with blood sugar 317. We will reconcile home medications. We will place the patient on sliding scale, low carb diet. 5. [id number] myocardial infarction type 2. Troponin is mildly elevated. We will trend troponins. 6. Controlled hypertension. We will reconcile home medications, adjust treatment as needed. 7. Hyperlipidemia. Reconcile home medications. Low-cholesterol diet is advised. 8. Hypothyroidism. TSH is normal, reconcile home medications. 9. History of congestive heart failure. This is chronic, seems to be stable, reconcile home medications. Job ID: [id number] MTDD
[2019-01-02] MEDS ORDERED: Norepinephrine 8 MG/0.9% NS 250 ML ONE (06:17)
[2019-01-02] MEDS: Levothyroxine Sodium 25 MCG TAB PO SCH (06:28)
[2019-01-02] MEDS ORDERED: Norepinephrine 8 MG/0.9% NS 250 ML IVPB SCH (06:45)
--- NOTE | 2019-01-02 06:52 | PDOC.EVN ---
Event Note - Event Note Event Note: pt developed flash pulmonary edema, with hypertensive emergency, needing BiPAP, morphine, lasix, NTg, after recovery, BP remained in the low side, so meds have been held, low dose levophed, Cardiology and ICU consulted for assistance with our patient. She is reporting she feels better. no more crackles in lung auscultation. Pt is well known to us for having previous rapid changes in status, we will monitor her closely
[2019-01-02] MEDS: Furosemide 40 MG TAB PO SCH (07:30)
--- NOTE | 2019-01-02 07:41 | RAD ---
CHEST 1 VIEW: Date: 01/02/19 HISTORY: Chest pain. COMPARISON: Radiograph dated 12/22/18. FINDINGS: A defibrillator pad projects in the right hemithorax. Lungs are hyperinflated. There is mild edema. M ild blunting of left lateral costophrenic sulcus. Heart size is mildly enlarged. No acute osseous abnormality. IMPRESSION: Worsening pulmonary edema from 12/22/18. POS: HOME
[2019-01-02] MEDS: Ferrous Sulfate 325 MG TAB PO SCH ×2 (08:00→18:27)
[2019-01-02] MEDS: Potassium Chloride 20 MEQ TAB PO SCH (08:00)
[2019-01-02] MEDS: Calcium Carbonate + Vit D 1 TAB PO SCH ×2 (08:00→18:28)
[2019-01-02] MEDS ORDERED: Nitroglycerin 50 MG/250 ML BOT 250 ML IVPB SCH (08:00)
[2019-01-02 08:08] LABS: Troponin I 0.025 ng/mL (< 0.028)
[2019-01-02] MEDS: Clopidogrel Bisulfate 75 MG TAB PO SCH ×2 (09:00→18:32)
[2019-01-02] MEDS: hydrALAZINE 10 MG TAB PO SCH ×4 (09:00→22:33)
[2019-01-02] MEDS: Docusate 100 MG CAP PO SCH (09:00)
[2019-01-02] MEDS: Insulin Glargine 20 UNITS in Pre-Filled Syringe 1 EACH SC SCH (09:00)
[2019-01-02] MEDS: Aspirin Chewable 81 MG TAB PO SCH ×2 (09:00→18:28)
[2019-01-02] MEDS: Enoxaparin Sodium 30 MG/0.3 ML SYRINGE SC SCH (09:00)
[2019-01-02] MEDS: Calcitriol 0.25 MCG CAP PO SCH (09:00)
[2019-01-02] MEDS: Metoprolol Tartrate 50 MG TAB PO SCH ×2 (09:00→22:34)
[2019-01-02] MEDS: Amlodipine 5 MG TAB PO SCH ×2 (09:00→22:33)
--- NOTE | 2019-01-02 10:00 | CON ---
DATE OF CONSULTATION: 01/02/2019 CONSULTING PHYSICIAN: Dr. Arteaga. REASON FOR CONSULTATION: Acute respiratory failure. HISTORY OF PRESENT ILLNESS: An 83-year-old female, who presented from assisted living facility in ventricular tachycardia. She was given amiodarone, apparently converted to a sinus rhythm. When she came up to the ICU, she was initially hypertensive, put on nitroglycerin drip, then bottomed out and be started on a Levophed drip. She was also started on BiPAP at that time. She appears comfortable now and in no acute distress. PAST MEDICAL HISTORY: 1. Coronary artery disease. 2. Hypertension. 3. Hyperlipidemia. 4. Diabetes mellitus. 5. Left bundle-branch block. 6. Congestive heart failure. 7. Mitral valve regurgitation. 8. Chronic kidney disease. 9. Gastroesophageal reflux. PAST SURGICAL HISTORY: 1. Angioplasty. 2. Back surgery. 3. Coronary artery bypass grafting surgery. SOCIAL HISTORY: Lives in [place]. Does not smoke. Does not drink. Does not use illicit drugs. ALLERGIES: APPLES, HYDROCODONE, IODINE, ONION. MEDICATIONS: Prior to admission, these are listed under the home medication section on [employer] in the chart. These were reviewed. REVIEW OF SYSTEMS: Difficult to obtain as the patient is on BiPAP. PHYSICAL EXAMINATION: VITAL SIGNS: Pulse 75, blood pressure 149/72, O2 saturation 91% on nasal cannula, respiratory rate 17. When I first saw her, she was on BiPAP. She was sleeping, but easily arousable. Did not appear to be in any distress. HEENT: Unremarkable. NECK: No adenopathy. No JVD. LUNGS: Clear to auscultation. CARDIAC: S1-S2 regular without murmur. ABDOMEN: Soft and nontender. EXTREMITIES: No edema. LABORATORY DATA: White blood cell count 10.5, hematocrit 24.9, and platelet count 231. INR 0.9, PTT 32.1. PH was 7.24, pCO2 of 53, and pO2 of 49 when she first came up. Sodium 135, potassium 4.7, chloride 104, CO2 of 21, BUN 30, creatinine 2.5, and glucose 294. IMAGING STUDIES: Her x-ray showed some cephalization of flow. Cardiomegaly was present. ASSESSMENT: 1. Ventricular tachycardia, which is now eliminated with the amiodarone. 2. Transient pulmonary edema, which appears to be improved. 3. Hypotension, which has resolved. 4. Acute respiratory failure secondary to pulmonary edema, which has resolved after being given diuretics. PLAN: 1. Trial of nasal cannula. 2. Wean off Levophed as tolerated. 3. Cardiology consultation for ventricular tachycardia. 4. Continue to monitor in CCU today. 5. Recheck labs tomorrow. Job ID: [id number]
[2019-01-02] MEDS: HumaLOG 300 UNITS/3 ML VIAL SC PRN (11:39)
--- NOTE | 2019-01-02 17:37 | PDOC.EVN ---
Event Note - Event Note Event Note: Pt seen and examined. Chart reviewed. Admitted earlier today morning with concerns of SVT. NSR fo rnow. Was started on amio drip.no OAC as recent concerns for GIB and blood loss anemia. H/O P A-fib. Will follow cardiology recs HD stable Wean off of levophed. am labs home meds reconciled
[2019-01-02] MEDS: Chlorhexidine Gluconate 15 ML UDCUP SSP SCH (18:46)
[2019-01-02] MEDS: Melatonin 3 MG TAB PO SCH (22:33)
[2019-01-03] MEDS: Furosemide 40 MG/4 ML VIAL SLOW IVP SCH ×2 (01:25→01:30)
--- NOTE | 2019-01-03 01:30 | PDOC.EVN ---
Event Note - Event Note Event Note: Pt has become hypoxic and with labored breathing again, pt also had fever 100.4 , elke cover with broad spectrum antibiotics, repeat cxr showed pulmonary edema, however findings are more pronounced on the right lung, could be underlying pneumonia, official report from radiology pending. will monitor closely. continue bipap for now. if bp drops would start vasopressors again.
[2019-01-03] MEDS: Vancomycin HCl 500 MG in Sodium Chloride 0.9% 100 ML IVPB SCH (03:12)
[2019-01-03] MEDS: Cefepime 2 GM in Sodium Chloride 0.9% 100 ML IVPB SCH (03:13)
[2019-01-03] MEDS: HumaLOG 300 UNITS/3 ML VIAL SC PRN ×2 (03:36→17:30)
[2019-01-03 04:49] LABS: #Eosinphils 0.2 thou/uL (0.0-0.7); #Monocytes 0.6 thou/uL (0.11-0.59); #Neutrophils 9.3 thou/uL (1.40-6.50); %Basophils 0.4 % (0.0-1.0); %Eosinophils 1.4 % (0.0-10.0); %Lymphocytes 9.1 % (21.0-51.0); %Monocytes 5.6 % (0.0-10.0); %Neutrophils 83.5 % (42.0-75.0); Hemoglobin 8.5 g/dL (12.0-16.0); Mean Corpuscular Hemoglobin 29.7 pg (27.0-31.0); Mean Platelet Volume 7.5 fL (7.4-10.4); Platelet Count 234 thou/uL (130-400); RBC Distribution Width 14.4 % (11.5-14.5); Red Blood Cell (RBC) Count 2.87 mill/uL (4.20-5.40); White Blood Cell (WBC) Count 11.2 thou/uL (4.8-10.8)
[2019-01-03 05:04] LABS: Anion Gap 13 mmol/L (10-20); BUN (Urea Nitrogen) 31 mg/dL (9.8-20.1); Calc. Creatinine Clearance 17 mL/min (70-130); Calcium 9.4 mg/dL (7.8-10.44); Carbon Dioxide 26 mmol/L (23-31); Chloride 103 mmol/L (98-107); Estimated GFR-MDRD 17; Glucose 234 mg/dL (83-110); Potassium 4.6 mmol/L (3.5-5.1); Sodium 137 mmol/L (136-145)
[2019-01-03] MEDS: Levothyroxine Sodium 25 MCG TAB PO SCH (06:18)
--- NOTE | 2019-01-03 07:34 | RAD ---
FRONTAL VIEW CHEST: Date: 01/03/19 COMPARISON: Previous day. INDICATION: Shortness of breath with vomiting and fever. FINDINGS: There is prominent density throughout the right lung, most notable at the mid to inferior aspect. Mil d pleural based density is seen at each inferior hemithorax. The cardiac silhouette is enlarged with prominence of the pulmonary vasculature. IMPRESSION: 1. Interval development of marked opacification of the right hemithorax by demonstrating an appearan ce of alveolar opacification. This may be related to pneumonia, asymmetric edema, or other inflammato ry process. 2. Mild bilateral pleural based densities at the lower chest may be related to small volume pleural fluid. 3. Recommend continued imaging follow-up. POS: MENG
--- NOTE | 2019-01-03 07:41 | CON ---
DATE OF CONSULTATION: 01/02/2019 REASON FOR CONSULTATION: Nonsustained VT. HISTORY OF PRESENT ILLNESS: Ms. Mitchell is an 83-year-old woman, who was seen and evaluated in the past. She has a previous history of severe CAD, status post stent placement, acute pulmonary edema in addition to chronic kidney disease. The specific events around her most recent episode are vague. She apparently was in assisted living area and was found to be in ventricular tachycardia. She has underlying left bundle-branch block. Tracings of the VT were not documented. I asked the ER and nursing staff to try and obtain tracings and were not able to. She then was subsequently admitted. She was hypertensive with blood pressure in the 180s. She was placed on IV nitroglycerine, then developed significant hypotension. She was then placed on Levophed. She then developed respiratory distress requiring BiPAP. Her blood pressure level off in addition to her breathing. During my visit, she is currently on nasal cannula. She is resting comfortably. PAST MEDICAL HISTORY: As described above including diabetes, hyperlipidemia, hypertension, chronic kidney disease, acid reflux, recent stent placement, and back surgery. SOCIAL HISTORY: No current tobacco or alcohol use. ALLERGIES: HYDROCODONE AND IODINE. REVIEW OF SYSTEMS: Difficult to obtain. She is currently somnolent. PHYSICAL EXAMINATION: GENERAL: Patient is a pleasant woman, who is in no acute distress. The patient appears their stated age. VITAL SIGNS: Blood pressure 140/70, pulse 80, and respirations 20. NEUROLOGIC: The patient is alert and oriented x3 with no focal neurologic deficits. HEENT: Sclerae without icterus. Mouth has moist mucous membranes with normal pallor. NECK: No JVD. Carotid upstroke brisk. No bruits bilaterally. LUNGS: Clear to auscultation with unlabored respirations. BACK: No scoliosis or kyphosis. CARDIAC: Regular rate and rhythm with normal S1 and S2. No S3 or S4 noted. No significant rubs, murmurs, thrills, or gallops noted throughout the precordium. PMI is not displaced. There is no parasternal heave. ABDOMEN: Soft, nontender, nondistended. No peritoneal signs present. No hepatosplenomegaly. No abnormal striae. EXTREMITIES: 2+ femoral and 2+ dorsalis pedis pulses. No cyanosis, clubbing, or edema. SKIN: No gross abnormalities. PERTINENT LABORATORY DATA: Hemoglobin 9.3. Creatinine 2.5, sodium 135, and magnesium 1.3. IMPRESSION: 1. Wide-complex tachycardia. 2. Pulmonary edema. 3. Severe coronary artery disease, status post stent placed. 4. Chronic kidney disease. RECOMMENDATIONS: Ms. Mitchell' multiple hospital course have been very complex. She has multiple comorbidities. The events surrounding her most recent episode are again vague. She has underlying left bundle-branch block. I do not see any evidence of ventricular tachycardia that was documented. At this point, we will stop amiodarone. She was in the hospital for a week prior with no episodes of nonsustained VT. This may have been sinus tachycardia with underlying left bundle-branch block. As far as flash pulmonary edema, this may be complicated by hypertension. She did have CAD and is status post stent placement to the LAD. Other etiologies include ischemic MR in addition to severe renal artery stenosis. To address her renal artery stenosis, it would be very difficult given her severe chronic kidney disease with GFR of 18. I would need to discuss with her power and recovery supervisor. Job ID: [id number]
[2019-01-03] MEDS: Furosemide 40 MG TAB PO SCH (07:45)
[2019-01-03] MEDS: Potassium Chloride 20 MEQ TAB PO SCH (08:00)
[2019-01-03] MEDS: Calcium Carbonate + Vit D 1 TAB PO SCH ×2 (08:00→17:00)
[2019-01-03] MEDS: Ferrous Sulfate 325 MG TAB PO SCH ×2 (08:00→17:00)
[2019-01-03] MEDS: Clopidogrel Bisulfate 75 MG TAB PO SCH (09:00)
[2019-01-03] MEDS: hydrALAZINE 10 MG TAB PO SCH ×4 (09:00→22:15)
[2019-01-03] MEDS: Enoxaparin Sodium 30 MG/0.3 ML SYRINGE SC SCH (09:00)
[2019-01-03] MEDS: Aspirin Chewable 81 MG TAB PO SCH ×2 (09:00→11:30)
[2019-01-03] MEDS ORDERED: Vancomycin HCl 750 MG in Sodium Chloride 0.9% 250 ML 250 ML IVPB SCH (09:00)
[2019-01-03] MEDS: Amlodipine 5 MG TAB PO SCH ×2 (09:00→22:14)
[2019-01-03] MEDS: Metoprolol Tartrate 50 MG TAB PO SCH ×2 (09:00→22:15)
[2019-01-03] MEDS: Calcitriol 0.25 MCG CAP PO SCH (09:00)
[2019-01-03] MEDS: Insulin Glargine 20 UNITS in Pre-Filled Syringe 1 EACH SC SCH (09:00)
[2019-01-03] MEDS: Docusate 100 MG CAP PO SCH (09:00)
--- NOTE | 2019-01-03 10:14 | PRG ---
DATE OF SERVICE: SERVICE: Pulmonary Medicine. INTERVAL HISTORY: The patient is having intermittent episodes of tachycardia. These are sinus tachycardia. Whenever she runs a little faster, however, she gets a wider complex that looks like V-tach, but it is not. She has been asymptomatic to these events. She has been on BiPAP overnight. There has been no interval change to her condition. PHYSICAL EXAMINATION: VITAL SIGNS: Afebrile with a T-max of 100.3, pulse 93, blood pressure 120/58, respirations 15, and saturation 99% on 31% FiO2 and a PEEP of 5. GENERAL: The patient is awake and alert, in no apparent distress. LUNGS: Decent air entry. Crackles are present. There is a prolonged expiratory phase, but I do not appreciate wheezing. HEART: Normal rate and regular. ABDOMEN: Soft, nontender, and nondistended. Bowel sounds are positive. MUSCULOSKELETAL: No cyanosis or clubbing. Trace pitting is present. GENITOURINARY: Hernandes catheter in place. NEUROLOGIC: Grossly nonfocal. LABORATORY DATA: WBC 11.2, hemoglobin 8.5, and platelets 234,000. INR 0.9. Creatinine 2.71, which is slightly above baseline; BUN 31. Basic metabolic profile is otherwise unremarkable. Magnesium was previously 1.3. Troponin downtrending to 0.26. IMAGING DATA: Chest x-ray demonstrates marked opacification of the right hemithorax, possibly secondary to asymmetric edema, bilateral pleural effusions, carinal angle is wide, and the cardiac silhouette is generous, though this is a portable film. ASSESSMENT: 1. Acute hypoxic respiratory failure. 2. History of flash pulmonary edema, multiple events. 3. Coronary artery disease. 4. Acute kidney injury on chronic kidney disease (baseline creatinine 1.6). 5. Paroxysmal atrial fibrillation with history of aberrancy. 6. Deep venous thrombosis. DISCUSSION AND PLAN: We will diurese the patient until she returns to euvolemia. More importantly, the patient will require very good blood pressure control as she has significant mitral regurgitation, which is likely precipitating her flash pulmonary events. Pulmonary/Critical Care will continue to follow along while the patient remains in the [facility]. We will give her BiPAP breaks today, in attempt to move her. We will need to increase her strength through time. Pulmonary/Critical Care will follow. Job ID: [id number]
[2019-01-03] MEDS: Diltiazem HCl 125 MG, Admixture Fee 1 EACH in Sodium Chloride 0.9% 100 ML IVPB SCH (10:47)
[2019-01-03] MEDS ORDERED: Digoxin 0.5 MG/2 ML AMP SLOW IVP SCH ×2 (11:30)
[2019-01-03] MEDS ORDERED: Nitroglycerin 0.4 MG TAB (25 Tab Bottle) SL SCH (11:30)
[2019-01-03] MEDS ORDERED: Aspirin Chewable 81 MG TAB PO SCH (11:30)
[2019-01-03] MEDS ORDERED: Morphine 2 MG/ML SYRINGE SLOW IVP SCH (11:30)
[2019-01-03] MEDS ORDERED: Nitroglycerin 0.4 MG TAB (25 Tab Bottle) SL PRN (11:33)
[2019-01-03] MEDS ORDERED: Amiodarone 150 MG/3 ML VIAL ONE ×2 (11:38→12:07)
[2019-01-03] MEDS ORDERED: Midazolam HCl 2 mg/2 ml Vial ONE ×2 (11:40→11:48)
[2019-01-03 11:50] LABS: Troponin I 0.082 ng/mL (< 0.028)
[2019-01-03] MEDS ORDERED: Propofol 1,000 MG/100 ML VIAL IV ONE (11:54)
--- NOTE | 2019-01-03 11:59 | PDOC.PN ---
- Subjective Encounter Start Date: 01/03/19 Encounter Start Time: 10:58 Subjective: Developed SOB last night and was started on BIPAP. -: Flipped into atrial fib with RVR associated with chest pain and SOB. -: Emergently intubated and Cardioversion attempted - Objective Resuscitation Status - Order Detail: 01/02/19 03:17 Resuscitation Status Routine Resuscitation Status: FULL: Full Resuscitation Vital Signs & Weight: Vital Signs (12 hours) Temp Pulse Pulse Ox 01/03/19 09:00 93 01/03/19 06:51 93 01/03/19 04:00 99 F 95 01/03/19 02:36 95 01/03/19 01:38 148 H 01/03/19 00:00 100.3 F H Weight Admit Weight 152 lb 5.431 oz Weight 152 lb 5.431 oz Most Recent Monitor Data Heart Rate from ECG 147 NIBP 136/73 NIBP BP-Mean 94 Respiration from ECG 26 SpO2 95 I&O: 01/02/19 01/03/19 01/04/19 06:59 06:59 06:59 Intake Total 100 626.6 Output Total 165 1290 Balance -65 -663.4 Result Diagrams: 01/03/19 04:33 01/03/19 04:33 Additional Labs: Accuchecks 01/03/19 01/02/19 01/02/19 03:35 21:44 17:16 POC Glucose 246 H 207 H 96 01/02/19 11:39 POC Glucose 235 H Phys Exam - Physical Examination elderly female in moderate distress HEENT: moist MMs Neck: supple fair air entry bilaterally with some transmitted sound. tachypneic Cardiovascular: irregular tachycardic Gastrointestinal: soft, non-tender, no distention, positive bowel sounds Neurological: non-focal Psychiatric: A&O x 3 Dx/Plan (1) NSTEMI (non-ST elevated myocardial infarction) Code(s): I21.4 - NON-ST ELEVATION (NSTEMI) MYOCARDIAL INFARCTION Status: Acute Comment: due to CAD, s/p cath and stent by Dr. Kim (2) Ventricular tachycardia Code(s): I47.2 - VENTRICULAR TACHYCARDIA Status: Acute Comment: with arrest , now resolved (3) ANGELA (acute kidney injury) Code(s): N17.9 - ACUTE KIDNEY FAILURE, UNSPECIFIED Status: Acute (4) Atrial fibrillation with RVR Code(s): I48.91 - UNSPECIFIED ATRIAL FIBRILLATION Status: Acute (5) Anemia in chronic kidney disease (CKD) Code(s): N18.9 - CHRONIC KIDNEY DISEASE, UNSPECIFIED; D63.1 - ANEMIA IN CHRONIC KIDNEY DISEASE Status: Acute (6) CAD (coronary artery disease) Code(s): I25.10 - ATHSCL HEART DISEASE OF [place] CORONARY ARTERY W/O ANG PCTRS Status: Chronic Comment: s/p BMS Stenting of LAD 11/27/2018 (7) CKD (chronic kidney disease) stage 4, GFR 15-29 ml/min Code(s): N18.4 - CHRONIC KIDNEY DISEASE, STAGE 4 (SEVERE) Status: Chronic (8) DM type 2 (diabetes mellitus, type 2) Status: Chronic Qualifiers: Diabetes mellitus termination clerk insulin use: with mcfp use Diabetes mellitus complication status: with kidney complications Diabetes mellitus complication detail: with chronic kidney disease Chronic kidney disease stage : stage 4 (severe) Qualified Code(s): E11.22 - Type 2 diabetes mellitus with diabetic chronic kidney disease; N18.4 - Chronic kidney disease, stage 4 (severe ); Z79.4 - adjunct faculty for medical terminology (current) use of insulin (9) HTN (hypertension) Code(s): I10 - ESSENTIAL (PRIMARY) HYPERTENSION Status: Chronic Qualifiers: Hypertension type: essential hypertension Qualified Code(s): I10 - Essential (primary) hypertension (10) Hyperglycemia due to type 2 diabetes mellitus Code(s): E11.65 - TYPE 2 DIABETES MELLITUS WITH HYPERGLYCEMIA Status: Chronic Comment: improved.increase SSI to aggressive.cont lantus.monitor (11) Hypothyroid Code(s): E03.9 - HYPOTHYROIDISM, UNSPECIFIED Status: Chronic Qualifiers: Hypothyroidism type: unspecified Qualified Code(s): E03.9 - Hypothyroidism , unspecified (12) Acute respiratory failure with hypoxia Code(s): J96.01 - ACUTE RESPIRATORY FAILURE WITH HYPOXIA Status: Resolved Comment: flash pulmonary edema x 2 requiring intubation x 2. Extubated 2017 and doing well. Found to have LAD disease and s/p stent to LAD. (13) Atrial fibrillation with RVR Code(s): I48.91 - UNSPECIFIED ATRIAL FIBRILLATION Status: Resolved Comment: in sinus rhythm, switching amiodarone to oral (14) Chest pain Code(s): R07.9 - CHEST PAIN, UNSPECIFIED Status: Resolved Qualifiers: Chest pain type: unspecified Qualified Code(s): R07.9 - Chest pain, unspecified - Plan Start antithrombotic therapy with lovenox and ASA. -: further treatment as per cardiology. -: Continue amiodarone. -: Vent management as per pulm/critical care -: antibiotics for possible acute infection. Consult Nephrology * .
--- NOTE | 2019-01-03 12:11 | RAD ---
FRadiograph chest one view: 01/03/2019 11:52 AM HISTORY: 83-year-old female with dyspnea and respiratory distress. COMPARISON: 01/03/2019 1:11 AM FINDINGS: There is a new defibrillation paddle overlying the left upper and mid lung zones, obscuring those reg ions. There is now an endotracheal tube with distal tip in the mid to lower thoracic trachea. There h as been slight interval worsening of the diffuse, now alveolar infiltrates throughout the right upper lobe. A region of right lower lobe alveolar infiltrate has become more dense. Mild alveolar densitie s at the left lower lobe. There are probably new or worsening interstitial or alveolar infiltrates in the left perihilar region and left upper lobe partially obscured by the defibrillation paddle. Proba ble small bilateral pleural effusions. No pneumothorax. IMPRESSION: 1. Status post intubation. 2. Bilateral infiltrates, much more severe and extensive on the right compared to the left. These hav e slightly worsened. This is consistent with pneumonia.
[2019-01-03 12:46] LABS: Actual Bicarbonate (HCO3a) 20.4 mEq/L (22-28); Base Excess (BEa) -3.6 mEq/L (-2.0 to +3.0); CO2 Tension 32.7 mmHg (35.0-45.0); Calcium, Ionized 1.24 mmol/L (1.12-1.30); Carboxyhemoglobin (COHb) 1.2 gm% (0.0-3.0); Hemoglobin (Hb) 8.9 g/dL (12.0-16.0); O2 Tension (PaO2) 60.7 mmHg (> 60.0); Potassium - ABG Lab 4.22 mmol/L (3.70-5.30); pH, Arterial 7.41 (7.35-7.45)
[2019-01-03 12:51] LABS: ALV-art Gradient 304.835 (0-20); Puncture Site L.R.
[2019-01-03] MEDS ORDERED: Enoxaparin Sodium 80 MG/0.8 ML SYRINGE SC SCH (13:30)
[2019-01-03] MEDS: Amiodarone 450 MG, Admixture Fee 1 EACH in Dextrose 5% in Water 250 ML IVPB SCH ×2 (14:52→22:23)
[2019-01-03 14:58] LABS: CKMB 1.4 ng/mL (0-6.6)
[2019-01-03] MEDS ORDERED: SYSTANE 3.5 GM TUBE EA EYE PRN (15:41)
[2019-01-03] MEDS ORDERED: Ventilator Sedation Protocol 1 EACH FS SCH (15:45)
--- NOTE | 2019-01-03 15:59 | PRG ---
DATE OF SERVICE: SUBJECTIVE: Ms. Mitchell today, her status worsened. She developed atrial fibrillation with RVR acutely. She developed respiratory distress with respiratory failure. She required intubation. She underwent cardioversion x4 that was unsuccessful. This was in a synchronized fashion. She also been complaining of chest pain. Her EKG did not suggest any acute change otherwise an underlying left bundle-branch block. Her creatinine remains elevated at 2.7. Her enzymes so far have been negative and not suggesting an acute event. OBJECTIVE: VITAL SIGNS: Blood pressure 114/70, pulse 134, and respiration 20. LUNGS: Crackles bilaterally. HEART: Tachycardic, irregularly irregular. ABDOMEN: Soft, nontender, and nondistended. EXTREMITIES: No edema. PERTINENT LABORATORY DATA: Creatinine 2.7 and BUN 31. Peak troponin 0.149. IMPRESSION: 1. Acute pulmonary edema. 2. Coronary artery disease. 3. Acute on chronic kidney disease. RECOMMENDATIONS: Ms. Mitchell current condition has been very difficult to treat. She continues to have flash pulmonary edema. This episode may have been precipitated by atrial fibrillation with RVR. Differential diagnosis include acute mitral regurgitation in addition to renal artery stenosis. Both would be very difficult to treat. I did call and spoke to her daughter in [place] today and updated her. The only way we can reasonably assess her renal status is to proceed with renal angio, which would likely cause worsening renal function and potential need for dialysis. If this is truly from acute mitral regurgitation, she would unlikely do well with any type of intervention or surgery. We recommend echo Doppler once her heart rate slows down to assess her status. She has also been anemic. I have resumed aspirin and hold Plavix. She has been 1 month out from a bare-metal stent. I did spend 45 minutes critical care time at Ms. Mitchell bedside as well as discussed case Dr. Enmanuel Ruiz and discussed this with her daughter. Job ID: [id number]
--- NOTE | 2019-01-03 16:08 | PRG ---
DATE OF SERVICE: 01/03/2019 SERVICE: Pulmonary Medicine. INTERVAL HISTORY: Later in the day, the patient ended up going into a tachyarrhythmia. This was irregular. Had a little bit of a wide-complex. She had elevated blood pressure associated with this. She developed increasing respiratory failure and required intubation. I spent over 30 minutes, stabilizing the patient in this acute setting. We intubated her. The time I spent at bedside was unbundled from that procedure. She is not able to provide any additional elements of the history currently. PHYSICAL EXAMINATION: VITAL SIGNS: T-max 100.4, pulse 134, blood pressure 114/73, respirations 13, and saturation 100% on 50% FiO2 and a PEEP of 7. GENERAL: The patient is intubated and sedated. HEENT: Normocephalic and atraumatic. Sclerae white. Conjunctivae pink. Oral mucosa is moist without lesions. LUNGS: Extensive rhonchi and crackles are present. There is a prolonged expiratory phase, but no wheezing. HEART: Normal rate. Regular. ABDOMEN: Soft, nontender, and nondistended. Bowel sounds are positive. MUSCULOSKELETAL: No cyanosis or clubbing. NEUROLOGIC: Grossly nonfocal. LABORATORY DATA: A pH of 7.41, pCO2 of 33, pO2 of 61 on mechanical ventilation at that time. IMAGING: Chest x-ray demonstrates interval placement of the endotracheal tube. Bilateral infiltrates are much more severe and extensive in the right compared to the left. These have worsened slightly. This possibly consistent with the pneumonia, but unlikely. ASSESSMENT: 1. Acute hypoxic respiratory failure. 2. History of flash pulmonary edema, multiple events. 3. Coronary artery disease. 4. Mitral regurgitation. 5. Acute kidney injury on chronic kidney disease. 6. Paroxysmal atrial fibrillation with history of aberrancy. 7. Deep venous thrombosis. DISCUSSION AND PLAN: I will place the patient on mechanical ventilation. Since she is intubated, we will get a Gram stain and culture of her respiratory sputum. She is currently on empiric antibiotics, which will be continued. We will KVO her IV fluids. I will repeat a chest x-ray tomorrow morning. Supportive measures will be continued while we try to sort out what the underlying issue is here. My suspicion is that we are dealing with recurrent flash pulmonary edema events and that we are not dealing with a true infectious process. That being said, time will tell. Critical care time: 30 minutes, un-bundled from procedure. Job ID: [id number] MTDD
[2019-01-03] MEDS ORDERED: DISCONTINUE PREVIOUS NARCOTIC PAIN MEDICATIONS AND BENZODIAZEPINES FS SCH (16:30)
[2019-01-03] MEDS ORDERED: Lorazepam 2 MG/ML VIAL SLOW IVP PRN (16:30)
[2019-01-03] MEDS ORDERED: fentaNYL Citrate/PF 2,000 MCG in Sodium Chloride 0.9% 60 ML IV SCH (16:30)
[2019-01-03] MEDS ORDERED: Morphine 2 MG/ML SYRINGE SLOW IVP PRN (16:30)
[2019-01-03] MEDS ORDERED: Propofol BOLUS 1,000 MG/100 ML VIAL IV PRN (16:30)
[2019-01-03] MEDS ORDERED: Fentanyl BOLUS 250 ML IVPB PRN (16:30)
[2019-01-03] MEDS ORDERED: Propofol 1,000 MG/100 ML VIAL IV PRN (16:30)
[2019-01-03 18:20] LABS: CKMB 1.2 ng/mL (0-6.6); Troponin I 0.191 ng/mL (< 0.028)
[2019-01-03] MEDS: Melatonin 3 MG TAB PO SCH (22:14)
[2019-01-04] MEDS ORDERED: Sodium Chloride 0.9% 15 ML NEB ONE (00:16)
--- NOTE | 2019-01-04 00:27 | OP ---
DATE OF PROCEDURE: 01/03/2019 PROCEDURE PERFORMED: Endotracheal intubation. INDICATION: Acute respiratory failure. PROCEDURE SPEECH LANGUAGE THERAPIST: Dr. Bebeto Haro. ATTENDING PHYSICIAN: Enmanuel Ruiz MD, who is in attendance for the procedure. CONSENT: A verbal consent was obtained secondary to the emergent nature of the procedure. PROCEDURE SUMMARY: The patient was placed on cardiac monitoring including continuous pulse oximetry. Rapid sequence intubation was conducted using the GlideScope. The patient received 2 mg of Versed and 30 of etomidate for adequate sedation. A GlideScope and size 7.5 endotracheal tube with stylet were used and the patient was intubated on the first attempt. The stylet was removed and the cuff balloon was inflated. Appropriate endotracheal tube position was confirmed by GlideScope visualization of the vocal cord passage. Fogging of the tube and the carbon dioxide telemetric indicator and symmetric breath sounds were noted. The tube was secured at 21 cm at the lips. Post intubation chest x-ray pending. Job ID: [id number]
[2019-01-04 00:46] LABS: CKMB 0.7 ng/mL (0-6.6)
[2019-01-04] MEDS: Cefepime 2 GM in Sodium Chloride 0.9% 100 ML IVPB SCH (01:44)
[2019-01-04] MEDS: Vancomycin HCl 500 MG in Sodium Chloride 0.9% 100 ML IVPB SCH (01:44)
[2019-01-04 02:27] LABS: Vancomycin, Random 12.8 ug/mL (See Comment)
[2019-01-04] MEDS: Levothyroxine Sodium 25 MCG TAB PO SCH (05:18)
[2019-01-04 05:29] LABS: #Eosinphils 0.3 thou/uL (0.0-0.7); #Lymphocytes 1.5 thou/uL (1.20-3.40); #Monocytes 1.1 thou/uL (0.11-0.59); #Neutrophils 10.6 thou/uL (1.40-6.50); %Basophils 0.2 % (0.0-1.0); %Eosinophils 2.4 % (0.0-10.0); %Lymphocytes 11.1 % (21.0-51.0); %Neutrophils 78.3 % (42.0-75.0); Hemoglobin 7.4 g/dL (12.0-16.0); Mean Corpuscular HGB CONC 32.7 g/dL (32.0-36.0); Mean Corpuscular Hemoglobin 29.3 pg (27.0-31.0); Mean Corpuscular Volume 89.7 fL (78.0-98.0); Mean Platelet Volume 8.1 fL (7.4-10.4); Platelet Count 218 thou/uL (130-400); RBC Distribution Width 14.6 % (11.5-14.5); Red Blood Cell (RBC) Count 2.51 mill/uL (4.20-5.40); White Blood Cell (WBC) Count 13.5 thou/uL (4.8-10.8)
[2019-01-04 05:50] LABS: Anion Gap 14 mmol/L (10-20); BUN (Urea Nitrogen) 36 mg/dL (9.8-20.1); Calc. Creatinine Clearance 17 mL/min (70-130); Calcium 9.2 mg/dL (7.8-10.44); Carbon Dioxide 23 mmol/L (23-31); Chloride 106 mmol/L (98-107); Estimated GFR-MDRD 17; Glucose 246 mg/dL (83-110); Magnesium 1.8 mg/dL (1.6-2.6); Phosphorus 2.2 mg/dL (2.3-4.7); Potassium 4.4 mmol/L (3.5-5.1); Sodium 139 mmol/L (136-145)
[2019-01-04] MEDS: HumaLOG 300 UNITS/3 ML VIAL SC PRN ×3 (06:46→17:56)
--- NOTE | 2019-01-04 08:34 | RAD ---
CHEST 1 VIEW: Date: 01/04/19 INDICATION: CCU examination, on ventilator. COMPARISON: Prior exam dated 01/03/19. FINDINGS: There is improvement in the perihilar air space opacities likely related to some improving edema or p neumonia. Cardiomegaly persists. ET tube tip is 3.0 cm above the nicholas. Gastric catheter projects be yond the left hemidiaphragm. No pneumothorax evident. IMPRESSION: Improving perihilar opacities. POS: BH
[2019-01-04] MEDS ORDERED: Enoxaparin Sodium 80 MG/0.8 ML SYRINGE SC SCH (09:00)
[2019-01-04] MEDS: Calcitriol 0.25 MCG CAP PO SCH (09:39)
[2019-01-04] MEDS: Aspirin Chewable 81 MG TAB PO SCH ×2 (09:39→15:20)
[2019-01-04] MEDS: Potassium Chloride 20 MEQ TAB PO SCH (09:39)
[2019-01-04] MEDS: Amlodipine 5 MG TAB PO SCH ×2 (09:40→22:57)
[2019-01-04] MEDS: Clopidogrel Bisulfate 75 MG TAB PO SCH (09:40)
[2019-01-04] MEDS: Furosemide 40 MG TAB PO SCH (09:40)
[2019-01-04] MEDS: Calcium Carbonate + Vit D 1 TAB PO SCH ×2 (09:40→17:54)
[2019-01-04] MEDS: Docusate 100 MG CAP PO SCH (09:40)
[2019-01-04] MEDS: hydrALAZINE 10 MG TAB PO SCH ×4 (09:40→22:57)
[2019-01-04] MEDS: Metoprolol Tartrate 50 MG TAB PO SCH ×2 (09:41→22:57)
[2019-01-04] MEDS: Insulin Glargine 20 UNITS in Pre-Filled Syringe 1 EACH SC SCH (09:41)
[2019-01-04] MEDS: Ferrous Sulfate 325 MG TAB PO SCH ×3 (09:41→18:29)
--- NOTE | 2019-01-04 10:08 | PRG ---
DATE OF SERVICE: 01/04/2019 SERVICE: Pulmonary Medicine. INTERVAL HISTORY: The patient is breathing really well from respiratory standpoint. Oxygen requirements are decreasing ever so slightly. She remains on mechanical ventilation on 50% FiO2 and a PEEP of 7, however. Her saturations are marginal with this. She cannot provide additional elements of the history and requires some sedation to remain comfortable. PHYSICAL EXAMINATION: VITAL SIGNS: Afebrile, pulse 80, blood pressure 139/65, respirations 18 and saturation 93% on 50% FiO2 and a PEEP of 7. GENERAL: The patient is intubated and sedated. HEENT: Normocephalic and atraumatic. Sclerae white. Conjunctivae pink. Oral mucosa is moist without lesions. LUNGS: Decent air entry. Extensive crackling is present. There are rhonchi. No prolonged expiratory phase or wheezing appreciated. HEART: Normal. Rate irregular. ABDOMEN: Soft, nontender, nondistended. Bowel sounds are positive. MUSCULOSKELETAL: No cyanosis or clubbing. No pitting in the bilateral lower extremities. NEUROLOGIC: Grossly nonfocal. LABORATORY DATA: WBC 13.5, hemoglobin 7.4, and platelets 218,000. INR is 0.9. PH 7.41, pCO2 33, PO2 61. Creatinine 2.65, which is close to baseline. Phosphorus 2.2, troponin 0.219, CRP 17. Vancomycin 12.8. IMAGING DATA: Chest x-ray demonstrates dramatically improved aeration in the right lung and left lung. Small pleural effusions are noted. Endotracheal tube is 2 cm above the level of the nicholas. There is a widened carinal angle suggestive of left atrial dilation. ASSESSMENT: 1. Acute hypoxic respiratory failure, improving. 2. Flash pulmonary edema, at least 4 events in the past month. 3. Mitral regurgitation. 4. Coronary artery disease. 5. Acute kidney injury on chronic kidney disease. 6. Paroxysmal atrial fibrillation with aberrancy. 7. Deep venous thrombosis. DISCUSSION AND PLAN: The patient is doing much better. We will replace the phosphorus today and leave her on mechanical ventilation. We will initiate tube feeds. At this point, oxygen requirements prevent us from extubating her. We will diurese her down to euvolemia as tolerated. I will check some ANCAs to look into pulmonary renal syndromes, but the likelihood of her having this is quite low given that these infiltrates have come and gone without significant doses of steroids. CRITICAL CARE TIME: 30 minutes. Job ID: [id number]
[2019-01-04] MEDS ORDERED: Furosemide 40 MG/4 ML VIAL SLOW IVP SCH (10:45)
--- NOTE | 2019-01-04 10:48 | PDOC.CTH ---
Cardiology Progress Note - Subjective She remains intubated and sedated. She went into flash pulmonary edema and had to be re intubated. Her BP has not been excessively high. - Objective Vital Signs Temp Pulse Resp BP Pulse Ox 01/04/19 10:36 16 01/04/19 10:06 96 01/04/19 09:40 88 139/65 01/04/19 08:19 16 01/04/19 07:38 88 01/04/19 07:34 95 01/04/19 07:33 99.7 F H 01/04/19 04:08 87 01/04/19 04:00 100.8 F H 13 01/04/19 00:00 14 01/03/19 23:27 95 138/67 Admit Weight 152 lb 5.431 oz Weight 151 lb 3.794 oz 01/03/19 01/04/19 01/05/19 06:59 06:59 06:59 Intake Total 626.6 759.4 Output Total 1290 1050 165 Balance -663.4 -290.6 -165 - Physical Examination General/Neuro: other: (sedated, intubated. ) Neck: no JVD present Lungs: unlabored respirations Heart: RRR Abdomen: NT/ND Extremities: + edema B (Trace) - Telemetry Telemetry Rhythm: NSR - Labs Result Diagrams: 01/04/19 05:05 01/04/19 05:05 Troponin/CKMB CK-MB (CK-2) 0.7 ng/mL (0-6.6) 01/03/19 23:50 Troponin I 0.219 ng/mL (< 0.028) H 01/03/19 23:50 - Assessment/Plan 1. Flash pulmonary edema 2. Moderate MR 3. CAD s/p LAD stent 4. Underlying LBBB 5. Hx of wide complex rhythm, likely SVT/afib with underlying LBBB. 6. ANGELA on CKD 7. Anemia PLAN: - Continue supportive care. - Will repeat echo ajke sure her level of MR has not changed significantly from recent echo causing her to go into flash pulmonary edema. - Has lost 2 points hgb since admission despite diuresis. - Her BP has not been significantly higher to blame her pulmonary edema on this.
[2019-01-04] MEDS ORDERED: Sodium Phosphate 15 MMOL in Sodium Chloride 0.9% 250 ML 250 ML IVPB SCH (11:00)
[2019-01-04] MEDS: Diltiazem HCl 125 MG, Admixture Fee 1 EACH in Sodium Chloride 0.9% 100 ML IVPB SCH (11:37)
--- NOTE | 2019-01-04 12:00 | CON ---
DATE OF CONSULTATION: REASON FOR CONSULTATION: Elevated creatinine. HISTORY OF PRESENT ILLNESS: This is an 83-year-old female, who was admitted to the hospital for acute respiratory failure. The patient's creatinine has been at 2.65 and it has remained stable. Her prior baseline was in the 1.6 to 2s with multiple episodes of acute kidney injury. PAST MEDICAL HISTORY: Coronary artery disease, hypertension, hyperlipidemia, left bundle-branch block, congestive heart failure, mitral valve regurgitation, GERD, angioplasty, and back surgery. ALLERGIES: REVIEWED. HOME MEDICATIONS: List reviewed. REVIEW OF SYSTEMS: Unobtainable. The patient is intubated. PHYSICAL EXAMINATION: CONSTITUTIONAL: On exam, the patient is resting well. VITAL SIGNS: Pulse 75, breathing 16, and blood pressure 103/51. GENERAL APPEARANCE AND MENTAL STATUS: Fair. HEAD/NECK: Normocephalic. Atraumatic. EYES: EOMI. No deformity. EARS: Clear. No ulcers. NOSE: Intact. No lesions. MOUTH: Clear. No discharge. THROAT: Clear. No exudate. LUNGS: Clear. No crackles. CARDIAC: S1, S2. No rub. ABDOMEN: Benign. Bowel sounds positive. GENITALIA/RECTUM: Hernandes absent. BACK/EXTREMITIES: Edema 0+. NEUROLOGICAL: The patient is resting. LABORATORY DATA: Labs show creatinine 2.6. ASSESSMENT AND PLAN: 1. Acute kidney injury with chronic kidney disease, stage 4, stable. 2. Hypertension, stable. 3. Anemia, stable. We will follow renal function closely. No indication for dialysis. Job ID: [id number]
--- NOTE | 2019-01-04 14:20 | PDOC.PN ---
- Subjective Encounter Start Date: 01/04/19 Encounter Start Time: 14:18 Subjective: Still intubated and mecahnically ventilated. -: Flipped back into sinus rhythm spontaneously after failed DC cardioversion. -: No fever. - Objective Resuscitation Status - Order Detail: 01/02/19 03:17 Resuscitation Status Routine Resuscitation Status: FULL: Full Resuscitation Vital Signs & Weight: Vital Signs (12 hours) Temp Pulse Resp BP Pulse Ox 01/04/19 13:17 68 01/04/19 12:22 30 H 01/04/19 12:00 99.5 F 01/04/19 10:36 16 01/04/19 10:06 96 01/04/19 09:40 88 139/65 01/04/19 08:19 16 01/04/19 07:38 88 01/04/19 07:34 95 01/04/19 07:33 99.7 F H 01/04/19 04:08 87 01/04/19 04:00 100.8 F H 13 Weight Admit Weight 152 lb 5.431 oz Weight 151 lb 3.794 oz Most Recent Monitor Data Heart Rate from ECG 73 NIBP 92/55 NIBP BP-Mean 67 Respiration from ECG 38 SpO2 79 I&O: 01/03/19 01/04/19 01/05/19 06:59 06:59 06:59 Intake Total 626.6 759.4 106 Output Total 1290 1050 195 Balance -663.4 -290.6 -89 Result Diagrams: 01/04/19 05:05 01/04/19 05:05 Additional Labs: Accuchecks 01/04/19 01/03/19 01/03/19 10:43 17:01 10:42 POC Glucose 194 H 270 H 140 H Phys Exam - Physical Examination sedated HEENT: PERRLA, moist MMs ET tube in place Neck: supple ventilator transmitted sound heard in all lung zones Cardiovascular: RRR Gastrointestinal: soft, no distention, positive bowel sounds Musculoskeletal: no edema sedated Dx/Plan (1) Acute respiratory failure with hypoxia Code(s): J96.01 - ACUTE RESPIRATORY FAILURE WITH HYPOXIA Status: Resolved Comment: Due to pulmonary edema. Has had multiple episodes of pulmonary congestion of unclear etiology. May be related LAD disease for which she is s/p stent to LAD. Atrial fibrillation and mitral regugitation and renal artery stenosis are other considerations. (2) NSTEMI (non-ST elevated myocardial infarction) Code(s): I21.4 - NON-ST ELEVATION (NSTEMI) MYOCARDIAL INFARCTION Status: Acute Comment: Had recent bare metal stent placement to LAD (3) Ventricular tachycardia Code(s): I47.2 - VENTRICULAR TACHYCARDIA Status: Acute Comment: On amiodarone (4) ANGELA (acute kidney injury) Code(s): N17.9 - ACUTE KIDNEY FAILURE, UNSPECIFIED Status: Acute (5) Atrial fibrillation with RVR Code(s): I48.91 - UNSPECIFIED ATRIAL FIBRILLATION Status: Acute (6) Anemia in chronic kidney disease (CKD) Code(s): N18.9 - CHRONIC KIDNEY DISEASE, UNSPECIFIED; D63.1 - ANEMIA IN CHRONIC KIDNEY DISEASE Status: Acute (7) CAD (coronary artery disease) Code(s): I25.10 - ATHSCL HEART DISEASE OF [place] CORONARY ARTERY W/O ANG PCTRS Status: Chronic Comment: s/p BMS Stenting of LAD 11/27/2018 (8) CKD (chronic kidney disease) stage 4, GFR 15-29 ml/min Code(s): N18.4 - CHRONIC KIDNEY DISEASE, STAGE 4 (SEVERE) Status: Chronic (9) DM type 2 (diabetes mellitus, type 2) Status: Chronic Qualifiers: Diabetes mellitus medical terminologist insulin use: with medical terminologist use Diabetes mellitus complication status: with kidney complications Diabetes mellitus complication detail: with chronic kidney disease Chronic kidney disease stage : stage 4 (severe) Qualified Code(s): E11.22 - Type 2 diabetes mellitus with diabetic chronic kidney disease; N18.4 - Chronic kidney disease, stage 4 (severe ); 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 (10) HTN (hypertension) Code(s): I10 - ESSENTIAL (PRIMARY) HYPERTENSION Status: Chronic Qualifiers: Hypertension type: essential hypertension Qualified Code(s): I10 - Essential (primary) hypertension (11) Hyperglycemia due to type 2 diabetes mellitus Code(s): E11.65 - TYPE 2 DIABETES MELLITUS WITH HYPERGLYCEMIA Status: Chronic Comment: improved.increase SSI to aggressive.cont lantus.monitor (12) Hypothyroid Code(s): E03.9 - HYPOTHYROIDISM, UNSPECIFIED Status: Chronic Qualifiers: Hypothyroidism type: unspecified Qualified Code(s): E03.9 - Hypothyroidism , unspecified (13) Atrial fibrillation with RVR Code(s): I48.91 - UNSPECIFIED ATRIAL FIBRILLATION Status: Resolved Comment: in sinus rhythm, switching amiodarone to oral (14) Chest pain Code(s): R07.9 - CHEST PAIN, UNSPECIFIED Status: Resolved Qualifiers: Chest pain type: unspecified Qualified Code(s): R07.9 - Chest pain, unspecified (15) Hypotension Status: Acute - Plan Will hold antihypertensives due to hypotension. -: Sedation and vent mgt as per Pulm/critical care -: rate and rythm control meds as per cardiology. Monitor renal function. -: Continue antibiotics for now. Will get CRP and will likely DC abx. -: Continue supportive care. Remained critically ill with guarded prognosis * .
[2019-01-04] MEDS ORDERED: Sodium Chloride 0.9% 500 ML IV SCH (15:00)
[2019-01-04] MEDS ORDERED: Bacteriostatic Water 30 ML VIAL FS PRN (15:02)
[2019-01-04] MEDS ORDERED: methylPREDNISolone Sod Succ 40 MG VIAL IVP SCH (15:15)
[2019-01-04] MEDS ORDERED: Norepinephrine 8 MG/0.9% NS 250 ML ONE (15:48)
--- NOTE | 2019-01-04 16:29 | RAD ---
FEXAM: Portable chest INDICATIONS: Central line placement COMPARISON: 01/04/2019 4:50 AM FINDINGS: Diffuse alveolar infiltrate throughout right lung is more prominent. ET tube and NG tube re main in place. Central line via the right jugular overlies SVC. Bilateral effusions. IMPRESSION: Central line appears adequately positioned. Diffuse right infiltrates appears more promin ent.
[2019-01-04] MEDS: methylPREDNISolone Sod Succ 40 MG VIAL IVP SCH (17:54)
[2019-01-04] MEDS: Chlorhexidine Gluconate 15 ML UDCUP SSP SCH (18:31)
--- NOTE | 2019-01-04 21:12 | EKG ---
Test Reason : Blood Pressure : / mmHG Vent. Rate : 121 BPM Atrial Rate : 340 BPM P-R Int : 000 ms QRS Dur : 136 ms QT Int : 374 ms P-R-T Axes : 000 -51 118 degrees QTc Int : 531 ms Atrial fibrillation with rapid ventricular response with premature ventricular or aberrantly conducte d complexes Left axis deviation Left bundle branch block Abnormal ECG Confirmed by MERY DE LA CRUZ DO ([id number]), metropolitan editor MARCELINO LINDER ([id number]) on 01/04/2019 9:11:37 PM Referred By: Confirmed By:MERY DE LA CRUZ DO
--- NOTE | 2019-01-04 21:16 | EKG ---
Test Reason : Blood Pressure : / mmHG Vent. Rate : 080 BPM Atrial Rate : 080 BPM P-R Int : 134 ms QRS Dur : 134 ms QT Int : 424 ms P-R-T Axes : 050 -47 102 degrees QTc Int : 489 ms Normal sinus rhythm Left axis deviation Left bundle branch block Abnormal ECG Confirmed by MERY DE LA CRUZ DO ([id number]), medical transcription editor MARCELINO LINDER ([id number]) on 01/04/2019 9:16:44 PM Referred By: Confirmed By:MERY DE LA CRUZ DO
[2019-01-04] MEDS: Melatonin 3 MG TAB PO SCH (22:57)
[2019-01-05] MEDS: methylPREDNISolone Sod Succ 40 MG VIAL IVP SCH ×2 (00:55→06:10)
[2019-01-05] MEDS: Cefepime 2 GM in Sodium Chloride 0.9% 100 ML IVPB SCH (00:56)
[2019-01-05] MEDS: HumaLOG 300 UNITS/3 ML VIAL SC PRN ×5 (01:03→22:37)
[2019-01-05] MEDS: Vancomycin HCl 500 MG in Sodium Chloride 0.9% 100 ML IVPB SCH (02:17)
[2019-01-05] MEDS: Norepinephrine 8 MG/250 ML BAG IVPB PRN (02:18)
--- NOTE | 2019-01-05 02:19 | OP ---
DATE OF PROCEDURE: 01/04/2019 SERVICE: Pulmonary Medicine. PROCEDURES PERFORMED: Right-sided triple-lumen IJ central venous catheter placed under ultrasound guidance. CONSENT: Risks and benefits of the procedure were explained to the medical decision maker. All questions were answered and alternative options discussed. MEDICATIONS USED: None. PREOPERATIVE DIAGNOSIS: Shock. POSTPROCEDURE DIAGNOSIS: Shock. DESCRIPTION OF PROCEDURE: Vital sign monitoring was accomplished by noninvasive hemodynamic monitoring, pulse oximetry, and telemetry. A time-out was performed and the patient was positively identified by name and date of . The procedure site was marked. The patient was placed in the supine position, and the right neck was prepped and draped in sterile fashion. The course of the IJ was mapped with ultrasound and the overlying skin was cannulated in the right IJ under direct ultrasound observation on the first attempt. We got dark red, nonpulsatile blood. A J-shaped guidewire was inserted through the cannulation needle without difficulty. A small incision was made. The dilator and triple-lumen central venous catheter were sterilely threaded over the guidewire. The catheter was secured to the skin. All 3 ports withdrew and flushed without difficulty. A sterile dressing was applied and the procedure was terminated. Postprocedure x-ray demonstrated the tip of the catheter within the right atrium. ESTIMATED BLOOD LOSS: 2 mL. COMPLICATIONS: None. Job ID: [id number]
[2019-01-05 04:35] LABS: #Lymphocytes 1.2 thou/uL (1.20-3.40); #Monocytes 0.6 thou/uL (0.11-0.59); #Neutrophils 16.7 thou/uL (1.40-6.50); %Basophils 0.1 % (0.0-1.0); %Eosinophils 0.3 % (0.0-10.0); %Lymphocytes 6.6 % (21.0-51.0); Mean Corpuscular HGB CONC 32.5 g/dL (32.0-36.0); Mean Corpuscular Hemoglobin 28.4 pg (27.0-31.0); Mean Corpuscular Volume 87.3 fL (78.0-98.0); Mean Platelet Volume 8.2 fL (7.4-10.4); Platelet Count 217 thou/uL (130-400); RBC Distribution Width 14.5 % (11.5-14.5); Red Blood Cell (RBC) Count 2.82 mill/uL (4.20-5.40); White Blood Cell (WBC) Count 18.5 thou/uL (4.8-10.8)
[2019-01-05 04:49] LABS: Anion Gap 21 mmol/L (10-20); BUN (Urea Nitrogen) 49 mg/dL (9.8-20.1); Calc. Creatinine Clearance 12 mL/min (70-130); Calcium 8.9 mg/dL (7.8-10.44); Carbon Dioxide 17 mmol/L (23-31); Chloride 104 mmol/L (98-107); Estimated GFR-MDRD 11; Glucose 276 mg/dL (83-110); Magnesium 1.6 mg/dL (1.6-2.6); Potassium 5.7 mmol/L (3.5-5.1); Sodium 136 mmol/L (136-145)
[2019-01-05 04:52] LABS: Phosphorus 4.6 mg/dL (2.3-4.7)
[2019-01-05] MEDS: Furosemide 40 MG/4 ML VIAL SLOW IVP SCH (06:10)
[2019-01-05] MEDS: Levothyroxine Sodium 25 MCG TAB PO SCH (06:10)
--- NOTE | 2019-01-05 08:34 | PRG ---
DATE OF SERVICE: 01/05/2019 SERVICE: Pulmonary Medicine. INTERVAL HISTORY: Overnight, the patient had a fairly significant hypotension event. We ended up putting a line in initiating a very low dose of Levophed. Her blood pressures improved a little bit. Early this morning, she went back into atrial fibrillation. We are looking at initiating her on a very low dose of amiodarone without a bolus to see whether or not we can get her heart behaving correctly again. She cannot provide any additional elements of the history and is requiring some sedation and maintain comfort. PHYSICAL EXAMINATION: VITAL SIGNS: Afebrile, pulse 92, blood pressure 106/67, respirations 18, saturation 98% on 47% FiO2, and a PEEP of 7. HEENT: Normocephalic and atraumatic. Sclerae are white. Conjunctivae are pink. Oral mucosa is moist without lesions. LUNGS: Much improved air entry. Crackles are present, but significantly improved. There is no longer extensive rhonchi that are previously appreciated. HEART: Normal rate regular. ABDOMEN: Soft, nontender, and nondistended. Bowel sounds are positive. MUSCULOSKELETAL: No cyanosis or clubbing. No pitting in the bilateral lower extremities. NEUROLOGIC: Grossly nonfocal. LABORATORY DATA: WBC 18.5, hemoglobin 8.0, and platelets 217,000. Creatinine 3.76 and much worse, BUN 49. Anion gap 21. Her bicarb is 17. Potassium 5.7. Basic metabolic profile is otherwise unremarkable. Magnesium 1.6. Blood cultures x2 and respiratory culture remain negative. These were originally obtained on the 04 of January. IMAGING STUDIES: Chest x-ray demonstrates a new right-sided IJ central venous catheter is in the right atrium. The right mid lung zone infiltrate has once again recurred. There is a very wide carinal angle suggestive of large left atrium. Pulmonary artery is prominent on the left. ASSESSMENT: 1. Acute hypoxic respiratory failure. 2. Flash pulmonary edema, recurrent. 3. Mitral regurgitation. 4. Coronary artery disease. 5. Acute kidney injury on chronic kidney disease. 6. Paroxysmal atrial fibrillation with aberrancy. 7. Deep venous thrombosis. DISCUSSION AND PLAN: We are going to keep the patient on mechanical ventilation. We will watch her kidney function through time. Hopefully, this will start to improve. My suspicion is that we are dealing with a mitral valve that is episodically regurgitant with elevated blood pressures. We are going to have to maintain very tight glycemic control. Low blood pressures will hurt her kidneys. High blood pressures will cause her to go into flash pulmonary edema event. Truth be told, I do not think we are going to be able to give this patient good quality of life moving forward. Over the last 6 months, she got progressively weaker and is getting to the point where she is so deconditioned. She is having a hard time maintaining her own affairs without significant assistance. We will continue our family discussions through time. Palliative Care consultation will be placed once again. CRITICAL CARE TIME: 30 minutes. Job ID: [id number]
[2019-01-05] MEDS: Amiodarone 450 MG, Admixture Fee 1 EACH in Dextrose 5% in Water 250 ML IVPB SCH ×2 (08:36→15:34)
[2019-01-05] MEDS: Potassium Chloride 20 MEQ TAB PO SCH (09:47)
[2019-01-05] MEDS: Insulin Glargine 20 UNITS in Pre-Filled Syringe 1 EACH SC SCH (09:48)
[2019-01-05] MEDS: Docusate 100 MG CAP PO SCH (09:48)
[2019-01-05] MEDS: Clopidogrel Bisulfate 75 MG TAB PO SCH (09:48)
[2019-01-05] MEDS: Aspirin Chewable 81 MG TAB PO SCH ×2 (09:48→15:17)
[2019-01-05] MEDS ORDERED: Bacteriostatic Water 30 ML VIAL FS PRN (09:51)
[2019-01-05] MEDS: hydrALAZINE 10 MG TAB PO SCH ×4 (09:53→20:34)
[2019-01-05] MEDS: Amlodipine 5 MG TAB PO SCH ×2 (09:53→20:34)
[2019-01-05] MEDS: Metoprolol Tartrate 50 MG TAB PO SCH ×2 (09:54→20:34)
[2019-01-05] MEDS: Calcitriol 0.25 MCG CAP PO SCH (09:58)
[2019-01-05] MEDS: Calcium Carbonate + Vit D 1 TAB PO SCH ×2 (09:59→17:08)
[2019-01-05] MEDS: Ferrous Sulfate 325 MG TAB PO SCH ×2 (09:59→17:08)
[2019-01-05] MEDS ORDERED: Heparin 10,000 UNITS/ 10 ML VIAL ONE (10:00)
[2019-01-05] MEDS ORDERED: methylPREDNISolone Sod Succ 40 MG VIAL IVP SCH (10:00)
[2019-01-05] MEDS ORDERED: Apixaban 5 MG TAB PO SCH ×2 (10:00→21:00)
[2019-01-05 10:31] LABS: Anion Gap 20 mmol/L (10-20); BUN (Urea Nitrogen) 58 mg/dL (9.8-20.1); Calc. Creatinine Clearance 11 mL/min (70-130); Carbon Dioxide 18 mmol/L (23-31); Chloride 104 mmol/L (98-107); Estimated GFR-MDRD 10; Glucose 316 mg/dL (83-110); Potassium 5.6 mmol/L (3.5-5.1); Sodium 136 mmol/L (136-145)
--- NOTE | 2019-01-05 11:16 | PRG ---
DATE OF SERVICE: 01/05/2019 SUBJECTIVE: An 83-year-old female, being seen for acute kidney injury. The patient had a cardiovascular event yesterday with low blood pressure and was started on Levophed. OBJECTIVE: CONSTITUTIONAL: On examination, the patient is resting and intubated. VITAL SIGNS: Afebrile, pulse 84, breathing 16, blood pressure 110/66. GENERAL APPEARANCE AND MENTAL STATUS: Fair. HEAD/NECK: Normocephalic. Atraumatic. EYES: EOMI. No deformity. EARS: Clear. No ulcers. NOSE: Intact. No lesions. MOUTH: Clear. No discharge. THROAT: Clear. No exudate. LUNGS: Clear. No crackles. CARDIAC: S1, S2. No rub. ABDOMEN: Benign. Bowel sounds positive. GENITALIA/RECTUM: Hernandes absent. BACK/EXTREMITIES: Edema 0+. NEUROLOGICAL: The patient is resting. SKIN: LYMPHATICS: LABORATORY DATA: Labs show potassium 5.7. Creatinine 0.6. ASSESSMENT AND PLAN: 1. Acute kidney injury with chronic kidney disease due to cardiorenal syndrome. 2. Hyperkalemia. Risks versus benefits of dialysis were discussed. Family is undecided. We will give Kayexalate. 3. Anemia, stable. 4. Medication based on GFR appropriate. 5. Overall, prognosis is poor. Job ID: [id number]
[2019-01-05] MEDS: Micafungin 100 MG in Sodium Chloride 0.9% 100 ML IVPB SCH (11:51)
--- NOTE | 2019-01-05 13:33 | PDOC.PN ---
- Subjective Encounter Start Date: 01/05/19 Encounter Start Time: 13:31 Subjective: Still intubated and mechanically ventilated. -: Developed hypotension and was started on levophed. - Objective Resuscitation Status - Order Detail: 01/02/19 03:17 Resuscitation Status Routine Resuscitation Status: FULL: Full Resuscitation Vital Signs & Weight: Vital Signs (12 hours) Temp Pulse Resp BP Pulse Ox 01/05/19 13:15 111 H 01/05/19 12:00 20 01/05/19 11:21 98.4 F 01/05/19 10:17 84 01/05/19 10:04 19 01/05/19 09:53 86 112/62 01/05/19 08:00 15 01/05/19 07:33 99 01/05/19 07:28 86 01/05/19 07:19 98.4 F 01/05/19 06:00 16 01/05/19 04:00 98.8 F 17 01/05/19 03:44 98 116/75 01/05/19 02:00 17 Weight Admit Weight 152 lb 5.431 oz Weight 153 lb 10.595 oz Most Recent Monitor Data Heart Rate from ECG 90 NIBP 120/65 NIBP BP-Mean 83 Respiration from ECG 27 SpO2 93 I&O: 01/04/19 01/05/19 01/06/19 06:59 06:59 06:59 Intake Total 759.4 2373.4 Output Total 1050 254 30 Balance -290.6 2119.4 -30 Result Diagrams: 01/05/19 04:20 01/05/19 09:59 Additional Labs: Accuchecks 01/05/19 01/05/19 01/04/19 09:48 00:40 16:32 POC Glucose 314 H 230 H 212 H 01/03/19 23:23 POC Glucose 200 H Phys Exam - Physical Examination sedated ET tibe in place Neck: supple Ventilator transmitted sound heard in all lung zones Cardiovascular: irregular irregularly irregular rhythm and rate. tachycardic. systolic murmur noted. Gastrointestinal: soft, no distention Musculoskeletal: pulses present edema of the hands noted. No leg edema sedated. wakes up with stimulation Dx/Plan (1) Acute respiratory failure with hypoxia Code(s): J96.01 - ACUTE RESPIRATORY FAILURE WITH HYPOXIA Status: Resolved Comment: Due to flash pulmonary edema. Has had multiple episodes of pulmonary congestion of unclear etiology. Most likely due to mitral valve dysfunction. Other considerations are atrial fibrillation and renal artery stenosis. (2) NSTEMI (non-ST elevated myocardial infarction) Code(s): I21.4 - NON-ST ELEVATION (NSTEMI) MYOCARDIAL INFARCTION Status: Acute Comment: Had recent bare metal stent placement to LAD. Has had lovenox for 2 days. Now on eliquis (3) Ventricular tachycardia Code(s): I47.2 - VENTRICULAR TACHYCARDIA Status: Acute Comment: On amiodarone (4) ANGELA (acute kidney injury) Code(s): N17.9 - ACUTE KIDNEY FAILURE, UNSPECIFIED Status: Acute Comment: Due to hemodynamic factors from Cardiac decompensation/hypotension and diuretics with possible contribution from vancomycin toxicity (5) Atrial fibrillation with RVR Code(s): I48.91 - UNSPECIFIED ATRIAL FIBRILLATION Status: Acute Comment: Paroxysmal. back in afib after spontaneous conversion to sinus (6) Anemia in chronic kidney disease (CKD) Code(s): N18.9 - CHRONIC KIDNEY DISEASE, UNSPECIFIED; D63.1 - ANEMIA IN CHRONIC KIDNEY DISEASE Status: Acute (7) CAD (coronary artery disease) Code(s): I25.10 - ATHSCL HEART DISEASE OF [place] CORONARY ARTERY W/O ANG PCTRS Status: Chronic Comment: s/p BMS Stenting of LAD 11/27/2018 (8) CKD (chronic kidney disease) stage 4, GFR 15-29 ml/min Code(s): N18.4 - CHRONIC KIDNEY DISEASE, STAGE 4 (SEVERE) Status: Chronic (9) DM type 2 (diabetes mellitus, type 2) Status: Chronic Qualifiers: Diabetes mellitus fci insulin use: with 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 helper use Diabetes mellitus complication status: with kidney complications Diabetes mellitus complication detail: with chronic kidney disease Chronic kidney disease stage : stage 4 (severe) Qualified Code(s): E11.22 - Type 2 diabetes mellitus with diabetic chronic kidney disease; N18.4 - Chronic kidney disease, stage 4 (severe ); Z79.4 - exterminator (current) use of insulin (10) HTN (hypertension) Code(s): I10 - ESSENTIAL (PRIMARY) HYPERTENSION Status: Chronic Qualifiers: Hypertension type: essential hypertension Qualified Code(s): I10 - Essential (primary) hypertension (11) Hyperglycemia due to type 2 diabetes mellitus Code(s): E11.65 - TYPE 2 DIABETES MELLITUS WITH HYPERGLYCEMIA Status: Chronic Comment: improved.increase SSI to aggressive.cont lantus.monitor (12) Hypothyroid Code(s): E03.9 - HYPOTHYROIDISM, UNSPECIFIED Status: Chronic Qualifiers: Hypothyroidism type: unspecified Qualified Code(s): E03.9 - Hypothyroidism , unspecified (13) Chest pain Code(s): R07.9 - CHEST PAIN, UNSPECIFIED Status: Resolved Qualifiers: Chest pain type: unspecified Qualified Code(s): R07.9 - Chest pain, unspecified (14) Hypotension Status: Acute Comment: Now on levophed. (15) Hyperkalemia Code(s): E87.5 - HYPERKALEMIA Status: Acute (16) Pulmonary vascular congestion Code(s): R09.89 - OTH SYMPTOMS AND SIGNS INVOLVING THE CIRC AND RESP SYSTEMS Status: Acute Comment: Etiology unclear: Most likely cardiac. infection etiology cannot be ruled. - Plan Continue current treatments. For Hemodialysis as per nephrology -: Consult ID to help with antimicrobial therapy. -: Continue pressor support. Vent mgt as per critical care. -: Monitor glycemic control with decrease of steroid. -: Will start insulin infusion if glycemic control remain suboptimal * .
--- NOTE | 2019-01-05 15:26 | ULT ---
BILATERAL UPPER EXTREMITY VEIN MAPPING: Date: 01/05/19 HISTORY: End-stage renal disease; evaluate for dialysis access. FINDINGS: RIGHT UPPER EXTREMITY CEPHALIC VEIN Proximal Arm: 0.8 mm Mid Arm: 0.6 mm Distal Arm: 1.2 mm Antecubital Fossa: 1.0 mm Proximal Forearm: 1.0 mm Mid Forearm: 1.0 mm Distal Forearm: 1.2 mm BASILIC VEIN Proximal Arm: 3.6 mm Mid Arm: 2.5 mm Distal Arm: 1.4 mm Antecubital Fossa: 1.9 mm Proximal Forearm: 1.6 mm Mid Forearm: 1.6 mm Distal Forearm: 1.4 mm LEFT UPPER EXTREMITY CEPHALIC VEIN Proximal Arm: 1.2 mm Mid Arm: 2.0 mm Distal Arm: 1.9 mm Antecubital Fossa: 2.1 mm Proximal Forearm: 1.4 mm Mid Forearm: 1.0 mm Distal Forearm: 0.9 mm BASILIC VEIN Proximal Arm: 3.2 mm Mid Arm: 3.6 mm Distal Arm: 1.8 mm Antecubital Fossa: 1.6 mm Proximal Forearm: 1.2 mm Mid Forearm: 1.0 mm Distal Forearm: 0.7 mm RIGHT BRACHIAL ARTERY: 4.2 mm RIGHT RADIAL ARTERY: 1.5 mm RIGHT ULNAR ARTERY: 2.1 mm LEFT BRACHIAL ARTERY: 3.6 mm LEFT RADIAL ARTERY: 2.4 mm LEFT ULNAR ARTERY: 2.3 mm IMPRESSION: 1. Vein mapping measurements as described above. 2. In addition, there is noncompressibility of the left cephalic vein, with prominent thrombus withi n the course of the cephalic vein in the upper arm. Ulnar artery also does not show definitive flow. POS: [facility]
--- NOTE | 2019-01-05 16:16 | PDOC.CTH ---
Cardiology Progress Note - Subjective Remains intubated but awake. - Objective Vital Signs Temp Pulse Resp BP Pulse Ox 01/05/19 15:17 102 H 112/73 01/05/19 14:39 16 01/05/19 13:15 111 H 01/05/19 12:00 20 01/05/19 11:21 98.4 F 01/05/19 10:17 84 01/05/19 10:04 19 01/05/19 09:53 86 112/62 01/05/19 08:00 15 01/05/19 07:33 99 01/05/19 07:28 86 01/05/19 07:19 98.4 F 01/05/19 06:00 16 Admit Weight 152 lb 5.431 oz Weight 153 lb 10.595 oz 01/04/19 01/05/19 01/06/19 06:59 06:59 06:59 Intake Total 759.4 2373.4 Output Total 1050 254 35 Balance -290.6 2119.4 -35 - Physical Examination General/Neuro: other: (sedated intubated. ) Neck: no JVD present Lungs: unlabored respirations Heart: RRR Abdomen: NT/ND Extremities: other: (no edema) - Telemetry Telemetry Rhythm: NSR - Labs Result Diagrams: 01/05/19 04:20 01/05/19 09:59 Troponin/CKMB CK-MB (CK-2) 0.7 ng/mL (0-6.6) 01/03/19 23:50 Troponin I 0.219 ng/mL (< 0.028) H 01/03/19 23:50 - Assessment/Plan 1. Flash pulmonary edema 2. Moderate MR 3. CAD s/p LAD stent 4. Underlying LBBB 5. Hx of wide complex rhythm, likely SVT/afib with underlying LBBB. 6. ANGELA on CKD 7. Anemia PLAN: - Continue supportive care. - She has positive cultures for phyllis. - Hgb stable. - Part of her decompensation is likely related to phyllis. - Will start HD for elevated creatinine and hyperkalemia with inability to diurese.
[2019-01-05 16:59] LABS: HBSAg Index 0.27 S/CO (0-0.99); Hep B Surf Ag Non-Reactive S/CO (NonReactive)
--- NOTE | 2019-01-05 17:39 | HP ---
HISTORY OF PRESENT ILLNESS: María Mitchell, 83-year-old female patient, who is admitted to the ICU with sepsis, respiratory failure, intubated. She has history of chronic kidney disease. On admission, she has left antecubital IV. She has a left midline. She has bandages on right upper arm from midline attempts. These were immediately removed. She has a right IJ triple-lumen catheter. She is on the ventilator. She is sedated. I have ordered ultrasound vein mapping and ordered no IVs in her extremities. All IV access and blood draws through her central line. Apparently, family has made her DNR except for intubation. They want her to decide whether she wants long-term dialysis or not. I have been asked to see her regarding placement of a hemodialysis catheter. We will place that in right groin. She will need a cuffed tunneled dialysis catheter later today. She was given Eliquis today. I will discontinue that in case the cuffed tunneled dialysis catheter is necessary. She will need subcu heparin or IV heparin for anticoagulation for AFib until these decisions can be made. ALLERGIES: HYDROCODONE, IODINE. RECORDS OBTAINED FROM THE HOSPITALIST RECORDS SHE IS UNABLE TO GIVE A HISTORY DUE TO INTUBATION AND SEDATION. PAST MEDICAL HISTORY: Non-STEMI, coronary artery disease, hypertension, hyperlipidemia, diabetes, left bundle-branch block, CHF, mitral valve regurgitation, chronic kidney disease, long-term GERD, past history of depression. PAST SURGICAL HISTORY: Angioplasty, back surgery, CABG. SOCIAL HISTORY: The patient lives in [facility]. Alcohol, none. Drugs, none. Tobacco, none. MEDICATIONS: 1. Acetaminophen. 2. Amlodipine. 3. Protonix. 4. Sodium bicarb. 5. Sertraline. 6. Hydralazine. 7. Glycolax. 8. Furosemide. 9. Ferrous sulfate. 10. Colace. 11. Plavix. 12. Calcitriol. 13. Aspirin. 14. Eliquis. 15. DuoNeb. 16. Lantus insulin, SoloSTAR. 17. Levothyroxine. 18. Metoprolol. 19. Melatonin. 20. Myrbetriq. 21. Potassium chloride. 22. Nitroglycerin. PHYSICAL EXAMINATION: GENERAL: The patient has a midline left and antecubital left bandages, right upper arm for midline attempts, IV attempts. Multiple ecchymoses antecubital bilaterally. Right IJ central line. She is intubated. She is on ventilator. VITAL SIGNS: Blood pressure 89/54, pulse rate 65. HEAD, EYES, EARS, NOSE, AND THROAT: Unremarkable. LUNGS: Rhonchi. CARDIAC: Regular rate and rhythm. ABDOMEN: Soft, obese. EXTREMITIES: Unremarkable. ASSESSMENT AND PLAN: Chronic kidney disease with end-stage renal disease with flash pulmonary edema in need of dialysis access. Her GFR is 10. BUN 58, creatinine 4.09, potassium 5.6. We will place a right femoral vein Trialysis catheter. We will have removed the midline IV, antecubital IV. Would indicate no IVs or blood draws from her arms. All IVs and blood draws from her central lines. Use heparin flush on her dialysis catheter in groin. Ultrasound vein mapping in both arms. Await family decision regarding long-term hemodialysis access. She certainly will need a cuffed tunneled dialysis catheter, if the patient and family wants to continue with this. Job ID: [id number]
[2019-01-06] MEDS: Cefepime 2 GM in Sodium Chloride 0.9% 100 ML IVPB SCH (01:58)
[2019-01-06 02:23] LABS: Vancomycin, Trough 20.5 ug/mL
[2019-01-06] MEDS: Vancomycin HCl 500 MG in Sodium Chloride 0.9% 100 ML IVPB SCH (03:11)
[2019-01-06 05:32] LABS: Anion Gap 17 mmol/L (10-20); BUN (Urea Nitrogen) 49 mg/dL (9.8-20.1); Calc. Creatinine Clearance 15 mL/min (70-130); Calcium 8.4 mg/dL (7.8-10.44); Carbon Dioxide 22 mmol/L (23-31); Chloride 101 mmol/L (98-107); Estimated GFR-MDRD 14; Glucose 170 mg/dL (83-110); Potassium 4.3 mmol/L (3.5-5.1); Sodium 136 mmol/L (136-145)
[2019-01-06 05:49] LABS: Band 7 % (5-11); Hemoglobin 7.2 g/dL (12.0-16.0); Lymphocytes 11 % (21-51); MDiff Complete? YES; Mean Corpuscular Hemoglobin 29.8 pg (27.0-31.0); Mean Corpuscular Volume 87.8 fL (78.0-98.0); Mean Platelet Volume 8.9 fL (7.4-10.4); Metamyelocyte 1 % (0-0); Monocytes 5 % (0-10); Neutrophil 76 % (42-75); Nucleated RBC 8 % (0); Platelet Count 164 thou/uL (130-400); RBC Distribution Width 14.7 % (11.5-14.5); Red Blood Cell (RBC) Count 2.41 mill/uL (4.20-5.40); White Blood Cell (WBC) Count 15.5 thou/uL (4.8-10.8)
[2019-01-06] MEDS: Levothyroxine Sodium 25 MCG TAB PO SCH (06:12)
[2019-01-06] MEDS: Furosemide 40 MG/4 ML VIAL SLOW IVP SCH (06:12)
--- NOTE | 2019-01-06 08:02 | OP ---
DATE OF PROCEDURE: 01/05/2019 PREOPERATIVE DIAGNOSES: 1. End-stage renal disease. 2. Hyperkalemia. 3. Flash pulmonary edema. 4. Need of emergent dialysis access, midline IV left arm, antecubital IV. Bandages in the right upper arm from previous midline or IV cephalic vein upper arm in a patient with chronic kidney disease, right IJ central line in place. PROCEDURE PERFORMED: Right femoral vein triple-lumen catheter. ANESTHESIA: 1% Xylocaine. DESCRIPTION OF PROCEDURE: The patient was seen at bedside. Under sterile technique, right groin was prepared with ChloraPrep and draped in routine fashion. Local anesthetic was infiltrated in the skin and subcutaneous tissue. The femoral vein cannulated with trocar catheter, J-wire threaded, trocar catheter removed. Seldinger technique was used to place a Trialysis catheter and Trialysis catheter was secured with 2 interrupted suture of 3-0 nylon. Sterile dressings applied. J-wire removed. Each port aspirated of blood, flushed with heparinized saline solution. Job ID: [id number]
[2019-01-06] MEDS: Pantoprazole 40 MG GRANULES PACKET PO SCH (08:41)
[2019-01-06] MEDS: Clopidogrel Bisulfate 75 MG TAB PO SCH (08:42)
[2019-01-06] MEDS: Aspirin Chewable 81 MG TAB PO SCH ×2 (08:42→10:59)
[2019-01-06] MEDS: Calcium Carbonate + Vit D 1 TAB PO SCH ×2 (08:42→16:49)
[2019-01-06] MEDS: Docusate 100 MG CAP PO SCH (08:43)
[2019-01-06] MEDS: Potassium Chloride 20 MEQ TAB PO SCH (08:43)
[2019-01-06] MEDS: Amlodipine 5 MG TAB PO SCH ×2 (08:43→20:24)
[2019-01-06] MEDS: Ferrous Sulfate 325 MG TAB PO SCH ×2 (08:43→16:49)
[2019-01-06] MEDS: hydrALAZINE 10 MG TAB PO SCH ×4 (08:44→20:25)
[2019-01-06] MEDS: methylPREDNISolone Sod Succ 40 MG VIAL IVP SCH (08:44)
[2019-01-06] MEDS: Metoprolol Tartrate 50 MG TAB PO SCH ×2 (08:45→20:25)
[2019-01-06] MEDS: Insulin Glargine 20 UNITS in Pre-Filled Syringe 1 EACH SC SCH (08:46)
[2019-01-06] MEDS ORDERED: Vancomycin HCl 500 MG in Sodium Chloride 0.9% 100 ML IVPB SCH (09:00)
--- NOTE | 2019-01-06 09:09 | PDOC.CTH ---
Cardiology Progress Note - Subjective Pt remains intubated and sedated. Pt required dialysis over weekend with minimal output. Creatiine has increased to 4.o - Objective Vital Signs Temp Pulse Resp 01/06/19 08:44 104 H 01/06/19 08:43 104 H 01/06/19 07:40 104 H 01/06/19 07:00 98.3 F 01/06/19 06:00 17 01/06/19 04:00 97.9 F 17 01/06/19 02:44 118 H 01/06/19 02:00 15 01/06/19 00:00 98.4 F 15 01/05/19 22:13 125 H 01/05/19 22:00 15 Admit Weight 152 lb 5.431 oz Weight 150 lb 12.739 oz 01/05/19 01/06/19 01/07/19 06:59 06:59 06:59 Intake Total 2373.4 1342.8 Output Total 254 515 0 Balance 2119.4 827.8 0 - Physical Examination General/Neuro: NAD Neck: no JVD present Lungs: CTA, unlabored respirations Heart: other: (irr) Abdomen: NT/ND, soft Extremities: + femoral B - Telemetry Telemetry Rhythm: afib with LBBB - Labs Result Diagrams: 01/06/19 04:30 01/06/19 04:30 Troponin/CKMB CK-MB (CK-2) 0.7 ng/mL (0-6.6) 01/03/19 23:50 Troponin I 0.219 ng/mL (< 0.028) H 01/03/19 23:50 - Assessment/Plan 1. Flash pulmonary edema 2. Moderate MR 3. CAD s/p LAD stent 4. Underlying LBBB 5. Hx of wide complex rhythm, likely SVT/afib with underlying LBBB. 6. ANGELA on CKD 7. Anemia Very difficult situation. Pt now requiring dialysis. Hold BP meds (+) phyllis in BC in antifungals On amiodarone IV Not a good candidate for ACT given reuccring anemia Prognosis appears poor
[2019-01-06] MEDS: Calcitriol 0.25 MCG CAP PO SCH (09:31)
[2019-01-06] MEDS: HumaLOG 300 UNITS/3 ML VIAL SC PRN ×3 (10:56→20:31)
[2019-01-06] MEDS: Micafungin 100 MG in Sodium Chloride 0.9% 100 ML IVPB SCH (11:06)
[2019-01-06] MEDS: Norepinephrine 8 MG/250 ML BAG IVPB PRN (14:59)
--- NOTE | 2019-01-06 15:05 | PRG ---
DATE OF SERVICE: 01/06/2019 SERVICE: Pulmonary Medicine. INTERVAL HISTORY: The patient once again went into tachyarrhythmia. With this, she dropped her blood pressures, and her oxygen requirements went up once again. She cannot provide any additional elements of the history. Nursing reports no other events. She did not have any fevers. PHYSICAL EXAMINATION: VITAL SIGNS: Afebrile, pulse 76, blood pressure 95/45, respirations 28, saturation 91% on 60% FiO2 and a PEEP of 5. GENERAL: The patient is intubated and sedated. HEENT: Normocephalic and atraumatic. Sclerae white. Conjunctivae pink. Oral mucosa is moist without lesions. LUNGS: Decent air entry. Crackles are present. No prolonged expiratory phase or wheezing is appreciated. HEART: Normal rate and regular. ABDOMEN: Soft, nontender, and nondistended. Bowel sounds are positive. MUSCULOSKELETAL: No cyanosis or clubbing. There is no pitting in the bilateral lower extremities. NEUROLOGIC: Grossly nonfocal. LABORATORY DATA: WBC 15.5 and downtrending, hemoglobin 7.2 and downtrending, platelets 164,000, and neutrophil count is 76% on top of 7% bands. Creatinine 3.22 and downtrending with dialysis. Basic metabolic profile is otherwise unremarkable. ASSESSMENT: 1. Acute hypoxic respiratory failure. 2. Flash pulmonary edema, recurrent. 3. Mitral regurgitation. 4. Coronary artery disease, status post recent percutaneous coronary intervention to the LAD. 5. Acute kidney injury, requiring dialysis. 6. Paroxysmal atrial fibrillation. 7. Deep vein thrombosis. DISCUSSION AND PLAN: I will repeat a chest x-ray tomorrow morning. We will initiate Precedex for sedation. This may help with her anxiety, and also help with atrial fibrillation with RVR. We will continue our dialysis through time. If the patient fails to make a meaningful recovery, and we cannot wean mechanical ventilator, we will talk to the patient's daughter about transitioning over to comfort care only. Ultimately, I do believe that the patient has a condition for which recovery is extremely unlikely. CRITICAL CARE TIME: 30 minutes. Job ID: [id number]
--- NOTE | 2019-01-06 17:22 | PDOC.PN ---
- Subjective Encounter Start Date: 01/06/19 Encounter Start Time: 08:45 Subjective: on vent, obtunded -: daughter at bedside - Objective Resuscitation Status - Order Detail: 01/05/19 15:15 Resuscitation Status Routine Resuscitation Status: PRTL: Intubate only Discussed with: Daughter OREN Reviewed: Yes Vital Signs & Weight: Vital Signs (12 hours) Temp Pulse Resp Pulse Ox 01/06/19 16:49 80 01/06/19 16:00 97.8 F 31 H 01/06/19 15:13 80 01/06/19 14:00 28 H 01/06/19 12:59 89 01/06/19 12:33 96 01/06/19 12:00 97.9 F 32 H 01/06/19 10:33 96 01/06/19 10:00 25 H 01/06/19 08:44 104 H 01/06/19 08:43 104 H 01/06/19 08:00 27 H 100 01/06/19 07:40 104 H 01/06/19 07:00 98.3 F 01/06/19 06:00 17 Weight Admit Weight 152 lb 5.431 oz Weight 150 lb 12.739 oz Most Recent Monitor Data Heart Rate from ECG 108 NIBP 95/56 NIBP BP-Mean 69 Respiration from ECG 30 SpO2 87 I&O: 01/05/19 01/06/19 01/07/19 06:59 06:59 06:59 Intake Total 2373.4 1342.8 100 Output Total 254 515 0 Balance 2119.4 827.8 100 Result Diagrams: 01/06/19 04:30 01/06/19 04:30 Additional Labs: Accuchecks 01/06/19 01/06/19 01/06/19 16:07 10:56 04:30 POC Glucose 202 H 269 H 195 H 01/05/19 01/05/19 22:29 16:06 POC Glucose 208 H 280 H Phys Exam - Physical Examination HEENT: PERRLA, sclera anicteric Neck: no JVD, supple Respiratory: no wheezing rhonchi+ Cardiovascular: RRR, no significant murmur Gastrointestinal: soft, no distention, positive bowel sounds Musculoskeletal: no edema, pulses present Neurological: non-focal, moves all 4 limbs Dx/Plan (1) Acute respiratory failure with hypoxia Code(s): J96.01 - ACUTE RESPIRATORY FAILURE WITH HYPOXIA Status: Acute Comment: Due to flash pulmonary edema. (2) Acute pulmonary edema Code(s): J81.0 - ACUTE PULMONARY EDEMA Status: Acute Comment: recurrent (3) ANGELA (acute kidney injury) Code(s): N17.9 - ACUTE KIDNEY FAILURE, UNSPECIFIED Status: Acute Comment: on HD if blood pressure permits (4) Atrial fibrillation with RVR Code(s): I48.91 - UNSPECIFIED ATRIAL FIBRILLATION Status: Acute Comment: Paroxysmal. back in afib after spontaneous conversion to sinus (5) Hypotension Status: Acute Comment: Now on levophed. (6) Anemia in chronic kidney disease (CKD) Code(s): N18.9 - CHRONIC KIDNEY DISEASE, UNSPECIFIED; D63.1 - ANEMIA IN CHRONIC KIDNEY DISEASE Status: Acute (7) CAD (coronary artery disease) Code(s): I25.10 - ATHSCL HEART DISEASE OF [place] CORONARY ARTERY W/O ANG PCTRS Status: Chronic Comment: BMS Stenting of LAD 11/27/2018 (8) CHF (congestive heart failure), NYHA class III Code(s): I50.9 - HEART FAILURE, UNSPECIFIED Status: Chronic Qualifiers: Congestive heart failure type: diastolic Congestive heart failure chronicity: chronic Qualified Code(s): I50.32 - Chronic diastolic (congestive ) heart failure Comment: EF 55%, diastolic dysfunction (9) CKD (chronic kidney disease) stage 4, GFR 15-29 ml/min Code(s): N18.4 - CHRONIC KIDNEY DISEASE, STAGE 4 (SEVERE) Status: Chronic (10) DM type 2 (diabetes mellitus, type 2) Status: Chronic Qualifiers: Diabetes mellitus alf insulin use: with intermediate card tender use Diabetes mellitus complication status: with kidney complications Diabetes mellitus complication detail: with chronic kidney disease Chronic kidney disease stage : stage 4 (severe) Qualified Code(s): E11.22 - Type 2 diabetes mellitus with diabetic chronic kidney disease; N18.4 - Chronic kidney disease, stage 4 (severe ); Z79.4 - FPC (current) use of insulin (11) Hypothyroid Code(s): E03.9 - HYPOTHYROIDISM, UNSPECIFIED Status: Chronic Qualifiers: Hypothyroidism type: unspecified Qualified Code(s): E03.9 - Hypothyroidism , unspecified - Plan is on norepinephrine for press support -: amiodarone drip -: poor prognosis, d/w daughter at bedside -: hold all antihtn/cardiac meds that are po for now, sbp around 70 -: continue asp, plavix, solumedrol, cefepime and micafungin * . cbc in am, stool occult, may transfuse 1 u prbc which will help with blood pressure as well. Protonix iv daily. Review of Systems - Medications/Allergies Allergies/Adverse Reactions: Allergies Allergy/AdvReac Type Severity Reaction Status Date / Time apple Allergy Verified 01/02/19 06:08 hydrocodone Allergy Verified 01/02/19 06:08 Iodine and Iodide Containing Allergy Verified 01/02/19 06:08 Produc onion Allergy Verified 01/02/19 06:08 Medications: Current Medications Acetaminophen (Tylenol) 650 mg PO Q4H PRN PRN Reason: Headache/Fever/Mild Pain (1-3) Albuterol/Ipratropium (Duoneb) 3 ml NEB Q4H PRN PRN Reason: SOB &/or Wheezing Amlodipine Besylate (Norvasc) 5 mg PO BID [facility] Last Admin: 01/06/19 08:43 Dose: Not Given Aspirin (Aspirin Chewable) 81 mg PO DAILY [facility] Last Admin: 01/06/19 08:42 Dose: 81 mg Calcitriol (Rocaltrol) 0.25 mcg PO DAILY [facility] Last Admin: 01/06/19 09:31 Dose: 0.25 mcg Calcium Carbonate (Tums) 1,000 mg PO Q4H PRN PRN Reason: Heartburn or Indigestion Calcium/Vitamin D (Caltrate 600 + Vit D) 1 tab PO BID-[facility] Last Admin: 01/06/19 16:49 Dose: 1 tab Chlorhexidine Gluconate (Chlorhexidine Gluconate) 15 ml SSP Q2D [facility] Last Admin: 01/04/19 18:31 Dose: Not Given Clopidogrel Bisulfate (Plavix) 75 mg PO DAILY [facility] Last Admin: 01/06/19 08:42 Dose: 75 mg Dextrose/Water (Dextrose 50%) 25 gm SLOW IVP PRN PRN PRN Reason: Hypoglycemia Docusate Sodium (Colace) 100 mg PO DAILY [facility] Last Admin: 01/06/19 08:43 Dose: 100 mg Ferrous Sulfate (Feosol) 325 mg PO BID-[facility] Last Admin: 01/06/19 16:49 Dose: 325 mg Glucagon (Glucagon) 1 mg IM PRN PRN PRN Reason: Hypoglycemia Hydralazine HCl (Apresoline) 10 mg PO QID [facility] Last Admin: 01/06/19 16:49 Dose: Not Given Insulin Glargine 20 units/ (Miscellaneous Medication) 0.2 mls @ 0 mls/hr SC QAM [facility] Last Admin: 01/06/19 08:46 Dose: 0.2 mls Dextrose/Water (D5w) 1,000 mls @ 0 mls/hr IV .Q0M PRN PRN Reason: Hypoglycemia Cefepime HCl 2 gm/ Sodium (Chloride) 100 mls @ 200 mls/hr IVPB 0200 [facility] Last Admin: 01/06/19 01:58 Dose: 100 mls Amiodarone HCl 450 mg/Miscellaneous Medication 1 each/ Dextrose/Water 259 mls @ 0 mls/hr IVPB INF [facility]; Protocol Last Admin: 01/05/19 15:34 Dose: 259 mls Fentanyl Citrate 2,000 mcg/ (Sodium Chloride) 100 mls @ 0 mls/hr IV INF [facility]; Protocol Stop: 02/02/19 16:30 Fentanyl Citrate (Fentanyl Bolus) 250 mls @ 0 mls/hr IVPB PRN PRN PRN Reason: Breakthrough pain/agitation Stop: 02/02/19 16:30 Norepinephrine Bitartrate (Levophed) 250 mls @ 0 mls/hr IVPB INF PRN; Protocol PRN Reason: TO SBP >90 Last Admin: 01/06/19 14:59 Dose: 250 mls Micafungin Sodium 100 mg/ (Sodium Chloride) 100 mls @ 100 mls/hr IVPB Q24H [facility] Last Admin: 01/06/19 11:06 Dose: 100 mls Dexmedetomidine HCl 200 mcg/ (Sodium Chloride) 50 mls @ 0 mls/hr IVPB INF [facility] Last Admin: 01/06/19 16:48 Dose: 50 mls Insulin Human Lispro (Humalog) 0 units SC .AGGRESSIVE SLIDING PRN PRN Reason: Aggressive Correctional Scale Last Admin: 01/06/19 16:07 Dose: 6 unit Levothyroxine Sodium (Synthroid) 25 mcg PO 0600 [facility] Last Admin: 01/06/19 06:12 Dose: 25 mcg Methylprednisolone Sodium Succinate (Solu-Medrol) 40 mg IVP DAILY [facility] Last Admin: 01/06/19 08:44 Dose: 40 mg Metoprolol Tartrate (Lopressor) 50 mg PO BID [facility] Last Admin: 01/06/19 08:45 Dose: Not Given Mineral Oil/White Petrolatum (Systane Nighttime Eye Ointment) 0 gm EA EYE PRN PRN PRN Reason: Dry Eyes Miscellaneous Medication (Pharmacy To Dose) 1 each IVPB ONE PRN PRN Reason: DOSING Stop: 02/02/19 01:44 Nitroglycerin (Nitrostat) 0.4 mg SL Q5MIN PRN PRN Reason: .CHEST PAIN Nitroglycerin (Nitrostat) 0.4 mg SL Q5MIN PRN PRN Reason: Chest Pain Discontinue Previous Narcotic Pain Medications And Benzodiazepines 1 each FS .ONE [facility] Stop: 02/02/19 16:30 Ondansetron HCl (Zofran Odt) 4 mg PO Q6H PRN PRN Reason: Nausea/Vomiting Ondansetron HCl (Zofran) 4 mg IVP Q6H PRN PRN Reason: Nausea/Vomiting Pantoprazole Sodium (Protonix) 40 mg PO DAILY [facility] Last Admin: 01/06/19 08:41 Dose: 40 mg Potassium Chloride (K-Dur) 20 meq PO QAM-[facility] Last Admin: 01/06/19 08:43 Dose: Not Given Propofol (Diprivan) 1,000 mg IV INF PRN; Protocol PRN Reason: TO ACHIEVE GOAL RASS Stop: 02/02/19 16:30 Last Admin: 01/04/19 05:18 Dose: 1,000 mg Propofol (Diprivan Bolus) 20 mg IV Q5MIN PRN PRN Reason: BREAKTHROUGH AGITATION Stop: 02/02/19 16:30 Sertraline HCl (Zoloft) 25 mg PO QAM [facility] Last Admin: 01/06/19 08:42 Dose: 25 mg Sodium Chloride (Flush - Normal Saline) 10 ml IVF Q12HR [facility] Last Admin: 01/06/19 08:45 Dose: 10 ml Sodium Chloride (Flush - Normal Saline) 10 ml IVF PRN PRN PRN Reason: Saline Flush Sterile Water (Bacteriostatic Water) 1 ml FS PRN PRN PRN Reason: RECONSTITUTION Last Admin: 04/01/19 08:44 Dose: 1 ml Sterile Water (Bacteriostatic Water) 1 ml FS PRN PRN PRN Reason: RECONSTITUTION
[2019-01-06] MEDS: Chlorhexidine Gluconate 15 ML UDCUP SSP SCH (17:42)
--- NOTE | 2019-01-06 17:53 | EKG ---
Test Reason : Blood Pressure : / mmHG Vent. Rate : 151 BPM Atrial Rate : 115 BPM P-R Int : 000 ms QRS Dur : 130 ms QT Int : 332 ms P-R-T Axes : 000 -64 113 degrees QTc Int : 526 ms Atrial fibrillation with rapid ventricular response Left axis deviation Left bundle branch block Abnormal ECG When compared with ECG of 02-JAN-2019 01:57, (Unconfirmed) Atrial fibrillation has replaced Sinus rhythm Vent. rate has increased BY [address] more depressed in Lateral leads Confirmed by ANGELES WALKER (2) on 01/06/2019 5:53:06 PM Referred By: RAFAEL Confirmed By:ANGELES WALKER
[2019-01-06] MEDS: Amiodarone 450 MG, Admixture Fee 1 EACH in Dextrose 5% in Water 250 ML IVPB SCH (21:00)
[2019-01-07] MEDS ORDERED: Lorazepam 2 MG/ML VIAL SLOW IVP SCH (00:45)
[2019-01-07] MEDS: Cefepime 2 GM in Sodium Chloride 0.9% 100 ML IVPB SCH (02:10)
--- NOTE | 2019-01-07 04:42 | PRG ---
DATE OF SERVICE: 01/06/2019 SUBJECTIVE: This is an elderly female, seen in ICU, intubated. OBJECTIVE: GENERAL: This is an elderly female, who is in ICU, intubated. VITAL SIGNS: Temperature 97.8, pulse 108, respiratory rate , and blood pressure 115/68. HEENT: Intubated. CV: S1 and S2 heard. RESPIRATORY: Clear. GI: Abdomen is soft. MUSCULOSKELETAL: 1+ edema. DERMATOLOGIC: No skin rash. NEUROLOGIC: Sedated. LABORATORY DATA: Potassium is 4.3, BUN is 49, and creatinine is 3.2. ASSESSMENT: 1. Acute kidney injury on chronic kidney disease, stage 4, started on dialysis. 2. Hyperkalemia, better. 3. Anemia, stable. 4. Edema. 5. Cardiorenal syndrome. PLAN: Plan is to continue on dialysis if tolerated. Blood pressure remains high risk for complication. Job ID: [id number]
[2019-01-07 05:02] LABS: Anion Gap 20 mmol/L (10-20); BUN (Urea Nitrogen) 73 mg/dL (9.8-20.1); Calc. Creatinine Clearance 10 mL/min (70-130); Calcium 8.1 mg/dL (7.8-10.44); Carbon Dioxide 19 mmol/L (23-31); Chloride 102 mmol/L (98-107); Estimated GFR-MDRD 9; Glucose 186 mg/dL (83-110); Potassium 4.7 mmol/L (3.5-5.1); Sodium 136 mmol/L (136-145)
[2019-01-07] MEDS: Levothyroxine Sodium 25 MCG TAB PO SCH (05:08)
[2019-01-07] MEDS: HumaLOG 300 UNITS/3 ML VIAL SC PRN (05:08)
--- NOTE | 2019-01-07 06:18 | PDOC.CTH ---
Cardiology Progress Note - Subjective No changes overnight - Objective Vital Signs Temp Pulse Pulse Resp BP BP Pulse Ox 01/07/19 06:00 20 01/07/19 04:00 97.9 F 20 01/07/19 02:00 17 01/07/19 01:54 70 138/67 01/07/19 00:00 97.5 F L 34 H 78 L 01/06/19 22:00 20 01/06/19 21:56 108 H 112/55 L 01/06/19 20:21 97.5 F L 92 23 H 106/66 100 01/06/19 20:00 97.5 F L 23 H 100 01/06/19 18:31 110 H 105/50 L Admit Weight 152 lb 5.431 oz Weight 153 lb 14.122 oz 01/05/19 01/06/19 01/07/19 06:59 06:59 06:59 Intake Total 2373.4 1342.8 1726.4 Output Total 254 515 111 Balance 2119.4 827.8 1615.4 - Physical Examination General/Neuro: NAD Neck: no JVD present Lungs: CTA, unlabored respirations Heart: PMI normal, other: (irr) Abdomen: NT/ND, soft Extremities: + femoral B - Telemetry Telemetry Rhythm: IRR - Labs Result Diagrams: 01/07/19 04:15 01/07/19 04:15 Troponin/CKMB CK-MB (CK-2) 0.7 ng/mL (0-6.6) 01/03/19 23:50 Troponin I 0.219 ng/mL (< 0.028) H 01/03/19 23:50 - Assessment/Plan 1. Flash pulmonary edema 2. Moderate MR 3. CAD s/p LAD stent 4. Underlying LBBB 5. Hx of wide complex rhythm, likely SVT/afib with underlying LBBB. 6. ANGELA on CKD 7. Anemia No changes overnight May strongly benefit from dialysis (reduction of pulmonary edema) although superintendent terminal prognosis poor Family to have a meeting to discuss hospice today. otherwise no changes from a cV standpoint Cotninue ASA. No plavix (BMS)
[2019-01-07 06:26] LABS: Band 14 % (5-11); Lymphocytes 10 % (21-51); MDiff Complete? YES; Mean Corpuscular HGB CONC 34.7 g/dL (32.0-36.0); Mean Corpuscular Hemoglobin 30.4 pg (27.0-31.0); Mean Corpuscular Volume 87.5 fL (78.0-98.0); Mean Platelet Volume 8.4 fL (7.4-10.4); Metamyelocyte 1 % (0-0); Monocytes 4 % (0-10); Neutrophil 71 % (42-75); Nucleated RBC 4 % (0); Platelet Count 148 thou/uL (130-400); Red Blood Cell (RBC) Count 2.64 mill/uL (4.20-5.40); White Blood Cell (WBC) Count 25.4 thou/uL (4.8-10.8)
[2019-01-07] MEDS: Potassium Chloride 20 MEQ TAB PO SCH (08:14)
[2019-01-07] MEDS: Calcium Carbonate + Vit D 1 TAB PO SCH (08:14)
[2019-01-07] MEDS: Aspirin Chewable 81 MG TAB PO SCH (08:15)
[2019-01-07] MEDS: Docusate 100 MG CAP PO SCH (08:15)
[2019-01-07] MEDS: Ferrous Sulfate 325 MG TAB PO SCH (08:23)
[2019-01-07] MEDS: Amlodipine 5 MG TAB PO SCH (08:23)
[2019-01-07] MEDS: Clopidogrel Bisulfate 75 MG TAB PO SCH (08:24)
[2019-01-07] MEDS: Calcitriol 0.25 MCG CAP PO SCH (08:24)
[2019-01-07] MEDS: hydrALAZINE 10 MG TAB PO SCH (08:25)
--- NOTE | 2019-01-07 08:27 | RAD ---
SINGLE VIEW OF THE CHEST: Comparison: 01-04-19 History: Pulmonary infiltrate. FINDINGS: Single view of the chest shows an enlarged but stable cardiomediastinal silhouette. The lines and tub es are unchanged in position. There are worsening multifocal infiltrates in the right lung. There are small bilateral pleural effusions. IMPRESSION: 1. Worsening right sided infiltrates. 2. Bilateral pleural effusions. POS: [facility]
[2019-01-07] MEDS: Pantoprazole 40 MG GRANULES PACKET PO SCH (08:28)
[2019-01-07] MEDS: Metoprolol Tartrate 50 MG TAB PO SCH (08:28)
[2019-01-07] MEDS: methylPREDNISolone Sod Succ 40 MG VIAL IVP SCH (08:28)
[2019-01-07] MEDS: Insulin Glargine 20 UNITS in Pre-Filled Syringe 1 EACH SC SCH (08:29)
[2019-01-07] MEDS ORDERED: Albumin 25% 25 GM/100 ML BOT IVPB SCH (09:15)
[2019-01-07] MEDS ORDERED: Albumin 25% 100 ML ONE (09:34)
--- NOTE | 2019-01-07 10:59 | PRG ---
DATE OF SERVICE: SERVICE: Pulmonary Medicine. INTERVAL HISTORY: The patient is doing a little better from respiratory standpoint today. She is no longer going to be breathing. Additionally, she has been maintained in sinus rhythm with some premature atrial contractions. She has not been in atrial fibrillation overnight. With her heart rate under better control, her oxygen requirements have dramatically improved. She is on dialysis. So far, this morning she is tolerating that just fine. PHYSICAL EXAMINATION: VITAL SIGNS: Afebrile, pulse 69, blood pressure 95/47, respirations 18, and saturation 96% on 51% FiO2 and PEEP of 5. GENERAL: The patient is intubated and sedated. HEENT: Normocephalic and atraumatic. Sclerae white. Conjunctivae pink. Oral mucosa is moist without lesions. LUNGS: Decent air entry. Crackles are present, a little worse on the right. HEART: Normal rate and regular. ABDOMEN: Soft, nontender, nondistended. Bowel sounds are positive. MUSCULOSKELETAL: No cyanosis or clubbing. There is no pitting in the bilateral lower extremities. NEUROLOGIC: Grossly nonfocal. LABORATORY DATA: WBC 25.4, hemoglobin 8.0, platelets 148,000. Creatinine 4.44 and up trending, BUN 73. Basic metabolic profile is otherwise unremarkable. Bicarb 19. Sputum is growing Melonie albicans. Urine culture is also growing E species. Blood cultures x2 are negative. IMAGING STUDIES: Chest x-ray demonstrates extensive right-sided infiltrates. Bilateral atelectasis and/or effusions are present. There is a right IJ central venous catheter that terminates in good position. Endotracheal tube is in good position, roughly 4 cm above the level of the nicholas. ASSESSMENT: 1. Acute hypoxic respiratory failure. 2. Flash pulmonary edema, recurrent. 3. Mitral regurgitation. 4. Healthcare-associated pneumonia secondary to Melonie. 5. Acute kidney injury, requiring dialysis. 6. Paroxysmal atrial fibrillation. 7. Deep venous thrombosis. DISCUSSION AND PLAN: The patient is doing fine from respiratory standpoint. We will continue to wean oxygen away through time. Recovery to a meaningful state is very unlikely. That being said, if the patient can be maintained with hemodynamic stability over the next 24 hours, she may extubate more comfortably than we realize. Critical Care will continue to follow along while will certainly remain in the ICU. Discussions with palliative care will be continued. At this point, we are close to futility, but we are not there. CRITICAL CARE TIME: 30 minutes. Job ID: [id number]
[2019-01-07] MEDS: Micafungin 100 MG in Sodium Chloride 0.9% 100 ML IVPB SCH (13:14)
[2019-01-07 15:10] VITALS: BP 83/51
[2019-01-07 15:13] LABS: Cytoplasmic (C-ANCA) <1:20 titer (Neg:<1:20); Myeloperoxidase AutoAbs <9.0 U/mL (0.0-9.0); Perinuclear (P-ANCA) <1:20 titer (Neg:<1:20); Proteinase-3 AutoAbs Less than 3.5 U/mL (0.0-3.5)
--- NOTE | 2019-01-07 15:53 | PDOC.PN ---
- Subjective Encounter Start Date: 01/07/19 Encounter Start Time: 12:30 Subjective: on vent, grimazes to touch, not awake or oriented - Objective Resuscitation Status - Order Detail: 01/05/19 15:15 Resuscitation Status Routine Resuscitation Status: PRTL: Intubate only Discussed with: Daughter OREN Reviewed: Yes Vital Signs & Weight: Vital Signs (12 hours) Temp Pulse Resp BP Pulse Ox 01/07/19 15:08 110 H 83/51 L 01/07/19 11:36 17 01/07/19 10:30 76 87/42 L 01/07/19 09:26 19 01/07/19 08:25 70 111/61 01/07/19 08:23 70 111/61 01/07/19 07:08 18 96 01/07/19 06:36 70 111/61 01/07/19 06:00 20 01/07/19 04:00 97.9 F 20 Weight Admit Weight 152 lb 5.431 oz Weight 153 lb 14.122 oz Most Recent Monitor Data Heart Rate from ECG 112 NIBP 82/55 NIBP BP-Mean 64 Respiration from ECG 20 SpO2 95 I&O: 01/06/19 01/07/19 01/08/19 06:59 06:59 06:59 Intake Total 1342.8 1726.4 740 Output Total 515 111 80 Balance 827.8 1615.4 660 Result Diagrams: 01/07/19 04:15 01/07/19 04:15 Additional Labs: Accuchecks 01/07/19 01/06/19 01/06/19 10:13 20:32 16:07 POC Glucose 136 H 222 H 202 H Phys Exam - Physical Examination HEENT: PERRLA, moist MMs Neck: no JVD, supple Respiratory: no wheezing coarse rales+ Cardiovascular: RRR, no significant murmur Gastrointestinal: soft, non-tender, positive bowel sounds Musculoskeletal: no edema, pulses present Neurological: non-focal Dx/Plan (1) Acute respiratory failure with hypoxia Code(s): J96.01 - ACUTE RESPIRATORY FAILURE WITH HYPOXIA Status: Acute Comment: Due to flash pulmonary edema. (2) Acute pulmonary edema Code(s): J81.0 - ACUTE PULMONARY EDEMA Status: Acute Comment: recurrent (3) ANGELA (acute kidney injury) Code(s): N17.9 - ACUTE KIDNEY FAILURE, UNSPECIFIED Status: Acute Comment: initiated on HD (4) Atrial fibrillation with RVR Code(s): I48.91 - UNSPECIFIED ATRIAL FIBRILLATION Status: Acute Comment: Paroxysmal. back in afib after spontaneous conversion to sinus (5) Hypotension Status: Acute Comment: levophed off and on (6) Anemia in chronic kidney disease (CKD) Code(s): N18.9 - CHRONIC KIDNEY DISEASE, UNSPECIFIED; D63.1 - ANEMIA IN CHRONIC KIDNEY DISEASE Status: Acute (7) CAD (coronary artery disease) Code(s): I25.10 - ATHSCL HEART DISEASE OF [place] CORONARY ARTERY W/O ANG PCTRS Status: Chronic Comment: BMS Stenting of LAD 11/27/2018 (8) CHF (congestive heart failure), NYHA class III Code(s): I50.9 - HEART FAILURE, UNSPECIFIED Status: Chronic Qualifiers: Congestive heart failure type: diastolic Congestive heart failure chronicity: chronic Qualified Code(s): I50.32 - Chronic diastolic (congestive ) heart failure Comment: EF 55%, diastolic dysfunction (9) CKD (chronic kidney disease) stage 4, GFR 15-29 ml/min Code(s): N18.4 - CHRONIC KIDNEY DISEASE, STAGE 4 (SEVERE) Status: Chronic (10) DM type 2 (diabetes mellitus, type 2) Status: Chronic Qualifiers: Diabetes mellitus snf insulin use: 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 Diabetes mellitus complication status: with kidney complications Diabetes mellitus complication detail: with chronic kidney disease Chronic kidney disease stage : stage 4 (severe) Qualified Code(s): E11.22 - Type 2 diabetes mellitus with diabetic chronic kidney disease; N18.4 - Chronic kidney disease, stage 4 (severe ); Z79.4 - half-way (current) use of insulin (11) Hypothyroid Code(s): E03.9 - HYPOTHYROIDISM, UNSPECIFIED Status: Chronic Qualifiers: Hypothyroidism type: unspecified Qualified Code(s): E03.9 - Hypothyroidism , unspecified - Plan has increased right sided infiltrates -: recieved 1 u prbc yesterday -: currently receiving HD at bedside, had alb infusions+ -: is off levophed from am -: family likely going into withdrawal of care and hospice this evening per pc * . Review of Systems - Medications/Allergies Allergies/Adverse Reactions: Allergies Allergy/AdvReac Type Severity Reaction Status Date / Time apple Allergy Verified 01/02/19 06:08 hydrocodone Allergy Verified 01/02/19 06:08 Iodine and Iodide Containing Allergy Verified 01/02/19 06:08 Produc onion Allergy Verified 01/02/19 06:08 Medications: Current Medications Dexmedetomidine HCl 200 mcg/ (Sodium Chloride) 50 mls @ 0 mls/hr IVPB INF GUALBERTO Last Admin: 01/07/19 10:36 Dose: 50 mls
[2019-01-07] MEDS ORDERED: Lorazepam 2 MG/ML VIAL SLOW IVP PRN (15:59)
[2019-01-07] MEDS ORDERED: Morphine 2 MG/ML SYRINGE SLOW IVP PRN (16:00)
[2019-01-08 00:24] VITALS: TEMP 96.5
--- NOTE | 2019-01-08 07:33 | PRG ---
DATE OF SERVICE: 01/07/2019 SUBJECTIVE: The patient is an elderly female, seen in ICU, intubated. OBJECTIVE: GENERAL: This is an elderly female, seen in ICU, intubated. VITAL SIGNS: Temperature 97.9, pulse 95, respiratory rate 22, blood pressure 85/55. HEENT: Intubated. CV: S1 and S2 heard. RESPIRATORY: Clear. GI: Abdomen is soft. MUSCULOSKELETAL: 1+ edema. DERMATOLOGIC: No skin rash. NEUROLOGIC: Sedated. LABORATORY DATA: Potassium 4.7, BUN is 73, creatinine is 4.4. ASSESSMENT AND PLAN: 1. Acute kidney injury on chronic kidney disease, stage 4, hemodialysis dependent. We will have dialysis as tolerated, but the patient is not tolerating dialysis well on discussion with the daughter. 2. Hyperkalemia, better. 3. Anemia. 4. Edema. 5. Prognosis . 6. We will have dialysis as tolerated, but family is thinking about withdrawing the care. We will follow. Job ID: [id number]
--- NOTE | 2019-01-08 16:26 | DIS ---
DATE OF ADMISSION: 01/02/2019 DATE OF DISCHARGE: 01/07/2019 SUMMARY DATE OF : 01/07/2019, at 2018 hours. PRIMARY CAUSE OF : Acute CHF exacerbation with diastolic dysfunction and acute respiratory failure with hypoxia due to recurrent pulmonary edema, both from last 6 days; acute renal failure from last 6 days; atrial fibrillation with RVR from last 6 days; ventricular tachycardia, nonsustained. SECONDARY CAUSE OF : Severe deconditioning with recurrent hospitalizations here, history of cardiac arrest with ventricular tachycardia 2 months back, coronary artery disease with bare-metal stent placed to LAD on 11/27/2018; anemia; CKD, stage BRIEF COURSE DURING HOSPITALIZATION: The patient initially was sent from [facility] for an episode of ventricular tachycardia. She was given amiodarone and the patient promptly converted to sinus rhythm. She was placed on BiPAP for acute respiratory failure with hypoxia and was admitted to ICU. The patient progressively got worse and became hypotensive. She was initially on nitroglycerin drip due to chest pain, which was weaned off, but had to be placed on Levophed for hypotension. She has had progressive decline during her stay here. She was evaluated by Dr. Rangel for Pulmonology, Dr. Kim for Cardiology, and Dr. Tenorio for Nephrology. The patient was subsequently intubated and had to be mechanically ventilated for hypoxia, flash pulmonary edema and hypotension. The patient has had recurrent episodes of flash pulmonary edema with atrial arrhythmias off and on during her stay here. Ms. Paula Daniel was placed on Levophed, which was titrated to the maximum despite which the systolic blood pressures were in the 60s. She was also hypoxic on 100% FiO2 on the ventilator. The family decided to go for withdrawal of care due to very poor prognosis. The patient finally was declared at 2018 hours on 01/07/2019. The body will be released to home per protocol. Family members were at bedside when Ms. Mitchell . Job ID: [id number] [facility]
== END 2019-01-07 20:30 | disposition expired | DRG 208 ==
LOC: ERS 00:47 → CCU 03:17
PROVIDERS: ADMIT Hospitalist; ATTEND Hospitalist
PROC: 5A09357 Assistance with Respiratory Ventilation, Less than 24 Consecutive Hours, Continuous Positive Airway Pressure (ICD-10-PCS; 2019-01-02)
PROC: 0BH18EZ Insertion of Endotracheal Airway into Trachea, Via Natural or Artificial Opening Endoscopic (ICD-10-PCS; principal; 2019-01-03)
PROC: 5A1945Z Respiratory Ventilation, 24-96 Consecutive Hours (ICD-10-PCS; 2019-01-03)
PROC: 02H633Z Insertion of Infusion Device into Right Atrium, Percutaneous Approach (ICD-10-PCS; 2019-01-04)
PROC: 3E033XZ Introduction of Vasopressor into Peripheral Vein, Percutaneous Approach (ICD-10-PCS; 2019-01-04)
PROC: 06HY33Z Insertion of Infusion Device into Lower Vein, Percutaneous Approach (ICD-10-PCS; 2019-01-05)
PROC: 5A1D70Z Performance of Urinary Filtration, Intermittent, Less than 6 Hours Per Day (ICD-10-PCS; 2019-01-05)
PROC: B543ZZA Ultrasonography of Right Jugular Veins, Guidance (ICD-10-PCS; 2019-01-05)
DX: J96.01 Acute respiratory failure with hypoxia (principal); I21.A1 Myocardial infarction type 2; N18.6 End stage renal disease; B37.1 Pulmonary candidiasis; I50.33 Acute on chronic diastolic (congestive) heart failure; I13.2 Hypertensive heart and chronic kidney disease with heart failure and with stage 5 chronic kidney disease, or end stage renal disease; I47.2 Ventricular tachycardia; I16.1 Hypertensive emergency; N17.9 Acute kidney failure, unspecified; I82.409 Acute embolism and thrombosis of unspecified deep veins of unspecified lower extremity; R57.9 Shock, unspecified; Z66 Do not resuscitate; I25.10 Atherosclerotic heart disease of native coronary artery without angina pectoris; E78.5 Hyperlipidemia, unspecified; E11.22 Type 2 diabetes mellitus with diabetic chronic kidney disease; K21.9 Gastro-esophageal reflux disease without esophagitis; I48.0 Paroxysmal atrial fibrillation; D63.1 Anemia in chronic kidney disease; I34.0 Nonrheumatic mitral (valve) insufficiency; E11.65 Type 2 diabetes mellitus with hyperglycemia; E03.9 Hypothyroidism, unspecified; E87.5 Hyperkalemia; Z95.1 Presence of aortocoronary bypass graft; Z95.5 Presence of coronary angioplasty implant and graft; Z91.041 Radiographic dye allergy status; Z91.018 Allergy to other foods; Z88.8 Allergy status to other drugs, medicaments and biological substances; Z79.899 Other long term (current) drug therapy; Z79.82 Long term (current) use of aspirin; Z79.01 Long term (current) use of anticoagulants; Z79.4 Long term (current) use of insulin; Y95 Nosocomial condition; F32.9 Major depressive disorder, single episode, unspecified; I44.7 Left bundle-branch block, unspecified; I25.2 Old myocardial infarction; Z88.5 Allergy status to narcotic agent
CPT/HCPCS: 36415; 36416; 36430; 71045; 80048; 80053; 80202; 82550; 82553; 82805; 83520; 83735; 83880; 84100; 84443; 84484; 85025; 85610; 85730; 86140; 86256; 86850; 86900; 86901; 87040; 87070; 87086; 87205; 87340; 90935; 93005; 93010; 93970; 94002; 94003; 94660; 96374; 96376; A4218; G0257; G0365; J0282; J0692; J1160; J1642; J1644; J1650; J1825; J1940; J2060; J2248; J2250; J2270; J2704; J2920; J3370; J3475; J7050; J7070; P9016; P9047